=== PATIENT | male | born 1950 | race African-American/Black ===

== ENCOUNTER 2017-03-21 02:34 | Inpatient (IN) | payer MEDICAID, MEDICARE ==
[~2017-03-21] VITALS: Ht 175.3 cm; Wt 70.3 kg
[2017-03-21] VITALS (7 sets, daily range): BP systolic 113–159; BP diastolic 50–78
[~2017-03-21 02:34] MED LIST: DIAZEPAM2 MG ORAL; FLOMAX0.4 MG ORAL; KLONOPIN1 MG ORAL; METFORMIN HCL500 M1 ORAL; METHADONE HCL10 MG PO; NORCO 10/3251 EA ORAL
--- NOTE | 2017-03-21 02:43 | Emergency Room Report ---
History of Present Illness General Chief Complaint: Pain Source: Patient, EMS Present Illness HPI [id number] BIBEMS from [facility] for "left leg giving out on me." States happened 6 days ago as well, was admitted to [facility] for 5 days where "they didnt do an MRI of my leg" like they said they would. History of bladder/prostate CA, s/p chemo/rad, but "not sure if it was healed." Endorses occasional urinary incontinence, denies fecal incontinence Last visit here was multiple years ago Known methadone, opiate dependence Allergies: Coded Allergies: NO KNOWN DRUG ALLERGIES (Verified Allergy, Unknown, 12/09/14) Patient History Past Medical History: other - bladder, prostate CA Past Surgical History: none Pertinent Family History: none Social History: Denies: smoking, alcohol use, drug use Immunizations: UTD Reviewed Nursing Documentation: PMH: Agreed, PSxH: Agreed Nursing Documentation-PMH Past Medical History: No History, Except For Hx Cardiac Problems: Yes - "cardiac arrhythmia" Hx Hypertension: Yes Hx Diabetes: Yes - dm2 Hx Cancer: Yes - prostate and bladder Hx Seizures: Yes Review of Systems All Other Systems: negative except mentioned in HPI Physical Exam Vital Signs Date Time Temp Pulse Resp B/P (MAP) Pulse Ox O2 Delivery O2 Flow Rate FiO2 03/21/17 02:24 98.1 76 18 147/81 99 Room Air Sp02 EP Interpretation: reviewed, normal General Appearance: normal inspection, well appearing, no apparent distress, alert, GCS 15, non-toxic, cachetic, thin Head: normocephalic, atraumatic Eyes: bilateral eye PERRL, bilateral eye EOMI ENT: normal ENT inspection, hearing grossly normal, normal pharynx, no angioedema, normal voice, TMs + canals normal, uvula midline, moist mucus membranes Neck: normal inspection, full range of motion, supple, thyroid normal, no meningismus, no bony tend Respiratory: normal inspection, lungs clear, normal breath sounds, no rhonchi, no respiratory distress, no retraction, no accessory muscle use, no wheezing, speaking full sentences Cardiovascular #1: regular rate, rhythm, no edema, no JVD, normal capillary refill Gastrointestinal: normal inspection, normal bowel sounds, non tender, soft, no mass, no peritonitis, non-distended, no guarding, no hernia, no pulsatile mass Genitourinary: no CVA tenderness Musculoskeletal: normal inspection, back normal, normal range of motion, no calf tenderness, pelvis stable, Marco A's Sign negative Neurologic: normal inspection, alert, oriented x3, 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 H&H Stable. No other metabolic abnormalities UA: 15-20RBCs Flu negative CT: metastatic lesion to L2, no cord compression Endorsed to Dr Kunz for admission at 630am, med surg bed Rhythm Strip Diag. Results EP Interpretation: yes Rate: 75 Rhythm: NSR, no PVC's, no ectopy Last Vital Signs Date Time Temp Pulse Resp B/P (MAP) Pulse Ox O2 Delivery O2 Flow Rate FiO2 03/21/17 02:24 98.1 76 18 147/81 99 Room Air Status: improved Disposition: ADMITTED INPATIENT Condition: Serious ANGELES GIPSON M.D. Mar 21, 2017 02:43
[2017-03-21 04:26] LABS: BASOPHILS % (AUTO) 1.1 % (0.0-2.0); EOSINOPHILS % (AUTO) 2.6 % (0.0-3.0); HEMATOCRIT 32.9 % (42.0-52.0); HEMOGLOBIN 10.6 G/DL (14.2-18.0); LYMPHOCYTES % (AUTO) 31.9 % (20.0-45.0); MEAN CORPUSCULAR VOLUME 102 FL (80-99); MONOCYTES % (AUTO) 9.5 % (1.0-10.0); PLATELET COUNT 204 K/UL (150-450); RED BLOOD COUNT 3.23 M/UL (4.70-6.10); RED CELL DISTRIBUTION WIDTH 15.2 % (11.6-14.8); WHITE BLOOD COUNT 9.1 K/UL (4.8-10.8)
[2017-03-21 04:30] LABS: APPEARANCE,URINE CLEAR; BILIRUBIN, URINE NEGATIVE (NEGATIVE); GLUCOSE, URINE (UA) NEGATIVE (NEGATIVE); KETONES,URINE NEGATIVE (NEGATIVE); LEUKOCYTE ESTERASE ,URINE 1+ (NEGATIVE); NITRITE,URINE NEGATIVE (NEGATIVE); PH,URINE 5 (4.5-8.0); PROTEIN,URINE 1+ (NEGATIVE); UROBILINOGEN,URINE 1 MG/DL (0.0-1.0)
[2017-03-21 04:35] LABS: ANION GAP 9 mmol/L (5-15); BLOOD UREA NITROGEN 23 mg/dL (7-18); CALCIUM 8.8 MG/DL (8.5-10.1); CARBON DIOXIDE 27 MMOL/L (21-32); CHLORIDE 105 MMOL/L (98-107); COLOR,URINE YELLOW; CREATININE 0.9 MG/DL (0.55-1.30); POTASSIUM 3.5 MMOL/L (3.5-5.1); SODIUM 141 MMOL/L (136-145)
[2017-03-21] MEDS ORDERED: KLONOPIN1 MG ORAL (04:42)
[2017-03-21 04:49] LABS: ALANINE AMINOTRANSFERASE 20 U/L (12-78); ALBUMIN 3.2 G/DL (3.4-5.0); ALBUMIN/GLOBULIN RATIO 0.8 (1.0-2.7); ALKALINE PHOSPHATASE 110 U/L (46-116); ASPARTATE AMINO TRANSFERASE 23 U/L (15-37); BILIRUBIN,TOTAL 0.2 MG/DL (0.2-1.0); CKMB 1.8 NG/ML (0.0-3.6); CREATINE KINASE 90 U/L (26-308)
[2017-03-21] MEDS ORDERED: LORazepam Inj 2mg/ml 1ml IV PRN (06:15)
[2017-03-21] MEDS ORDERED: Mylanta II UD 30ml ORAL PRN (06:15)
[2017-03-21] MEDS ORDERED: Albuterol/Ipratropium 3ml neb HHN PRN (06:15)
[2017-03-21] MEDS ORDERED: Miralax 17gm pkt ORAL PRN (06:15)
[2017-03-21] MEDS ORDERED: Promethazine/Codeine 5ml UD ORAL PRN (06:15)
[2017-03-21] MEDS ORDERED: Nitroglycerin Subl 0.4mg tab SL PRN (06:15)
[2017-03-21] MEDS: D5 1/2NS 1,000 ML IV SCH (06:49)
[2017-03-21] MEDS ORDERED: Heparin 5000 units/ml inj SUBQ SCH (09:00)
[2017-03-21] MEDS: Tamsulosin 0.4mg cap ORAL SCH (09:37)
--- NOTE | 2017-03-21 09:43 | History and Physical ---
History of Present Illness General Date patient seen: Mar 21, 2017 Reason for Hospitalization: Pain Present Illness HPI 66 year old male with hx of IVDA, on Methasone, bladder/prostate CA, arrhythmia brought in by paramedics [facility] for "left leg giving out on me. " Pt looked chronically ill and cachectic. He is admitted evaluate weakness in lower extremity and rule out CVA. Allergies: Coded Allergies: NO KNOWN DRUG ALLERGIES (Verified Allergy, Unknown, 12/09/14) Medication History Scheduled Clonazepam* (Klonopin*), 2 MG ORAL TID, (Reported) Clonazepam* (Klonopin*), 2 MG ORAL BID, (Reported) Metformin Hcl* (Metformin Hcl*), 500 MG ORAL TWICE A DAY, (Reported) Metformin Hcl* (Metformin Hcl*), Unknown Dose ORAL TWICE A DAY, (Reported) Methadone Hcl* (Methadone*), 90 MG PO DAILY, (Reported) Tamsulosin HCl (Flomax), 0.4 MG ORAL DAILY, (Reported) Scheduled PRN Diazepam* (Diazepam*), 2 MG ORAL Q6H PRN for ANXIETY, (Reported) Hydrocodone/Acetaminophen (Hydrocodon-Acetaminophn 10-325), 1 TAB ORAL EVERY 12 HOURS PRN for For Pain, (Reported) Patient History Healthcare decision maker Resuscitation status Advanced Directive on File Past Medical/Surgical History Past Medical/Surgical History: (1) Prostate CA (2) Subdural hematoma Review of Systems Constitutional: Reports: malaise, weakness Neurological: Reports: numbness - in left leg All Other Systems: negative except mentioned in HPI Physical Exam General Appearance: cachetic Lines, tubes and drains: peripheral HEENT: normocephalic, atraumatic Neck: non-tender, supple Respiratory/Chest: chest wall non-tender, normal breath sounds Breasts: no masses Cardiovascular/Chest: normal peripheral pulses Abdomen: normal bowel sounds, non tender Last 24 Hour Vital Signs Date Time Temp Pulse Resp B/P (MAP) Pulse Ox O2 Delivery O2 Flow Rate FiO2 03/21/17 06:30 97.8 76 18 131/64 97 Room Air 03/21/17 06:24 98.0 74 18 131/50 96 Room Air 03/21/17 06:21 98.0 74 18 131/50 96 Room Air 03/21/17 04:29 98.0 64 16 128/58 99 Room Air 03/21/17 02:38 98.1 70 18 113/65 99 Room Air 03/21/17 02:24 98.1 76 18 147/81 99 Room Air Laboratory Tests Test 03/21/17 04:00 White Blood Count 9.1 K/UL (4.8-10.8) Red Blood Count 3.23 M/UL (4.70-6.10) L Hemoglobin 10.6 G/DL (14.2-18.0) L Hematocrit 32.9 % (42.0-52.0) L Mean Corpuscular Volume 102 FL (80-99) H Mean Corpuscular Hemoglobin 32.8 PG (27.0-31.0) H Mean Corpuscular Hemoglobin Concent 32.2 G/DL (32.0-36.0) Red Cell Distribution Width 15.2 % (11.6-14.8) H Platelet Count 204 K/UL (150-450) Mean Platelet Volume 6.7 FL (6.5-10.1) Neutrophils (%) (Auto) 55.0 % (45.0-75.0) Lymphocytes (%) (Auto) 31.9 % (20.0-45.0) Monocytes (%) (Auto) 9.5 % (1.0-10.0) Eosinophils (%) (Auto) 2.6 % (0.0-3.0) Basophils (%) (Auto) 1.1 % (0.0-2.0) Urine Color Yellow Urine Appearance Clear Urine pH 5 (4.5-8.0) Urine Specific [place] 1.015 (1.005-1.035) Urine Protein 1+ (NEGATIVE) H Urine Glucose (UA) Negative (NEGATIVE) Urine Ketones Negative (NEGATIVE) Urine Occult Blood 1+ (NEGATIVE) H Urine Nitrite Negative (NEGATIVE) Urine Bilirubin Negative (NEGATIVE) Urine Urobilinogen 1 MG/DL (0.0-1.0) H Urine Leukocyte Esterase 1+ (NEGATIVE) H Urine RBC 15-20 /HPF (0 - 0) H Urine WBC 2-4 /HPF (0 - 0) Urine Squamous Epithelial Cells Few /LPF (NONE/OCC) Urine Calcium Oxalate Crystals Moderate /LPF (NONE) Urine Bacteria Few /HPF (NONE) Urine Mucus Few /LPF (NONE/OCC) H Sodium Level 141 MMOL/L (136-145) Potassium Level 3.5 MMOL/L (3.5-5.1) Chloride Level 105 MMOL/L (98-107) Carbon Dioxide Level 27 MMOL/L (21-32) Anion Gap 9 mmol/L (5-15) Blood Urea Nitrogen 23 mg/dL (7-18) H Creatinine 0.9 MG/DL (0.55-1.30) Estimat Glomerular Filtration Rate > 60 mL/min (>60) Glucose Level 88 MG/DL (74-106) Calcium Level 8.8 MG/DL (8.5-10.1) Total Bilirubin 0.2 MG/DL (0.2-1.0) Aspartate Amino Transf (AST/SGOT) 23 U/L (15-37) Alanine Aminotransferase (ALT/SGPT) 20 U/L (12-78) Alkaline Phosphatase 110 U/L (46-116) Total Creatine Kinase 90 U/L (26-308) Creatine Kinase MB 1.8 NG/ML (0.0-3.6) Creatine Kinase MB Relative Index 2.0 Total Protein 7.2 G/DL (6.4-8.2) Albumin 3.2 G/DL (3.4-5.0) L Globulin 4.0 g/dL Albumin/Globulin Ratio 0.8 (1.0-2.7) L Microbiology Date/Time Source Procedure Growth Status 03/21/17 03:05 Nasal Nares Influenza Types A,B Antigen (DIONICIO) - Final Complete Height (Feet): 5 Height (Inches): 9.00 Weight (Pounds): 155 Medications Current Medications Medications (Trade) Dose Ordered Sig/Syl Route PRN Reason Start Time Stop Time Status Last Admin Dose Admin Acetaminophen (Tylenol) 650 mg Q4H PRN ORAL fever 03/21/17 06:15 04/20/17 06:14 Al Hydroxide/Mg Hydroxide (Mylanta II) 30 ml Q6H PRN ORAL dyspepsia 03/21/17 06:15 04/20/17 06:14 Albuterol/ Ipratropium (Albuterol/ Ipratropium) 3 ml Q4H PRN HHN Shortness of Breath 03/21/17 06:15 03/26/17 06:14 Clonazepam (KlonoPIN) 2 mg BID ORAL 03/21/17 09:00 03/28/17 08:59 Clonidine HCl (Catapres Tab) 0.1 mg Q4H PRN ORAL For High Blood Pressure 03/21/17 06:15 04/20/17 06:14 Dextrose (Dextrose 50%) STAT PRN IV Hypoglycemia 03/21/17 06:15 04/20/17 06:14 Dextrose/Sodium Chloride 1,000 ml @ 50 mls/hr Q20H IV 03/21/17 06:12 04/20/17 06:11 03/21/17 06:49 Diazepam (Valium) 2 mg Q6H PRN ORAL ANXIETY 03/21/17 06:15 03/28/17 06:14 Heparin Sodium (Porcine) (Heparin 5000 units/ml) 5,000 units EVERY 12 HOURS SUBQ 03/21/17 09:00 04/20/17 08:59 Lorazepam (Ativan 2mg/ml 1ml) 0.5 mg Q4H PRN IV For Anxiety 03/21/17 06:15 03/28/17 06:14 Methadone HCl (Methadone HCl) 90 mg DAILY ORAL 03/21/17 10:00 03/28/17 09:59 Morphine Sulfate (Morphine Sulfate) 1 mg Q4H PRN IVP For Pain 7-10 03/21/17 06:15 03/28/17 06:14 Nitroglycerin (Ntg) 0.4 mg Q5M X 3 DOSES PRN SL Prn Chest Pain 03/21/17 06:15 04/20/17 06:14 Ondansetron HCl (Zofran) 4 mg Q6H PRN IVP Nausea & Vomiting 03/21/17 06:15 04/20/17 06:14 Polyethylene Glycol (Miralax) 17 gm HSPRN PRN ORAL Constipation 03/21/17 06:15 04/20/17 06:14 Promethazine HCl/ Codeine (Phenergan with Codeine) 5 ml Q4H PRN ORAL For Cough 03/21/17 06:15 04/20/17 06:14 Tamsulosin HCl (Flomax) 0.4 mg DAILY ORAL 03/21/17 09:00 04/20/17 08:59 Temazepam (Restoril) 15 mg HSPRN PRN ORAL Insomnia 03/21/17 06:15 03/28/17 06:14 Assessment/Plan Problem List: (1) Left leg weakness ICD Codes: R29.898 - Other symptoms and signs involving the musculoskeletal system SNOMED: 488583387 (2) Subdural hematoma ICD Codes: I62.00 - Nontraumatic subdural hemorrhage, unspecified SNOMED: 36222503 (3) Prostate CA ICD Codes: C61 - Malignant neoplasm of prostate SNOMED: 598711377 (4) Protein-calorie malnutrition, severe ICD Codes: E43 - Unspecified severe protein-calorie malnutrition SNOMED: 332666775 Assessment/Plan mri brain symptomatic treatment neuro evaluation pt/ot carotid artery SAHARA GAMBLE Mar 21, 2017 09:43
--- NOTE | 2017-03-21 11:53 | Neurology Progress Note ---
Objective Physical Exam Last Vital Signs Date Time Temp Pulse Resp B/P (MAP) Pulse Ox O2 Delivery O2 Flow Rate FiO2 03/21/17 06:30 97.8 76 18 131/64 97 Room Air Laboratory Tests Test 03/21/17 04:00 White Blood Count 9.1 K/UL (4.8-10.8) Red Blood Count 3.23 M/UL (4.70-6.10) L Hemoglobin 10.6 G/DL (14.2-18.0) L Hematocrit 32.9 % (42.0-52.0) L Mean Corpuscular Volume 102 FL (80-99) H Mean Corpuscular Hemoglobin 32.8 PG (27.0-31.0) H Mean Corpuscular Hemoglobin Concent 32.2 G/DL (32.0-36.0) Red Cell Distribution Width 15.2 % (11.6-14.8) H Platelet Count 204 K/UL (150-450) Mean Platelet Volume 6.7 FL (6.5-10.1) Neutrophils (%) (Auto) 55.0 % (45.0-75.0) Lymphocytes (%) (Auto) 31.9 % (20.0-45.0) Monocytes (%) (Auto) 9.5 % (1.0-10.0) Eosinophils (%) (Auto) 2.6 % (0.0-3.0) Basophils (%) (Auto) 1.1 % (0.0-2.0) Urine Color Yellow Urine Appearance Clear Urine pH 5 (4.5-8.0) Urine Specific [place] 1.015 (1.005-1.035) Urine Protein 1+ (NEGATIVE) H Urine Glucose (UA) Negative (NEGATIVE) Urine Ketones Negative (NEGATIVE) Urine Occult Blood 1+ (NEGATIVE) H Urine Nitrite Negative (NEGATIVE) Urine Bilirubin Negative (NEGATIVE) Urine Urobilinogen 1 MG/DL (0.0-1.0) H Urine Leukocyte Esterase 1+ (NEGATIVE) H Urine RBC 15-20 /HPF (0 - 0) H Urine WBC 2-4 /HPF (0 - 0) Urine Squamous Epithelial Cells Few /LPF (NONE/OCC) Urine Calcium Oxalate Crystals Moderate /LPF (NONE) Urine Bacteria Few /HPF (NONE) Urine Mucus Few /LPF (NONE/OCC) H Sodium Level 141 MMOL/L (136-145) Potassium Level 3.5 MMOL/L (3.5-5.1) Chloride Level 105 MMOL/L (98-107) Carbon Dioxide Level 27 MMOL/L (21-32) Anion Gap 9 mmol/L (5-15) Blood Urea Nitrogen 23 mg/dL (7-18) H Creatinine 0.9 MG/DL (0.55-1.30) Estimat Glomerular Filtration Rate > 60 mL/min (>60) Glucose Level 88 MG/DL (74-106) Calcium Level 8.8 MG/DL (8.5-10.1) Total Bilirubin 0.2 MG/DL (0.2-1.0) Aspartate Amino Transf (AST/SGOT) 23 U/L (15-37) Alanine Aminotransferase (ALT/SGPT) 20 U/L (12-78) Alkaline Phosphatase 110 U/L (46-116) Total Creatine Kinase 90 U/L (26-308) Creatine Kinase MB 1.8 NG/ML (0.0-3.6) Creatine Kinase MB Relative Index 2.0 Total Protein 7.2 G/DL (6.4-8.2) Albumin 3.2 G/DL (3.4-5.0) L Globulin 4.0 g/dL Albumin/Globulin Ratio 0.8 (1.0-2.7) L Free Prostate Specific Antigen Pending Percent Free Prostate Specific Ag Pending Prostate Specific Antigen Total Pending Impression/Recommendations Problems: (1) r/o lumbar spinal stenosis (2) Chronic pain disorder (3) Opiate dependence, continuous (4) Prostate CA (5) Protein-calorie malnutrition, severe Status: unchanged Recommendations #[id number] ELBA DAMIAN Mar 21, 2017 11:53
--- NOTE | 2017-03-21 13:51 | Diagnostic Imaging Report ---
Indication: Weakness. Technique: CT lumbar spine was performed utilizing automated exposure control without intravenous contrast material. Axial, sagittal and coronal images were generated. CT dose: Total DLP 411.78 mGycm; CTDI vol 11.05 mGy Comparison: None Findings: There are 5 nonrib-bearing lumbar-type vertebral bodies. Ribs at T12 are rudimentary, smaller on the right than the left. The right transverse process of the L5 vertebral body is seen to articulate with the sacrum. There is a 2 cm sclerotic lesion anteriorly within the L2 vertebral body suspicious for osteoblastic metastasis given history of prostate cancer. Additional similar-appearing lesion noted within the posterior superior aspect of the vertebral body measuring approximately 5 mm. There is mild superior endplate compression of L4, likely chronic. No evidence of retropulsion at this level. No definite acute fracture identified. There are multilevel degenerative changes of the spine with small multilevel disc bulges noted, most pronounced in the lower lumbar spine. These result in varying degrees of mild central canal stenosis and mild to moderate foraminal narrowing. MRI would provide a better assessment. No bony central canal stenosis or bony foraminal narrowing. Bilateral femoral fixation screws partially visualized. Streak artifact from the screws limits evaluation of the visceral pelvis. Abdominal aorta normal in caliber with atherosclerotic calcification. Low-attenuation lesions noted in the bilateral kidneys, likely cysts. Copious stool noted in the colon. There is thickening of the bladder wall. Metallic density structure noted in the region of the prostate. 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 No evidence of definite acute fracture or retropulsion. Likely chronic mild superior endplate depression of the L4 vertebral body. Multilevel degenerative changes of the lumbar spine with small disc bulges resulting in varying degrees of mild to moderate central canal stenosis and foraminal narrowing. MRI would provide a better assessment of the central canal and disks and is recommended for further evaluation. Bilateral femoral fixation screws partially visualized. Streak artifact from orthopedic hardware limits evaluation of the visceral pelvis. Copious stool noted in the colon. Question constipation. Thickening of the bladder raising question for cystitis. Correlate with urinalysis. Metallic density structure noted in the region of the prostate of uncertain etiology. Consider KUB for further evaluation. This corresponds with the statrad preliminary report. Study obtained via the emergency department however patient admitted to the hospital at time of dictation of the final report. The CT scanner at [facility] is accredited by the [employer] and the scans are performed using protocols designed to limit radiation exposure to as low as reasonably achievable to attain images of sufficient resolution adequate for diagnostic evaluation.
[2017-03-21] MEDS ORDERED: D5 1/2NS 1000ml IV ONE (16:29)
--- NOTE | 2017-03-21 16:38 | Cardiology Progress Note ---
Assessment/Plan Assessment/Plan leg painn / wekaness prostae and bladder can hs of sdh hs of dm hs htn hx of ra [facility] ekg 'orthosa tic vitsl [id number] [id number] Objective Last 24 Hour Vital Signs Date Time Temp Pulse Resp B/P (MAP) Pulse Ox O2 Delivery O2 Flow Rate FiO2 03/21/17 13:34 98.1 62 17 142/77 96 Room Air 03/21/17 06:30 97.8 76 18 131/64 97 Room Air 03/21/17 06:24 98.0 74 18 131/50 96 Room Air 03/21/17 06:21 98.0 74 18 131/50 96 Room Air 03/21/17 04:29 98.0 64 16 128/58 99 Room Air 03/21/17 02:38 98.1 70 18 113/65 99 Room Air 03/21/17 02:24 98.1 76 18 147/81 99 Room Air Laboratory Tests Test 03/21/17 04:00 White Blood Count 9.1 K/UL (4.8-10.8) Red Blood Count 3.23 M/UL (4.70-6.10) L Hemoglobin 10.6 G/DL (14.2-18.0) L Hematocrit 32.9 % (42.0-52.0) L Mean Corpuscular Volume 102 FL (80-99) H Mean Corpuscular Hemoglobin 32.8 PG (27.0-31.0) H Mean Corpuscular Hemoglobin Concent 32.2 G/DL (32.0-36.0) Red Cell Distribution Width 15.2 % (11.6-14.8) H Platelet Count 204 K/UL (150-450) Mean Platelet Volume 6.7 FL (6.5-10.1) Neutrophils (%) (Auto) 55.0 % (45.0-75.0) Lymphocytes (%) (Auto) 31.9 % (20.0-45.0) Monocytes (%) (Auto) 9.5 % (1.0-10.0) Eosinophils (%) (Auto) 2.6 % (0.0-3.0) Basophils (%) (Auto) 1.1 % (0.0-2.0) Urine Color Yellow Urine Appearance Clear Urine pH 5 (4.5-8.0) Urine Specific [place] 1.015 (1.005-1.035) Urine Protein 1+ (NEGATIVE) H Urine Glucose (UA) Negative (NEGATIVE) Urine Ketones Negative (NEGATIVE) Urine Occult Blood 1+ (NEGATIVE) H Urine Nitrite Negative (NEGATIVE) Urine Bilirubin Negative (NEGATIVE) Urine Urobilinogen 1 MG/DL (0.0-1.0) H Urine Leukocyte Esterase 1+ (NEGATIVE) H Urine RBC 15-20 /HPF (0 - 0) H Urine WBC 2-4 /HPF (0 - 0) Urine Squamous Epithelial Cells Few /LPF (NONE/OCC) Urine Calcium Oxalate Crystals Moderate /LPF (NONE) Urine Bacteria Few /HPF (NONE) Urine Mucus Few /LPF (NONE/OCC) H Sodium Level 141 MMOL/L (136-145) Potassium Level 3.5 MMOL/L (3.5-5.1) Chloride Level 105 MMOL/L (98-107) Carbon Dioxide Level 27 MMOL/L (21-32) Anion Gap 9 mmol/L (5-15) Blood Urea Nitrogen 23 mg/dL (7-18) H Creatinine 0.9 MG/DL (0.55-1.30) Estimat Glomerular Filtration Rate > 60 mL/min (>60) Glucose Level 88 MG/DL (74-106) Calcium Level 8.8 MG/DL (8.5-10.1) Total Bilirubin 0.2 MG/DL (0.2-1.0) Aspartate Amino Transf (AST/SGOT) 23 U/L (15-37) Alanine Aminotransferase (ALT/SGPT) 20 U/L (12-78) Alkaline Phosphatase 110 U/L (46-116) Total Creatine Kinase 90 U/L (26-308) Creatine Kinase MB 1.8 NG/ML (0.0-3.6) Creatine Kinase MB Relative Index 2.0 Total Protein 7.2 G/DL (6.4-8.2) Albumin 3.2 G/DL (3.4-5.0) L Globulin 4.0 g/dL Albumin/Globulin Ratio 0.8 (1.0-2.7) L Free Prostate Specific Antigen Pending Percent Free Prostate Specific Ag Pending Prostate Specific Antigen Total Pending Microbiology Date/Time Source Procedure Growth Status 03/21/17 03:05 Nasal Nares Influenza Types A,B Antigen (DIONICIO) - Final Complete EUNICE RAMIREZ Mar 21, 2017 16:38
--- NOTE | 2017-03-21 21:03 | Consultation ---
DATE OF CONSULTATION: 03/21/2017 NEUROLOGICAL CONSULTATION DATE OF ADMISSION: 03/21/2017 REFERRING PHYSICIAN: Cuco Pulido M.D. REQUESTING PHYSICIAN: Candelario Kunz M.D. HISTORY OF PRESENT ILLNESS: This is a 66-year-old man, seen in neurological consultation to evaluate new onset of abnormal gait. The patient reportedly was fully awake in the morning, became agitated, restless, demanding his opiates. He was given methadone and became quite drowsy. For this reason, he was unable to provide me with full information. According to nursing staff as well as from medical records now that he was admitted after he started to develop intermittent weakness in his left lower extremity for the last week. He was initially taken to [facility] in [place] for five days. He was upset that they could not make "MRI of his legs". There were no changes in his treatment. The patient indicated that he has occasional urinary incontinence. On admission, his vital signs included blood pressure 147/81 and he was afebrile. He is complaining of weakness in lower extremities. His initial diagnostic studies included a CBC with elevated MCV and MCH. Chemistry panel unremarkable except BUN of 23. Urinalysis, slight hematuria, 1+ leukocyte esterase, and 1+ protein. His most recent hospitalization was 2004. Following current admission, EKG revealed normal sinus rhythm. No PVCs. His initial examination revealed "no appreciable focal neuro deficit". He was described as fully alert and oriented x3. Gait, the patient is using walker. PAST MEDICAL HISTORY: History of chronic pain, opiate dependent; history of diabetes type 2; hypertension; and COPD. His current treatment included Valium and metformin. He has a history of bladder/prostate CA and history of cardiac arrhythmia. MEDICATIONS: Treatment prior to admission also included Klonopin, but also metformin, methadone, tamsulosin, diazepam, and hydrocodone. Since admission till present, there was no paroxysmal event, but the patient demanded the methadone following which he becomes quite lethargic. ALLERGIES: None reported. FAMILY HISTORY: Unavailable. REVIEW OF SYSTEMS: The patient was mumbling, but indicating that he has trouble walking and he has some back problems. He was not endorsing headache or dizziness. Full information will we obtained when fully awake. PHYSICAL EXAMINATION: GENERAL: A well-developed, somewhat cachectic appearing man, found to be asleep. VITAL SIGNS: His blood pressure is stable. Blood pressure 128/70 and respirations 18. HEENT: Head, normocephalic. There is no evidence of trauma. Eyes, ears, and throat are clear. NECK: Rigid in all directions. MUSCULOSKELETAL: Venous stasis of both lower extremities. Peripheral pulses 1+ and symmetric. MENTAL STATUS: The patient is very lethargic after receiving methadone. He is briefly arousable on vigorous stimulation, responding yes or no. Follows simple commands. Attention is very poor. CRANIAL NERVE II: Pupils 2 mm, responding to light and accommodation. Extraocular movement full range. CRANIAL NERVE V: Normal corneal responses. CRANIAL NERVE VII: No facial asymmetry. CRANIAL NERVE VIII: Grossly normal hearing. CRANIAL NERVES IX THROUGH XII: Tongue is in midline. Symmetric palate elevation. MOTOR EXAMINATION: Able to lift arms and legs against the gravity. No asymmetry noted. Deep tendon reflexes depressed bilaterally. Plantar response is flexor. No pathological responses. SENSORY: Withdrawing to pin stimulation in all limbs. Gait not tested, but reported in the morning was able to ambulate with walker. IMPRESSION: 1. Intermittent weakness in both lower extremities, predominantly on the left, rule out lumbar spinal stenosis, doubt presence of myelopathy. 2. History of subdural hematoma, chronic. 3. Chronic pain syndrome, opiate dependent. 4. History of bladder/prostate cancer. 5. Hypertension. 6. Diabetes type 2. 7. Cachexia and malnutrition. RECOMMENDATION: We will obtain CT of the brain and lumbar spine. We will re-evaluate the patient when fully awake. Get PT/OT assessment. Rule out occult malignancy as per attending. Discussed the patient's status with medical staff. Thank you for allowing me to see this interesting patient in neurological consultation. Cuco Pulido M.D. DR: Kimmie JOB#: [id number] CC:
[2017-03-22] VITALS: BP 145/83
--- NOTE | 2017-03-22 01:30 | Consultation ---
DATE OF CONSULTATION: 03/21/2017 CARDIOLOGY CONSULTATION REFERRING PHYSICIAN: Candelario Kunz M.D. REASON FOR REFERRAL: Palpitations and shortness of breath. HISTORY OF PRESENT ILLNESS: There is an elderly gentleman who is somewhat of a poor historian. The patient apparently recently hospitalized one week ago at [facility] in [place]. From what I gathered is that he has pain in the left leg. He is diagnosed with some kind of an infection and was treated and was discharged from there. Apparently, nobody addressed the fact that he was having some leg pain. He tried to walk at the hospital and felt to have difficulty walking. He called paramedics, who was brought to the emergency room at [facility] and he has been admitted here for further evaluation. He indicates he has had some "PVCs". He has had some chest pain. The chest pain was little bit one week ago and he was evaluated and no abnormalities apparently found according to what he described. He does have two pillow usage. He occasionally gets short of breath with activity, occasionally gets lightheaded when standing, occasionally has palpitation, and occasionally will have chest pains. PAST MEDICAL HISTORY: Positive for history of recently diagnosed bladder and prostate cancer. He states he does not have any cancer doctors, but the chart also indicates that he has previously had some chemotherapy of some kind and details of that unfortunately are not known. Nevertheless, he has been admitted here back in November 2014 and he has had diagnosis of syncope, subdural hematoma, chronic pain, dependence with methadone use, diabetes mellitus, hypertension, anxiety, and at that time he had benign prostatic hypertrophy. The cardiac workup apparently was negative at that time. There is also according to the patient rheumatoid arthritis. ALLERGIES: He is not allergic to any medications. SOCIAL HISTORY: He denies any drug use or alcohol use. He smokes. REVIEW OF SYSTEMS: GASTROINTESTINAL: discharge. PULMONARY: He does have some coughing occasionally and wheezing. CONSTITUTIONAL: Negative. PHYSICAL EXAMINATION: GENERAL: Shows to be thin, elderly gentleman, difficult to hear. NECK: Supple. No jugular venous distention. LUNGS: Decreased breath sounds noted bilaterally. CARDIAC: Showed regular rate and rhythm. No heaves or thrills. ABDOMEN: Soft and nontender. EXTREMITIES: He has pneumatic compression stockings in place. He has some tenderness in the ankles to palpation. LABORATORY VALUES: An echocardiogram shows ejection fraction of 55% to 60%, [id number] mitral regurgitation, mild diastolic relaxation abnormality, PA pressure of 30s. Unfortunately, there are no electrocardiograms for review. His blood tests show white count of 9, hemoglobin 10.6, and platelet count of 204,000. Sodium is 141, potassium 3.5, chloride 105, bicarbonate 27, BUN 22, creatinine 0.9, and glucose of 88. Liver function tests are normal. Albumin is 3.2. Coags, INR 1.2 and PTT of 33. Urinalysis 15 to 20 rbc's and 2 to 4 wbc's. 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 ASSESSMENT AND PLAN: 1. Leg pain and weakness. 2. Prostate and bladder cancer history. 3. History of subdural hematoma. 4. History of diabetes mellitus. 5. History of hypertension. 6. History of rheumatoid arthritis. Dr. Kunz, this patient was seen in cardiac consultation. The patient does appear to indicate that he has an acute symptom. He states some symptoms that he had from a cardiac point of view are shortness of breath, palpitations, dizziness, and it seemed to be chronic . He will have an EKG performed. His laboratories were reviewed. He has not had any cardiac enzymes checked as it was found he did not tell anybody about any chest pain. Nevertheless, I have ordered a set of cardiac enzymes for tomorrow morning. Natriuretic peptide will also be checked as well as the EKG. I will follow the patient along with you. Carlton Das M.D. DR: Alexia JOB#: [id number] CC:
[2017-03-22] MEDS: D5 1/2NS 1,000 ML IV SCH ×2 (02:12→20:40)
[2017-03-22 04:00] VITALS: BP 134/70
[2017-03-22 06:30] LABS: BASOPHILS % (AUTO) 0.7 % (0.0-2.0); EOSINOPHILS % (AUTO) 5.6 % (0.0-3.0); HEMATOCRIT 34.6 % (42.0-52.0); LYMPHOCYTES % (AUTO) 47.6 % (20.0-45.0); MEAN CORPUSCULAR VOLUME 102 FL (80-99); MONOCYTES % (AUTO) 9.9 % (1.0-10.0); NEUTROPHILS % (AUTO) 36.2 % (45.0-75.0); PLATELET COUNT 196 K/UL (150-450); RED BLOOD COUNT 3.38 M/UL (4.70-6.10); RED CELL DISTRIBUTION WIDTH 15.2 % (11.6-14.8); WHITE BLOOD COUNT 4.7 K/UL (4.8-10.8)
[2017-03-22 06:41] LABS: ANION GAP 8 mmol/L (5-15); BLOOD UREA NITROGEN 14 mg/dL (7-18); CALCIUM 8.8 MG/DL (8.5-10.1); CARBON DIOXIDE 29 MMOL/L (21-32); CHLORIDE 106 MMOL/L (98-107); CREATININE 0.6 MG/DL (0.55-1.30); POTASSIUM 3.5 MMOL/L (3.5-5.1); SODIUM 143 MMOL/L (136-145)
[2017-03-22 06:48] LABS: AMMONIA 10 umol/L (11-32)
[2017-03-22 06:53] LABS: ALANINE AMINOTRANSFERASE 19 U/L (12-78); ALBUMIN 2.9 G/DL (3.4-5.0); ALBUMIN/GLOBULIN RATIO 0.8 (1.0-2.7); ALKALINE PHOSPHATASE 106 U/L (46-116); ASPARTATE AMINO TRANSFERASE 24 U/L (15-37); BILIRUBIN,TOTAL 0.4 MG/DL (0.2-1.0); CHOLESTEROL 167 MG/DL (< 200); HDL CHOLESTEROL 63 MG/DL (40-60); TRIGLYCERIDES 90 MG/DL (30-150)
[2017-03-22 07:56] LABS: LACTATE DEHYDROGENASE 169 U/L (81-234)
[2017-03-22 08:00] VITALS: BP 108/66
[2017-03-22 08:10] LABS: % IRON SATURATION 29 % (15-50); IRON 93 ug/dL (50-175); TOTAL IRON BINDING CAPACITY 321 ug/dL (250-450)
--- NOTE | 2017-03-22 08:33 | Diagnostic Imaging Report ---
Indications: Altered mental status Technique: Spiral acquisitions obtained through the brain. Angled axial and coronal 5 x 5 mm slices were reconstructed. Total dose length product 1376.09 mGycm. CTDI vol(s) 70.38 mGy. Dose reduction achieved using automated exposure control Comparison: 12/09/2014 Findings: Again demonstrated is age-related enlargement of the ventricles and extra-axial CSF spaces and periventricular deep white matter chronic ischemic change. No acute intracranial hemorrhage or edema, mass effect, nor midline shift. Previously demonstrated right frontal subdural hematoma is no longer evident. There is chronic appearing deformity of the left medial orbital wall. Mastoids are clear. The calvarium is intact Impression: Chronic and age-related changes as described No acute intracranial bleed or mass effect Since 12/09/2014, interim resolution of previously demonstrated small frontal subdural hematoma The CT scanner at [facility] is accredited by the [employer] and the scans are performed using protocols designed to limit radiation exposure to as low as reasonably achievable to attain images of sufficient resolution adequate for diagnostic evaluation.
[2017-03-22] MEDS: Tamsulosin 0.4mg cap ORAL SCH (08:45)
[2017-03-22] MEDS: Morphine Sulfate 2mg/ml Inj IVP PRN ×2 (11:59→20:42)
[2017-03-22 12:00] VITALS: BP 123/68
--- NOTE | 2017-03-22 12:32 | Neurology Progress Note ---
Interim History Interim History ROS Limited/Unobtainable: No Complaints: x 2 weeks of L sided pain, difficulty to ambulate Events: bedridden didnot cooperate with PT/OT Objective Physical Exam Last Vital Signs Date Time Temp Pulse Resp B/P (MAP) Pulse Ox O2 Delivery O2 Flow Rate FiO2 03/22/17 08:00 97.3 59 18 108/66 98 Room Air 03/22/17 06:54 21 Laboratory Tests Test 03/22/17 05:50 White Blood Count 4.7 K/UL (4.8-10.8) L Red Blood Count 3.38 M/UL (4.70-6.10) L Hemoglobin 11.0 G/DL (14.2-18.0) L Hematocrit 34.6 % (42.0-52.0) L Mean Corpuscular Volume 102 FL (80-99) H Mean Corpuscular Hemoglobin 32.6 PG (27.0-31.0) H Mean Corpuscular Hemoglobin Concent 31.8 G/DL (32.0-36.0) L Red Cell Distribution Width 15.2 % (11.6-14.8) H Platelet Count 196 K/UL (150-450) Mean Platelet Volume 6.9 FL (6.5-10.1) Neutrophils (%) (Auto) 36.2 % (45.0-75.0) L Lymphocytes (%) (Auto) 47.6 % (20.0-45.0) H Monocytes (%) (Auto) 9.9 % (1.0-10.0) Eosinophils (%) (Auto) 5.6 % (0.0-3.0) H Basophils (%) (Auto) 0.7 % (0.0-2.0) Differential Total Cells Counted 100 Neutrophils % (Manual) 37 % (45-75) L Lymphocytes % (Manual) 48 % (20-45) H Monocytes % (Manual) 9 % (1-10) Eosinophils % (Manual) 5 % (0-3) H Basophils % (Manual) 1 % (0-2) Band Neutrophils 0 % (0-8) Platelet Estimate Adequate Platelet Morphology Normal Hypochromasia 1+ Macrocytosis 1+ Erythrocyte Sedimentation Rate 46 MM/HR (0-20) H Reticulocyte Count 1.2 % (0.0-2.0) Prothrombin Time 10.3 SEC (9.30-11.50) Prothromb Time International Ratio 1.0 (0.9-1.1) Activated Partial Thromboplast Time 30 SEC (23-33) Sodium Level 143 MMOL/L (136-145) Potassium Level 3.5 MMOL/L (3.5-5.1) Chloride Level 106 MMOL/L (98-107) Carbon Dioxide Level 29 MMOL/L (21-32) Anion Gap 8 mmol/L (5-15) Blood Urea Nitrogen 14 mg/dL (7-18) Creatinine 0.6 MG/DL (0.55-1.30) Estimat Glomerular Filtration Rate > 60 mL/min (>60) Glucose Level 72 MG/DL (74-106) L Calcium Level 8.8 MG/DL (8.5-10.1) Iron Level 93 ug/dL (50-175) Total Iron Binding Capacity 321 ug/dL (250-450) Percent Iron Saturation 29 % (15-50) Unsaturated Iron Binding 228 ug/dL (112-346) Total Bilirubin 0.4 MG/DL (0.2-1.0) Aspartate Amino Transf (AST/SGOT) 24 U/L (15-37) Alanine Aminotransferase (ALT/SGPT) 19 U/L (12-78) Alkaline Phosphatase 106 U/L (46-116) Ammonia 10 umol/L (11-32) L Lactate Dehydrogenase 169 U/L (81-234) Troponin I 0.006 ng/mL (0.000-0.056) Pro-B-Type Natriuretic Peptide 639 pg/mL (0-125) H Total Protein 6.6 G/DL (6.4-8.2) Albumin 2.9 G/DL (3.4-5.0) L Globulin 3.7 g/dL Albumin/Globulin Ratio 0.8 (1.0-2.7) L Triglycerides Level 90 MG/DL (30-150) Cholesterol Level 167 MG/DL (< 200) LDL Cholesterol 91 mg/dL (<100) HDL Cholesterol 63 MG/DL (40-60) H Cholesterol/HDL Ratio 2.7 (3.3-4.4) L Vitamin B12 Level 739 PG/ML (193-986) Folate 18.1 NG/ML (8.6-58.9) Thyroid Stimulating Hormone (TSH) 1.739 uiU/mL (0.358-3.740) General: well developed, no acute distress, other - cachectic tenderness L chest shoulder leg. head Neurologic Exam Speech: normal speech, no dysarthia Language: normal language, no aphasia Cranial Nerve II: fundus normal, visual lynch, no papilledema Cranial Nerves III, IV, : PERRLA, EOMI, pupils Cranial Nerve V: normal facial sensations, temporales function normal, masseters function normal, pterygoids function normal Cranial Nerve VII: normal facial expressions Cranial Nerve VIII: no nystagmus Cranial Nerve IX: gag response Cranial Nerve XI: trapezii function normal Cranial Nerve XII: tongue midline, no tongue atrophy/fasciculations Motor System: normal muscle tone, no involuntary movement, other Sensory: normal pinprick Deep Tendon Reflexes: 0 bicep (L), 0 bicep (R), 0 tricep (L), 0 tricep (R), 0 brachioradialis (L), 0 brachioradialis (R), 0 knee (L), 0 knee (R), 0 ankle (L) , 0 ankle (R) Reflexes: mute plantar (L), mute plantar (R) Impression/Recommendations Problems: (1) Chronic pain disorder (2) Opiate dependence, continuous (3) Prostate CA (4) Protein-calorie malnutrition, severe (5) Spinal stenosis of lumbar region Status: unchanged Recommendations #[id number] ELBA DAMIAN Mar 22, 2017 12:32
--- NOTE | 2017-03-22 14:37 | Pulmonology Progress Note ---
Assessment/Plan Problems: (1) Left leg weakness (2) Subdural hematoma (3) Prostate CA (4) Protein-calorie malnutrition, severe Assessment/Plan check MRI ( pending results) pain management swallow evaluation. Subjective ROS Limited/Unobtainable: No Constitutional: Reports: no symptoms HEENT: Repors: no symptoms Respiratory: Reports: no symptoms Allergies: Coded Allergies: NO KNOWN DRUG ALLERGIES (Verified Allergy, Unknown, 12/09/14) Objective Last 24 Hour Vital Signs Date Time Temp Pulse Resp B/P (MAP) Pulse Ox O2 Delivery O2 Flow Rate FiO2 03/22/17 12:00 96.5 57 17 123/68 98 Room Air 03/22/17 08:00 97.3 59 18 108/66 98 Room Air 03/22/17 06:54 61 16 Room Air 21 03/22/17 04:00 98.5 61 18 134/70 94 Room Air 03/22/17 00:00 98.1 62 18 145/83 98 Room Air 03/21/17 20:00 97.2 54 16 159/78 98 Room Air 03/21/17 17:25 98.1 76 20 138/69 97 Room Air Intake and Output 03/21/17 03/22/17 19:00 07:00 Intake Total 550 ml 450 ml Output Total 400 ml 800 ml Balance 150 ml -350 ml Intake IV Total 550 ml 450 ml Output Urine Total 400 ml 800 ml General Appearance: WD/WN HEENT: normocephalic Respiratory/Chest: chest wall non-tender, normal breath sounds Cardiovascular: normal peripheral pulses, normal rate Abdomen: normal bowel sounds, soft, non tender Genitourinary: normal external genitalia Neurologic/Psychiatric: hat trimmer II-XII grossly normal Lymphatic: no neck adenopathy Microbiology Date/Time Source Procedure Growth Status 03/21/17 03:05 Nasal Nares Influenza Types A,B Antigen (DIONICIO) - Final Complete Laboratory Tests 03/22/17 05:50: White Blood Count 4.7L, Red Blood Count 3.38L, Hemoglobin 11.0L, Hematocrit 34.6L, Mean Corpuscular Volume 102H, Mean Corpuscular Hemoglobin 32.6H, Mean Corpuscular Hemoglobin Concent 31.8L, Red Cell Distribution Width 15.2H, Platelet Count 196, Mean Platelet Volume 6.9, Neutrophils (%) (Auto) 36.2L, Lymphocytes (%) (Auto) 47.6H, Monocytes (%) (Auto) 9.9, Eosinophils (%) (Auto) 5.6H, Basophils (%) (Auto) 0.7, Differential Total Cells Counted 100, Neutrophils % (Manual) 37L, Lymphocytes % (Manual) 48H, Monocytes % (Manual) 9, Eosinophils % (Manual) 5H, Basophils % (Manual) 1, Band Neutrophils 0, Platelet Estimate Adequate, Platelet Morphology Normal, Hypochromasia 1+, Macrocytosis 1+ , Erythrocyte Sedimentation Rate 46H, Reticulocyte Count 1.2, Prothrombin Time 10.3, Prothromb Time International Ratio 1.0, Activated Partial Thromboplast Time 30, Sodium Level 143, Potassium Level 3.5, Chloride Level 106, Carbon Dioxide Level 29, Anion Gap 8, Blood Urea Nitrogen 14, Creatinine 0.6, Estimat Glomerular Filtration Rate > 60, Glucose Level 72L, Calcium Level 8.8, Iron Level 93, Total Iron Binding Capacity 321, Percent Iron Saturation 29, Unsaturated Iron Binding 228, Total Bilirubin 0.4, Aspartate Amino Transf (AST/ SGOT) 24, Alanine Aminotransferase (ALT/SGPT) 19, Alkaline Phosphatase 106, Ammonia 10L, Lactate Dehydrogenase 169, Troponin I 0.006, Pro-B-Type Natriuretic Peptide 639H, Total Protein 6.6, Albumin 2.9L, Globulin 3.7, Albumin /Globulin Ratio 0.8L, Triglycerides Level 90, Cholesterol Level 167, LDL Cholesterol 91, HDL Cholesterol 63H, Cholesterol/HDL Ratio 2.7L, Vitamin B12 Level 739, Folate 18.1, Thyroid Stimulating Hormone (TSH) 1.739 Current Medications Medications (Trade) Dose Ordered Sig/Syl Route PRN Reason Start Time Stop Time Status Last Admin Dose Admin Acetaminophen (Tylenol) 650 mg Q4H PRN ORAL fever 03/21/17 06:15 04/20/17 06:14 Al Hydroxide/Mg Hydroxide (Mylanta II) 30 ml Q6H PRN ORAL dyspepsia 03/21/17 06:15 04/20/17 06:14 Albuterol/ Ipratropium (Albuterol/ Ipratropium) 3 ml Q4H PRN HHN Shortness of Breath 03/21/17 06:15 03/26/17 06:14 Clonazepam (KlonoPIN) 2 mg BID ORAL 03/21/17 09:00 03/28/17 08:59 03/22/17 08:46 Clonidine HCl (Catapres Tab) 0.1 mg Q4H PRN ORAL For High Blood Pressure 03/21/17 06:15 04/20/17 06:14 Dextrose (Dextrose 50%) STAT PRN IV Hypoglycemia 03/21/17 06:15 04/20/17 06:14 Dextrose/Sodium Chloride 1,000 ml @ 50 mls/hr Q20H IV 03/21/17 06:12 04/20/17 06:11 03/21/17 06:49 Diazepam (Valium) 2 mg Q6H PRN ORAL ANXIETY 03/21/17 06:15 03/28/17 06:14 Lorazepam (Ativan 2mg/ml 1ml) 0.5 mg Q4H PRN IV For Anxiety 03/21/17 06:15 03/28/17 06:14 Methadone HCl (Methadone HCl) 90 mg DAILY@0500 ORAL 03/22/17 05:00 03/29/17 04:59 03/22/17 04:52 Morphine Sulfate (Morphine Sulfate) 1 mg Q4H PRN IVP For Pain 7-10 03/21/17 06:15 03/28/17 06:14 03/22/17 11:59 Nitroglycerin (Ntg) 0.4 mg Q5M X 3 DOSES PRN SL Prn Chest Pain 03/21/17 06:15 04/20/17 06:14 Ondansetron HCl (Zofran) 4 mg Q6H PRN IVP Nausea & Vomiting 03/21/17 06:15 04/20/17 06:14 Polyethylene Glycol (Miralax) 17 gm HSPRN PRN ORAL Constipation 03/21/17 06:15 04/20/17 06:14 Promethazine HCl/ Codeine (Phenergan with Codeine) 5 ml Q4H PRN ORAL For Cough 03/21/17 06:15 04/20/17 06:14 Tamsulosin HCl (Flomax) 0.4 mg DAILY ORAL 03/21/17 09:00 04/20/17 08:59 03/22/17 08:45 Temazepam (Restoril) 15 mg HSPRN PRN ORAL Insomnia 03/21/17 06:15 03/28/17 06:14 SAHARA GAMBLE Mar 22, 2017 14:37
--- NOTE | 2017-03-22 15:04 | Diagnostic Imaging Report ---
Indication: Low back pain, lower extremity weakness x2 days Technique: Sagittal T1 and T2 fast spin echo, sagittal STIR, axial T1 and T2 fast spin-echo images of the lumbar spine Comparison: CT scan dated 03/21/2017 Findings: There is a 2 x 1.5 x 1.3 cm focus of very low signal within the L2 vertebral body to the right of midline, corresponding to the sclerotic abnormality described on recent CT scan. Smaller similar focus is seen in the posterior superior corner of the L2 vertebral body. No other marrow signal abnormality demonstrated. The bony alignment is normal. The vertebral body heights are preserved. The disc spaces are preserved. There is some disc desiccation noted. The conus medullaris terminates at the inferior T12 level. At L1-2, SNA and ligamentum flavum hypertrophy results in minimal narrowing of the bilateral neural foramina. No significant disc bulge or protrusion or spinal stenosis. At L4-5, there is mild circumferential annular bulge, which does not significantly narrow the spinal canal. There is minimal narrowing of the left neural foramen, predominantly due to ligament flavum hypertrophy. At the remaining disc levels, no significant disc bulge or protrusion, spinal stenosis, or neural foraminal stenosis. Incidentally noted is a cyst in the right kidney, also demonstrated on recent CT Impression: Foci of very low signal on all sequences in the L2 vertebral body, corresponding to the densely osteosclerotic foci demonstrated on recent CT scan. Given the absence of surrounding bone marrow edema, as well as the degree of signal void and density of sclerosis seen on the CT scan, doubt active metastatic disease as etiology of these findings. Favor that these represent benign bone islands, less likely treated metastatic deposits Mild degenerative changes, as detailed above Incidental finding right renal cyst
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
--- NOTE | 2017-03-22 18:23 | Cardiology Report ---
APPROVED REPORT EXAM: Two-dimensional and M-mode echocardiogram with Doppler and color Doppler. INDICATION Left ventricular function M-Mode DIMENSIONS IVSd0.8 (0.7-1.1cm)Left Atrium (MM)3.0 (1.6-4.0cm) LVDd4.9 (3.5-5.6cm)Aortic Root2.8 (2.0-3.7cm) PWd0.9 (0.7-1.1cm)Aortic Cusp Exc.1.8 (1.5-2.0cm) LVDs3.3 (2.5-4.0cm) PWs1.4 cm Technically difficult study due to poor acoustical windows. Normal left ventricular chamber size, systolic function and wall motion. Left ventricular ejection fraction estimated to be 55-60%. No evidence of left ventricular hypertrophy. No evidence of pericardial or pleural effusion. All other cardiac chamber sizes are within normal limits. Focal aortic valve sclerosis with adequate cusp excursion. Thickened mitral valve leaflets with normal excursion. Mild mitral annulus and aortic root calcification. Pulmonic valve not well visualized. Normal tricuspid valve structure. IVC is normal in size and collapsible with respiration. A color flow and spectral Doppler study was performed and revealed: No aortic regurgitation. Trace to mild mitral regurgitation (2 jets). Mitral diastolic velocities suggest reduced left ventricular relaxation c/w diastolic dysfunction grade 1. Mild tricuspid regurgitation. Tricuspid systolic velocities suggests peak right ventricular systolic pressure of 39 mmHg Consistent with mild pulmonary hypertension.
[2017-03-22 20:32] VITALS: BP 141/66
[2017-03-23 00:55] VITALS: BP 137/62
[2017-03-23 04:41] VITALS: BP 144/66
[2017-03-23 08:00] VITALS: BP 127/74
[2017-03-23] MEDS: Tamsulosin 0.4mg cap ORAL SCH (08:48)
[2017-03-23] MEDS: Morphine Sulfate 2mg/ml Inj IVP PRN (12:48)
[2017-03-23 12:52] VITALS: BP 128/69
--- NOTE | 2017-03-23 14:53 | Pulmonology Progress Note ---
Assessment/Plan Problems: (1) Left leg weakness (2) Subdural hematoma (3) Prostate CA (4) Protein-calorie malnutrition, severe Assessment/Plan check MRI pain management swallow evaluation. CT abdomen and pelvis to evaluate postate cancer, PSA came back very high Subjective ROS Limited/Unobtainable: No Constitutional: Reports: no symptoms HEENT: Repors: no symptoms Allergies: Coded Allergies: NO KNOWN DRUG ALLERGIES (Verified Allergy, Unknown, 12/09/14) Objective Last 24 Hour Vital Signs Date Time Temp Pulse Resp B/P (MAP) Pulse Ox O2 Delivery O2 Flow Rate FiO2 03/23/17 12:52 98.0 69 20 128/69 97 Room Air 03/23/17 09:26 68 18 Room Air 21 03/23/17 08:00 97.0 70 20 127/74 95 Room Air 03/23/17 04:41 98.1 57 18 144/66 95 03/23/17 00:55 98.2 61 18 137/62 94 03/22/17 20:32 98.1 59 19 141/66 94 03/22/17 18:39 66 18 Room Air 21 Intake and Output 03/22/17 03/23/17 19:00 07:00 Intake Total 450 ml 1170 ml Output Total 600 ml Balance -150 ml 1170 ml Intake Oral 450 ml 720 ml IV Total 450 ml Output Urine Total 600 ml # Voids 1 General Appearance: cachetic HEENT: normocephalic, atraumatic Respiratory/Chest: chest wall non-tender, lungs clear Cardiovascular: normal peripheral pulses, normal rate Abdomen: normal bowel sounds, no organomegaly Microbiology Date/Time Source Procedure Growth Status 03/21/17 03:05 Nasal Nares MRSA Culture - Final NO METHICILLIN RESISTANT STAPH AUREUS... Complete 03/21/17 03:05 Nasal Nares Influenza Types A,B Antigen (DIONICIO) - Final Complete 03/21/17 03:05 Rectum VRE Culture - Final NO VANCOMYCIN RESISTANT ENTEROCOCCUS ... Complete Current Medications Medications (Trade) Dose Ordered Sig/Syl Route PRN Reason Start Time Stop Time Status Last Admin Dose Admin Acetaminophen (Tylenol) 650 mg Q4H PRN ORAL fever 03/21/17 06:15 04/20/17 06:14 Al Hydroxide/Mg Hydroxide (Mylanta II) 30 ml Q6H PRN ORAL dyspepsia 03/21/17 06:15 04/20/17 06:14 Albuterol/ Ipratropium (Albuterol/ Ipratropium) 3 ml Q4H PRN HHN Shortness of Breath 03/21/17 06:15 03/26/17 06:14 Clonazepam (KlonoPIN) 2 mg BID ORAL 03/21/17 09:00 03/28/17 08:59 03/23/17 08:48 Clonidine HCl (Catapres Tab) 0.1 mg Q4H PRN ORAL For High Blood Pressure 03/21/17 06:15 04/20/17 06:14 Dextrose (Dextrose 50%) STAT PRN IV Hypoglycemia 03/21/17 06:15 04/20/17 06:14 Dextrose/Sodium Chloride 1,000 ml @ 50 mls/hr Q20H IV 03/21/17 06:12 04/20/17 06:11 03/22/17 20:40 Diazepam (Valium) 2 mg Q6H PRN ORAL ANXIETY 03/21/17 06:15 03/28/17 06:14 Lorazepam (Ativan 2mg/ml 1ml) 0.5 mg Q4H PRN IV For Anxiety 03/21/17 06:15 03/28/17 06:14 Methadone HCl (Methadone HCl) 90 mg DAILY@0500 ORAL 03/22/17 05:00 03/29/17 04:59 03/23/17 05:17 Morphine Sulfate (Morphine Sulfate) 1 mg Q4H PRN IVP For Pain 7-10 03/21/17 06:15 03/28/17 06:14 03/23/17 12:48 Nitroglycerin (Ntg) 0.4 mg Q5M X 3 DOSES PRN SL Prn Chest Pain 03/21/17 06:15 04/20/17 06:14 Ondansetron HCl (Zofran) 4 mg Q6H PRN IVP Nausea & Vomiting 03/21/17 06:15 04/20/17 06:14 Polyethylene Glycol (Miralax) 17 gm HSPRN PRN ORAL Constipation 03/21/17 06:15 04/20/17 06:14 Promethazine HCl/ Codeine (Phenergan with Codeine) 5 ml Q4H PRN ORAL For Cough 03/21/17 06:15 04/20/17 06:14 Tamsulosin HCl (Flomax) 0.4 mg DAILY ORAL 03/21/17 09:00 04/20/17 08:59 03/23/17 08:48 Temazepam (Restoril) 15 mg HSPRN PRN ORAL Insomnia 03/21/17 06:15 03/28/17 06:14 SAHARA GAMBLE Mar 23, 2017 14:53
[2017-03-23 16:33] VITALS: BP 138/79
[2017-03-23] MEDS: D5 1/2NS 1,000 ML IV SCH (18:12)
[2017-03-23 20:00] VITALS: BP 115/55
[2017-03-24 00:51] VITALS: BP 110/57
[2017-03-24 04:00] VITALS: BP 104/59
[2017-03-24] MEDS: Morphine Sulfate 2mg/ml Inj IVP PRN (07:57)
[2017-03-24 08:16] VITALS: BP 163/73
[2017-03-24] MEDS: Tamsulosin 0.4mg cap ORAL SCH (09:10)
[2017-03-24 12:00] VITALS: BP 161/72
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
[2017-03-24] MEDS: D5 1/2NS 1,000 ML IV SCH (14:12)
[2017-03-24 16:00] VITALS: BP 118/55
[2017-03-24] MEDS ORDERED: FLOMAX0.4 MG ORAL (16:26)
--- NOTE | 2017-03-24 16:28 | Pulmonology Progress Note ---
Assessment/Plan Problems: (1) Left leg weakness (2) Subdural hematoma (3) Prostate CA (4) Protein-calorie malnutrition, severe Assessment/Plan pain management swallow evaluation. CT abdomen and pelvis reviewed, [place]. PSA came back very high pt agreed with home with hospice. Subjective ROS Limited/Unobtainable: No Constitutional: Reports: no symptoms HEENT: Repors: no symptoms Allergies: Coded Allergies: NO KNOWN DRUG ALLERGIES (Verified Allergy, Unknown, 12/09/14) Objective Last 24 Hour Vital Signs Date Time Temp Pulse Resp B/P (MAP) Pulse Ox O2 Delivery O2 Flow Rate FiO2 03/24/17 12:00 97 Room Air 03/24/17 12:00 97.5 50 20 161/72 97 03/24/17 08:27 97.9 03/24/17 08:16 97.9 47 20 163/73 97 03/24/17 08:16 97 Room Air 03/24/17 04:00 98.4 62 18 104/59 96 03/24/17 00:51 98.1 59 18 110/57 95 03/23/17 20:00 98.5 60 17 115/55 94 03/23/17 16:33 97.0 70 18 138/79 99 Room Air Intake and Output 03/23/17 03/24/17 19:00 07:00 Intake Total 770 ml 500 ml Output Total 1200 ml Balance 770 ml -700 ml Intake Oral 720 ml IV Total 50 ml 500 ml Output Urine Total 1200 ml # Voids 1 3 General Appearance: cachetic Respiratory/Chest: chest wall non-tender, lungs clear Cardiovascular: normal peripheral pulses, normal rate Abdomen: normal bowel sounds, soft, non tender Extremities: no cyanosis Skin: no rash Current Medications Medications (Trade) Dose Ordered Sig/Syl Route PRN Reason Start Time Stop Time Status Last Admin Dose Admin Acetaminophen (Tylenol) 650 mg Q4H PRN ORAL fever 03/21/17 06:15 04/20/17 06:14 Al Hydroxide/Mg Hydroxide (Mylanta II) 30 ml Q6H PRN ORAL dyspepsia 03/21/17 06:15 04/20/17 06:14 Albuterol/ Ipratropium (Albuterol/ Ipratropium) 3 ml Q4H PRN HHN Shortness of Breath 03/21/17 06:15 03/26/17 06:14 Clonazepam (KlonoPIN) 2 mg BID ORAL 03/21/17 09:00 03/28/17 08:59 03/24/17 09:11 Clonidine HCl (Catapres Tab) 0.1 mg Q4H PRN ORAL For High Blood Pressure 03/21/17 06:15 04/20/17 06:14 Dextrose (Dextrose 50%) STAT PRN IV Hypoglycemia 03/21/17 06:15 04/20/17 06:14 Dextrose/Sodium Chloride 1,000 ml @ 50 mls/hr Q20H IV 03/21/17 06:12 04/20/17 06:11 03/22/17 20:40 Diazepam (Valium) 2 mg Q6H PRN ORAL ANXIETY 03/21/17 06:15 03/28/17 06:14 Hydromorphone HCl (Dilaudid) 1 mg Q4H PRN IVP Severe Pain (Pain Scale 7-10) 03/24/17 09:45 03/31/17 09:44 Lorazepam (Ativan 2mg/ml 1ml) 0.5 mg Q4H PRN IV For Anxiety 03/21/17 06:15 03/28/17 06:14 Methadone HCl (Methadone HCl) 90 mg DAILY@0500 ORAL 03/22/17 05:00 03/29/17 04:59 03/24/17 05:24 Nitroglycerin (Ntg) 0.4 mg Q5M X 3 DOSES PRN SL Prn Chest Pain 03/21/17 06:15 04/20/17 06:14 Ondansetron HCl (Zofran) 4 mg Q6H PRN IVP Nausea & Vomiting 03/21/17 06:15 04/20/17 06:14 Polyethylene Glycol (Miralax) 17 gm HSPRN PRN ORAL Constipation 03/21/17 06:15 04/20/17 06:14 Promethazine HCl/ Codeine (Phenergan with Codeine) 5 ml Q4H PRN ORAL For Cough 03/21/17 06:15 04/20/17 06:14 Tamsulosin HCl (Flomax) 0.4 mg DAILY ORAL 03/21/17 09:00 04/20/17 08:59 03/24/17 09:10 Temazepam (Restoril) 15 mg HSPRN PRN ORAL Insomnia 03/21/17 06:15 03/28/17 06:14 SAHARA GAMBLE Mar 24, 2017 16:28
[2017-03-24] MEDS: Hydromorphone 0.5mg/0.5ml inj IVP PRN (17:24)
--- NOTE | 2017-03-24 18:06 | Consultation ---
Consult Note Assessment/Plan [id number] ANUEL BAUER M.D. Mar 24, 2017 18:06
[2017-03-24 20:00] VITALS: BP 124/68
[2017-03-25] VITALS: BP 159/63
[2017-03-25] MEDS: Hydromorphone 0.5mg/0.5ml inj IVP PRN (02:30)
[2017-03-25 04:00] VITALS: BP 139/78
[2017-03-25] MEDS: Tamsulosin 0.4mg cap ORAL SCH (08:40)
[2017-03-25 09:00] VITALS: BP 144/81
[2017-03-25] MEDS: D5 1/2NS 1,000 ML IV SCH (10:12)
[2017-03-25 12:15] VITALS: BP 145/76
--- NOTE | 2017-03-25 18:02 | Pulmonology Progress Note ---
Assessment/Plan Problems: (1) Left leg weakness (2) Subdural hematoma (3) Prostate CA (4) Protein-calorie malnutrition, severe Assessment/Plan dc home with hospice today symtomatic treatment Subjective ROS Limited/Unobtainable: No Constitutional: Reports: no symptoms HEENT: Repors: no symptoms Respiratory: Reports: no symptoms Allergies: Coded Allergies: NO KNOWN DRUG ALLERGIES (Verified Allergy, Unknown, 12/09/14) Objective Last 24 Hour Vital Signs Date Time Temp Pulse Resp B/P (MAP) Pulse Ox O2 Delivery O2 Flow Rate FiO2 03/25/17 12:15 98.2 70 18 145/76 98 Room Air 03/25/17 09:00 98.0 64 18 144/81 95 Room Air 03/25/17 07:45 69 18 Room Air 21 03/25/17 04:00 97.5 53 18 139/78 98 03/25/17 04:00 98 Room Air 03/25/17 00:00 98 Room Air 03/25/17 00:00 97.9 55 18 159/63 98 03/24/17 20:15 63 18 Room Air 21 03/24/17 20:00 99 Room Air 03/24/17 20:00 97.8 60 20 124/68 99 Intake and Output 03/24/17 03/25/17 19:00 07:00 Intake Total 1190 ml 840 ml Output Total 800 ml 950 ml Balance 390 ml -110 ml Intake Oral 590 ml 240 ml IV Total 600 ml 600 ml Output Urine Total 800 ml 950 ml # Voids 4 General Appearance: WD/WN HEENT: normocephalic, atraumatic Respiratory/Chest: chest wall non-tender, normal breath sounds Cardiovascular: normal peripheral pulses, normal rate Abdomen: normal bowel sounds, soft, non tender Extremities: no cyanosis Neurologic/Psychiatric: autocad draftsman II-XII grossly normal Lymphatic: no neck adenopathy SAHARA GAMBLE Mar 25, 2017 18:02
--- NOTE | 2017-03-26 12:54 | Consultation ---
DATE OF CONSULTATION: 03/23/2017 NOTE: POOR AUDIO HEMATOLOGY/ONCOLOGY CONSULTATION CONSULTING PHYSICIAN: Kannan Escalante M.D. REFERRING PHYSICIAN: Candelario Kunz M.D. REASON FOR CONSULTATION: Evaluation of anemia. IDENTIFYING DATA: Dear Dr. Kunz, The patient is a pleasant 66-year-old male with past medical history, which is significant for bladder and prostate cancer, has been on methadone, has a history of intravenous drug use, brought in by paramedics . The patient is chronically ill, cachectic with extremity weakness as well, brought in to rule out CVA. He has been seen by Dr. Cuco Pulido. The patient noted to have new onset of abnormal gait, ataxia. Has been at an outside facility, [facility] in [place] for several days, was upset he could not have MRI of his legs. Upon admission noted to have a normal blood pressure. CBC showed hemoglobin of 11, WBC of 3.7. Hematology Service consulted for further evaluation and treatment. He has a history of malignancy as well. Tumor marker reviewed. PSA of 33. Imaging also reviewed. A lumbar MRI shows metastatic disease versus likely treated in the past of metastatic disease. The patient has . Hematology Service consulted for evaluation and treatment. PAST MEDICAL HISTORY: Bladder and prostate cancer, methadone, IV drug use, , opioid dependence, and diabetes mellitus type 2. PAST SURGICAL HISTORY: None reported that is significant. MEDICATIONS: Klonopin, diazepam, hydrocodone, tamsulosin, methadone and metformin. ALLERGIES: No known drug allergies. FAMILY HISTORY: Noncontributory. REVIEW OF SYSTEMS: Has been completed, however, the patient is mumbling and is confused. PHYSICAL EXAMINATION: VITAL SIGNS: Reviewed. GENERAL: No acute distress. He is cachectic. PULMONARY: Decreased breath sounds. CARDIOVASCULAR: Regular rate. No S3 or S4. ABDOMEN: Soft, nontender, and nondistended. EXTREMITIES: There is 1+ edema. LABORATORY AND DIAGNOSTIC DATA: WBC 4.7, hemoglobin 11, hematocrit 35 and platelet count 196,000. INR of 1. PSA 33, . Iron panel reviewed. B12 , folate . ASSESSMENT AND PLAN: 1. Prostate cancer with PSA of 33. The patient is status post treatment, has PSA of 33. Consider bone scan. The patient could have osteoblastic metastasis. We need to further workup. Prior imaging has been reviewed. 2. Anemia due to underlying chronic disease. Continue to closely monitor. Workup has been . 3. Leukopenia potentially secondary to reactive process from medications. 4. Hypertension history. Blood pressure is stable at this time. Continue with Cardiology service monitoring. 5. hematoma, currently stable. 6. history remote, . Kannan Escalante M.D. DR: JOHN JOB#: [id number] CC:
--- NOTE | 2017-03-26 12:55 | Consultation ---
DATE OF CONSULTATION: 03/24/2017 PHYSICAL MEDICINE REHABILITATION CONSULTATION REQUESTING PHYSICIAN: Candelario Kunz M.D. CHIEF COMPLAINT: Difficulty with ambulation, activity of daily living in a patient with chronic pain syndrome, lumbar spinal stenosis. HISTORY OF PRESENT ILLNESS: The patient is 66-year-old male with history of prostate cancer and IV drug abuse, who apparently has been on methadone, who was brought to emergency room at [facility] with weakness, mainly of the left lower limb and difficulty with his functionality. The patient was admitted to the hospital. He was seen by neurologist, Dr. Cuco Pulido and load dispatcher, as well as admitting physician, Dr. Kunz. Extensive neurology workup was done as well as cardiology workup. The patient had an echocardiogram, which showed ejection fraction of 55% to 60%. He had a lumbar spine CT scan and MRI that according to Radiology impression, there is no signal density reported in L2 vertebral body with absence of surrounding bone marrow edema, which the Radiology doubt active metastatic disease in that area. I was asked today to evaluate the patient for rehabilitation. The patient apparently was evaluated by physical therapy and occupational therapy, but the patient was pretty much independent for ambulation and activity of daily living. The patient also was seen by speech therapist due to poor dentition, which he was placed on soft diet. As mentioned, the patient has been on methadone treatment. Apparently, the patient willing to be under the care of hospice at home. PAST MEDICAL AND SURGICAL HISTORY: 1. History of prostate cancer. 2. History of subdural hematoma. 3. History of substance abuse including IV drug abuse and opiate dependent. 4. Diabetes mellitus. 5. Hypertension. 6. COPD. 7. History of prostate and bladder cancer. 8. History of cardiac arrhythmia per medical record. ALLERGIES: Not known drug allergy. MEDICATIONS: Dilaudid 1 mg IV every 4 hours p.r.n., methadone 90 mg daily, Klonopin 2 mg b.i.d., Flomax 0.4 mg daily, Valium 2 mg q.6 h. p.r.n., albuterol ipratropium 3 mL p.r.n., Tylenol p.r.n., MiraLAX p.r.n., Zofran p.r.n., lorazepam p.r.n., Restoril p.r.n., Mylanta p.r.n., nitroglycerin, clonidine, and Phenergan p.r.n. FAMILY AND SOCIAL HISTORY: The patient is . He has a son, but he does not have any communication with him. He smokes around five cigarettes a day and has a history of polysubstance abuse including IV illicit drugs and now on methadone. The patient has a cane and a walker that uses occasionally. Current level of function apparently was pretty independent for ambulation and activity of daily living per PT/OT report. The patient does not have much information about his family history. REVIEW OF SYSTEMS: CONSTITUTIONAL: No chills, no fever. EYES: Denies diplopia, pain, infection, or pruritus. ENT: Denies tinnitus, otalgia, or dysphagia. CARDIOVASCULAR: No chest pain. PULMONARY: No shortness of breath GASTROINTESTINAL: No abdominal pain. GENITOURINARY: No dysuria or hematuria. MUSCULOSKELETAL: The patient has chronic pain under the supervision of methadone clinic. Low back pain and lower limb pain mainly on the left side than the right side. INTEGUMENTARY: No cancerous lesion. NEUROLOGIC: The patient had generalized weakness. PHYSICAL EXAMINATION: GENERAL: No acute distress. VITAL SIGNS: Blood pressure 118/55, respiratory rate 20 per minute, heart rate 62 per minute, temperature 97.6 degrees Fahrenheit, and O2 saturation 98%. Height 175 cm, weight is 70 kilogram, and body mass index 23. HEENT: Extraocular movements intact. No facial droop. NECK: Supple with no lymphadenopathy. PULSES: Bilateral carotid, femoral, and dorsalis pedis are palpable. HEART: Regular rhythm and rate. LUNGS: Clear to auscultation bilaterally. ABDOMEN: Soft, nontender, and nondistended. EXTREMITIES: No pitting edema. No calf tenderness. No clubbing or cyanosis. NEUROLOGIC: The patient is alert, awake, and oriented. Movement of bilateral upper and lower limb move with antigravity. LABORATORY AND DIAGNOSTIC DATA: WBC 4.7, hemoglobin 11 and platelets 196. Sodium 143, potassium 3.5, BUN 14, creatinine 0.6 and glucose 72. PSA level 33. ASSESSMENT: The patient is a 66-year-old male with; 1. Chronic pain syndrome. 2. Methadone dependent. 3. Debility and functional decline. 4. Gait abnormality. 5. History of prostate cancer. 6. Malnutrition. 7. History of subdural hematoma. 8. Anemia. RECOMMENDATION: The patient apparently has been independent for ambulation and activity of daily living, had pretty much refused to work with physical therapy and occupational therapy. The patient would like to be discharged home on hospice program. Discussed with primary care physician. Continue medical management per Medicine. Fall precaution discussed with the patient and educated. He agreed to follow the instruction and usage of assistive device, which the patient already has walker and cane at home to prevent fall. Skin care. Dietary support. Medical management per Medicine. Neurologist and load dispatcher saw the patient and recommendation given to the patient. General exercise program and home exercise program. Thank you for the consultation. Bebeto Cortes M.D. DR: SANTOSH JOB#: [id number] CC:
--- NOTE | 2017-03-26 14:03 | Discharge Summary ---
Discharge Summary Hospital Course Date of Admission Mar 21, 2017 at 02:55 Date of Discharge Mar 25, 2017 at 12:15 Admitting Diagnosis WEAKNESS HPI Justo Zamudio is a 66 year old male who was admitted on Mar 21, 2017 at 02:55 for Left Side Pain Hospital Course [id number] Discharge Discharge Disposition Patient was discharged to Home (01) Discharge Diagnoses: Janice Anthony NP Mar 26, 2017 14:03
--- NOTE | 2017-03-27 05:30 | Discharge Summary 2 SIG ---
DATE OF ADMISSION: 03/21/2017 DATE OF DISCHARGE: 03/25/2017 CONSULTANTS: 1. Kannan Escalante M.D. 2. Bebeto Cortes M.D. 3. Cuco Pulido M.D. 4. Carlton Das M.D. BRIEF HOSPITAL COURSE: The patient is a 66-year-old male with history of IV drug abuse on methadone, history of bladder and prostate cancer was brought in by paramedics for complaints of "my legs giving out on me" the patient looks chronically ill and was cachectic. On evaluation at ED, there was no appreciable focal neurologic deficit. There was no leukocytosis with hemoglobin and hematocrit stable. CT scan of the spine showed a sclerotic lesion on the L2 vertebral body concerning for osteoblastic metastasis. There was no evidence of acute fracture or retropulsion. He underwent neurological evaluation with Dr. Pulido. The patient had new onset of abnormal gait predominantly on the left. The patient had difficulty to ambulate and unable to cooperate with PT and OT. PSA was checked. Total PSA was 33. He had a lumbar spine MRI that showed foci of low signal on all sequences in the L2 vertebral body corresponding to osteoporotic foci. He was seen by Dr. Das. The patient was stable from cardiac point of view. Troponin was negative. He was seen by Dr. Cortes. The patient was evaluated by PT and OT. The patient apparently has been independent for ambulation and activity of daily living however, refused to work with PT and OT and would like to be discharged home on hospice. Fall precaution was discussed and the patient was educated on use of assistive device. Anemia was assessed to be secondary to underlying chronic disease. Leukopenia secondary to reactive process from patient's medications. He was eventually discharged home with hospice. FINAL DIAGNOSES: 1. Left leg weakness. 2. Prostate cancer. 3. Severe protein-calorie malnutrition. 4. Prior small frontal subdural hematoma. 5. Gait abnormality. 6. Methadone dependence. 7. Chronic pain syndrome. 8. Debility and functional decline. 9. Anemia of chronic disease. 10. Spinal stenosis of lumbar region. 11. History of rheumatoid arthritis. 12. Hypertension. 13. Hospice care. DISPOSITION: The patient was discharged home. DISCHARGE MEDICATIONS: Refer to medication list. DISCHARGE INSTRUCTIONS: Followup with oncologist and PMD in a week. Candelario Kunz M.D. I have been assigned to dictate discharge summary on this account and I was not involved in the patient's management. Janice Anthony N.P. DR: Paulie JOB#: [id number] CC: ELIOT
--- NOTE | 2017-03-27 22:47 | General Progress Note ---
Assessment/Plan Status: stable Assessment/Plan 1. Prostate cancer with PSA of 33. The patient is status post treatment, has PSA of 33. --> Consider bone scan. --> The patient could have osteoblastic metastasis. --> We need to further workup. --> Prior imaging has been reviewed. 2. Anemia due to underlying chronic disease. --> Continue to closely monitor. --> Workup has been reviewed. --> Hemoglobin goal >7 3. Leukopenia, potentially secondary to reactive process from medications. 4. Hypertension history. --> Blood pressure is stable at this time. --. Continue with Cardiology service monitoring. 5. Hematoma, currently stable. Subjective Date patient seen: Mar 24, 2017 Constitutional: Denies: no symptoms, chills, diaphoresis, fever, malaise, weakness, other HEENT: Denies: no symptoms, eye pain, blurred vision, tearing, double vision, ear pain, ear discharge, nose pain, nose congestion, throat pain, throat swelling, mouth pain, mouth swelling, other Cardiovascular: Denies: no symptoms, chest pain, edema, irregular heart rate, lightheadedness, palpitations, syncope, other Respiratory: Denies: no symptoms, cough, orthopnea, shortness of breath, SOB with excertion, SOB at rest, sputum, stridor, wheezing, other Gastrointestinal/Abdominal: Denies: no symptoms, abdomen distended, abdominal pain, black stools, tarry stools, blood in stool, constipated, diarrhea, difficulty swallowing, nausea, poor appetite, poor fluid intake, rectal bleeding , vomiting, other Genitourinary: Denies: no symptoms, burning, discharge, frequency, flank pain, hematuria, incontinence, pain, urgency, other Hematologic/Lymphatic: Reports: anemia Allergies: Coded Allergies: NO KNOWN DRUG ALLERGIES (Verified Allergy, Unknown, 12/09/14) Subjective S/P CT scan. On pain control. Objective Height (Feet): 5 Height (Inches): 9.00 Weight (Pounds): 155 Kannan Escalante Mar 27, 2017 22:47
--- NOTE | 2017-03-27 22:49 | General Progress Note ---
Assessment/Plan Assessment/Plan 1. Prostate cancer with PSA of 33. --> The patient is status post treatment, has PSA of 33. --> Consider bone scan. --> The patient could have osteoblastic metastasis. --> We need to further workup. --> Prior imaging has been reviewed. 2. Anemia due to underlying chronic disease. --> Continue to closely monitor. --> Workup has been reviewed. --> Hemoglobin goal >7, No transfusion needed. 3. Leukopenia, potentially secondary to reactive process from medications. --> Monitor closely. 4. Hypertension history. --> Blood pressure is stable at this time. --. Continue with Cardiology service monitoring. 5. Hematoma, currently stable. Subjective Date patient seen: Mar 25, 2017 Constitutional: Denies: no symptoms, chills, diaphoresis, fever, malaise, weakness, other HEENT: Denies: no symptoms, eye pain, blurred vision, tearing, double vision, ear pain, ear discharge, nose pain, nose congestion, throat pain, throat swelling, mouth pain, mouth swelling, other Cardiovascular: Denies: no symptoms, chest pain, edema, irregular heart rate, lightheadedness, palpitations, syncope, other Respiratory: Denies: no symptoms, cough, orthopnea, shortness of breath, SOB with excertion, SOB at rest, sputum, stridor, wheezing, other Gastrointestinal/Abdominal: Denies: no symptoms, abdomen distended, abdominal pain, black stools, tarry stools, blood in stool, constipated, diarrhea, difficulty swallowing, nausea, poor appetite, poor fluid intake, rectal bleeding , vomiting, other Genitourinary: Denies: no symptoms, burning, discharge, frequency, flank pain, hematuria, incontinence, pain, urgency, other Allergies: Coded Allergies: NO KNOWN DRUG ALLERGIES (Verified Allergy, Unknown, 12/09/14) Subjective No fever. On pain control. Pending discharge. Objective Height (Feet): 5 Height (Inches): 9.00 Weight (Pounds): 155 Kannan Escalante Mar 27, 2017 22:49
--- NOTE | 2017-03-30 11:44 | Diagnostic Imaging Report ---
APPROVED REPORT CPT Code: 11197 Vascular Symptoms CVA/TIA: Doppler Spectral Velocity Analysis RightLeft RIGHT SIDE: CCA - Imaging reveals no significant plaque in the common carotid artery. ICA arteries. The Doppler signal indicates the degree of stenosis is minimal (20%) in the internal carotid, and (10%) in the external carotid arteries. VERTEBRAL - The vertebral artery is patent, without evidence of stenosis or steal. LEFT SIDE: Not imaged.
--- NOTE | 2017-03-30 11:44 | Diagnostic Imaging Report ---
APPROVED REPORT CPT Code: 03404 Present Symptoms Comments: R/O DVT BILATERAL: Imaging reveals a patent deep venous system bilaterally. There is no evidence of thrombus within the femoral, popliteal or tibial segments. The greater saphenous veins are also within normal limits. Doppler indicates normal spontaneous flow within these segments.
--- NOTE | 2017-04-01 18:53 | Diagnostic Imaging Report ---
Indication: Pain. Technique: Bone Study Mets 10V Comparison: Correlation made to prior CT of the abdomen, CT of the lumbar spine and MRI lumbar spine. Findings: Sclerotic lesion in the L2 vertebral body as described on prior CT and MRI. No additional definite sclerotic or lytic bony lesion is appreciated. There is no depressed calvarial fracture. Imaged paranasal sinuses and mastoid air cells are grossly clear. No cervical spine fracture. No prevertebral soft tissue abnormality. Imaged portions of the lungs grossly clear. There are multilevel degenerative changes of the spine. Retained oral contrast noted within the colon. Bilateral femoral hardware noted. There are atherosclerotic vascular calcifications. IMPRESSION: Sclerotic lesion in the L2 vertebral body similar to findings of CT and MRI. No additional lytic or sclerotic bony lesion appreciated. Recommend nuclear medicine bone scan for more sensitive evaluation. Additional findings as above.
== END 2017-03-25 12:15 | disposition home or self-care (01) | DRG 347 ==
LOC: EDBD 02:34 → EMR 02:44 → 3E 02:55 → EDBEDREQ 03:19
DX: M48.061 Spinal stenosis, lumbar region without neurogenic claudication (principal); E43 Unspecified severe protein-calorie malnutrition; C61 Malignant neoplasm of prostate; F11.20 Opioid dependence, uncomplicated; J44.9 Chronic obstructive pulmonary disease, unspecified; I10 Essential (primary) hypertension; D63.8 Anemia in other chronic diseases classified elsewhere; E11.9 Type 2 diabetes mellitus without complications; G89.4 Chronic pain syndrome; M06.9 Rheumatoid arthritis, unspecified; Z51.5 Encounter for palliative care; F17.210 Nicotine dependence, cigarettes, uncomplicated; Z85.51 Personal history of malignant neoplasm of bladder; D72.819 Decreased white blood cell count, unspecified
CPT/HCPCS: 36415; 70450; 72132; 72148; 74018; 74177; 77075; 80053; 80061; 81003; 82140; 82378; 82550; 82553; 82607; 82746; 82962; 83540; 83550; 83615; 83880; 84153; 84154; 84443; 84484; 85007; 85025; 85044; 85060; 85610; 85651; 85730; 86710; 87081; 93306; 93882; 93970; 94664; 99285

== ENCOUNTER 2017-04-15 11:09 | Emergency (ER) | payer MEDICARE, MEDICAID ==
[~2017-04-15] VITALS: Ht 172.7 cm; Wt 59.0 kg
[2017-04-15 11:53] VITALS: BP 91/60
--- NOTE | 2017-04-15 12:06 | Diagnostic Imaging Report ---
Indication: Injury, pain Technique: 3 views right hand Comparison: none Findings: There is posterior and medial dislocation of the third proximal interphalangeal joint. This overrides by about 1 cm. No other acute fractures or dislocations. The joint spaces are preserved Impression: Positive for dislocation of the third proximal interphalangeal joint This finding was discussed by phone with Dr. Ahmadi in the emergency room at the time of interpretation
[2017-04-15] MEDS ORDERED: Norco 5mg/325mg tab ORAL ONE (13:15)
[2017-04-15 15:23] VITALS: BP 91/60
--- NOTE | 2017-04-16 08:21 | Emergency Room Report ---
History of Present Illness General Chief Complaint: Upper Extremity Injury Source: Patient Present Illness HPI 66-year-old male presents ED complaining of right middle finger pain and swelling. States he had a fall 3 days ago and injured his right middle finger. On arrival there is deformity to right middle finger. Pain is sharp, 10 out of 10, nonradiating. Denies any other injuries. No other breathing or relieving factors. Denies any other associated symptoms Allergies: Coded Allergies: NO KNOWN DRUG ALLERGIES (Verified Allergy, Unknown, 12/09/14) Patient History Past Medical History: HTN, seizures Past Surgical History: none Pertinent Family History: none Social History: Denies: smoking, alcohol use, drug use Immunizations: UTD Reviewed Nursing Documentation: PMH: Agreed, PSxH: Agreed Nursing Documentation-PMH Hx Cardiac Problems: Yes Hx Hypertension: Yes Hx Diabetes: Yes Hx Cancer: Yes - Prostate and bladder CA Hx Neurological Problems: Yes Hx Seizures: Yes Review of Systems All Other Systems: negative except mentioned in HPI Physical Exam Vital Signs Date Time Temp Pulse Resp B/P (MAP) Pulse Ox O2 Delivery O2 Flow Rate FiO2 04/15/17 11:21 98.4 84 16 91/60 94 Room Air 98.4 Sp02 EP Interpretation: reviewed, normal General Appearance: no apparent distress, alert, GCS 15, non-toxic Head: normocephalic Eyes: bilateral eye normal inspection, bilateral eye PERRL ENT: normal ENT inspection Neck: normal inspection Respiratory: normal inspection Cardiovascular #1: normal inspection Gastrointestinal: normal inspection Rectal: deferred Genitourinary: no CVA tenderness Musculoskeletal: other - deformity R middle finger Neurologic: alert, oriented x3, responsive, motor strength/tone normal, sensory intact, speech normal Psychiatric: normal inspection Skin: normal inspection Lymphatic: normal inspection Medical Decision Making Diagnostic Impression: Primary Impression: Finger dislocation Qualified Codes: S63.259A - Unspecified dislocation of unspecified finger, initial encounter ER Course Hospital Course 66-year-old male presents to ED complaining of R middle finger pain Differential diagnoses include: Fracture, dislocation, sprain, contusion Clinical course Patient placed on stretcher. After initial history and physical I ordered pain medications and x-rays of right hand xray shows dislocation of R middle finger I applied digital block using lidocaine. When I attempted to reduce the finger patient withdrew his hand and refused. Patient states he does not want me to reduce his finger this way. I asked him what alternative option he suggests he does not provide any suggestions. Patient becomes upset and states that he wants to leave. Understands the risks of leaving. Patient has competency to make her own decisions. However patient refused to sign AMA form Diagnosis - finger dislocation patient leaves AMA Other X-Ray Diagnostic Results Other X-Ray Diagnostic Results : X-Ray ordered: R hand # of Views/Limited Vs Complete: 3 View Indication: Pain EP Interpretation: Yes Interpretation: no soft tissue swelling, no fractures, other - R middle finger dislocation Impression: Other - finger dislocation Electronically Signed by: Electronically signed by Hardik Ahmadi MD Last Vital Signs Date Time Temp Pulse Resp B/P (MAP) Pulse Ox O2 Delivery O2 Flow Rate FiO2 04/15/17 15:23 98.4 84 16 91/60 94 Room Air 98.4 Status: unchanged Disposition: AGAINST MEDICAL ADVICE Condition: Stable Referrals: ELFEGO TATUM PERRY M.D. NOT CHOSEN DEMETRIUS/,REFERRING (PCP) Patient Instructions: Finger or Thumb Dislocation, [id number] HARDIK AHMADI M.D. Apr 16, 2017 08:21
== END 2017-04-15 13:45 | disposition left against medical advice (07) ==
LOC: EMR 12:05
DX: S63.282A Dislocation of proximal interphalangeal joint of right middle finger, initial encounter (principal); W19.XXXA Unspecified fall, initial encounter; Y92.9 Unspecified place or not applicable; I10 Essential (primary) hypertension; E11.9 Type 2 diabetes mellitus without complications; Z85.46 Personal history of malignant neoplasm of prostate; Z85.51 Personal history of malignant neoplasm of bladder
CPT/HCPCS: 99283

== ENCOUNTER 2017-07-31 12:17 | Inpatient (IN) | payer MEDICARE, MEDICAID ==
[~2017-07-31] VITALS: Ht 172.7 cm; Wt 54.1 kg
[2017-07-31] MEDS ORDERED: Tetanus/Diptheria/Pertussis Vaccine 0.5ml Syr IM ONE (13:00)
[2017-07-31 13:12] LABS: HEMATOCRIT 37.7 % (42.0-52.0); HEMOGLOBIN 12.3 G/DL (14.2-18.0); LYMPHOCYTES % (AUTO) 35.8 % (20.0-45.0); MEAN CORPUSCULAR VOLUME 103 FL (80-99); MONOCYTES % (AUTO) 10.5 % (1.0-10.0); NEUTROPHILS % (AUTO) 48.8 % (45.0-75.0); PLATELET COUNT 140 K/UL (150-450); RED BLOOD COUNT 3.67 M/UL (4.70-6.10); WHITE BLOOD COUNT 5.8 K/UL (4.8-10.8)
--- NOTE | 2017-07-31 13:12 | Diagnostic Imaging Report ---
EXAM: CT Head Without Intravenous Contrast CLINICAL HISTORY: PAIN TECHNIQUE: Axial computed tomography images of the head/brain without intravenous contrast. CTDI is 70.38 mGy and DLP is 1600.38 mGy-cm One or more of the following dose reduction techniques were used: automated exposure control, adjustment of the mA and/or kV according to patient size, use of iterative reconstruction technique. COMPARISON: 03/21/17. FINDINGS: Brain: No intracranial hemorrhage or mass effect. No clear acute large vessel territorial infarct. Involutional and microvascular ischemic changes are again noted. Ventricles: Ventriculomegaly is commensurate with central volume loss.. Bones/joints: Chronic left medial orbital wall fracture deformity Sinuses: Unremarkable as visualized. No acute sinusitis. Mastoid air cells: Unremarkable as visualized. No mastoid effusion. IMPRESSION: No acute intracranial process. Involutional and microvascular ischemic changes again noted
--- NOTE | 2017-07-31 13:14 | Emergency Room Report ---
History of Present Illness General Chief Complaint: Multiple Trauma/Fall Source: Patient, Medical Record, EMS Present Illness HPI 66-year-old male presents to the emergency department complaining of fall after standing up. he describes standing and having a quick feeling of his lower extremities slipping out from under him, he describes feeling "really weird" when he stood up. He fell backwards off the curb hitting his head on the ground. Patient denies loss of consciousness he reports open wound to the back of his head. He denies dizziness, palpitations, presyncopal symptoms prior to falling or history of frequent falls. Pt. reports now having 5/10 in severity pain to the posterior head, and right side of the neck. Patient does not know when his last tetanus vaccination was. He reports history of HTN, DM, prostate cancer and bladder cancer. Denies numbness tingling or loss of sensation or gross motor movements of the extremities, incontinence of bowel or bladder. Denies CP, Palpitations, AMS, dizziness, Changes in Vision, weakness or a sudden severe headache. Allergies: Coded Allergies: NO KNOWN DRUG ALLERGIES (Verified Allergy, Unknown, 12/09/14) Patient History Past Medical History: see triage record Past Surgical History: none Pertinent Family History: none Reviewed Nursing Documentation: PMH: Agreed; PSxH: Agreed Nursing Documentation-PMH Hx Cardiac Problems: Yes Hx Hypertension: Yes Hx Diabetes: Yes Hx Cancer: Yes - Prostate and bladder CA Hx Neurological Problems: Yes Hx Seizures: Yes Review of Systems All Other Systems: negative except mentioned in HPI Physical Exam Vital Signs Date Time Temp Pulse Resp B/P (MAP) Pulse Ox O2 Delivery O2 Flow Rate FiO2 07/31/17 12:16 98.2 73 19 125/74 95 Room Air 98.2 Sp02 EP Interpretation: reviewed, normal General Appearance: no apparent distress, alert, GCS 15, non-toxic Head: normocephalic, other - posterior occipital/parietal scalp area. Eyes: bilateral eye normal inspection, bilateral eye PERRL ENT: hearing grossly normal, normal voice Neck: full range of motion, tender lateral - right mainly, some midline Respiratory: lungs clear, normal breath sounds, no wheezing, speaking full sentences Cardiovascular #1: regular rate, rhythm, normal capillary refill Gastrointestinal: normal bowel sounds, non tender, soft Musculoskeletal: back normal, normal range of motion, non-tender, other - obvious deformity of the right middle finger, pt. does not have pain. Neurologic: alert, oriented x3, responsive, motor strength/tone normal, sensory intact, speech normal, other - unsteady gait., grossly normal Psychiatric: judgement/insight normal Skin: normal color, no rash, warm/dry, well hydrated, other - maceration to the skin of feet bilaterally due to excessive moisture, there is a 1cm ulcer on the plantar aspect of the left foot, no erythema, tenderness and malodor noted. , laceration - posterior parietal scalp. 2cm Procedures Joint Reduction Joint Reduction : Consent: Verbal Joint Reduction Site: other - [facility] Procedural Sedation: No Reduction Attempts: Other - TWO Pre-Procedure NV Exam: Yes Post-Procedure NV Exam: Yes Post Joint Reduction Film: joint not reduced Patient Tolerated: Poor - pt. had digital block placed twice each attempt pt. reported pain so attempt was stopped. Progress pt. had digital block placed twice each attempt pt. reported pain so attempt was stopped. After two failed reduction attempts due to patient reporting pain and not tolerating necessary maneuvers, reduction was unsuccessful. Pt. was placed in a finger splint by furniture repair technician. Attending physician aware. Dr. Claudio. Laceration/Wound Repair Laceration/Wound Repair : Consent: Verbal Wound Location: head Wound's Depth, Shape: superficial Wound Length (cm): 2 Wound Explored: clean Irrigated w/ Saline (ccs): 500 Anesthesia: Lidocaine w/ Epi Volume Anesthetic (ccs): 1 Wound Repaired With: raphael Number of Sutures: 3 Sterile Dressing Applied?: No Splint Applied?: No Sling Applied?: No Patient Tolerated: Well Complications: None Medical Decision Making PA Attestation Dr. Hunt is my supervising Physician whom patient management has been discussed with. Diagnostic Impression: Primary Impression: Bradycardia Additional Impressions: Syncope Qualified Codes: R55 - Syncope and collapse Foot ulcer, left Qualified Codes: L97.522 - Non-pressure chronic ulcer of other part of left foot with fat layer exposed Finger dislocation Qualified Codes: S63.259D - Unspecified dislocation of unspecified finger, subsequent encounter Fracture of foot affected by diabetic neuropathy with malunion Qualified Codes: S92.902P - Unspecified fracture of left foot, subsequent encounter for fracture with malunion; E11.40 - Type 2 diabetes mellitus with diabetic neuropathy, unspecified ER Course 66-year-old male presents to the emergency department complaining of fall after standing up. he describes standing and having a quick feeling of his lower extremities slipping out from under him, he describes feeling "really weird" when he stood up. He fell backwards off the curb hitting his head on the ground. Patient denies loss of consciousness he reports open wound to the back of his head. He denies dizziness, palpitations, presyncopal symptoms prior to falling or history of frequent falls. Pt. reports now having 5/10 in severity pain to the posterior head, and right side of the neck. Patient does not know when his last tetanus vaccination was. He reports history of HTN, DM, prostate cancer and bladder cancer. Denies numbness tingling or loss of sensation or gross motor movements of the extremities, incontinence of bowel or bladder. Denies CP, Palpitations, AMS, dizziness, Changes in Vision, weakness or a sudden severe headache. Ddx considered but are not limited to ETOH, Trauma, Syncope, dementia, OD, C- spine injury, intracranial or epidural bleed. Vital signs: are WNL, pt. is afebrile H&PE are most consistent with ETOH intoxication and fall sustaining scalp lac to posterior right side of scalp . ORDERS: -CBC: mild anemia hb 12.3 and hct 37 -CMP: elevated alk phos. otherwise normal electrolytes and LFT's -PT/PTT: WNL -Serum ETOH: WNL less than 3 -Troponin: 0.007 -CT Head No contrast: Atropy, no acute ICH or hematomas, no mass effect- Per official radiology report- Please see report for specific details. -CT C-spine: --no acute fractures--Per official radiology report- Please see report for specific details. -[id number]-- "-Mild lumbar levocurvature at L4, - 2.3 cm sclerotic lesion in the right word aspect of the L2 vertebral body possibly bone island but correlate for history of malignancy. -L4 compression deformity appears chronic no acute fractures no retropulsion. -Abdominal aortic atherosclerosis or a cyst noted. Foraminal stenosis and L1-S1"---Per official radiology report- Please see report for specific details. ED INTERVENTIONS: - Tdap -[place] PO -2 raphael placed in the posterior right occipital scalp after local anesthesia with lidocaine. - Right middle finger reduction -right middle finger splint applied by furniture repair technician. Pt. remains neurovascularly intact. DISPOSITION: at this time pt. will be admitted to Dr. Mcfarlane for Syncope and Bradycardia. Dr. Mcfarlane agreed to admit the pt. and to continue pt. care management. Labs Test 07/31/17 12:37 07/31/17 16:24 White Blood Count 5.8 K/UL (4.8-10.8) Red Blood Count 3.67 M/UL (4.70-6.10) Hemoglobin 12.3 G/DL (14.2-18.0) Hematocrit 37.7 % (42.0-52.0) Mean Corpuscular Volume 103 FL (80-99) Mean Corpuscular Hemoglobin 33.5 PG (27.0-31.0) Mean Corpuscular Hemoglobin Concent 32.7 G/DL (32.0-36.0) Red Cell Distribution Width 14.0 % (11.6-14.8) Platelet Count 140 K/UL (150-450) Mean Platelet Volume 6.5 FL (6.5-10.1) Neutrophils (%) (Auto) 48.8 % (45.0-75.0) Lymphocytes (%) (Auto) 35.8 % (20.0-45.0) Monocytes (%) (Auto) 10.5 % (1.0-10.0) Eosinophils (%) (Auto) 4.0 % (0.0-3.0) Basophils (%) (Auto) 1.0 % (0.0-2.0) Sodium Level 141 MMOL/L (136-145) Potassium Level 3.7 MMOL/L (3.5-5.1) Chloride Level 106 MMOL/L (98-107) Carbon Dioxide Level 28 MMOL/L (21-32) Anion Gap 8 mmol/L (5-15) Blood Urea Nitrogen 15 mg/dL (7-18) Creatinine 0.8 MG/DL (0.55-1.30) Estimat Glomerular Filtration Rate > 60 mL/min (>60) Glucose Level 90 MG/DL (74-106) Calcium Level 8.6 MG/DL (8.5-10.1) Total Bilirubin 0.5 MG/DL (0.2-1.0) Aspartate Amino Transf (AST/SGOT) 34 U/L (15-37) Alanine Aminotransferase (ALT/SGPT) 32 U/L (12-78) Alkaline Phosphatase 156 U/L (46-116) Troponin I 0.007 ng/mL (0.000-0.056) Total Protein 7.5 G/DL (6.4-8.2) Albumin 3.1 G/DL (3.4-5.0) Globulin 4.4 g/dL Albumin/Globulin Ratio 0.7 (1.0-2.7) Serum Alcohol < 3 mg/dL Prothrombin Time 11.7 SEC (9.30-11.50) Prothromb Time International Ratio 1.1 (0.9-1.1) Activated Partial Thromboplast Time 32 SEC (23-33) EKG Diagnostic Results EP Interpretation: Dr. Hunt Rate: bradycardiac - 57 Rhythm: NSR ST Segments: no acute changes Other Impression inverted T-waves in leads V2-V5. ASA given to the pt in ED: No PA Scribe Text This Interpretation was scribed by DOT Johnson. Other X-Ray Diagnostic Results Other X-Ray Diagnostic Results #1: X-Ray ordered: Right hand # of Views/Limited Vs Complete: 3 View Indication: Pain EP Interpretation: Yes PA Xray: Interpretation reviewed, by supervising MD Interpretation: no soft tissue swelling, no fractures, other - dislocated right middle finger, similar to comparison of xray performed in mar 2017. Impression: No acute disease Electronically Signed by: Juana Johnson PA-C Other X-Ray Diagnostic Results #2: X-Ray ordered: Left Foot # of Views/Limited Vs Complete: 3 View Indication: Other - deformity EP Interpretation: Yes PA Xray: Interpretation reviewed Interpretation: other - calcified distal great toe fx with moderate posterior displacement. Impression: Other - abnormal Electronically Signed by: Juana Johnson PA-C CT/MRI/US Diagnostic Results CT/MRI/US Diagnostic Results #1: Imaging Test Ordered: CT Head NO Contrast CT/MRI/US Diagnostic Results #2: Imaging Test Ordered: CT C-spine NO Contrast Impression --no acute fractures--Per official radiology report- Please see report for specific details CT/MRI/US Diagnostic Results #3: Imaging Test Ordered: Ct L-Spine NO Contrast Impression "-Mild lumbar levocurvature at L4, - 2.3 cm sclerotic lesion in the right word aspect of the L2 vertebral body possibly bone island but correlate for history of malignancy. -L4 compression deformity appears chronic no acute fractures no retropulsion. -Abdominal aortic atherosclerosis or a cyst noted. Foraminal stenosis and L1-S1"---Per official radiology report- Please see report for specific details Last Vital Signs Date Time Temp Pulse Resp B/P (MAP) Pulse Ox O2 Delivery O2 Flow Rate FiO2 07/31/17 12:16 98.2 73 19 125/74 95 Room Air 98.2 Disposition: ADMITTED INPATIENT Condition: Serious Juana Johnson Jul 31, 2017 13:14
[2017-07-31 13:23] LABS: ANION GAP 8 mmol/L (5-15); BLOOD UREA NITROGEN 15 mg/dL (7-18); CALCIUM 8.6 MG/DL (8.5-10.1); CARBON DIOXIDE 28 MMOL/L (21-32); CHLORIDE 106 MMOL/L (98-107); CREATININE 0.8 MG/DL (0.55-1.30); POTASSIUM 3.7 MMOL/L (3.5-5.1); SODIUM 141 MMOL/L (136-145)
[2017-07-31 13:27] LABS: ALANINE AMINOTRANSFERASE 32 U/L (12-78); ALBUMIN 3.1 G/DL (3.4-5.0); ALBUMIN/GLOBULIN RATIO 0.7 (1.0-2.7); ALKALINE PHOSPHATASE 156 U/L (46-116); ASPARTATE AMINO TRANSFERASE 34 U/L (15-37); BILIRUBIN,TOTAL 0.5 MG/DL (0.2-1.0)
--- NOTE | 2017-07-31 13:53 | Diagnostic Imaging Report ---
EXAM: CT Cervical Spine Without Intravenous Contrast CLINICAL HISTORY: PAIN TECHNIQUE: Axial computed tomography images of the cervical spine without intravenous contrast. CTDI is 70.38 mGy and DLP is 1600 mGy-cm One or more of the following dose reduction techniques were used: automated exposure control, adjustment of the mA and/or kV according to patient size, use of iterative reconstruction technique. COMPARISON: No relevant prior studies available. FINDINGS: Vertebrae: No acute fracture. Discs/spinal canal/neural foramina: Altered level. Degenerative changes Soft tissues: Carotid atherosclerosis Lung apices: Unremarkable as visualized. IMPRESSION: No acute fracture
--- NOTE | 2017-07-31 15:29 | Diagnostic Imaging Report ---
EXAM: XR Right Hand Complete, 3 or More Views CLINICAL HISTORY: PAIN TECHNIQUE: Frontal, lateral and oblique views of the right hand. COMPARISON: 04/15/17 FINDINGS: Bones/joints. There is a dorsal dislocation of the right third proximal interphalangeal joint. This override by 2 cm. Similar dislocation noted on the prior exam IMPRESSION: Redemonstrated dislocation of the right third PIP joint.
[2017-07-31] MEDS ORDERED: Norco 5mg/325mg tab ORAL ONE (15:30)
[2017-07-31] MEDS ORDERED: Lidocaine 1% MPF 10mg/ml 5ml IM ONE (15:30)
--- NOTE | 2017-07-31 15:40 | Diagnostic Imaging Report ---
EXAM: CT Lumbar Spine Without Intravenous Contrast CLINICAL HISTORY: PAIN TECHNIQUE: Axial computed tomography images of the lumbar spine without intravenous contrast. CTDI is 9.01 mGy and DLP is 248 mGy-cm One or more of the following dose reduction techniques were used: automated exposure control, adjustment of the mA and/or kV according to patient size, use of iterative reconstruction technique. COMPARISON: Lumbar spine MRI of 03/22/17 FINDINGS: Vertebrae: Mild lumbar levocurvature, apex at L4. 2.3 cm sclerotic lesion in the rightward aspect of the L2 vertebral body probably reflects a bone island, but correlate for history of malignancy. L4 compression deformity appears chronic. No acute fracture. No retropulsion. Soft tissues: Abdominal aortic atherosclerosis. DISCS/SPINAL CANAL/NEURAL FORAMINA: L1-L2: Facet arthropathy results in mild bilateral neural foraminal stenosis. L2-L3: Facet arthropathy results in mild bilateral neural foraminal stenosis.. L3-L4: Facet arthropathy results in mild bilateral neural foraminal stenosis.. L4-L5: Disc bulge and facet arthropathy results in moderate bilateral neural foraminal stenosis. L5-S1: Disc degeneration without neural impingement.. IMPRESSION: Degenerative changes resulting in neural foraminal stenosis, most pronounced at L4-5 where this is moderate grade bilaterally. Mild bilateral stenosis at L1-2, L2-3, and L3-4. 2.3 cm sclerotic lesion in the rightward aspect of the L2 vertebral body probably reflects a bone island, but correlate for history of malignancy. Chronic L4 compression deformity.
--- NOTE | 2017-07-31 16:17 | History & Physical ---
History and Physical History & Physicial Pt seen and examined full report will be dictated Narciso Mcfarlane MD Jul 31, 2017 16:17
[2017-07-31 16:36] VITALS: BP_SYST 155; BP_SYST 159; BP_DIAS 72; BP_DIAS 84
[2017-07-31 16:37] VITALS: BP 155/72
[2017-07-31] MEDS ORDERED: Lidocaine 1% Plain 30 ml INJ ONE (17:00)
[2017-07-31 17:08] LABS: INR 1.1 (0.9-1.1)
[2017-07-31] MEDS: metFORMIN 500mg tab ORAL SCH (18:50)
[2017-07-31 20:30] VITALS: BP 154/66
[2017-07-31] MEDS ORDERED: Augmentin 875mg Tab ORAL ONE (20:45)
[2017-07-31] MEDS ORDERED: Bactrim-DS 1 tab ORAL ONE (20:45)
--- NOTE | 2017-07-31 21:44 | Diagnostic Imaging Report ---
EXAM: XR Left Foot Complete, 3 or More Views CLINICAL HISTORY: PAIN TECHNIQUE: Frontal, lateral and oblique views of the left foot. COMPARISON: None. FINDINGS: Bones/joints: Dislocation distal phalanx great toe dorsally. Osteopenia. No acute fracture. Soft tissues: Soft tissue prominence and mild skin irregularity around first digit, correlate clinically. No radiopaque foreign body. IMPRESSION: 1. Dislocation distal phalanx great toe dorsally. 2. Soft tissue prominence and mild skin irregularity around first digit, correlate clinically. 3. Osteopenia.
[2017-07-31 22:09] VITALS: BP 186/76
[2017-07-31] MEDS ORDERED: cloNIDine 0.2mg Tab ORAL ONE (22:15)
[2017-07-31 23:50] VITALS: BP 149/78
[2017-08-01] MEDS: Tamsulosin 0.4mg cap ORAL SCH ×2 (00:31→09:09)
[2017-08-01 04:00] VITALS: BP 129/59
[2017-08-01 08:00] VITALS: BP 107/90
[2017-08-01] MEDS: metFORMIN 500mg tab ORAL SCH ×3 (09:09→17:43)
[2017-08-01 12:00] VITALS: BP 110/85
--- NOTE | 2017-08-01 12:04 | General Progress Note ---
Assessment/Plan Problem List: (1) Bradycardia ICD Codes: R00.1 - Bradycardia, unspecified SNOMED: 84487334 (2) Syncope ICD Codes: R55 - Syncope and collapse SNOMED: 019809396 Qualifiers: Qualified Codes: R55 - Syncope and collapse (3) Finger dislocation ICD Codes: S63.259A - Unspecified dislocation of unspecified finger, initial encounter SNOMED: 582731171, 019545731 Qualifiers: Qualified Codes: S63.259D - Unspecified dislocation of unspecified finger, subsequent encounter (4) Protein-calorie malnutrition, severe ICD Codes: E43 - Unspecified severe protein-calorie malnutrition SNOMED: 037830811 (5) Opiate dependence, continuous ICD Codes: F11.20 - Opioid dependence, uncomplicated SNOMED: 980117403 (6) Head injury ICD Codes: S09.90XA - Unspecified injury of head, initial encounter SNOMED: 98555791 Assessment/Plan Increase Methadone IVF Cardiology consult Discussed with RN Subjective Allergies: Coded Allergies: NO KNOWN DRUG ALLERGIES (Verified Allergy, Unknown, 12/09/14) Subjective feels ok wants pain meds Objective Last 24 Hour Vital Signs Date Time Temp Pulse Resp B/P (MAP) Pulse Ox O2 Delivery O2 Flow Rate FiO2 08/01/17 08:00 97.0 62 18 107/90 98 Room Air 97.0 08/01/17 04:00 98.8 67 18 129/59 98 Room Air 98.8 08/01/17 00:07 59 17 149/78 98 Room Air 07/31/17 23:50 98.3 59 17 149/78 98 Room Air 98.3 07/31/17 23:29 192/89 07/31/17 22:16 186/76 07/31/17 22:09 98.3 50 16 186/76 98 Room Air 98.3 07/31/17 20:30 98.3 62 18 154/66 96 Room Air 98.3 07/31/17 17:18 98.2 07/31/17 16:37 64 18 155/72 98 Room Air 07/31/17 16:36 64 18 155/72 98 60 159/84 07/31/17 15:29 98.2 07/31/17 12:16 98.2 73 19 125/74 95 Room Air 98.2 Intake and Output 07/31/17 08/01/17 19:00 07:00 Intake Total 1000 ml 120 ml Balance 1000 ml 120 ml Intake Oral 120 ml IV Total 1000 ml Laboratory Tests 07/31/17 12:37: White Blood Count 5.8, Red Blood Count 3.67L, Hemoglobin 12.3L, Hematocrit 37.7L , Mean Corpuscular Volume 103H, Mean Corpuscular Hemoglobin 33.5H, Mean Corpuscular Hemoglobin Concent 32.7, Red Cell Distribution Width 14.0, Platelet Count 140L, Mean Platelet Volume 6.5, Neutrophils (%) (Auto) 48.8, Lymphocytes ( %) (Auto) 35.8, Monocytes (%) (Auto) 10.5H, Eosinophils (%) (Auto) 4.0H, Basophils (%) (Auto) 1.0, Sodium Level 141, Potassium Level 3.7, Chloride Level 106, Carbon Dioxide Level 28, Anion Gap 8, Blood Urea Nitrogen 15, Creatinine 0.8, Estimat Glomerular Filtration Rate > 60, Glucose Level 90, Calcium Level 8.6, Total Bilirubin 0.5, Aspartate Amino Transf (AST/SGOT) 34, Alanine Aminotransferase (ALT/SGPT) 32, Alkaline Phosphatase 156H, Troponin I 0.007, Total Protein 7.5, Albumin 3.1L, Globulin 4.4, Albumin/Globulin Ratio 0.7L, Serum Alcohol < 3 07/31/17 16:24: Prothrombin Time 11.7H, Prothromb Time International Ratio 1.1, Activated Partial Thromboplast Time 32 07/31/17 21:50: Lactic Acid Level 0.70 08/01/17 05:25: Troponin I 0.017, Thyroid Stimulating Hormone (TSH) 1.055 Height (Feet): 5 Height (Inches): 8.00 Weight (Pounds): 111 Cardiovascular: normal rate Respiratory/Chest: lungs clear Edema: no edema noted Generalized Narciso Mcfarlane MD Aug 01, 2017 12:04
[2017-08-01] MEDS ORDERED: HYDROcodone/Acetamin 10/325 tab ORAL PRN (13:00)
--- NOTE | 2017-08-01 15:16 | Consultation ---
Consult Note Consult Note Cardiology for Dr. Das Full consult dictated # [id number] Tianna Calix MD Aug 01, 2017 15:16
[2017-08-01 16:00] VITALS: BP 115/83
[2017-08-01] MEDS: HYDROcodone/Acetamin 10/325 tab ORAL PRN (20:39)
--- NOTE | 2017-08-01 22:45 | History and Physical Report ---
DATE OF ADMISSION: 07/31/2017 CHIEF COMPLAINT: The patient fell after standing up and hit his head on the ground. HISTORY OF PRESENT ILLNESS: This is a 66-year-old male with a history of opiate dependency. Apparently, he is homeless. He was outside starting to stand up and he felt that his extremities were slipping out from under him and he fell backwards hitting his head on the ground, did not lose consciousness. He denied any dizziness or palpitations. He was brought into the emergency room and was eventually admitted with diagnosis of syncope. He did have also a dislocation of the right middle finger, which was reduced in the ER. PAST MEDICAL HISTORY: The patient has a history of cardiac problems, hypertension, diabetes, bladder cancer and history of seizures. MEDICATIONS: Reviewed in the EMR. SOCIAL HISTORY: As mentioned, the patient is homeless. He is on methadone, goes to a clinic to get his methadone and has been dependent on narcotics. ALLERGIES: No known drug allergies. REVIEW OF SYSTEMS: Noncontributory. PHYSICAL EXAMINATION: GENERAL: The patient is a 66-year-old male, in no acute distress. VITAL SIGNS: In the emergency room, blood pressure was 125/74, pulse 73, respirations 19, temperature 98.2. HEENT: [place] conjunctivae. Anicteric sclerae. NECK: Supple. LUNGS: Clear to auscultation. HEART: S1, S2 without murmurs or rubs. ABDOMEN: Soft, nontender. EXTREMITIES: No cyanosis or edema. LABORATORY FINDINGS: The CBC shows WBC of 5.8, hematocrit 37.7, hemoglobin 12.3, platelets 140,000. Chemistry panel shows a sodium of 141, potassium 3.7, chloride 106, CO2 28, BUN 15, creatinine 0.8, and blood sugar is 90. . ASSESSMENT: This is a 66-year-old male, who was admitted status post fall, probably presyncope. It is possible that it is related to the opiates he was taking. Orthostatic hypotension involvement in the patient could not be completely ruled out, also a cardiac event needs to be ruled out. PLAN: The patient was admitted to telemetry. He will be on IV fluids. He will be seen by multiskill operator. I will stop all of his opiates except methadone that he was on. Case was discussed with SAGE. Narciso Mcfarlane M.D. DR: BRANDI JOB#: [id number] CC: ELIOT
--- NOTE | 2017-08-02 | Consultation ---
DATE OF CONSULTATION: 08/01/2017 CARDIOLOGY CONSULTATION This is a cardiology consult coverage for Dr. Das. CONSULTING PHYSICIAN: Tianna Gibbs M.D. REQUESTING PHYSICIAN: Narciso Mcfarlane M.D. REASON FOR CONSULTATION: Fall versus syncope. HISTORY OF PRESENT ILLNESS: The patient is a 66-year-old, man with a history of hypertension and psychosis, who was admitted yesterday after a fall versus syncopal episode. The patient is a poor historian. He states that he was sitting at a bus stop, stood up and then suddenly noted helicopters from the [place] were controlling his legs causing him to become weak and fall to the ground. He was brought to the emergency room where per the notes he denied any numbness, tingling, or involuntary movements of the legs. He denied chest pain, palpitations, or dyspnea. His initial blood pressure is 125/74 and pulse is 73 beats per minute in sinus rhythm. He was admitted for further evaluation and treatment. Head CT showed no acute intracranial hemorrhage or hematoma. No mass effect. Spine CT showed no fractures. He suffered a laceration of the right posterior occipital scalp, which was cleaned and stapled. PAST MEDICAL HISTORY: As noted above. Also per records from [facility], the patient is positive for hepatitis C, has history of prostate cancer, paranoid delusions, history of opiate abuse on chronic methadone, and previous history of cocaine use. MEDICATIONS: Currently [place] 10/325 mg every 6 hours p.r.n., metformin 500 mg twice daily, Flomax 0.4 mg daily, methadone 90 mg b.i.d. ALLERGIES: No known drug allergies. SOCIAL HISTORY: The patient smokes 1/2 pack per day. He states that he drinks alcohol occasionally and had 1 beer yesterday on the day of admission. He denies drug use, though per old records has a history of opiate and cocaine use. PHYSICAL EXAMINATION: VITAL SIGNS: Blood pressure is 110/85, pulse 64 and regular, respirations 18, and afebrile. GENERAL: An alert, thin, male, in no acute distress. HEENT: Normocephalic and atraumatic. Pupils are equal, round, and reactive to light. Sclerae anicteric. Oral mucosa is moist. NECK: Supple. Neck veins are flat. Carotid pulses are 2+ bilaterally without bruits. LUNGS: Decreased breath sounds at the bases. No rales or wheezes. HEART: Regular. S1 and S2. No murmurs or S3. PMI nondisplaced. ABDOMEN: Soft, nontender, and nondistended. No palpable mass. EXTREMITIES: No cyanosis, clubbing, or edema. Distal lower extremity pulses are diminished bilaterally. LABORATORY AND DIAGNOSTIC DATA: Hemoglobin 12.3, white blood count 5300, and platelets 140,000. Sodium 141, potassium 3.7, chloride 106, bicarbonate 28, BUN 15, and creatinine 0.8. Troponin 0.007 on admission and repeat 0.017. TSH 1.050. Alcohol level less than 3. EKG shows sinus bradycardia, rate of 58 beats per minute, low voltage QRS, axis +60 degrees, left ventricular hypertrophy with inverted T-waves, V4 and V5, diffuse T-wave flattening. ASSESSMENT AND RECOMMENDATIONS: The patient is a 66-year-old, man with a history of multiple medical problems as outlined above, who was admitted following a fall versus syncopal episode yesterday. The patient is a poor historian. However, he does not have current evidence for an acute coronary syndrome, heart failure or an arrhythmia, although he was mildly bradycardic on admission. I would favor telemetry monitoring for the next 24 to 48 hours. The patient had been placed on telemetry, but was refusing monitoring. I would obtain an echo to evaluate left ventricular systolic function and valves. We would check orthostatic vital signs to rule out orthostatic hypotension. We would also consider neurologic and psychiatric evaluation. Thank you for allowing me to participate in the care of this patient. Dr. Das will continue to follow him when he returns on 08/02/2017. Tianna Calix M.D. DR: Kaleb JOB#: [id number] CC:
[2017-08-02 00:37] VITALS: BP 110/79
[2017-08-02 04:50] VITALS: BP 142/71
[2017-08-02 08:00] VITALS: BP 127/70
[2017-08-02] MEDS: metFORMIN 500mg tab ORAL SCH ×3 (09:07→17:40)
[2017-08-02] MEDS: Tamsulosin 0.4mg cap ORAL SCH (09:07)
[2017-08-02] MEDS: HYDROcodone/Acetamin 10/325 tab ORAL PRN ×3 (09:08→22:25)
[2017-08-02 12:00] VITALS: BP 128/67
--- NOTE | 2017-08-02 12:38 | General Progress Note ---
Assessment/Plan Problem List: (1) Bradycardia ICD Codes: R00.1 - Bradycardia, unspecified SNOMED: 14107239 (2) Syncope ICD Codes: R55 - Syncope and collapse SNOMED: 612883866 Qualifiers: Qualified Codes: R55 - Syncope and collapse (3) Finger dislocation ICD Codes: S63.259A - Unspecified dislocation of unspecified finger, initial encounter SNOMED: 538697811, 312395460 Qualifiers: Qualified Codes: S63.259D - Unspecified dislocation of unspecified finger, subsequent encounter (4) Protein-calorie malnutrition, severe ICD Codes: E43 - Unspecified severe protein-calorie malnutrition SNOMED: 293944946 (5) Opiate dependence, continuous ICD Codes: F11.20 - Opioid dependence, uncomplicated SNOMED: 596059028 (6) Head injury ICD Codes: S09.90XA - Unspecified injury of head, initial encounter SNOMED: 60188581 Assessment/Plan check Echo needs placement Subjective Allergies: Coded Allergies: NO KNOWN DRUG ALLERGIES (Verified Allergy, Unknown, 12/09/14) Subjective feels ok Objective Last 24 Hour Vital Signs Date Time Temp Pulse Resp B/P (MAP) Pulse Ox O2 Delivery O2 Flow Rate FiO2 08/02/17 10:39 97.4 08/02/17 09:08 97.4 08/02/17 08:00 98.1 60 18 127/70 97 Room Air 98.1 08/02/17 04:50 97.4 58 17 142/71 98 97.4 08/02/17 00:37 98.0 59 16 110/79 96 98.0 08/01/17 16:00 97.6 57 17 115/83 96 Room Air 97.6 Intake and Output 08/01/17 08/02/17 19:00 07:00 Intake Total 540 ml 360 ml Output Total 1 ml Balance 539 ml 360 ml Intake Oral 540 ml 360 ml Output Urine Total 1 ml Stool Total 0 ml # Voids 1 Height (Feet): 5 Height (Inches): 8.00 Weight (Pounds): 111 Cardiovascular: normal rate Respiratory/Chest: lungs clear Edema: no edema noted Generalized Narciso Mcfarlane MD Aug 02, 2017 12:38
[2017-08-02 16:00] VITALS: BP 121/71
[2017-08-02 20:00] VITALS: BP 163/66
[2017-08-03] VITALS: BP 133/56
[2017-08-03 04:00] VITALS: BP 176/86
[2017-08-03] MEDS: metFORMIN 500mg tab ORAL SCH ×3 (09:00→17:44)
[2017-08-03] MEDS: Tamsulosin 0.4mg cap ORAL SCH (09:53)
[2017-08-03] MEDS: HYDROcodone/Acetamin 10/325 tab ORAL PRN ×2 (11:48→18:33)
[2017-08-03 12:00] VITALS: BP 134/66
--- NOTE | 2017-08-03 13:29 | General Progress Note ---
Assessment/Plan Problem List: (1) Bradycardia ICD Codes: R00.1 - Bradycardia, unspecified SNOMED: 10936084 (2) Syncope ICD Codes: R55 - Syncope and collapse SNOMED: 131981741 Qualifiers: Qualified Codes: R55 - Syncope and collapse (3) Finger dislocation ICD Codes: S63.259A - Unspecified dislocation of unspecified finger, initial encounter SNOMED: 776672120, 894796767 Qualifiers: Qualified Codes: S63.259D - Unspecified dislocation of unspecified finger, subsequent encounter (4) Protein-calorie malnutrition, severe ICD Codes: E43 - Unspecified severe protein-calorie malnutrition SNOMED: 857686969 (5) Opiate dependence, continuous ICD Codes: F11.20 - Opioid dependence, uncomplicated SNOMED: 642234852 (6) Head injury ICD Codes: S09.90XA - Unspecified injury of head, initial encounter SNOMED: 51309940 Assessment/Plan cont as is DC to SNF Subjective Allergies: Coded Allergies: NO KNOWN DRUG ALLERGIES (Verified Allergy, Unknown, 12/09/14) Subjective feels ok Objective Last 24 Hour Vital Signs Date Time Temp Pulse Resp B/P (MAP) Pulse Ox O2 Delivery O2 Flow Rate FiO2 08/03/17 12:00 98.0 60 20 134/66 95 Room Air 98.0 08/03/17 05:30 56 58 66 08/03/17 04:00 97.7 56 18 176/86 96 Room Air 97.7 08/03/17 00:00 97.9 62 18 133/56 96 Room Air 97.9 08/02/17 20:00 98.1 60 18 163/66 96 Room Air 98.1 08/02/17 17:38 98.0 08/02/17 16:27 98.0 08/02/17 16:00 98.1 64 20 121/71 96 Room Air 98.1 Intake and Output 08/02/17 08/03/17 19:00 07:00 Intake Total 1620 ml 360 ml Output Total 500 ml Balance 1620 ml -140 ml Intake Oral 1500 ml 360 ml Other 120 ml Output Urine Total 500 ml # Voids 4 # Bowel Movements 2 Height (Feet): 5 Height (Inches): 8.00 Weight (Pounds): 111 Cardiovascular: normal rate Respiratory/Chest: lungs clear Narciso Mcfarlane MD Aug 03, 2017 13:29
--- NOTE | 2017-08-03 14:16 | Cardiology Report ---
APPROVED REPORT EKG Measurement Heart [id number] Sinus bradycardia Left ventricular hypertrophy with repolarization abnormality Abnormal ECG
[2017-08-03 16:00] VITALS: BP 136/71
[2017-08-03 20:00] VITALS: BP 127/78
[2017-08-04 04:00] VITALS: BP 157/74
[2017-08-04 04:18] VITALS: BP 146/77
[2017-08-04 08:00] VITALS: BP 140/72
[2017-08-04] MEDS: Tamsulosin 0.4mg cap ORAL SCH (08:16)
[2017-08-04] MEDS: metFORMIN 500mg tab ORAL SCH ×2 (08:16→08:17)
[2017-08-04] MEDS: HYDROcodone/Acetamin 10/325 tab ORAL PRN (10:52)
[2017-08-04 12:00] VITALS: BP 140/76
--- NOTE | 2017-08-04 14:27 | General Progress Note ---
Assessment/Plan Problem List: (1) Bradycardia ICD Codes: R00.1 - Bradycardia, unspecified SNOMED: 71351490 (2) Syncope ICD Codes: R55 - Syncope and collapse SNOMED: 247843817 Qualifiers: Qualified Codes: R55 - Syncope and collapse (3) Finger dislocation ICD Codes: S63.259A - Unspecified dislocation of unspecified finger, initial encounter SNOMED: 621022752, 116316850 Qualifiers: Qualified Codes: S63.259D - Unspecified dislocation of unspecified finger, subsequent encounter (4) Protein-calorie malnutrition, severe ICD Codes: E43 - Unspecified severe protein-calorie malnutrition SNOMED: 280778730 (5) Opiate dependence, continuous ICD Codes: F11.20 - Opioid dependence, uncomplicated SNOMED: 924339717 (6) Head injury ICD Codes: S09.90XA - Unspecified injury of head, initial encounter SNOMED: 27966261 Assessment/Plan cont as is DC to [facility] Subjective Allergies: Coded Allergies: NO KNOWN DRUG ALLERGIES (Verified Allergy, Unknown, 12/09/14) Subjective feels ok Objective Last 24 Hour Vital Signs Date Time Temp Pulse Resp B/P (MAP) Pulse Ox O2 Delivery O2 Flow Rate FiO2 08/04/17 12:00 97.9 68 20 140/76 96 97.9 08/04/17 08:00 97.7 64 20 140/72 96 97.7 08/04/17 04:18 98.0 64 18 146/77 98 Room Air 98.0 08/04/17 04:00 98.1 57 17 157/74 98 Room Air 98.1 08/03/17 20:00 97.6 63 16 127/78 96 Room Air 97.6 08/03/17 19:32 97.8 08/03/17 18:33 97.8 08/03/17 16:00 97.8 59 22 136/71 95 97.8 Intake and Output 08/03/17 08/04/17 19:00 07:00 Intake Total 375 ml 1665 ml Output Total 200 ml 1100 ml Balance 175 ml 565 ml Intake Oral 840 ml IV Total 75 ml 825 ml Other 300 ml Output Urine Total 200 ml 1100 ml # Voids 4 Height (Feet): 5 Height (Inches): 8.00 Weight (Pounds): 119 Cardiovascular: normal rate Respiratory/Chest: lungs clear Rahban,Narciso MD Aug 04, 2017 14:27
[2017-08-04 16:00] VITALS: BP 132/61
--- NOTE | 2017-08-05 11:44 | Discharge Summary ---
Discharge Summary Hospital Course Date of Admission Jul 31, 2017 at 19:28 Date of Discharge Aug 04, 2017 at 17:53 Admitting Diagnosis Bradycardia and Head Injury/Fall HPI Justo Zamudio is a 66 year old male who was admitted on Jul 31, 2017 at 19:28 for Bradycardia; Head Injury/Fall Hospital Course dc summary #[id number] Discharge Medications New Medications: [HYDROcodone/Acetamin 10/325] () 1 TAB TAB 1 TAB ORAL Q6H PRN for 30 Days Methadone Hcl* (Methadone*) 10 Mg Tablet 100 MG ORAL ACBREAKFAST for 30 Days, TAB Continued Medications: Metformin Hcl* (Metformin Hcl*) 500 Mg Tablet Unknown Dose ORAL TWICE A DAY, TAB Tamsulosin HCl (Flomax) 0.4 Mg Cap.er.24h 0.4 MG ORAL DAILY for 30 Days, CAP Discharge Condition Upon Discharge: stable Discharge Disposition Patient was discharged to SNF/Subacute Facility(03) Discharge Instructions Discharge Instructions Special Instructions I have been assigned to complete a D/C Summary on this account. I was not involved in the patient management Zara Zhou NP Aug 05, 2017 11:44
--- NOTE | 2017-08-05 19:30 | Discharge Summary 2 SIG ---
DATE OF ADMISSION: 07/31/2017 DATE OF DISCHARGE: 08/04/2017 REASON FOR ADMISSION: 66-year-old male with past medical history significant for hypertension, diabetes, bladder CA, seizure disorder, opiate dependency, and homeless, who presented to emergency department complaining of fall after standing up. He described weird feeling when he stood up and then later he fell backward hitting his head on the ground. The patient reported pain 5 /10 in the posterior head and right side of the neck. CT of the head revealed no acute intracranial pathology. CT of C-spine and CT of L-spine revealed no acute fracture. CT of L-spine revealed chronic degenerative changes. X-ray of the right hand showed right third finger PIP joint dislocation. Troponin was negative. No leukocytosis. Stable hemoglobin and hematocrit. Stable renal parameters. Serum alcohol level negative. In the emergency department, the patient received Tdap vaccine. Two raphael were placed in the posterior right occipital scalp after local anesthesia with lidocaine. Right middle finger was reduced by splinting applied by ED fish and wildlife technician. The patient remained neurovascularly intact. EKG revealed sinus bradycardia with left ventricular hypertrophy and repolarization abnormality, heart rate of 58. The patient admitted with diagnoses of status post fall, bradycardia, head injury status post laceration repair, right third finger PIP dislocation, status post reduction, opiate dependency, status post fall ,probably presyncope. SUMMER ASSOCIATE: Carlton Das M.D., retirement plan specialist. HOSPITAL COURSE: The patient admitted to telemetry floor. The patient started on gentle IV hydration. Orthostatic vital signs were negative. Door Framer had seen and evaluated the patient. No evidence of acute coronary syndrome based on negative troponin and no acute ischemic changes on the EKG. No evidence of heart failure. No evidence of arrhythmia. All opiate medications were stopped except methadone, which was titrated. Dietary recommendations were implemented in plan of care. The patient was working with physical and occupational therapists. Pain management provided with methadone. Flomax was continued. Blood sugar was managed with metformin. Placement was found at the [facility]. The patient was stable for transfer. FINAL DIAGNOSES: 1. Status post fall. 2. Syncope. 3. Bradycardia. 4. Head injury, status post repair of laceration. 5. Right third finger PIP dislocation, status post reduction. 6. Severe protein-calorie malnutrition. 7. Opiate dependency, continuous. DISCHARGE MEDICATIONS: See medication reconciliation list. DISCHARGE INSTRUCTIONS: [facility] FOLLOWUP: Follow up with medical doctor at the facility. Narciso Mcfarlane M.D. I have been assigned to dictate discharge summary on this account and I was not involved in the patient's management. Zara LauRye Psychiatric Hospital CenterSilverio N.PLayne DR: SHARI JOB#: [id number] CC: ELIOT
== END 2017-08-04 17:53 | DRG 115 ==
LOC: EDBD 12:17 → EMR 14:42 → EDBEDREQ 19:12 → 2E 19:28 → 3E 08-01 16:02
PROC: 0HQ0XZZ Repair Scalp Skin, External Approach (ICD-10-PCS; principal; 2017-07-31)
DX: S09.90XA Unspecified injury of head, initial encounter (principal); E43 Unspecified severe protein-calorie malnutrition; F11.20 Opioid dependence, uncomplicated; F22 Delusional disorders; L97.522 Non-pressure chronic ulcer of other part of left foot with fat layer exposed; E11.40 Type 2 diabetes mellitus with diabetic neuropathy, unspecified; S63.282A Dislocation of proximal interphalangeal joint of right middle finger, initial encounter; W01.0XXA Fall on same level from slipping, tripping and stumbling without subsequent striking against object, initial encounter; Y92.89 Other specified places as the place of occurrence of the external cause; I10 Essential (primary) hypertension; Z59.0 Homelessness; R55 Syncope and collapse; Z85.51 Personal history of malignant neoplasm of bladder; R00.1 Bradycardia, unspecified; B19.20 Unspecified viral hepatitis C without hepatic coma; F14.21 Cocaine dependence, in remission; F17.200 Nicotine dependence, unspecified, uncomplicated; Z85.46 Personal history of malignant neoplasm of prostate; Z23 Encounter for immunization
CPT/HCPCS: 36415; 70450; 72125; 72131; 80053; 80329; 82962; 83605; 84443; 84484; 85025; 85610; 85730; 87040; 87081; 90471; 90715; 93005; 99285

== ENCOUNTER 2017-09-02 02:31 | Emergency (ER) | payer MEDICARE, MEDICAID ==
[~2017-09-02] VITALS: Ht 170.2 cm; Wt 49.9 kg
[2017-09-02] MEDS ORDERED: Sodium Chloride 500ML 500 ML IV ONE (02:47)
[2017-09-02 03:26] LABS: BASOPHILS % (AUTO) 0.8 % (0.0-2.0); EOSINOPHILS % (AUTO) 0.5 % (0.0-3.0); HEMATOCRIT 39.6 % (42.0-52.0); HEMOGLOBIN 12.9 G/DL (14.2-18.0); LYMPHOCYTES % (AUTO) 16.4 % (20.0-45.0); MEAN CORPUSCULAR VOLUME 98 FL (80-99); MONOCYTES % (AUTO) 4.5 % (1.0-10.0); NEUTROPHILS % (AUTO) 77.9 % (45.0-75.0); PLATELET COUNT 164 K/UL (150-450); RED BLOOD COUNT 4.06 M/UL (4.70-6.10); RED CELL DISTRIBUTION WIDTH 14.2 % (11.6-14.8); WHITE BLOOD COUNT 5.4 K/UL (4.8-10.8)
[2017-09-02 03:30] LABS: ANION GAP 13 mmol/L (5-15); BLOOD UREA NITROGEN 19 mg/dL (7-18); CARBON DIOXIDE 25 MMOL/L (21-32); CHLORIDE 103 MMOL/L (98-107); CREATININE 0.9 MG/DL (0.55-1.30); POTASSIUM 3.8 MMOL/L (3.5-5.1); SODIUM 141 MMOL/L (136-145)
[2017-09-02 03:52] LABS: ALANINE AMINOTRANSFERASE 26 U/L (12-78); ALBUMIN 4.4 G/DL (3.4-5.0); ALKALINE PHOSPHATASE 133 U/L (46-116); ASPARTATE AMINO TRANSFERASE 32 U/L (15-37); BILIRUBIN,TOTAL 0.4 MG/DL (0.2-1.0); CKMB 1.8 NG/ML (0.0-3.6); CREATINE KINASE 143 U/L (26-308)
--- NOTE | 2017-09-02 04:43 | Emergency Room Report ---
History of Present Illness General Chief Complaint: Generalized Weakness Source: Patient Present Illness HPI Patient presents with complaints of general weakness Reports that he was diagnosed with pneumonia recently At this time however denies any chest pain or short of breath Denies any back or flank pain Upon review of records patient was recently admitted to the hospital and was transferred to [facility] Patient reports that he was discharged today from the facility And he was diagnosed with pneumonia however did not have any antibiotics Denies any focal weakness patient is chronically debilitated with bilateral lower extremity weakness requiring wheelchair transportation Allergies: Coded Allergies: NO KNOWN DRUG ALLERGIES (Verified Allergy, Unknown, 12/09/14) Patient History Past Medical History: see triage record Pertinent Family History: none Reviewed Nursing Documentation: PMH: Agreed; PSxH: Agreed Nursing Documentation-PMH Hx Cardiac Problems: Yes Hx Hypertension: Yes Hx Diabetes: Yes Hx Cancer: Yes - Prostate and bladder CA Hx Gastrointestinal Problems: No Hx Neurological Problems: Yes Hx Seizures: Yes Review of Systems All Other Systems: negative except mentioned in HPI Physical Exam Vital Signs Date Time Temp Pulse Resp B/P (MAP) Pulse Ox O2 Delivery O2 Flow Rate FiO2 09/02/17 02:37 98.5 121 16 172/85 99 Room Air 98.4 Sp02 EP Interpretation: reviewed, normal General Appearance: well appearing, no apparent distress Head: normocephalic, atraumatic Eyes: bilateral eye PERRL, bilateral eye EOMI ENT: normal pharynx Neck: full range of motion, supple Respiratory: chest non-tender, lungs clear, no respiratory distress Cardiovascular #1: regular rate, rhythm, no edema Gastrointestinal: non tender, soft Musculoskeletal: other - Patient has chronic weakness in both lower extremities Neurologic: alert, oriented x3, responsive Skin: other - Chronic wounds in the left toe Lymphatic: no adenopathy Medical Decision Making Diagnostic Impression: Primary Impression: general weakness ER Course Patient is a fairly complex patient with multiple differential to consideration including but not limited to cardiac cardiopulmonary and vascular emergencies Patient's blood work and imaging are at baseline levels Remains hemodynamic stable at this time Patient reports that he lives at home and at this time was dispositioned for home Given that the patient has a wheelchair we did want to provide transportation for him however patient refuses to provide us with specific address reports that he wants to go by himself Labs Test 09/02/17 03:05 White Blood Count 5.4 K/UL (4.8-10.8) Red Blood Count 4.06 M/UL (4.70-6.10) Hemoglobin 12.9 G/DL (14.2-18.0) Hematocrit 39.6 % (42.0-52.0) Mean Corpuscular Volume 98 FL (80-99) Mean Corpuscular Hemoglobin 31.8 PG (27.0-31.0) Mean Corpuscular Hemoglobin Concent 32.6 G/DL (32.0-36.0) Red Cell Distribution Width 14.2 % (11.6-14.8) Platelet Count 164 K/UL (150-450) Mean Platelet Volume 7.1 FL (6.5-10.1) Neutrophils (%) (Auto) 77.9 % (45.0-75.0) Lymphocytes (%) (Auto) 16.4 % (20.0-45.0) Monocytes (%) (Auto) 4.5 % (1.0-10.0) Eosinophils (%) (Auto) 0.5 % (0.0-3.0) Basophils (%) (Auto) 0.8 % (0.0-2.0) Sodium Level 141 MMOL/L (136-145) Potassium Level 3.8 MMOL/L (3.5-5.1) Chloride Level 103 MMOL/L (98-107) Carbon Dioxide Level 25 MMOL/L (21-32) Anion Gap 13 mmol/L (5-15) Blood Urea Nitrogen 19 mg/dL (7-18) Creatinine 0.9 MG/DL (0.55-1.30) Estimat Glomerular Filtration Rate > 60 mL/min (>60) Glucose Level 75 MG/DL (74-106) Calcium Level 9.0 MG/DL (8.5-10.1) Total Bilirubin 0.4 MG/DL (0.2-1.0) Aspartate Amino Transf (AST/SGOT) 32 U/L (15-37) Alanine Aminotransferase (ALT/SGPT) 26 U/L (12-78) Alkaline Phosphatase 133 U/L (46-116) Total Creatine Kinase 143 U/L (26-308) Creatine Kinase MB 1.8 NG/ML (0.0-3.6) Creatine Kinase MB Relative Index 1.2 Total Protein 8.9 G/DL (6.4-8.2) Albumin 4.4 G/DL (3.4-5.0) Globulin 4.5 g/dL Albumin/Globulin Ratio 1.0 (1.0-2.7) Lipase 74 U/L (73-393) Rhythm Strip Diag. Results EP Interpretation: yes Rate: 67 Rhythm: NSR, no PVC's, no ectopy Chest X-Ray Diagnostic Results Chest X-Ray Diagnostic Results : Chest X-Ray Ordered: Yes # of Views/Limited/Complete: 1 View Indication: Chest Pain EP Interpretation: Yes Interpretation: no consolidation, no effusion, no pneumothorax, no acute cardiopulmonary disease - Cardiomegaly Impression: No acute disease Electronically Signed by: Mariah Mac DO Last Vital Signs Date Time Temp Pulse Resp B/P (MAP) Pulse Ox O2 Delivery O2 Flow Rate FiO2 09/02/17 02:37 98.5 121 16 172/85 99 Room Air 98.4 Status: improved Disposition: HOME, SELF-CARE Condition: Improved Referrals: NOT CHOSEN IPA/MD,REFERRING (PCP) Patient Instructions: Weakness Additional Instructions: Patient is provided with the discharge instructions notified to follow up with primary doctor in the next 2-3 days otherwise return to the er with any worsening symptoms. Please note that this report is being documented using [employer] technology. This can lead to erroneous entry secondary to incorrect interpretation by the dictating instrument. Mariah Mac DO Sep 02, 2017 04:42
[2017-09-02 04:49] VITALS: BP 137/84
[2017-09-02 04:50] VITALS: BP 172/85
--- NOTE | 2017-09-02 11:34 | Diagnostic Imaging Report ---
Indication: Chest pain Comparison: 12/09/2014 A single view chest radiograph was obtained. Findings: Cardiac silhouette is prominent. Lungs are clear. The bones are slightly osteopenic. IMPRESSION: No acute disease
--- NOTE | 2017-09-05 12:22 | Cardiology Report ---
APPROVED REPORT EKG Measurement Heart [id number] WI [id number] Sinus tachycardia Left ventricular hypertrophy with repolarization abnormality Abnormal ECG
== END 2017-09-02 04:51 | disposition home or self-care (01) ==
LOC: EDUNIT# 02:31 → EDBD 02:31 → EMR 03:05
DX: R53.1 Weakness (principal); E11.9 Type 2 diabetes mellitus without complications; I10 Essential (primary) hypertension; Z85.46 Personal history of malignant neoplasm of prostate; Z85.51 Personal history of malignant neoplasm of bladder; R07.9 Chest pain, unspecified
CPT/HCPCS: 36415; 71045; 80053; 82550; 82553; 82962; 83690; 85025; 93005; 99283

== ENCOUNTER 2018-03-14 08:32 | Inpatient (IN) | payer MEDICARE, MEDICAID ==
[~2018-03-14] VITALS: Ht 177.8 cm; Wt 53.7 kg
[2018-03-14 08:32] VITALS: BP 164/84
--- NOTE | 2018-03-14 08:32 | NUR ---
ED Nurse Note: PT BROUGHT IN BY AMBULANCE FROM [facility]. AOX4. PT C/O BILATERAL LEG PAIN X 2 DAYS AGO. MULTIPLE OPEN WOUNDS ON BILATERAL LEGS WITH FOUL ODOR. PT BROUGHT IN WITH SOCKS ON BOTH FEET BUT SOCKS ARE STUCK ONTO FEET. WILL IRRIGATE AND ATTEMPT REMOVAL SHORTLY.
--- NOTE | 2018-03-14 08:35 | NUR ---
ED Nurse Note: MINI COG STARTED AT TRIAGE.
[2018-03-14] MEDS ORDERED: cefTRIAXone 1 GM in NS 55 ML IVPB ONE (09:00)
[2018-03-14] MEDS ORDERED: Sodium Chloride 2,200 ML IVLG ONE (09:00)
--- NOTE | 2018-03-14 09:03 | Emergency Room Report ---
History of Present Illness General Chief Complaint: General Complaint Source: Patient, EMS Present Illness HPI Patient presents by ambulance for worsening leg pain and infection Patient reports that over the past several days acutely he noticed worsening symptoms of his both legs But more on the left side Patient presents appears somewhat disheveled reports that he lives at a [facility] house denies any fevers denies any chest pain or shortness of breath denies any vomiting or diarrhea Denies any recent fall or trauma Allergies: Coded Allergies: NO KNOWN DRUG ALLERGIES (Verified Allergy, Unknown, 12/09/14) Patient History Past Medical History: see triage record Pertinent Family History: none Reviewed Nursing Documentation: PMH: Agreed; PSxH: Agreed Nursing Documentation-PMH Hx Cardiac Problems: Yes Hx Hypertension: Yes Hx COPD: Yes Hx Diabetes: Yes Hx Cancer: Yes Hx Gastrointestinal Problems: No Hx Neurological Problems: Yes Hx Seizures: Yes Review of Systems All Other Systems: negative except mentioned in HPI Physical Exam Vital Signs Date Time Temp Pulse Resp B/P (MAP) Pulse Ox O2 Delivery O2 Flow Rate FiO2 03/14/18 08:27 97.9 71 14 136/76 94 Room Air Sp02 EP Interpretation: reviewed, normal General Appearance: well appearing - In no acute distress, however poorly kept and disheveled Head: normocephalic, atraumatic Eyes: bilateral eye PERRL, bilateral eye EOMI ENT: dry mucus membranes Neck: supple, thyroid normal Respiratory: lungs clear Cardiovascular #1: regular rate, rhythm Gastrointestinal: non tender, soft Musculoskeletal: other - Stasis ulcerations left lower extremity, increased erythema, bilateral venous insufficiency Neurologic: alert, oriented x3, responsive Skin: other - As above Lymphatic: no adenopathy Medical Decision Making Diagnostic Impression: Primary Impression: Cellulitis Additional Impressions: Venous stasis Venous stasis dermatitis ER Course Given the history exam and findings patient appears somewhat disheveled The area on the lower extremity appears exposed and concern for early infection Antibiotics are initiated broad-spectrum IV hydration and further interventions provided patient admitted for further inpatient care Labs Test 03/14/18 09:30 White Blood Count 7.0 K/UL (4.8-10.8) Red Blood Count 3.70 M/UL (4.70-6.10) Hemoglobin 12.9 G/DL (14.2-18.0) Hematocrit 39.1 % (42.0-52.0) Mean Corpuscular Volume 106 FL (80-99) Mean Corpuscular Hemoglobin 34.9 PG (27.0-31.0) Mean Corpuscular Hemoglobin Concent 33.0 G/DL (32.0-36.0) Red Cell Distribution Width 15.2 % (11.6-14.8) Platelet Count 231 K/UL (150-450) Mean Platelet Volume 5.9 FL (6.5-10.1) Neutrophils (%) (Auto) 59.2 % (45.0-75.0) Lymphocytes (%) (Auto) 27.4 % (20.0-45.0) Monocytes (%) (Auto) 11.5 % (1.0-10.0) Eosinophils (%) (Auto) 1.3 % (0.0-3.0) Basophils (%) (Auto) 0.7 % (0.0-2.0) Sodium Level 140 MMOL/L (136-145) Potassium Level 4.1 MMOL/L (3.5-5.1) Chloride Level 105 MMOL/L (98-107) Carbon Dioxide Level 26 MMOL/L (21-32) Anion Gap 9 mmol/L (5-15) Blood Urea Nitrogen 16 mg/dL (7-18) Creatinine 0.5 MG/DL (0.55-1.30) Estimat Glomerular Filtration Rate > 60 mL/min (>60) Glucose Level 120 MG/DL (74-106) Lactic Acid Level 1.10 mmol/L (0.4-2.0) Calcium Level 8.9 MG/DL (8.5-10.1) Total Bilirubin 0.7 MG/DL (0.2-1.0) Aspartate Amino Transf (AST/SGOT) 46 U/L (15-37) Alanine Aminotransferase (ALT/SGPT) 22 U/L (12-78) Alkaline Phosphatase 144 U/L (46-116) Total Creatine Kinase 141 U/L (26-308) Creatine Kinase MB 3.6 NG/ML (0.0-3.6) Creatine Kinase MB Relative Index 2.5 Troponin I 0.046 ng/mL (0.000-0.056) Total Protein 7.3 G/DL (6.4-8.2) Albumin 2.8 G/DL (3.4-5.0) Globulin 4.5 g/dL Albumin/Globulin Ratio 0.6 (1.0-2.7) Lipase 66 U/L (73-393) Rhythm Strip Diag. Results EP Interpretation: yes Rate: 55 Rhythm: NSR, no PVC's, no ectopy Last Vital Signs Date Time Temp Pulse Resp B/P (MAP) Pulse Ox O2 Delivery O2 Flow Rate FiO2 03/14/18 08:27 97.9 71 14 136/76 94 Room Air Status: improved Disposition: ADMITTED INPATIENT Condition: Serious Mariah Mac DO Mar 14, 2018 09:03
[2018-03-14 09:45] LABS: BASOPHILS % (AUTO) 0.7 % (0.0-2.0); EOSINOPHILS % (AUTO) 1.3 % (0.0-3.0); HEMATOCRIT 39.1 % (42.0-52.0); HEMOGLOBIN 12.9 G/DL (14.2-18.0); LYMPHOCYTES % (AUTO) 27.4 % (20.0-45.0); MEAN CORPUSCULAR VOLUME 106 FL (80-99); MONOCYTES % (AUTO) 11.5 % (1.0-10.0); NEUTROPHILS % (AUTO) 59.2 % (45.0-75.0); PLATELET COUNT 231 K/UL (150-450); RED CELL DISTRIBUTION WIDTH 15.2 % (11.6-14.8)
--- NOTE | 2018-03-14 09:53 | NUR ---
patient states he is homeless at this time . homeless log initated . patient will be admitted as in patient for observation
[2018-03-14 10:00] VITALS: BP 162/78
[2018-03-14 10:04] LABS: ANION GAP 9 mmol/L (5-15); BLOOD UREA NITROGEN 16 mg/dL (7-18); CALCIUM 8.9 MG/DL (8.5-10.1); CARBON DIOXIDE 26 MMOL/L (21-32); CHLORIDE 105 MMOL/L (98-107); CREATININE 0.5 MG/DL (0.55-1.30); POTASSIUM 4.1 MMOL/L (3.5-5.1); SODIUM 140 MMOL/L (136-145)
[2018-03-14 10:18] LABS: ALANINE AMINOTRANSFERASE 22 U/L (12-78); ALBUMIN 2.8 G/DL (3.4-5.0); ALBUMIN/GLOBULIN RATIO 0.6 (1.0-2.7); ALKALINE PHOSPHATASE 144 U/L (46-116); ASPARTATE AMINO TRANSFERASE 46 U/L (15-37); BILIRUBIN,TOTAL 0.7 MG/DL (0.2-1.0); CKMB 3.6 NG/ML (0.0-3.6); CREATINE KINASE 141 U/L (26-308)
--- NOTE | 2018-03-14 11:15 | NUR ---
BED ASSIGNED ROOM 412. BUT NO NURSE AVILABLE TO TAKE REPORT
--- NOTE | 2018-03-14 11:30 | NUR ---
ED Nurse Note: CALLED [facility] FOR PT TRANSFER. PER CHARGE NURSE, UNIT IS MAXED OUT AND LIGHT ARMORED RECONNAISSANCE OFFICER IS AWARE. WILL CALL BACK LATER FOR UPDATE.
--- NOTE | 2018-03-14 11:35 | Diagnostic Imaging Report ---
Indication: Shortness of breath Technique: XRAY Chest 1v Comparison: 09/02/2017 Findings: Stable cardiomegaly. Mediastinal contours are sharp. No definite focal airspace consolidation. No pleural effusion or pneumothorax. Likely pleural-based calcifications are again noted along the left lateral thorax, similar to the prior exams. Pulmonary vascularity within normal limits. There is scoliosis. Impression: No radiographic evidence of acute cardiopulmonary disease or significant interval change compared to the prior exam. Additional findings as above.
[2018-03-14] MEDS ORDERED: Zolpidem 5mg tab ORAL PRN (12:30)
[2018-03-14] MEDS ORDERED: LORazepam 1mg tab ORAL PRN (12:30)
--- NOTE | 2018-03-14 12:48 | NUR ---
ED Nurse Note: [facility] CALLED FOR PT TRANSFER. REPORT GIVEN TO SAGE GALLAGHER. PT TAKEN UP TO [facility] VIA GURNEY WITH ALL BELONGINGS ACCOMPANIED BY ROSSY HECTOR.
[2018-03-14] MEDS ORDERED: duricef PO (13:34)
[2018-03-14] MEDS ORDERED: DOXYCYCLINE MO100 M2 PO (13:34)
[2018-03-14] MEDS ORDERED: Zoysn 3.37gm in NS 100ML IVPB SCH ×2 (14:00→16:00)
[2018-03-14] MEDS ORDERED: Piperacillin/Tazobactam 2.25 GM in D5W 55 ML IVPB SCH (14:00)
--- NOTE | 2018-03-14 14:26 | History & Physical ---
History and Physical History & Physicial HP dictated Narciso Mcfarlane MD Mar 14, 2018 14:26
[2018-03-14] MEDS: Vancomycin 1gm/D5W 275ml IVPB SCH ×2 (14:27)
[2018-03-14] MEDS ORDERED: Vancomycin 1gm/D5W 275ml IVPB SCH ×2 (15:00)
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
[2018-03-14] MEDS: HYDROcodone/Acetamin 10/325 tab ORAL PRN ×2 (15:21→22:34)
[2018-03-14 16:00] VITALS: BP 130/81
--- NOTE | 2018-03-14 17:00 | Consultation ---
DATE OF CONSULTATION: 03/14/2018 INFECTIOUS DISEASE CONSULTATION CONSULTING PHYSICIAN: Dany Mcfarlane M.D. PRIMARY ATTENDING PHYSICIAN: Narciso Mcfarlane M.D. REASON FOR CONSULTATION: Cellulitis of lower extremity. HISTORY OF PRESENT ILLNESS: This is a 67-year-old male admitted from home complaining of pain in lower extremities, difficulty of ambulating. The patient's symptoms started 1 week ago, more severe in the left side. PAST MEDICAL HISTORY: Significant for hypertension, COPD, left eye blindness, diabetes mellitus, seizure disorder, stasis dermatitis of legs. ALLERGIES: No known drug allergies. MEDICATIONS`: Flomax, heparin, metformin, Zosyn, vancomycin, he is on methadone, Tylenol, lorazepam, Ambien. SOCIAL HISTORY: He is . Smoker, 3 cigarettes a day. Occasional drinking. No IV drug abuse. He has history of incarceration in the past. REVIEW OF SYSTEMS: He has no fever. He has cough and dysuria. PHYSICAL EXAMINATION: VITAL SIGNS: Temperature 98.6, pulse 68, blood pressure 154/74. GENERAL APPEARANCE: Seems to be thin. HEAD AND NECK: The left eye blindness and left cornea opacity. HEART: Normal rate. LUNGS: Clear. ABDOMEN: Soft, nontender. EXTREMITIES: He has bilateral skin changes in the lower extremity. He seems to have shallow blister more in the left side that are open already. LABORATORY AND DIAGNOSTIC DATA: Sodium 140, potassium 4.1, chloride 105, bicarbonate 26, BUN 16, creatinine 0.5, and glucose 120. Albumin 2.8. WBC 7, hemoglobin 12.9, hematocrit 39.1, platelet is 231,000. IMPRESSION: Cellulitis of legs, more in the left side. He seems to have stasis dermatitis, COPD, diabetes mellitus, history of bladder & prostate cancer. RECOMMENDATION: Continue with IV vancomycin. May discontinue Zosyn. We will follow up the cultures. At the end of my exam, I thank Dr. Narciso Mcfarlane for involving me in the care of this patient. Dany Mcfarlane M.D. DR: Cordell JOB#: [id number] CC: ELIOT
[2018-03-14] MEDS ORDERED: Flu Vaccine (Alfuria) for Pts Less than 65 Years old IM ONE (18:30)
[2018-03-14] MEDS ORDERED: Pneumococcal Vaccine 25mcg/0.5ml IM ONE (18:30)
[2018-03-14] MEDS: metFORMIN 500mg tab ORAL SCH (18:34)
--- NOTE | 2018-03-14 19:00 | NUR ---
NURSE NOTES: Received a report from SAGE Marquez. Pt is in stable condition. Sleeping comfortably. No respiratory distress noted. No c/o pain/discomfort. IV site is patent and intact. Bed in lowest position. Bed alarm is on. Call light within reach. Will continue to monitor.
--- NOTE | 2018-03-14 19:08 | NUR ---
HAND-OFF: Report given to SAGE Peralta.
[2018-03-14 20:00] VITALS: BP 152/75
--- NOTE | 2018-03-14 20:00 | History and Physical Report ---
DATE OF ADMISSION: 03/14/2018 CHIEF COMPLAINT: Pain in lower extremities. HISTORY OF PRESENT ILLNESS: The patient is a 67-year-old male who is known to me from a previous admission. The patient came to the emergency room for lower extremity pain, was diagnosed with cellulitis both legs and was admitted. The patient stated that he has had pain in his legs for about 2 weeks now. PAST MEDICAL HISTORY: Includes history of seizure disorder, reported history of bladder cancer, diabetes and hypertension. He used to be a drug addict, but he has been on methadone for many years now. The patient has history of presyncope, history of bradycardia, head laceration repaired. MEDICATIONS: Reviewed in the EMR. SOCIAL HISTORY: The patient says that he lives with roommates. He denies history of drug abuse at this point. ALLERGIES: No known drug allergies. REVIEW OF SYSTEMS: Noncontributory except above. PHYSICAL EXAMINATION: GENERAL: The patient is a 67-year-old male, in no acute distress. VITAL SIGNS: Blood pressure 164/76, pulse 68, temperature 98.6, respiratory rate 15. HEENT: [place] conjunctivae. Anicteric sclerae. NECK: Supple. LUNGS: Clear to auscultation. HEART: S1 and S2 without murmurs or rubs. ABDOMEN: Soft, nontender. EXTREMITIES: The patient has bilateral discoloration of skin and peeling of skin on the left consistent with cellulitis, has also edema. LABORATORY FINDINGS: The CBC shows a WBC of 7000, hematocrit is 39.1, hemoglobin 12.9, and platelet 231,000. Chemistry panel shows a serum sodium 140, potassium 4.1 chloride 105, CO2 26, BUN is 16 creatinine 0.5. Lipase is 66. ASSESSMENT: This is a 67-year-old male who is admitted with lower extremity cellulitis. He has a history of diabetes as well as hypertension. PLAN: The patient will be on IV antibiotics. Vascular and podiatry consultation will be obtained and also ID consultation. Physical therapy will be ordered. The patient will be on pain medication. Thank you very much. Narciso Mcfarlane M.D. DR: Lore JOB#: [id number] CC: ELIOT
[2018-03-14] MEDS: Heparin 5000 units/ml inj SUBQ SCH ×2 (21:00→22:21)
[2018-03-14] MEDS: Tamsulosin 0.4mg cap ORAL SCH (22:20)
--- NOTE | 2018-03-14 22:42 | Diagnostic Imaging Report ---
APPROVED REPORT CPT Code: 39157 Present Symptoms Comments: BILATERAL LEGS PAIN. BILATERAL: Imaging reveals a patent deep venous system bilaterally. There is no evidence of thrombus within the femoral, popliteal or tibial segments. The greater saphenous veins are also within normal limits. Doppler indicates normal spontaneous flow within these segments. There is evidence of cystic structure adjacent to left common femoral.
--- NOTE | 2018-03-14 22:42 | Diagnostic Imaging Report ---
APPROVED REPORT CPT Code: 91014 RIGHT LEG: Common femoral artery waveform analysis is within normal limits at rest. Color flow duplex sonography reveals calcification throughout the superficial femoral and popliteal arteries. There is no evidence of stenosis or occlusion within these segments. The tibioperoneal trunk was not well visulized. A mild (30-50%) stenosis was seen in the proximal posterior tibial artery.The distal posteriortibial artery and peroneal artery were not visulized.The distal dosalis pedis, and anterior tibial arteries also moderately calcified. However, Doppler waveform analysis is monophasic, consistent with moderate ischemia at rest. LEFT LEG: Common femoral artery waveform analysis is within normal limits at rest. Color flow duplex sonography reveals calcification throughout the superficial femoral and popliteal arteries. There is no evidence of stenosis or occlusion within these segments. The tibioperoneal trunk was not well visulized.The posteriortibial artery and peroneal artery were not visulized.The distal dosalis pedis, and anterior tibial arteries also moderately calcified. However, Doppler waveform analysis is monophasic, consistent with moderate ischemia at rest.
--- NOTE | 2018-03-14 22:43 | Diagnostic Imaging Report ---
APPROVED REPORT CPT Code: 51228 Vascular Symptoms Comments: DIZZINESS. Doppler Spectral Velocity Analysis RightLeft RIGHT SIDE: CCA - Imaging reveals no significant plaque within the extracranial carotid arteries. The Doppler spectral flow analysis is within normal limits throughout the extracranial carotid arteries. VERTEBRAL - The vertebral artery is within normal limits. LEFT SIDE: CCA/ECA - Imaging reveals no significant plaque in the common carotid and external carotid arteries. ICA - Imaging reveals irregular plaque in the internal carotid artery. The Doppler signal indicates the degree of stenosis is minimal (5%) in the internal carotid artery. VERTEBRAL - The vertebral artery is within normal limits.
[2018-03-15] VITALS: BP 134/72
[2018-03-15] MEDS: Vancomycin 1gm/D5W 275ml IVPB SCH ×4 (01:43→13:28)
[2018-03-15 04:00] VITALS: BP 121/64
[2018-03-15] MEDS: HYDROcodone/Acetamin 10/325 tab ORAL PRN ×4 (05:08→18:10)
--- NOTE | 2018-03-15 07:10 | NUR ---
HAND-OFF: Report given to SAGE Cuevas.
--- NOTE | 2018-03-15 07:59 | NUR ---
NURSE NOTES: Received patient awake, responsive. with no sob/respi distress noted. Denies any pain at this time. Will continue to monitor. Call light made within reach.
[2018-03-15 08:00] VITALS: BP 130/61
[2018-03-15] MEDS: Heparin 5000 units/ml inj SUBQ SCH ×2 (08:33→20:59)
[2018-03-15] MEDS: metFORMIN 500mg tab ORAL SCH ×2 (08:34→18:00)
--- NOTE | 2018-03-15 10:38 | NUR ---
NURSE NOTES: wound care to bilateral leg rendered. seen by Dr. Kraft
--- NOTE | 2018-03-15 10:39 | NUR ---
NURSE NOTES: Per lab, patient blood cx positive gram cocci in clusters. Dany Beaver made aware.
[2018-03-15 12:00] VITALS: BP 113/69
--- NOTE | 2018-03-15 13:21 | General Progress Note ---
Progress Note Progress Note Patient seen and examined Consult dictated Mixed venous arterial insufficiency Bilateral leg venous stasis ulcers L>R with cellulitis Absent pop and pedal pulses with calcific PAD Smoker+ Rec Duplex CT angio Abx per ID Leg wound care per podiatry Will need selective leg angiogram--can be done as outpatient Social work eval re placement Evert Robertson MD Mar 15, 2018 13:20
--- NOTE | 2018-03-15 13:26 | NUR ---
REHAB MED PT NOTE CONSULT RECEIVED, MILI COMPLETED, PATIENT WILL BENEFIT FROM SKILLED PT DURING STAY FOR RETURN TO [facility]. RECOMMEND SNF AT [facility]. PLAN OF CARE INITIATED. THOMAS LARA PT DPT Addendum: 03/15/18 at 1326 by THOMAS LARA PT Amended: Links added.
--- NOTE | 2018-03-15 14:31 | NUR ---
NURSE NOTES: Dr. Stockton made aware of consult order.
[2018-03-15] MEDS ORDERED: Isovue-370 150ml vial INJ PRN ×2 (14:45)
[2018-03-15] MEDS ORDERED: NS 275ml ONE (14:53)
[2018-03-15] MEDS ORDERED: Tubing IV Secondary IV ONE (14:53)
--- NOTE | 2018-03-15 15:29 | General Progress Note ---
Assessment/Plan Problem List: (1) Cellulitis ICD Codes: L03.90 - Cellulitis, unspecified SNOMED: 827560060 (2) Protein-calorie malnutrition, severe ICD Codes: E43 - Unspecified severe protein-calorie malnutrition SNOMED: 639803147 (3) Peripheral vascular disease ICD Codes: I73.9 - Peripheral vascular disease, unspecified SNOMED: 661352160 (4) DM (diabetes mellitus) ICD Codes: E11.9 - Type 2 diabetes mellitus without complications SNOMED: 85558511 Assessment/Plan abxs discussed with Dr Robertson and RN needs placement add ASA add statins Subjective Allergies: Coded Allergies: NO KNOWN DRUG ALLERGIES (Verified Allergy, Unknown, 12/09/14) Subjective C/O pain in his legs Objective Last 24 Hour Vital Signs Date Time Temp Pulse Resp B/P (MAP) Pulse Ox O2 Delivery O2 Flow Rate FiO2 03/15/18 12:00 98.2 78 19 113/69 (84) 95 03/15/18 09:00 Room Air 03/15/18 08:00 98.7 83 19 130/61 (84) 95 03/15/18 04:00 98.1 73 19 121/64 (83) 95 03/15/18 00:00 98.2 81 21 134/72 (92) 96 03/14/18 21:00 Room Air 03/14/18 20:00 98.2 79 20 152/75 (100) 96 03/14/18 16:00 98.0 86 19 130/81 (97) 97 Intake and Output 03/14/18 03/15/18 19:00 07:00 Intake Total 2780.000 ml 515.000 ml Output Total 900 ml Balance 2780.000 ml -385.000 ml Intake Oral 240 ml IV Total 2530.000 ml 275.000 ml Other 250 ml Output Urine Total 900 ml # Voids 1 Height (Feet): 5 Height (Inches): 10.00 Weight (Pounds): 160 Narciso Mcfarlane MD Mar 15, 2018 15:29
--- NOTE | 2018-03-15 15:35 | NUR ---
NURSE NOTES: patient refusing IV line insertion to AC. per patient " PICC line is easier. doesnt want to mess up veins. "
--- NOTE | 2018-03-15 15:43 | Infectious Diseases Prog Note ---
Assessment/Plan Assessment/Plan A; bacteremia Cellulitis of legs Peripheral arterial disease DM P; Continue IV Vancomycin Will f/u cultures Subjective ROS Limited/Unobtainable: Yes Constitutional: Reports: no symptoms Respiratory: Reports: no symptoms Gastrointestinal/Abdominal: Reports: no symptoms Genitourinary: Reports: no symptoms Musculoskeletal: Reports: pain, other - in legs Allergies: Coded Allergies: NO KNOWN DRUG ALLERGIES (Verified Allergy, Unknown, 12/09/14) Objective Vital Signs Last 24 Hour Vital Signs Date Time Temp Pulse Resp B/P (MAP) Pulse Ox O2 Delivery O2 Flow Rate FiO2 03/15/18 12:00 98.2 78 19 113/69 (84) 95 03/15/18 09:00 Room Air 03/15/18 08:00 98.7 83 19 130/61 (84) 95 03/15/18 04:00 98.1 73 19 121/64 (83) 95 03/15/18 00:00 98.2 81 21 134/72 (92) 96 03/14/18 21:00 Room Air 03/14/18 20:00 98.2 79 20 152/75 (100) 96 03/14/18 16:00 98.0 86 19 130/81 (97) 97 Height (Feet): 5 Height (Inches): 10.00 Weight (Pounds): 160 General Appearance: no acute distress HEENT: mucous membranes moist Respiratory/Chest: lungs clear Cardiovascular: normal rate, gallop/S3 Abdomen: soft, non tender Extremities: other - ulcers on legs Skin: other - stasis dermatitis of legs Neurologic/Psychiatric: alert, responsive Microbiology Date/Time Source Procedure Growth Status 03/14/18 09:15 Blood Blood Culture - Preliminary Resulted 03/14/18 09:15 Blood Blood Culture - Preliminary Resulted 03/14/18 12:32 Rectum Received Current Medications Medications (Trade) Dose Ordered Sig/Syl Route PRN Reason Start Time Stop Time Status Last Admin Dose Admin Acetaminophen (Tylenol) 650 mg Q4H PRN ORAL Mild Pain (Pain Scale 1-3) 03/14/18 12:30 04/13/18 12:29 Acetaminophen/ Hydrocodone Bitart ([place] 10/325) 1 tab Q4H PRN ORAL Pain Scale (3-5) 03/15/18 14:57 03/21/18 14:56 Aspirin (ASA) 162 mg DAILY NG 03/16/18 09:00 04/15/18 08:59 Aspirin (ASA) 162 mg ONCE NG 03/15/18 16:00 03/15/18 17:00 Atorvastatin Calcium (Lipitor) 10 mg BEDTIME ORAL 03/15/18 21:00 04/14/18 20:59 Dextrose (Dextrose 50%) 25 ml Q30M PRN IV Hypoglycemia 03/14/18 12:30 04/13/18 12:29 Dextrose (Dextrose 50%) 50 ml Q30M PRN IV Hypoglycemia 03/14/18 12:30 04/13/18 12:29 Heparin Sodium (Porcine) (Heparin 5000 units/ml) 5,000 units EVERY 12 HOURS SUBQ 03/14/18 21:00 04/13/18 20:59 Hydromorphone HCl (Dilaudid) 1 mg Q4H PRN IVP Severe Pain (Pain Scale 7-10) 03/15/18 12:30 03/22/18 12:29 Iopamidol (Isovue-370 150ml) 150 ml NOW PRN INJ Radiology Procedure 03/15/18 14:45 03/17/18 14:43 Iopamidol (Isovue-370 150ml) 150 ml NOW PRN INJ Radiology Procedure 03/15/18 14:45 03/17/18 14:43 Lorazepam (Ativan) 1 mg Q4H PRN ORAL For Anxiety 03/14/18 12:30 03/21/18 12:29 Metformin HCl (Glucophage) 500 mg TWICE A DAY ORAL 03/14/18 18:00 04/13/18 17:59 03/15/18 08:34 Methadone HCl (Methadone HCl) 100 mg DAILY ORAL 03/15/18 09:00 03/22/18 08:59 03/15/18 08:34 Tamsulosin HCl (Flomax) 0.4 mg QHS ORAL 03/14/18 21:00 04/13/18 20:59 03/14/18 22:20 Vancomycin HCl (Vanco rx to dose) 1 ea DAILY PRN MISC Per rx protocol 03/14/18 12:30 04/13/18 12:29 Vancomycin HCl 1 gm/Dextrose 275 ml @ 183.708 mls/hr Q12H IVPB 03/14/18 14:00 03/19/18 13:59 03/15/18 13:28 Zolpidem Tartrate (Ambien) 5 mg HSPRN PRN ORAL Insomnia 03/14/18 12:30 03/21/18 12:29 Dany Mcfarlane MD Mar 15, 2018 15:43
[2018-03-15 16:00] VITALS: BP 138/69
[2018-03-15] MEDS ORDERED: Aspirin Baby 81mg NG SCH (16:00)
[2018-03-15] MEDS ORDERED: Heparin 2000 units/Ns 1000ml INJ PRN (16:10)
[2018-03-15] MEDS ORDERED: Lidocaine 1% Plain 30 ml INJ PRN (16:10)
--- NOTE | 2018-03-15 18:23 | Consultation ---
History of Present Illness General Date patient seen: Mar 15, 2018 Time patient seen: 06:11 Chief Complaint: General Complaint Present Illness HPI S: Pt seen for B/L venous stasis ulcerations with cellulitis of LLE, L > R. Pt states he has had the ulcerations for a couple weeks. Confirms that he has moderate pain to B/L LE. Denies any recent constitutional symptoms. O: PE LE: RLE: non-palpapble pulses DP/PT superficial leg ulcerations, noted medial ankle, superficial, woudn base is noted to be necrotic, (-) active purulent drainage. Hemosiderin deposits noted. LLE: non-palpapble pulses DP/PT superficial leg ulceration noted lateral leg superficial, wound base is noted to be necrotic, (-) active purulent drainage. Hemosiderin deposits noted. superficial leg ulceration, noted posterior leg, superficial, wound base is noted to be granular, (-) active purulent drainage. Allergies: Coded Allergies: NO KNOWN DRUG ALLERGIES (Verified Allergy, Unknown, 12/09/14) Medication History Scheduled Clonazepam* (Klonopin*), 2 MG ORAL TID, (Reported) Clonazepam* (Klonopin*), 2 MG ORAL BID, (Reported) Doxycycline Monohydrate (Doxycycline Monohydrate), 100 MG PO BID, (Reported) Metformin Hcl* (Metformin Hcl*), 500 MG ORAL TWICE A DAY, (Reported) Metformin Hcl* (Metformin Hcl*), Unknown Dose ORAL TWICE A DAY, (Reported) Methadone Hcl* (Methadone*), 90 MG PO DAILY, (Reported) Tamsulosin HCl (Flomax), 0.4 MG ORAL DAILY [duricef], 100 MG PO BID, (Reported) Scheduled PRN Diazepam* (Diazepam*), 2 MG ORAL Q6H PRN for ANXIETY, (Reported) Hydrocodone/Acetaminophen (Hydrocodon-Acetaminophn 10-325), 1 TAB ORAL EVERY 12 HOURS PRN for For Pain, (Reported) Patient History Healthcare decision maker Resuscitation status Full Code Advanced Directive on File No Physical Exam Last 24 Hour Vital Signs Date Time Temp Pulse Resp B/P (MAP) Pulse Ox O2 Delivery O2 Flow Rate FiO2 03/15/18 16:00 98.6 75 19 138/69 (92) 95 03/15/18 12:00 98.2 78 19 113/69 (84) 95 03/15/18 09:00 Room Air 03/15/18 08:00 98.7 83 19 130/61 (84) 95 03/15/18 04:00 98.1 73 19 121/64 (83) 95 03/15/18 00:00 98.2 81 21 134/72 (92) 96 03/14/18 21:00 Room Air 03/14/18 20:00 98.2 79 20 152/75 (100) 96 Intake and Output 03/14/18 03/15/18 19:00 07:00 Intake Total 2780.000 ml 515.000 ml Output Total 900 ml Balance 2780.000 ml -385.000 ml Intake Oral 240 ml IV Total 2530.000 ml 275.000 ml Other 250 ml Output Urine Total 900 ml # Voids 1 Laboratory Tests Test 03/15/18 09:30 Triglycerides Level Pending Cholesterol Level Pending LDL Cholesterol Pending HDL Cholesterol Pending Cholesterol/HDL Ratio Pending Height (Feet): 5 Height (Inches): 10.00 Weight (Pounds): 160 Medications Current Medications Medications (Trade) Dose Ordered Sig/Syl Route PRN Reason Start Time Stop Time Status Last Admin Dose Admin Acetaminophen (Tylenol) 650 mg Q4H PRN ORAL Mild Pain (Pain Scale 1-3) 03/14/18 12:30 04/13/18 12:29 Acetaminophen/ Hydrocodone Bitart ([place] 10/325) 1 tab Q4H PRN ORAL Pain Scale (3-5) 03/15/18 14:57 03/21/18 14:56 Aspirin (ASA) 162 mg DAILY NG 03/16/18 09:00 04/15/18 08:59 Atorvastatin Calcium (Lipitor) 10 mg BEDTIME ORAL 03/15/18 21:00 04/14/18 20:59 Chlorhexidine Gluconate (Delmi-Hex 2%) 1 applic DAILY@2000 TOPIC 03/15/18 20:00 04/14/18 19:59 Dextrose (Dextrose 50%) 25 ml Q30M PRN IV Hypoglycemia 03/14/18 12:30 04/13/18 12:29 Dextrose (Dextrose 50%) 50 ml Q30M PRN IV Hypoglycemia 03/14/18 12:30 04/13/18 12:29 Heparin Sodium (Porcine) (Heparin 5000 units/ml) 5,000 units EVERY 12 HOURS SUBQ 03/14/18 21:00 04/13/18 20:59 Heparin Sodium/ Sodium Chloride (Heparin 2000 units/Ns 1000ml premix) 2,000 unit ONCE PRN INJ PICC 03/15/18 16:10 03/16/18 16:09 Hydromorphone HCl (Dilaudid) 1 mg Q4H PRN IVP Severe Pain (Pain Scale 7-10) 03/15/18 12:30 03/22/18 12:29 Iopamidol (Isovue-370 150ml) 150 ml NOW PRN INJ Radiology Procedure 03/15/18 14:45 03/17/18 14:43 Iopamidol (Isovue-370 150ml) 150 ml NOW PRN INJ Radiology Procedure 03/15/18 14:45 03/17/18 14:43 Lidocaine HCl (Xylocaine 1% 30ml) 30 ml ONCE PRN INJ PICC 03/15/18 16:10 03/16/18 16:09 Lorazepam (Ativan) 1 mg Q4H PRN ORAL For Anxiety 03/14/18 12:30 03/21/18 12:29 Metformin HCl (Glucophage) 500 mg TWICE A DAY ORAL 03/14/18 18:00 04/13/18 17:59 03/15/18 08:34 Methadone HCl (Methadone HCl) 100 mg DAILY ORAL 03/15/18 09:00 03/22/18 08:59 03/15/18 08:34 Tamsulosin HCl (Flomax) 0.4 mg QHS ORAL 03/14/18 21:00 04/13/18 20:59 03/14/18 22:20 Vancomycin HCl (Vanco rx to dose) 1 ea DAILY PRN MISC Per rx protocol 03/14/18 12:30 04/13/18 12:29 Vancomycin HCl 1 gm/Dextrose 275 ml @ 183.708 mls/hr Q12H IVPB 03/14/18 14:00 03/19/18 13:59 03/15/18 13:28 Zolpidem Tartrate (Ambien) 5 mg HSPRN PRN ORAL Insomnia 03/14/18 12:30 03/21/18 12:29 Assessment/Plan Assessment/Plan A: Left leg Cellulitis B/L Venous stasis ulcerations. PVD PAD P: - Pt seen and evaluated. - Discuss findings with patient. - Temp, 98.6 - WBC, 7.0 - ESR, CRP pending. - B/L leg XR and MRI ordered. - Cont IV ABx per ID. - Vasc rec angiogram 2/2 non-palpable pulses. Will await vasc recommendations. - Pt will possibly need surgical intervention vs local wound care to B/L LE ulcerations. - Blood Cx reveal prelim gram + cocci. - Pod will cont to monitor. Reilly Ferro DPM Mar 15, 2018 18:23
--- NOTE | 2018-03-15 19:26 | NUR ---
HAND-OFF: Report given to SAGE Valencia.
[2018-03-15 19:27] LABS: CHOLESTEROL 144 MG/DL (< 200); HDL CHOLESTEROL 71 MG/DL (40-60); TRIGLYCERIDES 97 MG/DL (30-150)
--- NOTE | 2018-03-15 19:50 | NUR ---
NURSE NOTES: Received patient asleep in bed, no signs of acute distress, non labored breathing. IV site right hand on saline lock, no signs of irritation, dressing dry and intact. Bed on lowest position, 2 side rails up, call light within reach.
[2018-03-15 20:00] VITALS: BP 117/56
[2018-03-15] MEDS: Dyna-Hex 2% Top Sol 2oz TOPIC SCH (20:00)
[2018-03-15] MEDS: Tamsulosin 0.4mg cap ORAL SCH (20:50)
[2018-03-15] MEDS: HYDROmorphone 1mg/ml Carpuject IVP PRN (21:11)
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
[2018-03-16 01:00] VITALS: BP 101/50
[2018-03-16] MEDS: Vancomycin 1gm/D5W 275ml IVPB SCH ×2 (02:10)
[2018-03-16 04:00] VITALS: BP 158/79
[2018-03-16 05:59] LABS: ANION GAP 6 mmol/L (5-15); BLOOD UREA NITROGEN 20 mg/dL (7-18); CALCIUM 8.8 MG/DL (8.5-10.1); CARBON DIOXIDE 30 MMOL/L (21-32); CHLORIDE 106 MMOL/L (98-107); CREATININE 0.8 MG/DL (0.55-1.30); SODIUM 142 MMOL/L (136-145)
[2018-03-16] MEDS: HYDROmorphone 1mg/ml Carpuject IVP PRN ×4 (07:16→20:25)
[2018-03-16] MEDS: HYDROcodone/Acetamin 10/325 tab ORAL PRN ×2 (07:25→18:08)
--- NOTE | 2018-03-16 07:25 | NUR ---
HAND-OFF: Report given to Steve CAZARES.
[2018-03-16 08:00] VITALS: BP 149/77
--- NOTE | 2018-03-16 08:04 | NUR ---
NURSE NOTES: Received the patient from SAGE Valencia. Patient is in bed, patient is not in respiratory distress, in room air. Bed in the lowest position, the side rails are up. Call light is within reach. Will continue to monitor patient.
[2018-03-16] MEDS: Heparin 5000 units/ml inj SUBQ SCH ×3 (09:00→20:20)
--- NOTE | 2018-03-16 09:22 | NUR ---
RADIOLOGY DEPT BILATERAL TIB/FIB INCLUDING ANKLES COMPLETED.-P.DYE
[2018-03-16] MEDS: Aspirin Baby 81mg NG SCH (09:28)
[2018-03-16] MEDS: metFORMIN 500mg tab ORAL SCH ×2 (09:28→17:56)
[2018-03-16 11:49] VITALS: BP 137/80
--- NOTE | 2018-03-16 12:12 | Infectious Diseases Prog Note ---
Assessment/Plan Assessment/Plan A; bacteremia with Coagulase negative staph, likely contamination Cellulitis of legs Peripheral arterial disease DM P; Continue IV Vancomycin Will f/u cultures Subjective ROS Limited/Unobtainable: No Constitutional: Reports: no symptoms Respiratory: Reports: no symptoms Cardiovascular: Reports: no symptoms Gastrointestinal/Abdominal: Reports: no symptoms Genitourinary: Reports: no symptoms Musculoskeletal: Reports: pain, other - in left leg Allergies: Coded Allergies: NO KNOWN DRUG ALLERGIES (Verified Allergy, Unknown, 12/09/14) Objective Vital Signs Last 24 Hour Vital Signs Date Time Temp Pulse Resp B/P (MAP) Pulse Ox O2 Delivery O2 Flow Rate FiO2 03/16/18 11:49 98.0 76 20 137/80 (99) 97 03/16/18 09:00 Room Air 03/16/18 08:00 98.1 73 19 149/77 (101) 95 03/16/18 07:55 97.9 03/16/18 04:00 97.9 70 18 158/79 (105) 95 03/16/18 01:00 98.1 74 18 101/50 (67) 93 03/15/18 21:41 98.2 03/15/18 21:00 Room Air 03/15/18 20:00 98.2 78 18 117/56 (76) 94 03/15/18 16:00 98.6 75 19 138/69 (92) 95 Height (Feet): 5 Height (Inches): 10.00 Weight (Pounds): 143 General Appearance: no acute distress HEENT: mucous membranes moist Respiratory/Chest: lungs clear Cardiovascular: normal rate Abdomen: soft, non tender Extremities: no edema Skin: ulcers, other - skin changes in both legs, ulcers in left leg Neurologic/Psychiatric: alert, responsive Microbiology Date/Time Source Procedure Growth Status 03/14/18 09:15 Blood Blood Culture - Preliminary Staphylococcus Sp Coag Neg Resulted 03/14/18 09:15 Blood Blood Culture - Preliminary Staphylococcus Sp Coag Neg Resulted 03/14/18 12:32 Nasal Nares MRSA Culture - Final NO METHICILLIN RESISTANT STAPH AUREUS... Complete 03/14/18 12:32 Rectum VRE Culture - Final NO VANCOMYCIN RESISTANT ENTEROCOCCUS ... Complete 03/14/18 12:32 Rectum - Final NO CARBAPENEM-RESISTANT ENTEROBACTERI... Complete Laboratory Tests Test 03/15/18 19:00 03/16/18 01:00 03/16/18 04:00 Erythrocyte Sedimentation Rate 48 MM/HR (0-20) H C-Reactive Protein, Quantitative 0.5 mg/dL (0.00-0.90) Triglycerides Level 97 MG/DL (30-150) Cholesterol Level 144 MG/DL (< 200) LDL Cholesterol 54 mg/dL (<100) HDL Cholesterol 71 MG/DL (40-60) H Cholesterol/HDL Ratio 2.0 (3.3-4.4) L Vancomycin Level Trough 12.6 ug/mL (5.0-12.0) H Sodium Level 142 MMOL/L (136-145) Potassium Level 4.0 MMOL/L (3.5-5.1) Chloride Level 106 MMOL/L (98-107) Carbon Dioxide Level 30 MMOL/L (21-32) Anion Gap 6 mmol/L (5-15) Blood Urea Nitrogen 20 mg/dL (7-18) H Creatinine 0.8 MG/DL (0.55-1.30) Estimat Glomerular Filtration Rate > 60 mL/min (>60) Glucose Level 139 MG/DL (74-106) H Hemoglobin A1c 5.8 % (4.3-6.0) Calcium Level 8.8 MG/DL (8.5-10.1) Current Medications Medications (Trade) Dose Ordered Sig/Syl Route PRN Reason Start Time Stop Time Status Last Admin Dose Admin Acetaminophen (Tylenol) 650 mg Q4H PRN ORAL Mild Pain (Pain Scale 1-3) 03/14/18 12:30 04/13/18 12:29 Acetaminophen/ Hydrocodone Bitart ([place] 10/325) 1 tab Q4H PRN ORAL Pain Scale (3-5) 03/15/18 14:57 03/21/18 14:56 03/16/18 07:25 Aspirin (ASA) 162 mg DAILY NG 03/16/18 09:00 04/15/18 08:59 03/16/18 09:28 Atorvastatin Calcium (Lipitor) 10 mg BEDTIME ORAL 03/15/18 21:00 04/14/18 20:59 03/15/18 20:50 Chlorhexidine Gluconate (Delmi-Hex 2%) 1 applic DAILY@1999 TOPIC 03/15/18 20:00 04/14/18 19:59 Dextrose (Dextrose 50%) 25 ml Q30M PRN IV Hypoglycemia 03/14/18 12:30 04/13/18 12:29 Dextrose (Dextrose 50%) 50 ml Q30M PRN IV Hypoglycemia 03/14/18 12:30 04/13/18 12:29 Heparin Sodium (Porcine) (Heparin 5000 units/ml) 5,000 units EVERY 12 HOURS SUBQ 03/14/18 21:00 04/13/18 20:59 Heparin Sodium/ Sodium Chloride (Heparin 2000 units/Ns 1000ml premix) 2,000 unit ONCE PRN INJ PICC 03/15/18 16:10 03/16/18 16:09 Hydromorphone HCl (Dilaudid) 1 mg Q4H PRN IVP Severe Pain (Pain Scale 7-10) 03/15/18 12:30 03/22/18 12:29 03/16/18 11:38 Iopamidol (Isovue-370 150ml) 150 ml NOW PRN INJ Radiology Procedure 03/15/18 14:45 03/17/18 14:43 Iopamidol (Isovue-370 150ml) 150 ml NOW PRN INJ Radiology Procedure 03/15/18 14:45 03/17/18 14:43 Lidocaine HCl (Xylocaine 1% 30ml) 30 ml ONCE PRN INJ PICC 03/15/18 16:10 03/16/18 16:09 Lorazepam (Ativan) 1 mg Q4H PRN ORAL For Anxiety 03/14/18 12:30 03/21/18 12:29 Metformin HCl (Glucophage) 500 mg TWICE A DAY ORAL 03/14/18 18:00 04/13/18 17:59 03/16/18 09:28 Methadone HCl (Methadone HCl) 100 mg DAILY ORAL 03/15/18 09:00 03/22/18 08:59 03/16/18 09:29 Tamsulosin HCl (Flomax) 0.4 mg QHS ORAL 03/14/18 21:00 04/13/18 20:59 03/15/18 20:50 Vancomycin HCl (Vanco rx to dose) 1 ea DAILY PRN MISC Per rx protocol 03/14/18 12:30 04/13/18 12:29 Vancomycin HCl/ Dextrose 250 ml @ 166.667 mls/hr Q12HR@0000,1200 IVPB 03/16/18 12:00 03/21/18 11:59 Zolpidem Tartrate (Ambien) 5 mg HSPRN PRN ORAL Insomnia 03/14/18 12:30 03/21/18 12:29 Dany Mcfarlane MD Mar 16, 2018 12:12
[2018-03-16] MEDS: Vancomycin 1250mg/D5W 250ml IVPB SCH (12:47)
--- NOTE | 2018-03-16 14:11 | Diagnostic Imaging Report ---
Indication: Pain Technique: 2 views of the right tibia and fibula Comparison: Limited frontal view from a metastatic bone survey dated 03/25/2017 Findings: Sideplate and screws are seen reducing old healed distal tibial fracture. Oblique lucency is seen centrally within the tibia, could represent a residual fracture line although fracture appear to mostly healed. The hardware appears intact. No worrisome lucency seen surrounding the screws. No acute fractures. No dislocations. No osteolytic lesions Impression: No acute process Evidence of interim trauma and surgery, since prior study of 03/25/2017. Fracture appears largely healed and hardware appears intact No definite radiographic abnormality to suggest acute osteomyelitis. Note, however, limited sensitivity of plain radiographs for such. Consider bone scan for further evaluation if clinically indicated
--- NOTE | 2018-03-16 14:14 | Diagnostic Imaging Report ---
Indication: Pain Technique: 2 views of the left tibia and fibula Comparison: Images from metastatic bone survey dated 03/25/2017 Findings: There is a lateral soft tissue ulcer, not evident previously. There is periosteal thickening of the lateral tibial and medial fibular cortex. This appears similar to the prior exam. There is also some periosteal thickening of the lateral fibular cortex as well, also appearing similar. No acute fractures. No dislocations Impression: Lateral soft tissue ulcer, should be evident clinically Lateral tibial and circumferential fibular shaft periosteal reaction, similar to previous study. Nonspecific, could indicate prior changes related to osteomyelitis No definite plain radiographic evidence of acute osteomyelitis. Note, however, limited sensitivity of plain radiographs for such. If there is high clinical suspicion, consider MRI or nuclear medicine three-phase bone scan for better characterization
--- NOTE | 2018-03-16 14:40 | General Progress Note ---
Assessment/Plan Problem List: (1) Cellulitis ICD Codes: L03.90 - Cellulitis, unspecified SNOMED: 759989886 (2) Protein-calorie malnutrition, severe ICD Codes: E43 - Unspecified severe protein-calorie malnutrition SNOMED: 713900203 (3) Peripheral vascular disease ICD Codes: I73.9 - Peripheral vascular disease, unspecified SNOMED: 910921527 (4) DM (diabetes mellitus) ICD Codes: E11.9 - Type 2 diabetes mellitus without complications SNOMED: 36677648 Assessment/Plan abxs discussed with RN needs placement await MRI Subjective Allergies: Coded Allergies: NO KNOWN DRUG ALLERGIES (Verified Allergy, Unknown, 12/09/14) Subjective Pt is in MRI Objective Last 24 Hour Vital Signs Date Time Temp Pulse Resp B/P (MAP) Pulse Ox O2 Delivery O2 Flow Rate FiO2 03/16/18 12:08 98.0 03/16/18 11:49 98.0 76 20 137/80 (99) 97 03/16/18 09:00 Room Air 03/16/18 08:00 98.1 73 19 149/77 (101) 95 03/16/18 07:55 97.9 03/16/18 04:00 97.9 70 18 158/79 (105) 95 03/16/18 01:00 98.1 74 18 101/50 (67) 93 03/15/18 21:00 Room Air 03/15/18 20:00 98.2 78 18 117/56 (76) 94 03/15/18 16:00 98.6 75 19 138/69 (92) 95 Intake and Output 03/15/18 03/16/18 19:00 07:00 Intake Total 960 ml 120 ml Balance 960 ml 120 ml Intake Oral 960 ml 120 ml # Voids 2 3 Laboratory Tests 03/15/18 19:00: Erythrocyte Sedimentation Rate 48H, C-Reactive Protein, Quantitative 0.5, Triglycerides Level 97, Cholesterol Level 144, LDL Cholesterol 54, HDL Cholesterol 71H, Cholesterol/HDL Ratio 2.0L 03/16/18 01:00: Vancomycin Level Trough 12.6H 03/16/18 04:00: Sodium Level 142, Potassium Level 4.0, Chloride Level 106, Carbon Dioxide Level 30, Anion Gap 6, Blood Urea Nitrogen 20H, Creatinine 0.8, Estimat Glomerular Filtration Rate > 60, Glucose Level 139H, Hemoglobin A1c 5.8, Calcium Level 8.8 Height (Feet): 5 Height (Inches): 10.00 Weight (Pounds): 143 Cardiovascular: normal rate Respiratory/Chest: lungs clear Narciso Mcfarlane MD Mar 16, 2018 14:40
--- NOTE | 2018-03-16 14:45 | NUR ---
MRI BILATERAL TIB/FIB COMPLETED.
--- NOTE | 2018-03-16 15:14 | Diagnostic Imaging Report ---
Indications: Needs long-term IV access Technique: Ultrasound confirms patent compressible left basilic vein. Total sterile technique, including sterile probe cover and sterile gel, hat, mask, sterile gown, large sterile drape, and preparation with 2% chlorhexidine utilized. Local anesthesia with 1% lidocaine. Under real-time ultrasound guidance, puncture basilic vein using 21-gauge needle, documented and archived, passage 0.018 guidewire under direct fluoroscopy, which was used to determine appropriate catheter length, exchange for 5 [place] peel-away sheath. 5 [place] Bard dual-lumen power PICC cut to 41 cm. It was inserted through the peel-away sheath. Peel-away sheath and guidewire removed. Catheter fixed to the skin. Both catheter ports aspirated and flushed. Patient tolerated procedure well, without immediate complication. Digital radiograph documents satisfactory catheter tip position, at the cavoatrial junction. Total fluoroscopy time 18.4 seconds . Total dose area product 1.19 mGy Total number of images: One Impression: Successful placement of left arm PICC under sonographic and fluoroscopic guidance, as described above.
[2018-03-16 16:00] VITALS: BP 130/59
--- NOTE | 2018-03-16 16:14 | Diagnostic Imaging Report ---
Indication: Right Leg cellulitis, suspected osteomyelitis Technique: Sagittal, axial, coronal STIR and T1-weighted images of the tibia and fibula Comparison: Plain radiographs taken earlier the same day Findings: Sideplate and screws along the medial tibia are noted, creates susceptibility artifact which could obscure significant marrow or cortical abnormalities. There is mild edema of the subcutaneous fat of the distal leg circumferentially. There is also some edema within the anterior and posterior muscular compartments. A band of high STIR and low T1 signal runs obliquely across the distal tibia, corresponds to the apparent fracture line demonstrated on recent plain radiographs. The overlying cortex appears slightly disrupted anteriorly, intact posteriorly. No other marrow signal abnormality demonstrated Impression: Evidence of distal tibial fracture and surgical repair of such. Visible fracture line is an expected finding, given that fracture is new since the prior exam of 03/25/2017 Somewhat limited exam, due to presence of surgical hardware, susceptibility artifact from which could obscure significant cortical or marrow signal abnormalities Evidence of distal leg soft tissue cellulitis and myositis No definite marrow signal abnormality to suggest acute osteomyelitis
--- NOTE | 2018-03-16 16:18 | Diagnostic Imaging Report ---
Indication: Left leg cellulitis, suspected osteomyelitis Technique: Sagittal, axial, coronal T1 and STIR images of the distal left tibia and fibula Comparison: Reference made to plain radiographs of earlier the same day Findings: There is edema of the subcutaneous fat distally, as well as of the muscular compartments anteriorly and posteriorly. No focal drainable soft tissue abnormality demonstrated. No definite osseous marrow signal abnormality. The lateral soft tissue ulcer suggested on the recent radiographs is not clearly evident on MRI. Impression: Evidence of soft tissue cellulitis and myositis No evidence of osteomyelitis or drainable soft tissue abscess demonstrated
--- NOTE | 2018-03-16 19:00 | NUR ---
HAND-OFF: Report given to SAGE Valencia.
--- NOTE | 2018-03-16 19:12 | NUR ---
HAND-OFF: Report given to SAGE Valencia.
--- NOTE | 2018-03-16 19:35 | NUR ---
NURSE NOTES: Received patient aox4 in bed, able to verbalize needs, no acute signs of distress. PICC left UA double lumen, asymptomatic, dressing dry and intact. IV abx running. Bed on lowest position, 2 side rails up, call light within reach.
[2018-03-16 20:00] VITALS: BP 122/67
[2018-03-16] MEDS: Dyna-Hex 2% Top Sol 2oz TOPIC SCH (20:20)
[2018-03-16] MEDS: Tamsulosin 0.4mg cap ORAL SCH (20:20)
--- NOTE | 2018-03-16 23:29 | NUR ---
NURSE NOTES: Patient refused dressing change for lower extremity wounds and PICC stating "Why you gotta wake me up for that! Can't we do it in the daytime!" Will try again later when pain meds are administered. Bed on lowest position, 2 side rails up, call light within reach. Patient asleep with no s/s of distress.
[2018-03-17] VITALS: BP 137/53
[2018-03-17] MEDS: Vancomycin 1250mg/D5W 250ml IVPB SCH ×2 (00:06→13:00)
--- NOTE | 2018-03-17 00:22 | NUR ---
HAND-OFF: Report given to SAGE Maurice.
[2018-03-17] MEDS: HYDROmorphone 1mg/ml Carpuject IVP PRN ×4 (00:55→20:45)
--- NOTE | 2018-03-17 01:07 | NUR ---
NURSE NOTES: Received report on a patient from Ally CAZARES, awake, alert, oriented, no distress noted, will continue to monitor for safety and comfort, call light within reach, bed is in low position locked and alarm on.
[2018-03-17 04:00] VITALS: BP 113/70
--- NOTE | 2018-03-17 07:16 | NUR ---
HAND-OFF: Report given to Jimmy CAZARES.
--- NOTE | 2018-03-17 07:35 | NUR ---
NURSE NOTES: Received patient on bed, asleep. PICC line lumens in tact and patent. Bed in low and locked position, call light within reach. No signs of respiratory distress or pain. Room board updated, will continue to monitor.
[2018-03-17 08:00] VITALS: BP 141/69
[2018-03-17] MEDS: Aspirin Baby 81mg NG SCH (08:44)
[2018-03-17] MEDS: metFORMIN 500mg tab ORAL SCH ×2 (08:44→17:07)
[2018-03-17] MEDS: Heparin 5000 units/ml inj SUBQ SCH ×2 (08:45→20:50)
--- NOTE | 2018-03-17 09:45 | NUR ---
NURSE NOTES: Patient refused to go for procedure. Will attempt later.
--- NOTE | 2018-03-17 11:00 | NUR ---
NURSE NOTES: PICC line dresing changed.
--- NOTE | 2018-03-17 11:32 | NUR ---
RAVINDRA ASSESSMENT & RECOMMENDATIONS SEE CARE ACTIVITY FOR COMPLETE ASSESSMENT DAILY ESTIMATED NEEDS: Needs based on Underweight/ 54kg 30-35 kcals/kg 4762-8757 total kcals 1-1.5 g protein/kg 54-81 g total protein 25-30 mL/kg 6792-9488 total fluid mLs NUTRITION DIAGNOSIS: Increased kcal and protein needs r/t underweight status as evidenced by pt is 77% IBW, BMI of 18.1, low BMI per guidelines. CURRENT DIET:CCHO MED + Ensure Enlive BID PO DIET RECOMMENDATIONS: CCHO MED/ textured as tolerated ADDITIONAL RECOMMENDATIONS: 1) Weekly standing wts- underweight 2) Ensure Enlive TID w/ meals- pt only wants Ensure, not Glucerna 3) Snacks TID in b/ w meals 4) Consider accucheck- h/o DM 5) MVI x 1 as supplement Addendum: 03/17/18 at [address] * PER BEDSCALE BY RAVINDRA ON 03/17: 54KG (118.8 LBS)- UPDATE IN EMR (PER EMR, WT=64.9KG)
[2018-03-17 12:00] VITALS: BP 134/72
--- NOTE | 2018-03-17 12:07 | General Progress Note ---
Assessment/Plan Problem List: (1) Cellulitis ICD Codes: L03.90 - Cellulitis, unspecified SNOMED: 040344263 (2) Protein-calorie malnutrition, severe ICD Codes: E43 - Unspecified severe protein-calorie malnutrition SNOMED: 759424172 (3) Peripheral vascular disease ICD Codes: I73.9 - Peripheral vascular disease, unspecified SNOMED: 172090075 (4) DM (diabetes mellitus) ICD Codes: E11.9 - Type 2 diabetes mellitus without complications SNOMED: 87941548 Assessment/Plan abxs wound care discussed with RN needs placement Subjective Allergies: Coded Allergies: NO KNOWN DRUG ALLERGIES (Verified Allergy, Unknown, 12/09/14) Subjective C/O pain in legs Objective Last 24 Hour Vital Signs Date Time Temp Pulse Resp B/P (MAP) Pulse Ox O2 Delivery O2 Flow Rate FiO2 03/17/18 09:00 Room Air 03/17/18 08:00 98.2 73 20 141/69 (93) 97 03/17/18 04:00 98.1 76 18 113/70 (84) 96 03/17/18 00:00 98.1 94 18 137/53 (81) 95 03/16/18 21:00 Room Air 03/16/18 20:00 97.3 75 19 122/67 (85) 96 03/16/18 18:38 98.0 03/16/18 16:42 98.0 03/16/18 16:00 98.0 73 18 130/59 (82) 94 Intake and Output 03/16/18 03/17/18 19:00 07:00 Intake Total 1000 ml Output Total 1102 ml Balance 1000 ml -1102 ml Intake Oral 1000 ml Output Urine Total 1102 ml # Voids 6 Height (Feet): 5 Height (Inches): 10.00 Weight (Pounds): 143 Cardiovascular: normal rate Respiratory/Chest: lungs clear Edema: no edema noted Generalized - ulcers Narciso Travis MD Mar 17, 2018 12:07
--- NOTE | 2018-03-17 12:13 | NUR ---
NURSE NOTES: Dressings changed bilateral legs.
--- NOTE | 2018-03-17 12:35 | NUR ---
TRAINING DEVELOPMENT SPECIALISTDELIVERY TECHNICIAN SI: CELLULITIS T. 97.7 HR 69 RR 21 B/P 141/69 RA 98% IS: VANCO IV ASA PO HEPARIN SUBC METHADONE PO MED/SURG STATUS
--- NOTE | 2018-03-17 13:23 | Podiatric Progress Note ---
Assessment/Plan Patient Justo Zamudio is a 67 year old male who was admitted on Mar 14, 2018 at 09:30 with Assessment/Plan Assessment/Plan A: Left leg Cellulitis B/L Venous stasis ulcerations. PVD PAD P: - Pt seen and evaluated. - Discuss findings with patient. - B/L XR and MRI reviewed. No acute OM or deep abscess noted. Imaging studies positive for cellulitis and myositis. - Cont IV ABx per ID. - Vasc rec angiogram 2/2 non-palpable pulses. Will await vasc recommendations. - Based on imaging studies no acute surgical intervention warranted. - Rec cont local wound care and IV ABx. - Blood Cx reveal prelim gram + cocci. - Pod will cont to monitor. Subjective Allergies: Coded Allergies: NO KNOWN DRUG ALLERGIES (Verified Allergy, Unknown, 12/09/14) Subjective Pt seen for B/L venous stasis ulcerations with cellulitis of LLE, L > R. Pt states confirms moderate pain to B/L LE. Denies any recent constitutional symptoms. Confirms keeping dressing C/D/I. Objective Exam Last 24 Hour Vital Signs Date Time Temp Pulse Resp B/P (MAP) Pulse Ox O2 Delivery O2 Flow Rate FiO2 03/17/18 12:00 97.7 69 21 134/72 (92) 95 03/17/18 09:00 Room Air 03/17/18 08:00 98.2 73 20 141/69 (93) 97 03/17/18 04:00 98.1 76 18 113/70 (84) 96 03/17/18 00:00 98.1 94 18 137/53 (81) 95 03/16/18 21:00 Room Air 03/16/18 20:00 97.3 75 19 122/67 (85) 96 03/16/18 18:38 98.0 03/16/18 16:42 98.0 03/16/18 16:00 98.0 73 18 130/59 (82) 94 Microbiology Date/Time Source Procedure Growth Status 03/14/18 09:15 Blood Blood Culture - Final Staph Hominis Ssp Hominis Complete 03/14/18 12:32 Nasal Nares MRSA Culture - Final NO METHICILLIN RESISTANT STAPH AUREUS... Complete 03/14/18 12:32 Rectum VRE Culture - Final NO VANCOMYCIN RESISTANT ENTEROCOCCUS ... Complete Dermatological Dermatological Narrative O: PE LE: RLE: non-palpapble pulses DP/PT superficial leg ulcerations, noted medial ankle, superficial, woudn base is noted to be necrotic, (-) active purulent drainage. Hemosiderin deposits noted. LLE: non-palpapble pulses DP/PT superficial leg ulceration noted lateral leg superficial, wound base is noted to be necrotic, (-) active purulent drainage. Hemosiderin deposits noted. superficial leg ulceration, noted posterior leg, superficial, wound base is noted to be granular, (-) active purulent drainage. Reilly Ferro DPM Mar 17, 2018 13:23
--- NOTE | 2018-03-17 13:39 | NUR ---
NURSE NOTES: Patient complaining of continuing and unrelieved pain in his legs and lower back area. Patient was given dilaudid at 1045. MD Pradeep Mcfarlane was notified and he no new orders were given.
--- NOTE | 2018-03-17 13:50 | NUR ---
NURSE NOTES: Patient refused CTA procedure once again. Charge nurse aware.
--- NOTE | 2018-03-17 13:51 | NUR ---
NURSE NOTES: Cigarettes feed adviser and glass pipe were turned over to information systems security developer Caridad. Updated inpatient belonging list.
--- NOTE | 2018-03-17 13:57 | NUR ---
CONCERNING CTA EXAM... PT AGAIN REFUSED EXAM. SAGE GALLAGHER WAS THERE WHEN PT REFUSED. TJB 13:55
--- NOTE | 2018-03-17 14:19 | NUR ---
NURSE NOTES: Message left for MD Mcfarlane that patient refused procedure for second time. Awaiting any further orders.
--- NOTE | 2018-03-17 15:37 | Infectious Diseases Prog Note ---
Assessment/Plan Assessment/Plan A; bacteremia with staph Hominis , likely contamination Cellulitis & Myositis of legs Peripheral arterial disease DM Stasis dermatitis P; Continue IV Vancomycin Will f/u cultures Subjective ROS Limited/Unobtainable: No Constitutional: Reports: no symptoms Cardiovascular: Reports: no symptoms, other - had PICC line placement yesterday Gastrointestinal/Abdominal: Reports: no symptoms Genitourinary: Reports: no symptoms Musculoskeletal: Reports: pain, other - in legs Allergies: Coded Allergies: NO KNOWN DRUG ALLERGIES (Verified Allergy, Unknown, 12/09/14) Objective Vital Signs Last 24 Hour Vital Signs Date Time Temp Pulse Resp B/P (MAP) Pulse Ox O2 Delivery O2 Flow Rate FiO2 03/17/18 12:00 97.7 69 21 134/72 (92) 95 03/17/18 09:00 Room Air 03/17/18 08:00 98.2 73 20 141/69 (93) 97 03/17/18 04:00 98.1 76 18 113/70 (84) 96 03/17/18 00:00 98.1 94 18 137/53 (81) 95 03/16/18 21:00 Room Air 03/16/18 20:00 97.3 75 19 122/67 (85) 96 03/16/18 18:38 98.0 03/16/18 16:42 98.0 03/16/18 16:00 98.0 73 18 130/59 (82) 94 Height (Feet): 5 Height (Inches): 10.00 Weight (Pounds): 143 General Appearance: no acute distress HEENT: mucous membranes moist Respiratory/Chest: lungs clear Cardiovascular: normal rate Abdomen: soft, non tender Skin: ulcers, other - legs Neurologic/Psychiatric: alert, responsive Current Medications Medications (Trade) Dose Ordered Sig/Syl Route PRN Reason Start Time Stop Time Status Last Admin Dose Admin Acetaminophen (Tylenol) 650 mg Q4H PRN ORAL Mild Pain (Pain Scale 1-3) 03/14/18 12:30 04/13/18 12:29 Acetaminophen/ Hydrocodone Bitart ([place] 10/325) 1 tab Q4H PRN ORAL Moderate Pain (Pain Scale 4-6) 03/17/18 14:00 03/24/18 13:59 Aspirin (ASA) 162 mg DAILY NG 03/16/18 09:00 04/15/18 08:59 03/17/18 08:44 Atorvastatin Calcium (Lipitor) 10 mg BEDTIME ORAL 03/15/18 21:00 04/14/18 20:59 03/16/18 20:20 Chlorhexidine Gluconate (Delmi-Hex 2%) 1 applic DAILY@2000 TOPIC 03/15/18 20:00 04/14/18 19:59 03/16/18 20:20 Dextrose (Dextrose 50%) 25 ml Q30M PRN IV Hypoglycemia 03/14/18 12:30 04/13/18 12:29 Dextrose (Dextrose 50%) 50 ml Q30M PRN IV Hypoglycemia 03/14/18 12:30 04/13/18 12:29 Heparin Sodium (Porcine) (Heparin 5000 units/ml) 5,000 units EVERY 12 HOURS SUBQ 03/14/18 21:00 04/13/18 20:59 03/17/18 08:45 Hydromorphone HCl (Dilaudid) 1 mg Q4H PRN IVP Severe Pain (Pain Scale 7-10) 03/15/18 12:30 03/22/18 12:29 03/17/18 10:58 Lorazepam (Ativan) 1 mg Q4H PRN ORAL For Anxiety 03/14/18 12:30 03/21/18 12:29 Metformin HCl (Glucophage) 500 mg TWICE A DAY ORAL 03/14/18 18:00 04/13/18 17:59 03/17/18 08:44 Methadone HCl (Methadone HCl) 100 mg DAILY ORAL 03/15/18 09:00 03/22/18 08:59 03/17/18 08:45 Tamsulosin HCl (Flomax) 0.4 mg QHS ORAL 03/14/18 21:00 04/13/18 20:59 03/16/18 20:20 Vancomycin HCl (Vanco rx to dose) 1 ea DAILY PRN MISC Per rx protocol 03/14/18 12:30 04/13/18 12:29 Vancomycin HCl/ Dextrose 250 ml @ 166.667 mls/hr Q12HR@0000,1200 IVPB 03/16/18 12:00 03/21/18 11:59 03/17/18 13:00 Zolpidem Tartrate (Ambien) 5 mg HSPRN PRN ORAL Insomnia 03/14/18 12:30 03/21/18 12:29 Dany Mcfarlane MD Mar 17, 2018 15:37
[2018-03-17 16:00] VITALS: BP 122/72
--- NOTE | 2018-03-17 16:39 | NUR ---
HAND-OFF: Report given to SAGE Machuca.
--- NOTE | 2018-03-17 16:48 | NUR ---
NURSE NOTES: Patient alert x4, in room air, no sign of distress and shortness of breath. No sign of chest pain. Urinal at the bed side and bed ban within reach. Dressing on bilateral leg dry and intact. PICC line on Left Upper arm, vanco running. Patient is getting pain medication, will give as order. Side rails up x2, breaks engaged, bed at lowest position. Call light within reach. Will keep monitoring.
--- NOTE | 2018-03-17 17:07 | NUR ---
NURSE NOTES: Patient refused to take Metformin, I explained the risk of not taking medication, still patient refused to take it.
--- NOTE | 2018-03-17 19:22 | NUR ---
HAND-OFF: Report given to SAGE Hammer.
--- NOTE | 2018-03-17 19:30 | NUR ---
NURSE NOTES: Received patient in no apparent distress. A&OX4. PICC line noted on left upper arm, patent and intact. Bed in lowest position. Call light within reach. Will continue to monitor.
[2018-03-17 20:00] VITALS: BP 123/60
[2018-03-17] MEDS: Dyna-Hex 2% Top Sol 2oz TOPIC SCH (20:46)
[2018-03-17] MEDS: Tamsulosin 0.4mg cap ORAL SCH (20:46)
--- NOTE | 2018-03-17 20:54 | NUR ---
NURSE NOTES: Patient refused change dressing bilateral legs. Explained risk and benefit but still refused. Patient says "it's already changed today, I don't wanna do it!".
[2018-03-18] VITALS: BP 131/63
[2018-03-18 04:00] VITALS: BP 130/70
--- NOTE | 2018-03-18 07:30 | NUR ---
HAND-OFF: Report given to Donna CAZARES.
--- NOTE | 2018-03-18 07:35 | NUR ---
NURSE NOTES: received patient alert , oriented x4,no sign of distress, room air, PICC line patent, dressing on bilateral leg dry and intact. on fall precaution observed and maintained,. Side rails up x2, breaks engaged, bed at lowest position. Call light within reach. Will continue to monitor patient condition .alayna brand rn
[2018-03-18] MEDS: HYDROmorphone 1mg/ml Carpuject IVP PRN ×3 (07:49→20:01)
[2018-03-18 08:00] VITALS: BP 116/64
--- NOTE | 2018-03-18 08:44 | NUR ---
nurse notes refused to take metformin per patient he is not diabetic tomas brand
[2018-03-18] MEDS: Aspirin Baby 81mg NG SCH (08:51)
[2018-03-18] MEDS: metFORMIN 500mg tab ORAL SCH ×2 (08:52→17:02)
[2018-03-18] MEDS: Heparin 5000 units/ml inj SUBQ SCH ×3 (08:54→21:00)
--- NOTE | 2018-03-18 09:58 | NUR ---
*-*INSURANCE*-* ALL CLINICALS HAVE BEEN FAXED TO: [facility] [place]:MAR P:[phone] F:[phone]
--- NOTE | 2018-03-18 10:20 | NUR ---
nurse notes patient able to ambulate to the bathroom with PT assistance,had 1 Large BM, patient called barbara MCKEON assisted patient back to bed, tolerated well, tomas brand
[2018-03-18] MEDS: HYDROcodone/Acetamin 10/325 tab ORAL PRN (10:27)
--- NOTE | 2018-03-18 11:22 | NUR ---
RADIOLOGY DEPT PATIENT HAS REFUSED EXAMS SCHEDULED SINCE MAR 16 TO THE PRESENT.-ROLAND
[2018-03-18] MEDS: Vancomycin 1 GM in NS 275 ML IVPB SCH (11:44)
[2018-03-18 12:00] VITALS: BP 124/78
--- NOTE | 2018-03-18 14:06 | Infectious Diseases Prog Note ---
Assessment/Plan Assessment/Plan A; bacteremia with staph Hominis , likely contamination Cellulitis & Myositis of legs Peripheral arterial disease DM Stasis dermatitis P; Continue IV Vancomycin Will f/u cultures Subjective ROS Limited/Unobtainable: No Constitutional: Reports: no symptoms Respiratory: Reports: no symptoms Gastrointestinal/Abdominal: Reports: no symptoms Genitourinary: Reports: no symptoms Musculoskeletal: Reports: pain Allergies: Coded Allergies: NO KNOWN DRUG ALLERGIES (Verified Allergy, Unknown, 12/09/14) Objective Vital Signs Last 24 Hour Vital Signs Date Time Temp Pulse Resp B/P (MAP) Pulse Ox O2 Delivery O2 Flow Rate FiO2 03/18/18 12:00 97.3 83 20 124/78 (93) 98 03/18/18 08:05 Room Air 03/18/18 08:00 97.6 66 21 116/64 (81) 94 03/18/18 04:00 97.7 64 17 130/70 (90) 94 03/18/18 00:00 97.7 59 17 131/63 (85) 97 03/17/18 20:00 98.2 69 17 123/60 (81) 97 03/17/18 19:56 Room Air 03/17/18 16:17 97.7 03/17/18 16:00 97.3 98 20 122/72 (89) 97 Height (Feet): 5 Height (Inches): 10.00 Weight (Pounds): 143 General Appearance: no acute distress HEENT: other - left eye blindness Respiratory/Chest: lungs clear Cardiovascular: normal rate Abdomen: soft, non tender Extremities: no edema Skin: other - stasis dermatitis of legs Neurologic/Psychiatric: alert, responsive Laboratory Tests Test 03/17/18 22:30 Vancomycin Level Trough 20.7 ug/mL (5.0-12.0) H Current Medications Medications (Trade) Dose Ordered Sig/Syl Route PRN Reason Start Time Stop Time Status Last Admin Dose Admin Acetaminophen (Tylenol) 650 mg Q4H PRN ORAL Mild Pain (Pain Scale 1-3) 03/14/18 12:30 04/13/18 12:29 Acetaminophen/ Hydrocodone Bitart ([place] 10/325) 1 tab Q4H PRN ORAL Moderate Pain (Pain Scale 4-6) 03/17/18 14:00 03/24/18 13:59 03/18/18 10:27 Aspirin (ASA) 162 mg DAILY NG 03/16/18 09:00 04/15/18 08:59 03/18/18 08:51 Atorvastatin Calcium (Lipitor) 10 mg BEDTIME ORAL 03/15/18 21:00 04/14/18 20:59 03/17/18 20:46 Chlorhexidine Gluconate (Delmi-Hex 2%) 1 applic DAILY@2000 TOPIC 03/15/18 20:00 04/14/18 19:59 03/17/18 20:46 Dextrose (Dextrose 50%) 25 ml Q30M PRN IV Hypoglycemia 03/14/18 12:30 04/13/18 12:29 Dextrose (Dextrose 50%) 50 ml Q30M PRN IV Hypoglycemia 03/14/18 12:30 04/13/18 12:29 Heparin Sodium (Porcine) (Heparin 5000 units/ml) 5,000 units EVERY 12 HOURS SUBQ 03/14/18 21:00 04/13/18 20:59 03/18/18 08:57 Hydromorphone HCl (Dilaudid) 1 mg Q4H PRN IVP Severe Pain (Pain Scale 7-10) 03/15/18 12:30 03/22/18 12:29 03/18/18 07:49 Lorazepam (Ativan) 1 mg Q4H PRN ORAL For Anxiety 03/14/18 12:30 03/21/18 12:29 Metformin HCl (Glucophage) 500 mg TWICE A DAY ORAL 03/14/18 18:00 04/13/18 17:59 03/17/18 08:44 Methadone HCl (Methadone HCl) 100 mg DAILY ORAL 03/15/18 09:00 03/22/18 08:59 03/18/18 08:51 Tamsulosin HCl (Flomax) 0.4 mg QHS ORAL 03/14/18 21:00 04/13/18 20:59 03/17/18 20:46 Vancomycin HCl (Vanco rx to dose) 1 ea DAILY PRN MISC Per rx protocol 03/14/18 12:30 04/13/18 12:29 Vancomycin HCl 1 gm/Sodium Chloride 275 ml @ 184 mls/hr 0000,1200 IVPB 03/18/18 12:00 03/23/18 11:59 03/18/18 11:44 Zolpidem Tartrate (Ambien) 5 mg HSPRN PRN ORAL Insomnia 03/14/18 12:30 03/21/18 12:29 Dany Mcfarlane MD Mar 18, 2018 14:06
--- NOTE | 2018-03-18 14:20 | NUR ---
CLOCK REPAIR TECHNICIANMAJOR GIFTS OFFICER SI: LEG CELLULITIS T. 97.3 HR 83 RR 20 B/P 124/78 RA 98% IS: VANCO IV ASA PO HEPARIN SUBC MED/SURG STATUS
--- NOTE | 2018-03-18 15:49 | General Progress Note ---
Assessment/Plan Problem List: (1) Cellulitis ICD Codes: L03.90 - Cellulitis, unspecified SNOMED: 550856280 (2) Protein-calorie malnutrition, severe ICD Codes: E43 - Unspecified severe protein-calorie malnutrition SNOMED: 242755813 (3) Peripheral vascular disease ICD Codes: I73.9 - Peripheral vascular disease, unspecified SNOMED: 226489316 (4) DM (diabetes mellitus) ICD Codes: E11.9 - Type 2 diabetes mellitus without complications SNOMED: 79153367 Assessment/Plan abxs wound care discussed with RN needs placement refused CT angio Subjective Allergies: Coded Allergies: NO KNOWN DRUG ALLERGIES (Verified Allergy, Unknown, 12/09/14) Subjective C/O pain in legs Objective Last 24 Hour Vital Signs Date Time Temp Pulse Resp B/P (MAP) Pulse Ox O2 Delivery O2 Flow Rate FiO2 03/18/18 12:00 97.3 83 20 124/78 (93) 98 03/18/18 08:05 Room Air 03/18/18 08:00 97.6 66 21 116/64 (81) 94 03/18/18 04:00 97.7 64 17 130/70 (90) 94 03/18/18 00:00 97.7 59 17 131/63 (85) 97 03/17/18 20:00 98.2 69 17 123/60 (81) 97 03/17/18 19:56 Room Air 03/17/18 16:17 97.7 03/17/18 16:00 97.3 98 20 122/72 (89) 97 Intake and Output 03/17/18 03/18/18 19:00 07:00 Intake Total 1210.000 ml Output Total 400 ml 850 ml Balance 810.000 ml -850 ml Intake Oral 960 ml IV Total 250.000 ml Output Urine Total 400 ml 850 ml # Voids 1 3 # Bowel Movements 1 Laboratory Tests 03/17/18 22:30: Vancomycin Level Trough 20.7H Height (Feet): 5 Height (Inches): 10.00 Weight (Pounds): 143 Cardiovascular: normal rate Respiratory/Chest: lungs clear Narciso Mcfarlane MD Mar 18, 2018 15:49
[2018-03-18 16:08] VITALS: BP 115/64
--- NOTE | 2018-03-18 17:03 | NUR ---
nurse notes patient refused metformin again .tomas brand
--- NOTE | 2018-03-18 19:02 | NUR ---
HAND-OFF: Report given to SAGE Hammer. SAGE DUVALL Addendum: 03/18/18 at 1921 by EDMUND CASAS RN RN ERROR CHANGE OF SAGE
--- NOTE | 2018-03-18 19:21 | NUR ---
HAND-OFF: Report given to SAGE Hammer.
--- NOTE | 2018-03-18 19:30 | NUR ---
NURSE NOTES: Received patient in no apparent distress. A&OX4. PICC line noted on left upper arm, patent and intact. Pain on bilateral legs 8/10. Bed in lowest position. Call light within reach. Will continue to monitor.
[2018-03-18 19:49] VITALS: BP 155/65
[2018-03-18] MEDS: Dyna-Hex 2% Top Sol 2oz TOPIC SCH (20:02)
[2018-03-18] MEDS: Tamsulosin 0.4mg cap ORAL SCH (21:00)
[2018-03-19] MEDS: Vancomycin 1 GM in NS 275 ML IVPB SCH ×2 (00:03→11:46)
[2018-03-19] MEDS: HYDROmorphone 1mg/ml Carpuject IVP PRN ×4 (00:04→20:20)
--- NOTE | 2018-03-19 00:45 | NUR ---
NURSE NOTES: Patient refused change dressing bilateral legs. Explained risk and benefit but still refused.
--- NOTE | 2018-03-19 07:01 | NUR ---
NURSE NOTES: Patient alert x4, in room air, no sign of distress and shortness of breath. No sign of chest pain. Bilateral extremity dressing dry and intact. PICC line on left upper arm double lumen, fluid running TKO. Urinal and bed bliss within reach. Patient's own cane at the bed side. Will give pain medications as ordered. Side rails up x2, bed at lowest position, breaks engaged. Will keep monitoring.
--- NOTE | 2018-03-19 07:04 | NUR ---
HAND-OFF: Report given to Marialuisa CAZARES.
[2018-03-19 08:00] VITALS: BP 116/56
[2018-03-19] MEDS: Aspirin Baby 81mg NG SCH (08:29)
[2018-03-19] MEDS: metFORMIN 500mg tab ORAL SCH ×2 (08:29→17:24)
[2018-03-19] MEDS: Heparin 5000 units/ml inj SUBQ SCH ×2 (08:31→20:18)
--- NOTE | 2018-03-19 10:56 | Infectious Diseases Prog Note ---
"Assessment/Plan Assessment/Plan antibiotics : vancomycin iv A 1. bilateral leg cellulitis | myositis 2. right fibula fracture 3. stasis dermatitis 4. + blood cultures with coag neg staph likely contaminated 5. diabetes mellitus P 1. continue iv vancomycin 2. will follow up cultures Subjective Constitutional: Denies: fever, chills Respiratory: Denies: shortness of breath, dry cough Gastrointestinal/Abdominal: Denies: nausea, vomiting, diarrhea Musculoskeletal: Reports: pain Allergies: Coded Allergies: NO KNOWN DRUG ALLERGIES (Verified Allergy, Unknown, 12/09/14) Objective Vital Signs Last 24 Hour Vital Signs Date Time Temp Pulse Resp B/P (MAP) Pulse Ox O2 Delivery O2 Flow Rate FiO2 03/19/18 09:00 Room Air 03/19/18 08:00 97.8 54 18 116/56 (76) 96 03/19/18 07:32 97.8 03/19/18 04:00 18 03/19/18 00:00 19 03/18/18 20:41 Room Air 03/18/18 19:49 97.9 64 20 155/65 (95) 95 03/18/18 16:08 97.1 62 20 115/64 (81) 95 03/18/18 12:00 97.3 83 20 124/78 (93) 98 Height (Feet): 5 Height (Inches): 10.00 Weight (Pounds): 143 Respiratory/Chest: lungs clear Cardiovascular: normal rate, regular rhythm, no gallop/murmur Abdomen: soft, non tender Extremities: no edema, other - hyperpigmented legs Current Medications Medications (Trade) Dose Ordered Sig/Syl Route PRN Reason Start Time Stop Time Status Last Admin Dose Admin Acetaminophen (Tylenol) 650 mg Q4H PRN ORAL Mild Pain (Pain Scale 1-3) 03/14/18 12:30 04/13/18 12:29 Acetaminophen/ Hydrocodone Bitart ([place] 10/325) 1 tab Q4H PRN ORAL Moderate Pain (Pain Scale 4-6) 03/17/18 14:00 03/24/18 13:59 03/18/18 10:27 Aspirin (ASA) 162 mg DAILY NG 03/16/18 09:00 04/15/18 08:59 03/19/18 08:29 Atorvastatin Calcium (Lipitor) 10 mg BEDTIME ORAL 03/15/18 21:00 2/21/19 20:59 03/17/18 20:46 Chlorhexidine Gluconate (Delmi-Hex 2%) 1 applic DAILY@2000 TOPIC 03/15/18 20:00 04/14/18 19:59 03/18/18 20:02 Dextrose (Dextrose 50%) 25 ml Q30M PRN IV Hypoglycemia 03/14/18 12:30 04/13/18 12:29 Dextrose (Dextrose 50%) 50 ml Q30M PRN IV Hypoglycemia 03/14/18 12:30 04/13/18 12:29 Heparin Sodium (Porcine) (Heparin 5000 units/ml) 5,000 units EVERY 12 HOURS SUBQ 03/14/18 21:00 04/13/18 20:59 03/18/18 08:57 Hydromorphone HCl (Dilaudid) 1 mg Q4H PRN IVP Severe Pain (Pain Scale 7-10) 03/15/18 12:30 03/22/18 12:29 03/19/18 07:02 Lorazepam (Ativan) 1 mg Q4H PRN ORAL For Anxiety 03/14/18 12:30 03/21/18 12:29 Metformin HCl (Glucophage) 500 mg TWICE A DAY ORAL 03/14/18 18:00 04/13/18 17:59 03/19/18 08:29 Methadone HCl (Methadone HCl) 100 mg DAILY ORAL 03/15/18 09:00 03/22/18 08:59 03/19/18 08:30 Tamsulosin HCl (Flomax) 0.4 mg QHS ORAL 03/14/18 21:00 04/13/18 20:59 03/17/18 20:46 Vancomycin HCl (Vanco rx to dose) 1 ea DAILY PRN MISC Per rx protocol 03/14/18 12:30 04/13/18 12:29 Vancomycin HCl 1 gm/Sodium Chloride 275 ml @ 184 mls/hr 0000,1200 IVPB 03/18/18 12:00 03/23/18 11:59 03/19/18 00:03 Zolpidem Tartrate (Ambien) 5 mg HSPRN PRN ORAL Insomnia 03/14/18 12:30 03/21/18 12:29 Judy David MD Mar 19, 2018 10:56"
--- NOTE | 2018-03-19 11:16 | NUR ---
NURSE NOTES: Patient is asking to get a 4 mg Dilaudid, saying that the 1 mg of Dilaudid is not helping him with his
--- NOTE | 2018-03-19 11:16 | NUR ---
NURSE NOTES: Patient is saying the 1 mg Dilaudin he is getting is not helping him with his pain. Patient is asking to get a 4 mg dilaudid, I communicated Dr Mcfarlane and he said he is not gonna order anything.
[2018-03-19 12:00] VITALS: BP 111/66
--- NOTE | 2018-03-19 12:55 | NUR ---
NURSE NOTES: Patient refused his bed alarm to be ON, patient sits a the bed side on bed. Patient refused his doors to be left open. Will keep monitoring.
--- NOTE | 2018-03-19 13:24 | NUR ---
NURSE NOTES: Patient doesn't want his bed alarm to be turned ON, I explained the risk of fall, still patient refused. Today's resource, Yair RN witnessed and she also explained for patient for risk. Ms Anton, nursing color control supervisor also explained to patient, still patient refused his bed alarms to be turned ON. Patient signed a paper saying that he doesn't want his bed alarm ON. The paper that patient signed is on patient's chart.
--- NOTE | 2018-03-19 13:25 | NUR ---
NURSE NOTES: Patient is alert x4, and patient signed saying that he dose not want his bed alarm to be turn ON.
[2018-03-19] MEDS: HYDROcodone/Acetamin 10/325 tab ORAL PRN (15:16)
[2018-03-19 16:00] VITALS: BP 106/60
--- NOTE | 2018-03-19 18:15 | General Progress Note ---
Assessment/Plan Problem List: (1) Cellulitis ICD Codes: L03.90 - Cellulitis, unspecified SNOMED: 848801234 (2) Protein-calorie malnutrition, severe ICD Codes: E43 - Unspecified severe protein-calorie malnutrition SNOMED: 754555759 (3) Peripheral vascular disease ICD Codes: I73.9 - Peripheral vascular disease, unspecified SNOMED: 613700085 (4) DM (diabetes mellitus) ICD Codes: E11.9 - Type 2 diabetes mellitus without complications SNOMED: 20937990 Assessment/Plan abxs wound care discussed with RN needs placement follow labs Subjective Allergies: Coded Allergies: NO KNOWN DRUG ALLERGIES (Verified Allergy, Unknown, 12/09/14) Subjective feels ok Objective Last 24 Hour Vital Signs Date Time Temp Pulse Resp B/P (MAP) Pulse Ox O2 Delivery O2 Flow Rate FiO2 03/19/18 16:00 97.2 58 18 106/60 (75) 95 03/19/18 15:46 97.0 03/19/18 12:00 97.0 59 18 111/66 (81) 95 03/19/18 11:39 97.8 03/19/18 09:00 Room Air 03/19/18 08:00 97.8 54 18 116/56 (76) 96 03/19/18 04:00 18 03/19/18 00:00 19 03/18/18 20:41 Room Air 03/18/18 19:49 97.9 64 20 155/65 (95) 95 Intake and Output 03/18/18 03/19/18 19:00 07:00 Intake Total 1235 ml 368 ml Output Total 1200 ml 1350 ml Balance 35 ml -982 ml Intake Oral 960 ml IV Total 275 ml 368 ml Output Urine Total 1200 ml 1350 ml # Voids 3 # Bowel Movements 2 Height (Feet): 5 Height (Inches): 10.00 Weight (Pounds): 143 Cardiovascular: normal rate Respiratory/Chest: lungs clear Edema: 1+ Generalized Narciso Mcfarlane MD Mar 19, 2018 18:15
--- NOTE | 2018-03-19 19:40 | NUR ---
HAND-OFF: Report given to SAGE Barrow.
[2018-03-19 20:00] VITALS: BP 106/60
--- NOTE | 2018-03-19 20:01 | NUR ---
NURSE NOTES: Patient in bed awake, alert and verbally responsive. Able to make needs known. Bed in low and locked position. Provided safe environment; Complained of pain 10/10 generalized, will give PRN medication as ordered. Bilateral lower extremity dressings noted. Patient picc line on the left upper arm. Patent. Patient denies he is diabetic. Patient looks drowsy, will reassess for pain. Call light is at bedside.
[2018-03-19] MEDS: Tamsulosin 0.4mg cap ORAL SCH (20:16)
[2018-03-19] MEDS: Dyna-Hex 2% Top Sol 2oz TOPIC SCH (20:17)
--- NOTE | 2018-03-19 22:02 | NUR ---
NURSE NOTES: Dressings changed. Alert. Given PRN medication. Patient continues to ask for higher dose of medication. Although patient was sleeping during dressing change. No signs of pain. Picc line site patent. Call light is at bedside.
[2018-03-19 23:51] VITALS: BP 110/66
[2018-03-20] MEDS: Vancomycin 1 GM in NS 275 ML IVPB SCH ×2 (00:09→13:13)
[2018-03-20 04:00] VITALS: BP 120/70
[2018-03-20] MEDS: HYDROmorphone 1mg/ml Carpuject IVP PRN ×3 (06:45→20:44)
--- NOTE | 2018-03-20 06:53 | NUR ---
NURSE NOTES: Patient complained of lower leg pain, given PRN pain medication. Will reassess. Call light is at bedside.
--- NOTE | 2018-03-20 07:05 | NUR ---
HAND-OFF: Report given to SAGE Roblero.
--- NOTE | 2018-03-20 07:46 | NUR ---
NURSE NOTES: received report from SAGE Lizama. patient in bed, sleeping, no respiratory distress noted. no c/o pain at this time. bed in the lowest position. call light within reach. continue to monitor.
[2018-03-20 08:00] VITALS: BP 102/52
--- NOTE | 2018-03-20 09:13 | NUR ---
Charge Nurse Note: Pt is scheduled to receive Methadone 100 mg PO. BP 100/50, HR60. was paged, if it is OK to give opioid med. He gave permission to give it.
[2018-03-20] MEDS: Aspirin Baby 81mg NG SCH (09:16)
[2018-03-20] MEDS: metFORMIN 500mg tab ORAL SCH ×2 (09:16→17:43)
[2018-03-20] MEDS: Heparin 5000 units/ml inj SUBQ SCH ×2 (09:18→21:00)
--- NOTE | 2018-03-20 09:23 | NUR ---
NURSE NOTES: patient has an order of methadone 100mg daily. blood pressure was 102/52 HR 60 at 0800. charge nurse elizabeth called dr. gibbs. and received order ok to administer medication to the patient as ordered. order noted and carried out. will continue to monitor.
--- NOTE | 2018-03-20 11:24 | NUR ---
PT Note Attempted to see patinet for treatment but patient refused.
--- NOTE | 2018-03-20 11:51 | Infectious Diseases Prog Note ---
Assessment/Plan Assessment/Plan A; bacteremia with staph Hominis , likely contamination Cellulitis & Myositis of legs Peripheral arterial disease DM Stasis dermatitis P; Continue IV Vancomycin Will f/u cultures Subjective ROS Limited/Unobtainable: No Constitutional: Reports: no symptoms Respiratory: Reports: dry cough Gastrointestinal/Abdominal: Reports: no symptoms Genitourinary: Reports: dysuria - occasionaly, other - has Musculoskeletal: Reports: pain, other - in legs Allergies: Coded Allergies: NO KNOWN DRUG ALLERGIES (Verified Allergy, Unknown, 12/09/14) Objective Vital Signs Last 24 Hour Vital Signs Date Time Temp Pulse Resp B/P (MAP) Pulse Ox O2 Delivery O2 Flow Rate FiO2 03/20/18 09:00 Room Air 03/20/18 08:00 97.4 60 19 102/52 (69) 94 03/20/18 04:00 98.1 58 18 120/70 (87) 94 03/19/18 23:51 98.7 64 18 110/66 (81) 93 03/19/18 21:00 Room Air 03/19/18 20:00 98.6 56 17 106/60 (75) 94 03/19/18 16:00 97.2 58 18 106/60 (75) 95 03/19/18 15:46 97.0 03/19/18 12:00 97.0 59 18 111/66 (81) 95 Height (Feet): 5 Height (Inches): 10.00 Weight (Pounds): 143 General Appearance: no acute distress HEENT: mucous membranes moist Respiratory/Chest: lungs clear Cardiovascular: normal rate Abdomen: soft, non tender Extremities: other - stasis dermatitis of legs Skin: ulcers, other - legs Neurologic/Psychiatric: alert, oriented x 3, responsive Laboratory Tests Test 03/19/18 23:00 Vancomycin Level Trough 17.2 ug/mL (5.0-12.0) H Current Medications Medications (Trade) Dose Ordered Sig/Syl Route PRN Reason Start Time Stop Time Status Last Admin Dose Admin Acetaminophen (Tylenol) 650 mg Q4H PRN ORAL Mild Pain (Pain Scale 1-3) 03/14/18 12:30 04/13/18 12:29 Acetaminophen/ Hydrocodone Bitart ([place] 10/325) 1 tab Q4H PRN ORAL Moderate Pain (Pain Scale 4-6) 03/17/18 14:00 03/24/18 13:59 03/19/18 15:16 Aspirin (ASA) 162 mg DAILY NG 03/16/18 09:00 04/15/18 08:59 03/20/18 09:16 Atorvastatin Calcium (Lipitor) 10 mg BEDTIME ORAL 03/15/18 21:00 04/14/18 20:59 03/19/18 20:16 Chlorhexidine Gluconate (Delmi-Hex 2%) 1 applic DAILY@2000 TOPIC 03/15/18 20:00 04/14/18 19:59 03/19/18 20:17 Dextrose (Dextrose 50%) 25 ml Q30M PRN IV Hypoglycemia 03/14/18 12:30 04/13/18 12:29 Dextrose (Dextrose 50%) 50 ml Q30M PRN IV Hypoglycemia 03/14/18 12:30 04/13/18 12:29 Heparin Sodium (Porcine) (Heparin 5000 units/ml) 5,000 units EVERY 12 HOURS SUBQ 03/14/18 21:00 04/13/18 20:59 03/20/18 09:18 Hydromorphone HCl (Dilaudid) 1 mg Q4H PRN IVP Severe Pain (Pain Scale 7-10) 03/15/18 12:30 03/22/18 12:29 03/20/18 06:45 Lorazepam (Ativan) 1 mg Q4H PRN ORAL For Anxiety 03/14/18 12:30 03/21/18 12:29 03/19/18 21:00 Metformin HCl (Glucophage) 500 mg TWICE A DAY ORAL 03/14/18 18:00 04/13/18 17:59 03/20/18 09:16 Methadone HCl (Methadone HCl) 100 mg DAILY ORAL 03/15/18 09:00 03/22/18 08:59 03/20/18 09:17 Tamsulosin HCl (Flomax) 0.4 mg QHS ORAL 03/14/18 21:00 04/13/18 20:59 03/19/18 20:16 Vancomycin HCl (Vanco rx to dose) 1 ea DAILY PRN MISC Per rx protocol 03/14/18 12:30 04/13/18 12:29 Vancomycin HCl 1 gm/Sodium Chloride 275 ml @ 184 mls/hr 0000,1200 IVPB 03/18/18 12:00 03/23/18 11:59 03/20/18 00:09 Zolpidem Tartrate (Ambien) 5 mg HSPRN PRN ORAL Insomnia 03/14/18 12:30 03/21/18 12:29 Dany Mcfarlane MD Mar 20, 2018 11:51
[2018-03-20 12:00] VITALS: BP 108/56
--- NOTE | 2018-03-20 15:15 | General Progress Note ---
Assessment/Plan Problem List: (1) Cellulitis ICD Codes: L03.90 - Cellulitis, unspecified SNOMED: 529637963 (2) Protein-calorie malnutrition, severe ICD Codes: E43 - Unspecified severe protein-calorie malnutrition SNOMED: 926613113 (3) Peripheral vascular disease ICD Codes: I73.9 - Peripheral vascular disease, unspecified SNOMED: 132656448 (4) DM (diabetes mellitus) ICD Codes: E11.9 - Type 2 diabetes mellitus without complications SNOMED: 64609953 Status Narrative pt appears to have drug seeking behavior. Assessment/Plan abxs wound care discussed with RN needs placement follow labs no escalation of pain medications Subjective Allergies: Coded Allergies: NO KNOWN DRUG ALLERGIES (Verified Allergy, Unknown, 12/09/14) Subjective when I arrived pt was not complaining of any pain. he appeared being comfortable. as I was about to leave pt remembered he has pain and wants more pain meds. Objective Last 24 Hour Vital Signs Date Time Temp Pulse Resp B/P (MAP) Pulse Ox O2 Delivery O2 Flow Rate FiO2 03/20/18 12:00 97.7 63 20 108/56 (73) 94 03/20/18 09:00 Room Air 03/20/18 08:00 97.4 60 19 102/52 (69) 94 03/20/18 04:00 98.1 58 18 120/70 (87) 94 03/19/18 23:51 98.7 64 18 110/66 (81) 93 03/19/18 21:00 Room Air 03/19/18 20:00 98.6 56 17 106/60 (75) 94 03/19/18 16:00 97.2 58 18 106/60 (75) 95 03/19/18 15:46 97.0 Intake and Output 03/19/18 03/20/18 18:59 06:59 Intake Total 1200 ml 275 ml Output Total 1100 ml 1200 ml Balance 100 ml -925 ml Intake Oral 1200 ml IV Total 275 ml Output Urine Total 1100 ml 1200 ml # Bowel Movements 1 Laboratory Tests 03/19/18 23:00: Vancomycin Level Trough 17.2H Height (Feet): 5 Height (Inches): 10.00 Weight (Pounds): 143 Cardiovascular: normal rate Respiratory/Chest: lungs clear Edema: 1+ Generalized Narciso Mcfarlane MD Mar 20, 2018 15:15
[2018-03-20] MEDS: HYDROcodone/Acetamin 10/325 tab ORAL PRN (15:29)
[2018-03-20 16:00] VITALS: BP 110/58
--- NOTE | 2018-03-20 17:57 | NUR ---
NURSE NOTES: Patient was given Dilaudid 1mg/ml d/t severe pain@1312, still complained pain and ask norco..@3560. consult to pharmacy and spoke with Balwinder/Pharmacist. ok to give norco for pain as ordered.
--- NOTE | 2018-03-20 19:30 | NUR ---
HAND-OFF: Report given to SAGE Angel.
--- NOTE | 2018-03-20 19:45 | NUR ---
NURSE NOTES: Patient received in bed, asleep. PICC line intact. B legs dressing dry and intact. Bed locked in low position, call light and urinal within reach. Will continue to monitor.
[2018-03-20 20:00] VITALS: BP 104/63
[2018-03-20] MEDS: Dyna-Hex 2% Top Sol 2oz TOPIC SCH (20:00)
--- NOTE | 2018-03-20 20:45 | NUR ---
NURSE NOTES: Patient c/o pain, pain medication given as ordered. Patient refused scheduled medications at this time, will reattempt later.
[2018-03-20] MEDS: Tamsulosin 0.4mg cap ORAL SCH (21:00)
--- NOTE | 2018-03-20 22:40 | NUR ---
NURSE NOTES: Patient continues to refused scheduled medication at this time. Patient irritable and requested for [place], explained for patient that dilaudid was given 2 hours ago, and neither norco or dilaudid is due for another 2 hours, norco is not ordered for breakthrough pain. Patient refused to listen and continues to refuse other scheduled medications and sent RN away.
[2018-03-21] VITALS: BP 130/66
[2018-03-21] MEDS: Vancomycin 1 GM in NS 275 ML IVPB SCH ×2 (00:43→12:37)
[2018-03-21] MEDS: HYDROmorphone 1mg/ml Carpuject IVP PRN ×3 (00:49→20:14)
[2018-03-21] MEDS: HYDROcodone/Acetamin 10/325 tab ORAL PRN ×2 (04:44→17:01)
--- NOTE | 2018-03-21 07:21 | NUR ---
HAND-OFF: Report given to Steve CAZARES.
--- NOTE | 2018-03-21 07:40 | NUR ---
NURSE NOTES: Received patient from Srinivasan CAZARES, patient is up in bed eating breakfast, no distress noted, bed is locked and in lowest position, call light within reach, will continue to monitor with Olamide CAZARES.
--- NOTE | 2018-03-21 07:44 | NUR ---
NURSE NOTES: Received patient from SAGE Renae. Patient is awake, in room air, not in respiratory distress. Patient eating in bed, bed in the lowest position, call light within reach,raised side rails. Will continue to monitor patient.
[2018-03-21 08:00] VITALS: BP 112/55
[2018-03-21] MEDS: Aspirin Baby 81mg NG SCH (08:24)
[2018-03-21] MEDS: Heparin 5000 units/ml inj SUBQ SCH ×2 (08:27→20:13)
[2018-03-21] MEDS: metFORMIN 500mg tab ORAL SCH ×2 (09:00→18:00)
[2018-03-21 12:00] VITALS: BP 119/56
--- NOTE | 2018-03-21 12:24 | Infectious Diseases Prog Note ---
Assessment/Plan Assessment/Plan A; bacteremia with staph Hominis , likely contamination Cellulitis & Myositis of legs Peripheral arterial disease DM Stasis dermatitis P; Continue IV Vancomycin Will f/u cultures Subjective ROS Limited/Unobtainable: No Constitutional: Reports: no symptoms Respiratory: Reports: no symptoms Gastrointestinal/Abdominal: Reports: no symptoms Genitourinary: Reports: no symptoms Musculoskeletal: Reports: pain Allergies: Coded Allergies: NO KNOWN DRUG ALLERGIES (Verified Allergy, Unknown, 12/09/14) Objective Vital Signs Last 24 Hour Vital Signs Date Time Temp Pulse Resp B/P (MAP) Pulse Ox O2 Delivery O2 Flow Rate FiO2 03/21/18 12:00 98.2 63 17 119/56 (77) 96 03/21/18 10:27 97.9 03/21/18 09:00 Room Air 03/21/18 08:00 97.9 62 18 112/55 (74) 94 03/21/18 00:00 99.7 64 18 130/66 (87) 96 03/20/18 21:00 Room Air 03/20/18 20:00 97.9 60 17 104/63 (77) 94 03/20/18 16:00 98.1 66 20 110/58 (75) 97 Height (Feet): 5 Height (Inches): 10.00 Weight (Pounds): 143 General Appearance: no acute distress HEENT: mucous membranes moist Respiratory/Chest: lungs clear Cardiovascular: normal rate, other - left arm PICC line Abdomen: soft, non tender Extremities: other - stasis dermtitis of legs Skin: ulcers Neurologic/Psychiatric: alert, oriented x 3, responsive Current Medications Medications (Trade) Dose Ordered Sig/Syl Route PRN Reason Start Time Stop Time Status Last Admin Dose Admin Acetaminophen (Tylenol) 650 mg Q4H PRN ORAL Mild Pain (Pain Scale 1-3) 03/14/18 12:30 04/13/18 12:29 Acetaminophen/ Hydrocodone Bitart ([place] 10/325) 1 tab Q4H PRN ORAL Moderate Pain (Pain Scale 4-6) 03/17/18 14:00 03/24/18 13:59 03/21/18 04:44 Aspirin (ASA) 162 mg DAILY NG 03/16/18 09:00 04/15/18 08:59 03/21/18 08:24 Atorvastatin Calcium (Lipitor) 10 mg BEDTIME ORAL 1/22/19 21:00 04/14/18 20:59 03/19/18 20:16 Chlorhexidine Gluconate (Delmi-Hex 2%) 1 applic DAILY@2000 TOPIC 03/15/18 20:00 04/14/18 19:59 03/19/18 20:17 Dextrose (Dextrose 50%) 25 ml Q30M PRN IV Hypoglycemia 03/14/18 12:30 04/13/18 12:29 Dextrose (Dextrose 50%) 50 ml Q30M PRN IV Hypoglycemia 03/14/18 12:30 04/13/18 12:29 Heparin Sodium (Porcine) (Heparin 5000 units/ml) 5,000 units EVERY 12 HOURS SUBQ 03/14/18 21:00 04/13/18 20:59 03/21/18 08:27 Hydromorphone HCl (Dilaudid) 1 mg Q4H PRN IVP Severe Pain (Pain Scale 7-10) 03/15/18 12:30 03/22/18 12:29 03/21/18 09:57 Lorazepam (Ativan) 1 mg Q4H PRN ORAL For Anxiety 03/14/18 12:30 03/21/18 12:29 03/19/18 21:00 Metformin HCl (Glucophage) 500 mg TWICE A DAY ORAL 03/14/18 18:00 04/13/18 17:59 03/20/18 17:43 Methadone HCl (Methadone HCl) 100 mg DAILY ORAL 03/15/18 09:00 03/22/18 08:59 03/21/18 08:26 Tamsulosin HCl (Flomax) 0.4 mg QHS ORAL 03/14/18 21:00 04/13/18 20:59 03/19/18 20:16 Vancomycin HCl (Vanco rx to dose) 1 ea DAILY PRN MISC Per rx protocol 03/14/18 12:30 04/13/18 12:29 Vancomycin HCl 1 gm/Sodium Chloride 275 ml @ 184 mls/hr 0000,1200 IVPB 03/18/18 12:00 03/23/18 11:59 03/21/18 00:43 Zolpidem Tartrate (Ambien) 5 mg HSPRN PRN ORAL Insomnia 03/14/18 12:30 03/21/18 12:29 Dany Mcfarlane MD Mar 21, 2018 12:24
--- NOTE | 2018-03-21 14:56 | General Progress Note ---
Assessment/Plan Problem List: (1) Cellulitis ICD Codes: L03.90 - Cellulitis, unspecified SNOMED: 538278163 (2) Protein-calorie malnutrition, severe ICD Codes: E43 - Unspecified severe protein-calorie malnutrition SNOMED: 265855653 (3) Peripheral vascular disease ICD Codes: I73.9 - Peripheral vascular disease, unspecified SNOMED: 627802751 (4) DM (diabetes mellitus) ICD Codes: E11.9 - Type 2 diabetes mellitus without complications SNOMED: 16616091 Assessment/Plan abxs wound care needs placement follow labs no escalation of pain medications Subjective Allergies: Coded Allergies: NO KNOWN DRUG ALLERGIES (Verified Allergy, Unknown, 12/09/14) Subjective Patient is resting at this time. Objective Last 24 Hour Vital Signs Date Time Temp Pulse Resp B/P (MAP) Pulse Ox O2 Delivery O2 Flow Rate FiO2 03/21/18 12:00 98.2 63 17 119/56 (77) 96 03/21/18 10:27 97.9 03/21/18 09:00 Room Air 03/21/18 08:00 97.9 62 18 112/55 (74) 94 03/21/18 00:00 99.7 64 18 130/66 (87) 96 03/20/18 21:00 Room Air 03/20/18 20:00 97.9 60 17 104/63 (77) 94 03/20/18 16:00 98.1 66 20 110/58 (75) 97 Intake and Output 03/20/18 03/21/18 19:00 07:00 Intake Total 1495 ml 275 ml Output Total 800 ml Balance 1495 ml -525 ml Intake Oral 1220 ml IV Total 275 ml 275 ml Output Urine Total 800 ml # Voids 8 # Bowel Movements 2 Height (Feet): 5 Height (Inches): 10.00 Weight (Pounds): 143 Cardiovascular: normal rate Respiratory/Chest: lungs clear Edema: 1+ Generalized Narciso Mcfarlane MD Mar 21, 2018 14:56
[2018-03-21 16:00] VITALS: BP 130/64
--- NOTE | 2018-03-21 17:15 | Podiatric Progress Note ---
Assessment/Plan Patient Justo Zamudio is a 67 year old male who was admitted on Mar 14, 2018 at 09:30 with Assessment/Plan Assessment/Plan Assessment/Plan A: Left leg Cellulitis B/L Venous stasis ulcerations. PVD PAD P: - Pt seen and evaluated. - Discuss findings with patient. - Debridement performed on LLE lateral wound base, post debridement wound base was noted to be granular. Healthy bleeding was noted to wound. - B/L XR and MRI reviewed. No acute OM or deep abscess noted. Imaging studies positive for cellulitis and myositis. - Cont IV ABx per ID. - Vasc rec angiogram 2/2 non-palpable pulses. Will await vasc recommendations. - Based on imaging studies no acute surgical intervention warranted. - Rec cont local wound care and IV ABx. - Blood Cx reveal prelim gram + cocci. - Pt awaiting placement. - Pod will cont to monitor. Subjective Reason for consult Allergies: Coded Allergies: NO KNOWN DRUG ALLERGIES (Verified Allergy, Unknown, 12/09/14) Subjective S: Pt seen for B/L venous stasis ulcerations with cellulitis of LLE, L > R. Pt states he is getting dressing changes daily to B/L LE. Confirms that he has moderate pain to B/L LE. Denies any recent constitutional symptoms. Objective Exam Last 24 Hour Vital Signs Date Time Temp Pulse Resp B/P (MAP) Pulse Ox O2 Delivery O2 Flow Rate FiO2 03/21/18 12:00 98.2 63 17 119/56 (77) 96 03/21/18 10:27 97.9 03/21/18 09:00 Room Air 03/21/18 08:00 97.9 62 18 112/55 (74) 94 03/21/18 00:00 99.7 64 18 130/66 (87) 96 03/20/18 21:00 Room Air 03/20/18 20:00 97.9 60 17 104/63 (77) 94 Microbiology Date/Time Source Procedure Growth Status 03/14/18 09:15 Blood Blood Culture - Final Staph Hominis Ssp Hominis Complete 03/14/18 12:32 Nasal Nares MRSA Culture - Final NO METHICILLIN RESISTANT STAPH AUREUS... Complete 03/14/18 12:32 Rectum VRE Culture - Final NO VANCOMYCIN RESISTANT ENTEROCOCCUS ... Complete Dermatological Dermatological Narrative O: PE LE: RLE: non-palpapble pulses DP/PT superficial leg ulcerations, noted medial ankle, superficial, woudn base is noted to be necrotic, (-) active purulent drainage. Hemosiderin deposits noted. LLE: non-palpapble pulses DP/PT superficial leg ulceration noted lateral leg superficial, wound base is noted to be necrotic with fibrotic wound base, (-) active purulent drainage. Hemosiderin deposits noted. superficial leg ulceration, noted posterior leg, superficial, wound base is noted to be granular, (-) active purulent drainage. Reilly Ferro DPM Mar 21, 2018 17:15
--- NOTE | 2018-03-21 19:25 | NUR ---
NURSE NOTES: Received patient in bed. Complaining pain. will give pain medication. Patient asking for food, will give snack. Bed in lowest position and locked. Will continue to monitor.
--- NOTE | 2018-03-21 19:35 | NUR ---
HAND-OFF: Report given to SAGE Cardoza.
--- NOTE | 2018-03-21 19:38 | NUR ---
HAND-OFF: Report given to Nani CAZARES.
[2018-03-21 20:00] VITALS: BP 133/55
[2018-03-21] MEDS: Dyna-Hex 2% Top Sol 2oz TOPIC SCH (20:12)
[2018-03-21] MEDS: Tamsulosin 0.4mg cap ORAL SCH (20:12)
[2018-03-22] VITALS: BP 112/71
[2018-03-22] MEDS: Vancomycin 750mg/NS 250ml IVPB SCH ×3 (00:32→23:18)
[2018-03-22] MEDS: HYDROmorphone 1mg/ml Carpuject IVP PRN ×4 (00:40→22:56)
[2018-03-22 04:00] VITALS: BP 126/71
[2018-03-22] MEDS: HYDROcodone/Acetamin 10/325 tab ORAL PRN (04:49)
--- NOTE | 2018-03-22 07:12 | NUR ---
HAND-OFF: Report given to SAGE Elam.Patient sleeping with no signs of distress noted.
--- NOTE | 2018-03-22 07:38 | NUR ---
NURSE NOTES: Patient alert x4, on room air, no sign of distress and shortness of breath. No sign of chest pain. Patient use urinal, its within reach. Skin- bilateral extremity cellulites, dressing dry and intact. PICC line L-Upper arm, dressing dry and intact, flushes well. Patient's own cane in room. Patient is getting [place] and Dilaudid for pain, will give as ordered. Bed at lowest position, side rails up x2, breaks engaged. Will keep monitoring.
[2018-03-22 08:00] VITALS: BP 95/45
[2018-03-22] MEDS: Aspirin Baby 81mg NG SCH (08:44)
[2018-03-22] MEDS: metFORMIN 500mg tab ORAL SCH ×2 (08:45→17:10)
[2018-03-22] MEDS: Heparin 5000 units/ml inj SUBQ SCH ×2 (08:45→21:23)
[2018-03-22 12:00] VITALS: BP 128/63
--- NOTE | 2018-03-22 13:36 | Infectious Diseases Prog Note ---
Assessment/Plan Assessment/Plan A; bacteremia with staph Hominis , likely contamination Cellulitis & Myositis of legs Peripheral arterial disease DM Stasis dermatitis P; Continue IV Vancomycin Will f/u cultures Subjective ROS Limited/Unobtainable: Yes Constitutional: Reports: no symptoms Gastrointestinal/Abdominal: Reports: no symptoms Genitourinary: Reports: no symptoms Musculoskeletal: Reports: pain, other - in legs Allergies: Coded Allergies: NO KNOWN DRUG ALLERGIES (Verified Allergy, Unknown, 12/09/14) Objective Vital Signs Last 24 Hour Vital Signs Date Time Temp Pulse Resp B/P (MAP) Pulse Ox O2 Delivery O2 Flow Rate FiO2 03/22/18 09:00 Room Air 03/22/18 08:00 97.7 61 19 95/45 (62) 93 03/22/18 04:00 98.1 65 18 126/71 (89) 92 03/22/18 00:00 97.7 62 16 112/71 (85) 94 03/21/18 21:00 Room Air 03/21/18 20:00 98.4 61 18 133/55 (81) 94 03/21/18 17:13 98.2 03/21/18 16:00 99.0 59 18 130/64 (86) 95 Height (Feet): 5 Height (Inches): 10.00 Weight (Pounds): 143 General Appearance: no acute distress HEENT: mucous membranes moist Respiratory/Chest: lungs clear Cardiovascular: normal rate, other - left arm PICC line Abdomen: soft, non tender Extremities: other - mild leg edema Skin: ulcers, other - in lower extremities Neurologic/Psychiatric: alert, responsive Current Medications Medications (Trade) Dose Ordered Sig/Syl Route PRN Reason Start Time Stop Time Status Last Admin Dose Admin Acetaminophen (Tylenol) 650 mg Q4H PRN ORAL Mild Pain (Pain Scale 1-3) 03/14/18 12:30 04/13/18 12:29 Acetaminophen/ Hydrocodone Bitart ([place] 10/325) 1 tab Q4H PRN ORAL Moderate Pain (Pain Scale 4-6) 03/17/18 14:00 03/24/18 13:59 03/22/18 04:49 Aspirin (ASA) 162 mg DAILY NG 03/16/18 09:00 04/15/18 08:59 03/22/18 08:44 Atorvastatin Calcium (Lipitor) 10 mg BEDTIME ORAL 03/15/18 21:00 04/14/18 20:59 03/21/18 20:13 Chlorhexidine Gluconate (Delmi-Hex 2%) 1 applic DAILY@2000 TOPIC 03/15/18 20:00 04/14/18 19:59 03/21/18 20:12 Dextrose (Dextrose 50%) 25 ml Q30M PRN IV Hypoglycemia 03/14/18 12:30 04/13/18 12:29 Dextrose (Dextrose 50%) 50 ml Q30M PRN IV Hypoglycemia 03/14/18 12:30 04/13/18 12:29 Heparin Sodium (Porcine) (Heparin 5000 units/ml) 5,000 units EVERY 12 HOURS SUBQ 03/14/18 21:00 04/13/18 20:59 03/22/18 08:45 Metformin HCl (Glucophage) 500 mg TWICE A DAY ORAL 03/14/18 18:00 04/13/18 17:59 03/20/18 17:43 Tamsulosin HCl (Flomax) 0.4 mg QHS ORAL 03/14/18 21:00 04/13/18 20:59 03/21/18 20:12 Vancomycin HCl (Vanco rx to dose) 1 ea DAILY PRN MISC Per rx protocol 03/14/18 12:30 04/13/18 12:29 Vancomycin/Sodium Chloride 250 ml @ 166.667 mls/hr Q12HR@0000,1200 IVPB 03/22/18 00:00 03/27/18 00:00 03/22/18 11:53 Dany Mcfarlane MD Mar 22, 2018 13:36
--- NOTE | 2018-03-22 15:57 | NUR ---
Social Service Note SW referred patient to the following facilities: [facility], declined patient. [facility] [phone] (p) [phone] (f) [facility] pending review. [phone] (p) [phone] (f) Margie Morataya Will follow up.
[2018-03-22 16:00] VITALS: BP 120/62
--- NOTE | 2018-03-22 16:27 | General Progress Note ---
Assessment/Plan Problem List: (1) Cellulitis ICD Codes: L03.90 - Cellulitis, unspecified SNOMED: 036748791 (2) Protein-calorie malnutrition, severe ICD Codes: E43 - Unspecified severe protein-calorie malnutrition SNOMED: 442347164 (3) Peripheral vascular disease ICD Codes: I73.9 - Peripheral vascular disease, unspecified SNOMED: 409378356 (4) DM (diabetes mellitus) ICD Codes: E11.9 - Type 2 diabetes mellitus without complications SNOMED: 82355415 Assessment/Plan abxs wound care needs placement Discussed with telehealth case manager follow labs no escalation of pain medications Subjective Allergies: Coded Allergies: NO KNOWN DRUG ALLERGIES (Verified Allergy, Unknown, 12/09/14) Subjective No complaints today. Objective Last 24 Hour Vital Signs Date Time Temp Pulse Resp B/P (MAP) Pulse Ox O2 Delivery O2 Flow Rate FiO2 03/22/18 12:00 98.2 55 18 128/63 (84) 95 03/22/18 09:00 Room Air 03/22/18 08:00 97.7 61 19 95/45 (62) 93 03/22/18 04:00 98.1 65 18 126/71 (89) 92 03/22/18 00:00 97.7 62 16 112/71 (85) 94 03/21/18 21:00 Room Air 03/21/18 20:00 98.4 61 18 133/55 (81) 94 03/21/18 17:13 98.2 Intake and Output 03/21/18 03/22/18 19:00 07:00 Intake Total 840 ml Output Total 1600 ml 1000 ml Balance -760 ml -1000 ml Intake Oral 840 ml Output Urine Total 1600 ml 1000 ml # Voids 4 # Bowel Movements 1 Height (Feet): 5 Height (Inches): 10.00 Weight (Pounds): 143 Cardiovascular: normal rate Respiratory/Chest: lungs clear Edema: no edema noted Generalized Narciso Mcfarlane MD Mar 22, 2018 16:27
--- NOTE | 2018-03-22 18:44 | NUR ---
NURSE NOTES: Patient's medications Methadone 100 mg and Dilaudid 1 mg was discontinued. I communicated Dr Mcfarlane if he want patient to continue getting those medications. Dr Mcfarlane ordered to continue those medication. Order carried out as .
--- NOTE | 2018-03-22 19:15 | NUR ---
HAND-OFF: Report given to SAGE Cardoza.
--- NOTE | 2018-03-22 19:45 | NUR ---
NURSE NOTES: Received patient in bed awake. No signs of distress noted. No complain of pain or discomfort at this time. IV line intact saline locked. Bed in lowest position and locked. Call light within reach. Will continue to monitor.
[2018-03-22 20:00] VITALS: BP 122/69
[2018-03-22] MEDS: Tamsulosin 0.4mg cap ORAL SCH (21:19)
[2018-03-22] MEDS: Dyna-Hex 2% Top Sol 2oz TOPIC SCH (21:19)
[2018-03-23 04:00] VITALS: BP 118/78
[2018-03-23] MEDS: HYDROmorphone 1mg/ml Carpuject IVP PRN ×2 (04:53→12:13)
--- NOTE | 2018-03-23 07:14 | NUR ---
NURSE NOTES: Patient alert x4, on room air, no sign of distress and shortness of breath. No sign of chest pain. Urinal and bed ban within reach. Patient's own cane at the bed side. Dressing dry and intact on both lower extrimities. PICC line on left upper arm, flushes well. Side rails up x2, breaks engaged, bed at lowest position. Will give pain medications as ordered. Call light within reach. Will keep monitoring.
--- NOTE | 2018-03-23 07:26 | NUR ---
HAND-OFF: Report given to SAGE Elam.
[2018-03-23 08:00] VITALS: BP 123/67
--- NOTE | 2018-03-23 08:58 | NUR ---
REHAB MED PT PROGRESS NOTE PATIENT AMBULATES WITH FWW WITH CGA FOR 50FT, HOWVER CURRENTLY LIMITED BY WOUNDS AND PAIN IN BLE. TOLERATING PT SESSIONS WELL. RECOMMEND SNF AT [place]. Addendum: 03/23/18 at 0858 by THOMAS LARA PT Amended: Links added.
[2018-03-23] MEDS: metFORMIN 500mg tab ORAL SCH ×2 (09:00→17:05)
[2018-03-23] MEDS: Aspirin Baby 81mg NG SCH (09:12)
[2018-03-23] MEDS: Heparin 5000 units/ml inj SUBQ SCH ×2 (09:13→20:32)
--- NOTE | 2018-03-23 09:35 | NUR ---
*-* INSURANCE *-* UPDATED CLINICALS AND REVIEWS HAVE BEEN FAXED TO: [facility] F:[phone]
--- NOTE | 2018-03-23 10:44 | NUR ---
*-* DISCHARGE PLANNING *-* PATIENT HAS BEEN REFERRED TO: [facility].[phone] P:[phone]
[2018-03-23 12:00] VITALS: BP 121/71
[2018-03-23] MEDS: Vancomycin 750mg/NS 250ml IVPB SCH (12:02)
--- NOTE | 2018-03-23 13:32 | NUR ---
RD ASSESSMENT & RECOMMENDATIONS SEE CARE ACTIVITY FOR COMPLETE ASSESSMENT DAILY ESTIMATED NEEDS: Needs based on Underweight/ 54kg 30-35 kcals/kg 4462-9031 total kcals 1-1.5 g protein/kg 54-81 g total protein 25-30 mL/kg 1831-1353 total fluid mLs NUTRITION DIAGNOSIS: Increased kcal and protein needs r/t underweight status as evidenced by pt is 77% IBW, BMI of 18.1, low BMI per guidelines. CURRENT DIET: CCHO MED + Ensure Enlive BID PO DIET RECOMMENDATIONS: CCHO MED/ textured as tolerated ADDITIONAL RECOMMENDATIONS: 1) Weekly standing wts- underweight -> updated wt in EMR (bedscale wt per RD on =54kg) 2) Ensure Enlive TID w/ meals- pt only wants Ensure, not Glucerna 3) Snacks in b/ w meals 4) Consider accucheck- h/o DM 5) Wound care: add DAWN BID + MVI x1 + Vit C 250mg daily 6) UPDATED CHEM PANEL ABLE
--- NOTE | 2018-03-23 13:50 | Infectious Diseases Prog Note ---
Assessment/Plan Assessment/Plan A; bacteremia with staph Hominis , likely contamination Cellulitis & Myositis of legs Peripheral arterial disease DM Stasis dermatitis P; Continue IV Vancomycin Subjective ROS Limited/Unobtainable: No Constitutional: Reports: no symptoms Respiratory: Reports: no symptoms Cardiovascular: Reports: no symptoms Gastrointestinal/Abdominal: Reports: other - rectal pain Musculoskeletal: Reports: pain, other - in legs Allergies: Coded Allergies: NO KNOWN DRUG ALLERGIES (Verified Allergy, Unknown, 12/09/14) Objective Vital Signs Last 24 Hour Vital Signs Date Time Temp Pulse Resp B/P (MAP) Pulse Ox O2 Delivery O2 Flow Rate FiO2 03/23/18 12:43 98.1 03/23/18 12:00 98.6 68 18 121/71 (88) 96 03/23/18 09:00 Room Air 03/23/18 08:00 98.1 66 19 123/67 (85) 94 03/23/18 04:00 98.6 66 18 118/78 (91) 92 03/22/18 21:00 Room Air 03/22/18 20:00 98.7 66 18 122/69 (86) 96 03/22/18 16:00 98.8 58 19 120/62 (81) 95 Height (Feet): 5 Height (Inches): 10.00 Weight (Pounds): 118 General Appearance: no acute distress HEENT: mucous membranes moist Respiratory/Chest: lungs clear Cardiovascular: normal rate, other - left arm PICC line Abdomen: soft, non tender Extremities: other - ulceration of both legs Skin: other - dry skin Neurologic/Psychiatric: alert, responsive Current Medications Medications (Trade) Dose Ordered Sig/Syl Route PRN Reason Start Time Stop Time Status Last Admin Dose Admin Acetaminophen (Tylenol) 650 mg Q4H PRN ORAL Mild Pain (Pain Scale 1-3) 03/14/18 12:30 04/13/18 12:29 Acetaminophen/ Hydrocodone Bitart ([place] 10/325) 1 tab Q4H PRN ORAL Moderate Pain (Pain Scale 4-6) 03/17/18 14:00 03/24/18 13:59 03/22/18 04:49 Aspirin (ASA) 162 mg DAILY NG 03/16/18 09:00 04/15/18 08:59 03/23/18 09:12 Atorvastatin Calcium (Lipitor) 10 mg BEDTIME ORAL 03/15/18 21:00 04/14/18 20:59 03/22/18 21:19 Chlorhexidine Gluconate (Delmi-Hex 2%) 1 applic DAILY@2000 TOPIC 03/15/18 20:00 04/14/18 19:59 03/22/18 21:19 Dextrose (Dextrose 50%) 25 ml Q30M PRN IV Hypoglycemia 03/14/18 12:30 04/13/18 12:29 Dextrose (Dextrose 50%) 50 ml Q30M PRN IV Hypoglycemia 03/14/18 12:30 04/13/18 12:29 Heparin Sodium (Porcine) (Heparin 5000 units/ml) 5,000 units EVERY 12 HOURS SUBQ 03/14/18 21:00 04/13/18 20:59 03/23/18 09:13 Hydromorphone HCl (Dilaudid) 1 mg Q4H PRN IVP Severe Pain (Pain Scale 7-10) 03/22/18 18:45 03/29/18 18:44 03/23/18 12:13 Metformin HCl (Glucophage) 500 mg TWICE A DAY ORAL 03/14/18 18:00 04/13/18 17:59 03/20/18 17:43 Methadone HCl (Methadone HCl) 100 mg DAILY ORAL 03/23/18 09:00 03/30/18 08:59 03/23/18 09:12 Tamsulosin HCl (Flomax) 0.4 mg QHS ORAL 03/14/18 21:00 04/13/18 20:59 03/22/18 21:19 Vancomycin HCl (Vanco rx to dose) 1 ea DAILY PRN MISC Per rx protocol 03/14/18 12:30 04/13/18 12:29 Vancomycin/Sodium Chloride 250 ml @ 166.667 mls/hr Q12HR@0000,1200 IVPB 03/22/18 00:00 03/27/18 00:00 03/23/18 12:02 Dany Mcfarlane MD Mar 23, 2018 13:50
[2018-03-23 16:00] VITALS: BP 122/76
--- NOTE | 2018-03-23 16:01 | General Progress Note ---
Assessment/Plan Problem List: (1) Cellulitis ICD Codes: L03.90 - Cellulitis, unspecified SNOMED: 042726505 (2) Protein-calorie malnutrition, severe ICD Codes: E43 - Unspecified severe protein-calorie malnutrition SNOMED: 359033062 (3) Peripheral vascular disease ICD Codes: I73.9 - Peripheral vascular disease, unspecified SNOMED: 423883618 (4) DM (diabetes mellitus) ICD Codes: E11.9 - Type 2 diabetes mellitus without complications SNOMED: 41451008 Assessment/Plan abxs wound care needs placement Discussed with sample case porter Subjective Allergies: Coded Allergies: NO KNOWN DRUG ALLERGIES (Verified Allergy, Unknown, 12/09/14) Subjective No complaints today. Objective Last 24 Hour Vital Signs Date Time Temp Pulse Resp B/P (MAP) Pulse Ox O2 Delivery O2 Flow Rate FiO2 03/23/18 12:43 98.1 03/23/18 12:00 98.6 68 18 121/71 (88) 96 03/23/18 09:00 Room Air 03/23/18 08:00 98.1 66 19 123/67 (85) 94 03/23/18 04:00 98.6 66 18 118/78 (91) 92 03/22/18 21:00 Room Air 03/22/18 20:00 98.7 66 18 122/69 (86) 96 Intake and Output 03/22/18 03/23/18 19:00 07:00 Intake Total 1000 ml Output Total 1200 ml 1200 ml Balance -200 ml -1200 ml Intake Oral 1000 ml Output Urine Total 1200 ml 1200 ml # Bowel Movements 2 Height (Feet): 5 Height (Inches): 10.00 Weight (Pounds): 118 Cardiovascular: normal rate Respiratory/Chest: lungs clear Edema: no edema noted Generalized Narciso Mcfarlane MD Mar 23, 2018 16:01
[2018-03-23] MEDS: HYDROcodone/Acetamin 10/325 tab ORAL PRN (17:03)
--- NOTE | 2018-03-23 17:27 | NUR ---
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 97.7 HR 72 RR 17 B/P 122/76 RA 98% IS: VANCO IV ASA PO HEPARIN SUBC FLOMAX PO DC PLANNING MED/SURG STATUS
--- NOTE | 2018-03-23 19:00 | NUR ---
NURSE NOTES: Received a report from SAGE Elam. Pt is in stable condition. AAOX4. Able to make needs known. C/O leg pain, rated 8/10. Will give pain med once it's due. Bed in lowest position. Refused the bed alarm. Call light within reach. Will continue to monitor.
--- NOTE | 2018-03-23 19:14 | NUR ---
HAND-OFF: Report given to SAGE Javed.
[2018-03-23 20:00] VITALS: BP 112/56
[2018-03-23] MEDS: Tamsulosin 0.4mg cap ORAL SCH (20:31)
[2018-03-23] MEDS: Dyna-Hex 2% Top Sol 2oz TOPIC SCH (20:31)
[2018-03-24] VITALS: BP 141/71
--- NOTE | 2018-03-24 01:00 | NUR ---
NURSE NOTES: Pt refused dressing change. He wants it after breakfast.
[2018-03-24] MEDS: Vancomycin 750mg/NS 250ml IVPB SCH ×2 (01:33→12:49)
--- NOTE | 2018-03-24 06:42 | NUR ---
NURSE NOTES: Pt's BP: 127/75, HR: 78
[2018-03-24] MEDS: HYDROcodone/Acetamin 10/325 tab ORAL PRN (06:45)
--- NOTE | 2018-03-24 07:25 | NUR ---
HAND-OFF: Report given to Steve Shen RN. SAGE Javed endorsed to SAGE Wilson, that the pt requested to change his dressings after breakfast.
--- NOTE | 2018-03-24 07:48 | NUR ---
NURSE NOTES: Received patient from SAGE Javed. Patient is awake, eating. Will continue to monitor patient. in bed, in room air, not in respiratory distress. Bed in the lowest position, call light is within reach
--- NOTE | 2018-03-24 07:52 | NUR ---
NURSE NOTES: Received patient from Tegan CAZARES, patient is up in bed, no distress noted, bed is locked and in lowest position, no distress noted, call light within reach, will continue to monitor with Olamide CAZARES.
[2018-03-24 08:00] VITALS: BP 139/75
[2018-03-24] MEDS: Heparin 5000 units/ml inj SUBQ SCH ×2 (09:00→20:56)
[2018-03-24] MEDS: Aspirin Baby 81mg NG SCH (09:00)
[2018-03-24] MEDS: metFORMIN 500mg tab ORAL SCH ×2 (09:00→17:04)
[2018-03-24 12:00] VITALS: BP 124/72
--- NOTE | 2018-03-24 12:39 | General Progress Note ---
Assessment/Plan Problem List: (1) Cellulitis ICD Codes: L03.90 - Cellulitis, unspecified SNOMED: 023570516 (2) Protein-calorie malnutrition, severe ICD Codes: E43 - Unspecified severe protein-calorie malnutrition SNOMED: 893714564 (3) Peripheral vascular disease ICD Codes: I73.9 - Peripheral vascular disease, unspecified SNOMED: 129821927 (4) DM (diabetes mellitus) ICD Codes: E11.9 - Type 2 diabetes mellitus without complications SNOMED: 50443208 Assessment/Plan abxs wound care needs placement Discussed with RN Subjective Allergies: Coded Allergies: NO KNOWN DRUG ALLERGIES (Verified Allergy, Unknown, 12/09/14) Subjective No complaints today. Objective Last 24 Hour Vital Signs Date Time Temp Pulse Resp B/P (MAP) Pulse Ox O2 Delivery O2 Flow Rate FiO2 03/24/18 12:00 97.8 65 18 124/72 (89) 93 03/24/18 09:00 Room Air 03/24/18 08:00 98.2 89 18 139/75 (96) 92 03/24/18 00:00 98.2 77 18 141/71 (94) 92 03/23/18 21:00 Room Air 03/23/18 20:00 98.6 63 19 112/56 (74) 92 03/23/18 17:33 97.7 03/23/18 16:00 97.7 72 17 122/76 (91) 97 03/23/18 12:43 98.1 Intake and Output 03/23/18 03/24/18 19:00 07:00 Intake Total 1200 ml 610.000 ml Output Total 1400 ml Balance 1200 ml -790.000 ml Intake Oral 360 ml IV Total 250.000 ml Other 1200 ml Output Urine Total 1400 ml # Voids 3 Height (Feet): 5 Height (Inches): 10.00 Weight (Pounds): 118 Cardiovascular: normal rate Respiratory/Chest: lungs clear Edema: no edema noted Generalized Narciso Mcfarlane MD Mar 24, 2018 12:39
--- NOTE | 2018-03-24 12:42 | Infectious Diseases Prog Note ---
Assessment/Plan Assessment/Plan A; bacteremia with staph Hominis , likely contamination Cellulitis & Myositis of legs Peripheral arterial disease DM Stasis dermatitis P; Continue IV Vancomycin Subjective ROS Limited/Unobtainable: No Constitutional: Reports: no symptoms Respiratory: Reports: no symptoms Cardiovascular: Reports: no symptoms Gastrointestinal/Abdominal: Reports: no symptoms Musculoskeletal: Reports: pain, other - in legs Allergies: Coded Allergies: NO KNOWN DRUG ALLERGIES (Verified Allergy, Unknown, 12/09/14) Objective Vital Signs Last 24 Hour Vital Signs Date Time Temp Pulse Resp B/P (MAP) Pulse Ox O2 Delivery O2 Flow Rate FiO2 03/24/18 12:00 97.8 65 18 124/72 (89) 93 03/24/18 09:00 Room Air 03/24/18 08:00 98.2 89 18 139/75 (96) 92 03/24/18 00:00 98.2 77 18 141/71 (94) 92 03/23/18 21:00 Room Air 03/23/18 20:00 98.6 63 19 112/56 (74) 92 03/23/18 17:33 97.7 03/23/18 16:00 97.7 72 17 122/76 (91) 97 03/23/18 12:43 98.1 Height (Feet): 5 Height (Inches): 10.00 Weight (Pounds): 118 General Appearance: no acute distress HEENT: mucous membranes moist Respiratory/Chest: lungs clear Cardiovascular: normal rate Abdomen: soft, non tender Extremities: no edema Skin: ulcers, other - legs Neurologic/Psychiatric: alert, responsive Current Medications Medications (Trade) Dose Ordered Sig/Syl Route PRN Reason Start Time Stop Time Status Last Admin Dose Admin Acetaminophen (Tylenol) 650 mg Q4H PRN ORAL Mild Pain (Pain Scale 1-3) 03/14/18 12:30 04/13/18 12:29 Acetaminophen/ Hydrocodone Bitart ([place] 10/325) 1 tab Q4H PRN ORAL Moderate Pain (Pain Scale 4-6) 03/17/18 14:00 03/24/18 13:59 03/24/18 06:45 Aspirin (ASA) 162 mg DAILY NG 03/16/18 09:00 04/15/18 08:59 03/23/18 09:12 Atorvastatin Calcium (Lipitor) 10 mg BEDTIME ORAL 03/15/18 21:00 04/14/18 20:59 03/23/18 20:31 Chlorhexidine Gluconate (Delmi-Hex 2%) 1 applic DAILY@2000 TOPIC 03/15/18 20:00 04/14/18 19:59 03/23/18 20:31 Dextrose (Dextrose 50%) 25 ml Q30M PRN IV Hypoglycemia 03/14/18 12:30 04/13/18 12:29 Dextrose (Dextrose 50%) 50 ml Q30M PRN IV Hypoglycemia 03/14/18 12:30 04/13/18 12:29 Heparin Sodium (Porcine) (Heparin 5000 units/ml) 5,000 units EVERY 12 HOURS SUBQ 03/14/18 21:00 04/13/18 20:59 03/23/18 20:32 Hydromorphone HCl (Dilaudid) 1 mg Q4H PRN IVP Severe Pain (Pain Scale 7-10) 03/22/18 18:45 03/29/18 18:44 03/23/18 12:13 Metformin HCl (Glucophage) 500 mg TWICE A DAY ORAL 03/14/18 18:00 04/13/18 17:59 03/20/18 17:43 Methadone HCl (Methadone HCl) 100 mg DAILY ORAL 03/23/18 09:00 03/30/18 08:59 03/24/18 09:24 Tamsulosin HCl (Flomax) 0.4 mg QHS ORAL 03/14/18 21:00 04/13/18 20:59 03/23/18 20:31 Vancomycin HCl (Vanco rx to dose) 1 ea DAILY PRN MISC Per rx protocol 03/14/18 12:30 04/13/18 12:29 Vancomycin/Sodium Chloride 250 ml @ 166.667 mls/hr Q12HR@0000,1200 IVPB 03/22/18 00:00 03/27/18 00:00 03/24/18 01:33 Dany Mcfarlane MD Mar 24, 2018 12:42
[2018-03-24] MEDS: HYDROmorphone 1mg/ml Carpuject IVP PRN (13:21)
[2018-03-24 16:00] VITALS: BP 122/70
--- NOTE | 2018-03-24 16:49 | NUR ---
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 97.5 HR 69 RR 18 B/P 122/70 RA 98% IS: VANCO IV ASA PO PLACEMENT PENDING MED/SURG STATUS
--- NOTE | 2018-03-24 16:50 | NUR ---
MEASUREMENT SUPERVISOR NOTES SPOKE WITH JEAN PIERRE FROM [facility], MADE AWARE I WAS ABLE TO LOCATE [facility]. JEAN PIERRE STATED SHE WILL NOTIFY [facility] FROM ADMISSION. WAITING FOR CALL BACK. SPOKE WITH FLEX SMITH FROM [facility] MADE AWARE OF ONGOING DCP. AUTHORIZATION GIVEN FOR SNF PLACEMENT [id number]. WILL NOTIFY INSURANCE ONCE PLACEMENT IS FOUND. FLEX SMITH [phone] Addendum: 03/25/18 at 1419 by ALEKS TONG RN RN flex [phone]
--- NOTE | 2018-03-24 19:23 | NUR ---
HAND-OFF: Report given to SAGE Hammer.
[2018-03-24] MEDS: Dyna-Hex 2% Top Sol 2oz TOPIC SCH (20:00)
[2018-03-24] MEDS: Tamsulosin 0.4mg cap ORAL SCH (20:56)
--- NOTE | 2018-03-24 20:58 | NUR ---
NURSE NOTES: Patient refused to take scheduled medication at 2100. Patient says " I know that medication, I don't need that". Nurse explained risk and benefit but still refused. Patient also refused dressing change. Patient wants to do tomorrow day time.
[2018-03-25] VITALS: BP 119/72
[2018-03-25] MEDS: Vancomycin 750mg/NS 250ml IVPB SCH ×3 (00:19→13:03)
[2018-03-25 04:00] VITALS: BP 128/73
[2018-03-25] MEDS: HYDROmorphone 1mg/ml Carpuject IVP PRN ×2 (05:30→15:48)
--- NOTE | 2018-03-25 07:05 | NUR ---
HAND-OFF: Report given to Mckenzie CAZARES.
[2018-03-25 08:00] VITALS: BP 113/63
[2018-03-25] MEDS: metFORMIN 500mg tab ORAL SCH ×2 (08:43→17:48)
[2018-03-25] MEDS: Heparin 5000 units/ml inj SUBQ SCH ×2 (08:44→21:00)
[2018-03-25] MEDS: Aspirin Baby 81mg NG SCH (08:49)
--- NOTE | 2018-03-25 11:39 | Infectious Diseases Prog Note ---
Assessment/Plan Assessment/Plan A; bacteremia with staph Hominis , likely contamination Cellulitis & Myositis of legs Peripheral arterial disease DM Stasis dermatitis P; Continue IV Vancomycin Subjective ROS Limited/Unobtainable: No Constitutional: Reports: no symptoms Respiratory: Reports: no symptoms Cardiovascular: Reports: no symptoms Gastrointestinal/Abdominal: Reports: no symptoms Musculoskeletal: Reports: pain, other - in legs Allergies: Coded Allergies: NO KNOWN DRUG ALLERGIES (Verified Allergy, Unknown, 12/09/14) Objective Vital Signs Last 24 Hour Vital Signs Date Time Temp Pulse Resp B/P (MAP) Pulse Ox O2 Delivery O2 Flow Rate FiO2 03/25/18 09:00 Room Air 03/25/18 08:00 97.8 70 19 113/63 (80) 98 03/25/18 04:00 98.6 61 19 128/73 (91) 97 03/25/18 00:00 99.6 69 19 119/72 (88) 94 03/24/18 21:00 Room Air 03/24/18 20:00 18 03/24/18 16:00 97.5 69 18 122/70 (87) 95 03/24/18 13:51 97.8 03/24/18 12:00 97.8 65 18 124/72 (89) 93 Height (Feet): 5 Height (Inches): 10.00 Weight (Pounds): 118 General Appearance: no acute distress HEENT: mucous membranes moist Respiratory/Chest: lungs clear Cardiovascular: normal rate, other - R arm PICC line Abdomen: soft, non tender Extremities: other - trace edema Skin: ulcers Neurologic/Psychiatric: alert, responsive Laboratory Tests Test 03/25/18 11:24 Vancomycin Level Trough Pending Current Medications Medications (Trade) Dose Ordered Sig/Syl Route PRN Reason Start Time Stop Time Status Last Admin Dose Admin Acetaminophen (Tylenol) 650 mg Q4H PRN ORAL Mild Pain (Pain Scale 1-3) 03/14/18 12:30 04/13/18 12:29 Aspirin (ASA) 162 mg DAILY NG 03/16/18 09:00 04/15/18 08:59 03/25/18 08:49 Atorvastatin Calcium (Lipitor) 10 mg BEDTIME ORAL 03/15/18 21:00 04/14/18 20:59 03/23/18 20:31 Chlorhexidine Gluconate (Delmi-Hex 2%) 1 applic DAILY@2000 TOPIC 03/15/18 20:00 04/14/18 19:59 03/23/18 20:31 Dextrose (Dextrose 50%) 25 ml Q30M PRN IV Hypoglycemia 03/14/18 12:30 04/13/18 12:29 Dextrose (Dextrose 50%) 50 ml Q30M PRN IV Hypoglycemia 03/14/18 12:30 04/13/18 12:29 Heparin Sodium (Porcine) (Heparin 5000 units/ml) 5,000 units EVERY 12 HOURS SUBQ 03/14/18 21:00 04/13/18 20:59 03/23/18 20:32 Hydromorphone HCl (Dilaudid) 1 mg Q4H PRN IVP Severe Pain (Pain Scale 7-10) 03/22/18 18:45 03/29/18 18:44 03/25/18 05:30 Metformin HCl (Glucophage) 500 mg TWICE A DAY ORAL 03/14/18 18:00 04/13/18 17:59 03/20/18 17:43 Methadone HCl (Methadone HCl) 100 mg DAILY ORAL 03/23/18 09:00 03/30/18 08:59 03/25/18 08:50 Tamsulosin HCl (Flomax) 0.4 mg QHS ORAL 03/14/18 21:00 04/13/18 20:59 03/23/18 20:31 Vancomycin HCl (Vanco rx to dose) 1 ea DAILY PRN MISC Per rx protocol 03/14/18 12:30 04/13/18 12:29 Vancomycin/Sodium Chloride 250 ml @ 166.667 mls/hr Q12HR@0000,1200 IVPB 03/22/18 00:00 03/27/18 00:00 03/25/18 00:19 Dany Mcfarlane MD Mar 25, 2018 11:39
[2018-03-25 12:00] VITALS: BP 118/68
--- NOTE | 2018-03-25 14:56 | General Progress Note ---
Assessment/Plan Problem List: (1) Cellulitis ICD Codes: L03.90 - Cellulitis, unspecified SNOMED: 784228120 (2) Protein-calorie malnutrition, severe ICD Codes: E43 - Unspecified severe protein-calorie malnutrition SNOMED: 628514925 (3) Peripheral vascular disease ICD Codes: I73.9 - Peripheral vascular disease, unspecified SNOMED: 729040535 (4) DM (diabetes mellitus) ICD Codes: E11.9 - Type 2 diabetes mellitus without complications SNOMED: 47854619 Assessment/Plan abxs wound care needs placement Discussed with RN Subjective Allergies: Coded Allergies: NO KNOWN DRUG ALLERGIES (Verified Allergy, Unknown, 12/09/14) Subjective feels ok Objective Last 24 Hour Vital Signs Date Time Temp Pulse Resp B/P (MAP) Pulse Ox O2 Delivery O2 Flow Rate FiO2 03/25/18 12:00 98.0 75 19 118/68 (85) 98 03/25/18 09:00 Room Air 03/25/18 08:00 97.8 70 19 113/63 (80) 98 03/25/18 04:00 98.6 61 19 128/73 (91) 97 03/25/18 00:00 99.6 69 19 119/72 (88) 94 03/24/18 21:00 Room Air 03/24/18 20:00 18 03/24/18 16:00 97.5 69 18 122/70 (87) 95 Intake and Output 03/24/18 03/25/18 19:00 07:00 Intake Total 1320 ml 813.334 ml Output Total 1200 ml 400 ml Balance 120 ml 413.334 ml Intake Oral 1320 ml 480 ml IV Total 333.334 ml Output Urine Total 1200 ml 400 ml # Voids 12 # Bowel Movements 4 2 Laboratory Tests 03/25/18 11:24: Vancomycin Level Trough 10.6 Height (Feet): 5 Height (Inches): 10.00 Weight (Pounds): 118 Cardiovascular: normal rate Respiratory/Chest: lungs clear Narciso Mcfarlane MD Mar 25, 2018 14:56
[2018-03-25 16:00] VITALS: BP 114/84
--- NOTE | 2018-03-25 17:18 | NUR ---
*-* DISCHARGE PLANNED *-* PATIENT HAS BEEN DISCHARGE [facility] ROOM# A-2A SKILLED T:[phone] FOR NURSE TO NURSE REPORT [facility] HAS BEEN ARRANGED FOR PLACE CHANGE ROOF BOLTER AT 830PM S/W CHRISTOPHER [phone]
[2018-03-25] MEDS ORDERED: ACETAMINOPHEN325 M1 ORAL (18:54)
[2018-03-25] MEDS ORDERED: ASPIRIN-LOW81 MG ORAL (18:56)
[2018-03-25] MEDS ORDERED: ATORVASTATIN CA10 MG ORAL (18:56)
[2018-03-25] MEDS ORDERED: HYDROMORPHO1 MG/1 M4 IVP (18:57)
[2018-03-25] MEDS ORDERED: HYDROMORPHO1 MG/1 M9 IVP (18:58)
[2018-03-25] MEDS ORDERED: METHADONE HCL10 MG PO (18:59)
--- NOTE | 2018-03-25 19:30 | NUR ---
HAND-OFF: Report given to SAGE Mas.
[2018-03-25 20:00] VITALS: BP 128/79
[2018-03-25] MEDS: Dyna-Hex 2% Top Sol 2oz TOPIC SCH (20:00)
--- NOTE | 2018-03-25 20:00 | NUR ---
Received patient AOx4, pt made aware of impending discharge at 2030, pt refused stating he was not told he was leaving today. Patient adamant about talking to MD about discharge plan before he agrees to leave. Dr Pradeep Mcfarlane notified, Dr Mcfarlnae will allow him to stay overnight and said to only give him AM abx. Patient made aware. Bed on lowest position, call light within reach, 2 side rails up.
[2018-03-25] MEDS ORDERED: VANCOMYCIN750 MG/150 IV (20:09)
[2018-03-25] MEDS: Tamsulosin 0.4mg cap ORAL SCH (21:00)
[2018-03-26] MEDS: Vancomycin 750mg/NS 250ml IVPB SCH ×3 (00:34→23:45)
--- NOTE | 2018-03-26 07:35 | NUR ---
HAND-OFF: Report given to SAGE Wilson and SAGE Quiñonez.
--- NOTE | 2018-03-26 07:40 | NUR ---
NURSE NOTES: Patient received from SGAE Canales. Patient is in bed, eating breakfast, in room air, not in respiratory distress. Bed in the lowest position, bed locked, side rails up,call light is within is reach reach. Will continue to monitor patient.
--- NOTE | 2018-03-26 07:46 | NUR ---
NURSE NOTES: Received patient from Tg CAZARES, patient is up in bed, no distress noted, bed is locked and in lowest position, call light within reach, will continue to monitor with Olamide CAZARES.
[2018-03-26 08:00] VITALS: BP 131/73
[2018-03-26] MEDS: Heparin 5000 units/ml inj SUBQ SCH ×2 (09:00→20:26)
[2018-03-26] MEDS: metFORMIN 500mg tab ORAL SCH ×2 (09:00→17:01)
[2018-03-26] MEDS: Aspirin Baby 81mg NG SCH (09:00)
--- NOTE | 2018-03-26 10:29 | NUR ---
Social Service Note GORGE spoke with Sakshi at [facility] [phone] and confirmed bed assignment with admission coordinator Yane patient accepted for placement today. GORGE informed patient of discharge and discharge location. Patient states he will only discharge after speaking with Dr. Mcfarlane. Message left for Dr. Mcfarlane. Patient can discharge at anytime. [facility] ambulance on will-call.
--- NOTE | 2018-03-26 11:28 | Infectious Diseases Prog Note ---
"Assessment/Plan Assessment/Plan antibiotics : vancomycin iv A 1. bilateral leg cellulitis | myositis 2. right fibula fracture 3. stasis dermatitis 4. + blood cultures with coag neg staph likely contaminated 5. diabetes mellitus P 1. continue iv vancomycin 2. will follow up cultures Subjective Constitutional: Denies: fever, chills Respiratory: Denies: shortness of breath, dry cough Gastrointestinal/Abdominal: Reports: nausea; Denies: vomiting, diarrhea Musculoskeletal: Reports: pain Allergies: Coded Allergies: NO KNOWN DRUG ALLERGIES (Verified Allergy, Unknown, 12/09/14) Objective Vital Signs Last 24 Hour Vital Signs Date Time Temp Pulse Resp B/P (MAP) Pulse Ox O2 Delivery O2 Flow Rate FiO2 03/26/18 09:00 Room Air 03/25/18 21:00 Room Air 03/25/18 20:00 97.9 76 19 128/79 (95) 95 03/25/18 16:18 98.5 03/25/18 16:00 98.5 65 18 114/84 (94) 95 03/25/18 12:00 98.0 75 19 118/68 (85) 98 Height (Feet): 5 Height (Inches): 10.00 Weight (Pounds): 118 Respiratory/Chest: lungs clear Cardiovascular: normal rate, regular rhythm, no gallop/murmur Abdomen: soft, non tender Extremities: no edema, other - hyperpigmented legs Current Medications Medications (Trade) Dose Ordered Sig/Syl Route PRN Reason Start Time Stop Time Status Last Admin Dose Admin Acetaminophen (Tylenol) 650 mg Q4H PRN ORAL Mild Pain (Pain Scale 1-3) 03/14/18 12:30 04/13/18 12:29 Aspirin (ASA) 162 mg DAILY NG 03/16/18 09:00 04/15/18 08:59 03/25/18 08:49 Atorvastatin Calcium (Lipitor) 10 mg BEDTIME ORAL 03/15/18 21:00 04/14/18 20:59 03/23/18 20:31 Chlorhexidine Gluconate (Delmi-Hex 2%) 1 applic DAILY@1999 TOPIC 03/15/18 20:00 04/14/18 19:59 03/23/18 20:31 Dextrose (Dextrose 50%) 25 ml Q30M PRN IV Hypoglycemia 03/14/18 12:30 04/13/18 12:29 Dextrose (Dextrose 50%) 50 ml Q30M PRN IV Hypoglycemia 03/14/18 12:30 04/13/18 12:29 Heparin Sodium (Porcine) (Heparin 5000 units/ml) 5,000 units EVERY 12 HOURS SUBQ 03/14/18 21:00 04/13/18 20:59 03/23/18 20:32 Hydromorphone HCl (Dilaudid) 1 mg Q4H PRN IVP Severe Pain (Pain Scale 7-10) 03/22/18 18:45 03/29/18 18:44 03/25/18 15:48 Metformin HCl (Glucophage) 500 mg TWICE A DAY ORAL 03/14/18 18:00 04/13/18 17:59 03/20/18 17:43 Methadone HCl (Methadone HCl) 100 mg DAILY ORAL 03/23/18 09:00 03/30/18 08:59 03/26/18 09:31 Tamsulosin HCl (Flomax) 0.4 mg QHS ORAL 03/14/18 21:00 04/13/18 20:59 03/23/18 20:31 Vancomycin HCl (Vanco rx to dose) 1 ea DAILY PRN MISC Per rx protocol 03/14/18 12:30 04/13/18 12:29 Vancomycin/Sodium Chloride 250 ml @ 166.667 mls/hr Q12HR@0000,1200 IVPB 03/22/18 00:00 03/31/18 00:00 03/26/18 00:34 Judy David MD Mar 26, 2018 11:28"
[2018-03-26 11:55] VITALS: BP 118/86
[2018-03-26] MEDS ORDERED: NS 275ml ONE (14:05)
[2018-03-26 16:00] VITALS: BP 139/71
--- NOTE | 2018-03-26 17:56 | NUR ---
NURSE NOTES: RN educated to patient that his PICC line dressing needed to be changed, patient refused to allow RN to change the dressing at this time, will endorse to next shift to change PICC line dressing, no distress noted, will continue to monitor.
[2018-03-26] MEDS: HYDROmorphone 1mg/ml Carpuject IVP PRN ×2 (18:21→23:46)
--- NOTE | 2018-03-26 19:08 | NUR ---
HAND-OFF: Report given to SAGE Turcios.
--- NOTE | 2018-03-26 19:21 | General Progress Note ---
Assessment/Plan Problem List: (1) Cellulitis ICD Codes: L03.90 - Cellulitis, unspecified SNOMED: 158179370 (2) Protein-calorie malnutrition, severe ICD Codes: E43 - Unspecified severe protein-calorie malnutrition SNOMED: 878069547 (3) Peripheral vascular disease ICD Codes: I73.9 - Peripheral vascular disease, unspecified SNOMED: 798272341 (4) DM (diabetes mellitus) ICD Codes: E11.9 - Type 2 diabetes mellitus without complications SNOMED: 56719310 Assessment/Plan abxs wound care I had a discussion with patient regarding his discharge. He wants to talk to some one from SNF and refuses to leave. Subjective Allergies: Coded Allergies: NO KNOWN DRUG ALLERGIES (Verified Allergy, Unknown, 12/09/14) Subjective In NAD Objective Last 24 Hour Vital Signs Date Time Temp Pulse Resp B/P (MAP) Pulse Ox O2 Delivery O2 Flow Rate FiO2 03/26/18 18:51 97.5 03/26/18 16:00 97.5 58 18 139/71 (93) 93 03/26/18 11:55 98.1 67 18 118/86 (97) 92 03/26/18 09:00 Room Air 03/26/18 08:00 98.2 66 18 131/73 (92) 93 03/25/18 21:00 Room Air 03/25/18 20:00 97.9 76 19 128/79 (95) 95 Intake and Output 03/25/18 03/26/18 19:00 07:00 Intake Total 1080 ml 250 ml Output Total 1000 ml 800 ml Balance 80 ml -550 ml Intake Oral 1080 ml IV Total 250 ml Output Urine Total 1000 ml 800 ml # Voids 1 # Bowel Movements 1 Height (Feet): 5 Height (Inches): 10.00 Weight (Pounds): 118 Cardiovascular: normal rate Respiratory/Chest: lungs clear Pelvis: other - wrapped Narciso Mcfarlane MD Mar 26, 2018 19:21
--- NOTE | 2018-03-26 19:27 | NUR ---
NURSE NOTES: Received patient in bed, sleeping. On RA, no SOB, no acute distress. PICC line on L upper arm dressing intact and dry. Wound dressings intact, dry on BLE. Bed in lowest position, locked, alarms on. Call light in reach.
[2018-03-26 20:00] VITALS: BP 144/91
[2018-03-26] MEDS: Tamsulosin 0.4mg cap ORAL SCH (20:26)
[2018-03-26] MEDS: Dyna-Hex 2% Top Sol 2oz TOPIC SCH (20:26)
[2018-03-27] VITALS: BP 131/79
[2018-03-27 04:00] VITALS: BP 114/76
[2018-03-27] MEDS: HYDROmorphone 1mg/ml Carpuject IVP PRN ×3 (05:08→23:26)
--- NOTE | 2018-03-27 07:53 | NUR ---
NURSE NOTES: Received patient in bed, awake, alert, No acute distress noted, PICC line on L upper arm dressing intact and dry. Wound dressings intact, Bed in lowest position and locked, Alarm is on, Call light and needs within reach, Will continue to monitor.
--- NOTE | 2018-03-27 07:59 | NUR ---
HAND-OFF: Report given to Josephine Tomas RN.
[2018-03-27 08:00] VITALS: BP 129/88
[2018-03-27] MEDS: metFORMIN 500mg tab ORAL SCH ×2 (09:00→18:00)
[2018-03-27] MEDS: Heparin 5000 units/ml inj SUBQ SCH ×2 (09:21→20:49)
[2018-03-27] MEDS: Aspirin Baby 81mg NG SCH (09:22)
--- NOTE | 2018-03-27 09:22 | NUR ---
NURSE NOTES: patient refused Medication Metformin scheduled at 9 AM, explained benefit and risk, but, patient still refused.
[2018-03-27 12:00] VITALS: BP 147/83
--- NOTE | 2018-03-27 12:11 | Infectious Diseases Prog Note ---
Assessment/Plan Assessment/Plan A; bacteremia with staph Hominis , likely contamination Cellulitis & Myositis of legs Peripheral arterial disease DM Stasis dermatitis P; Continue IV Vancomycin until tomorrow Subjective ROS Limited/Unobtainable: Yes Constitutional: Reports: no symptoms Respiratory: Reports: no symptoms Cardiovascular: Reports: no symptoms Gastrointestinal/Abdominal: Reports: no symptoms Genitourinary: Reports: no symptoms Musculoskeletal: Reports: pain, other - in legs Allergies: Coded Allergies: NO KNOWN DRUG ALLERGIES (Verified Allergy, Unknown, 12/09/14) Objective Vital Signs Last 24 Hour Vital Signs Date Time Temp Pulse Resp B/P (MAP) Pulse Ox O2 Delivery O2 Flow Rate FiO2 03/27/18 09:00 Room Air 03/27/18 08:00 97.9 68 17 129/88 (102) 100 03/27/18 04:00 98.3 64 18 114/76 (89) 95 03/27/18 00:00 98.0 66 17 131/79 (96) 95 03/26/18 21:00 Room Air 03/26/18 20:00 98.2 74 18 144/91 (108) 90 03/26/18 18:51 97.5 03/26/18 16:00 97.5 58 18 139/71 (93) 93 Height (Feet): 5 Height (Inches): 10.00 Weight (Pounds): 118 General Appearance: no acute distress HEENT: mucous membranes moist Respiratory/Chest: lungs clear Cardiovascular: normal rate Abdomen: soft, non tender Extremities: no edema Skin: ulcers, other - healing Neurologic/Psychiatric: alert, responsive Current Medications Medications (Trade) Dose Ordered Sig/Syl Route PRN Reason Start Time Stop Time Status Last Admin Dose Admin Acetaminophen (Tylenol) 650 mg Q4H PRN ORAL Mild Pain (Pain Scale 1-3) 03/14/18 12:30 04/13/18 12:29 Aspirin (ASA) 162 mg DAILY NG 03/16/18 09:00 04/15/18 08:59 03/27/18 09:22 Atorvastatin Calcium (Lipitor) 10 mg BEDTIME ORAL 03/15/18 21:00 04/14/18 20:59 03/23/18 20:31 Chlorhexidine Gluconate (Delmi-Hex 2%) 1 applic DAILY@1999 TOPIC 03/15/18 20:00 04/14/18 19:59 03/26/18 20:26 Dextrose (Dextrose 50%) 25 ml Q30M PRN IV Hypoglycemia 03/14/18 12:30 04/13/18 12:29 Dextrose (Dextrose 50%) 50 ml Q30M PRN IV Hypoglycemia 03/14/18 12:30 04/13/18 12:29 Heparin Sodium (Porcine) (Heparin 5000 units/ml) 5,000 units EVERY 12 HOURS SUBQ 03/14/18 21:00 04/13/18 20:59 03/27/18 09:21 Hydromorphone HCl (Dilaudid) 1 mg Q4H PRN IVP Severe Pain (Pain Scale 7-10) 03/22/18 18:45 03/29/18 18:44 03/27/18 05:08 Metformin HCl (Glucophage) 500 mg TWICE A DAY ORAL 03/14/18 18:00 04/13/18 17:59 03/20/18 17:43 Methadone HCl (Methadone HCl) 100 mg DAILY ORAL 03/23/18 09:00 03/30/18 08:59 03/27/18 09:21 Tamsulosin HCl (Flomax) 0.4 mg QHS ORAL 03/14/18 21:00 04/13/18 20:59 03/26/18 20:26 Vancomycin HCl (Vanco rx to dose) 1 ea DAILY PRN MISC Per rx protocol 03/14/18 12:30 04/13/18 12:29 Vancomycin/Sodium Chloride 250 ml @ 166.667 mls/hr Q12HR@0000,1200 IVPB 03/22/18 00:00 03/31/18 00:00 03/26/18 23:45 Dany Mcfarlane MD Mar 27, 2018 12:11
[2018-03-27] MEDS: Vancomycin 750mg/NS 250ml IVPB SCH ×2 (13:24→23:15)
[2018-03-27 16:00] VITALS: BP 123/82
--- NOTE | 2018-03-27 18:23 | NUR ---
CHARGE NURSE NOTES: PATIENT ALERT, ORIENTED. REFUSING TO GO TO SNF TODAY. PER HIM, WILL WAIT FOR COUSIN TO COME PICK HIM UP IN AM. DR MIRZA AWARE. SEEN PATIENT.
--- NOTE | 2018-03-27 18:47 | General Progress Note ---
Assessment/Plan Problem List: (1) Cellulitis ICD Codes: L03.90 - Cellulitis, unspecified SNOMED: 484336051 (2) Protein-calorie malnutrition, severe ICD Codes: E43 - Unspecified severe protein-calorie malnutrition SNOMED: 861501769 (3) Peripheral vascular disease ICD Codes: I73.9 - Peripheral vascular disease, unspecified SNOMED: 477882077 (4) DM (diabetes mellitus) ICD Codes: E11.9 - Type 2 diabetes mellitus without complications SNOMED: 94730968 Assessment/Plan abxs wound care I had a discussion with patient regarding his discharge. He agrees to go to SNF tomorrow. Discussed with RN Subjective Allergies: Coded Allergies: NO KNOWN DRUG ALLERGIES (Verified Allergy, Unknown, 12/09/14) Subjective In NAD Objective Last 24 Hour Vital Signs Date Time Temp Pulse Resp B/P (MAP) Pulse Ox O2 Delivery O2 Flow Rate FiO2 03/27/18 16:00 97.9 62 16 123/82 (96) 100 03/27/18 12:00 97.0 61 18 147/83 (104) 100 03/27/18 09:00 Room Air 03/27/18 08:00 97.9 68 17 129/88 (102) 100 03/27/18 04:00 98.3 64 18 114/76 (89) 95 03/27/18 00:00 98.0 66 17 131/79 (96) 95 03/26/18 21:00 Room Air 03/26/18 20:00 98.2 74 18 144/91 (108) 90 03/26/18 18:51 97.5 Intake and Output 03/26/18 03/27/18 19:00 07:00 Intake Total 1200 ml 900.000 ml Output Total 1250 ml Balance 1200 ml -350.000 ml Intake Oral 650 ml IV Total 250.000 ml Other 1200 ml Output Urine Total 1250 ml Height (Feet): 5 Height (Inches): 10.00 Weight (Pounds): 118 Cardiovascular: normal rate Respiratory/Chest: lungs clear Narciso Mcfarlane MD Mar 27, 2018 18:47
--- NOTE | 2018-03-27 19:28 | NUR ---
HAND-OFF: Report given to Laura jackson RN.
--- NOTE | 2018-03-27 19:43 | NUR ---
NURSE NOTES: Received patient in bed, alseep. No SOB, no acute distress noted. Dressings dry, intact on BLE. L upper arm PICC line intact, patent with dry dressing. In calm mood, stable condition. Bed in lowest position, locked, alarms on. Call light in reach.
[2018-03-27 20:00] VITALS: BP 127/75
[2018-03-27] MEDS: Dyna-Hex 2% Top Sol 2oz TOPIC SCH (20:00)
[2018-03-27] MEDS: Tamsulosin 0.4mg cap ORAL SCH (20:49)
--- NOTE | 2018-03-27 20:50 | NUR ---
NURSE NOTES: Patient refused all med schedule for 1999 and 2099. Explained risk and benefit but still refused. Patient stated, "Leave me alone, I don't want to take any medicine, close the door I want to sleep."
[2018-03-28] VITALS: BP 123/80
[2018-03-28 04:00] VITALS: BP 138/74
[2018-03-28] MEDS: HYDROmorphone 1mg/ml Carpuject IVP PRN (05:00)
--- NOTE | 2018-03-28 07:41 | NUR ---
HAND-OFF: Report given to SAGE Hale.
--- NOTE | 2018-03-28 07:44 | NUR ---
NURSE NOTES: Received report from Tank Nolasco. Pt in bed, awake, talkative, no complaints of pain at this time, no apparent distress noted, bed in lowest position, call light within reach.
[2018-03-28 08:00] VITALS: BP 131/81
[2018-03-28] MEDS: Aspirin Baby 81mg NG SCH (08:21)
[2018-03-28] MEDS: Heparin 5000 units/ml inj SUBQ SCH (08:24)
--- NOTE | 2018-03-28 11:24 | NUR ---
NURSE NOTES: 1010: Report called to SAGE Frank at [facility]. Spoke with Dr. Cesar Mcfarlane, DC Vanco and PICC line. Updated DC instructions. 1020: Discussed discharge with pt, pt upset, stating has not spoke with people at facility yet. Charlene Cuevas RN will speak with pt. 1045: Attempting to do wound care and take photos of bilateral leg wounds, pt refused stating "they just did that yesterday. I dont need that." Attmpted to have pt sign all dc paperwork and go through belongings list with pt. Pt stated he is not ready to sign anything. Reviewed all DC papers with pt. 1110: Pt going through all belongings. Ambulance here waiting for pt. Pt is leaving a sánchez sweatshirt here stating " I dont want that." Ambulance still waiting. PICC line removed by Charlene Cuevas RN. 1130: Pt now stating he does not want any of his belongings "they are all smelling like that." Discussed with him that facility may have laundry service." PT in ambulance [facility].
--- NOTE | 2018-03-28 11:42 | NUR ---
NURSE NOTES: 1135: Pt discharged to [facility], IV access removed, ID band removed with belongings he wanted to take, Belongings list signed, all DC papers with ambulance, pt stable for discharge
--- NOTE | 2018-03-29 12:32 | Discharge Summary ---
Discharge Summary Discharge Summary _ DATE OF ADMISSION: 03/14/2018 2019 DATE OF DISCHARGE: 03/28/[address] Mcfarlane REASON FOR ADMISSION: 67 years old male with past medical history of diabetes mellitus, hypertension, bladder cancer, seizure disorder, history of drug addiction , currently on methadone for years presented to emergency department with lower extremity pain. Patient was diagnosed with lower extremity cellulitis and was admitted for further management CONSULTANTS: ID specialist Dr.M Mcfarlane vascular surgery Dr. Robertson row boss hoeing Dr. Ferro HOSPITAL COURSE: Patient admitted and started on empiric antibiotics. ID specialist, vascular surgery and podiatry consults were requested. Venous duplex bilateral lower extremity revealed no evidence of acute DVT. Arterial Doppler bilateral lower extremity revealed evidence of moderate ischemia with moderate calcification. PICC line was placed for IV antibiotics. X ray of the left tibia/fibula revealed no definite plain radiographic evidence to suggest acute osteomyelitis. X ray of the right tibia/fibula showed no definite radiographic abnormality to suggest acute osteomyelitis. Patient subsequently undergone MRI of left and right tibia-fibula , which revealed soft tissue cellulitis and myositis, but no evidence of osteomyelitis or drainable soft tissue abscess. Blood culture revealed Staph hominis. According to infectious disease specialist , blood cultures were likely contaminant. ESR 48 , CRP within normal limits. Patient completed IV vancomycin while in the hospital. Infectious disease doctor recommended to observe patient closely . Mechanical Systems Engineer undergone debridement left lower extremity lateral wound base , which appeared to be granulated after debridement. Mechanical Systems Engineer recommended complete IV antibiotic and continue with local wound care at the facility. No acute surgical intervention was necessary from row boss hoeing standpoint. Vascular surgeon seen and evaluated the patient. Patient had mixed venous and arterial insufficiency with bilateral leg venous stasis ulcers, left more than right , with cellulitis ,absent popliteal and pedal pulses , calcific peripheral arterial disease. Patient was a smoker. Vascular surgeon recommended CT angiogram, can be done as outpatient. Per vascular surgeon , patient will benefit from left lower extremity revascularization with angiogram, once more medically optimized and cleared . . Antiplatelet therapy with aspirin was continued along with statin. DVT prophylaxis provided. Pain management was addressed , and pain was controlled. Bowel regimen instituted. Blood pressure was closely monitored and managed with current regimen. Blood sugar was managed with Metformin and sliding scale of insulin as needed. Dietary recommendations implemented in plan of care in regards to protein supplements. Patient was counseled on smoking cessation, continue abstinence from ETOH and illicit street drugs. Patient received influenza and pneumonia vaccines prior to discharge. sawmill production worker was working for placement for this patient. Placement was found and secured at [facility]. Patient was stable for discharge. FINAL DIAGNOSES: Cellulitis left leg Myositis BLE Bilateral venous stasis ulceration with stasis dermatitis Status post debridement left lower extremity lateral wound base Mixed venous arterial insufficiency Calcific arterial occlusive disease with absent pedal pulses Peripheral vascular disease Severe protein calorie malnutrition Diabetes mellitus Bacteremia with staph hominis likely contamination History of smoking Hypertension Alcohol use DISCHARGE MEDICATIONS: See Medication Reconciliation list. DISCHARGE INSTRUCTIONS: Patient was discharged to the residential facility. Follow up with medical doctor at the facility. I have been assigned to dictate discharge summary for this account. I was not involved in the patient's management. Zara Zhou NP Mar 29, 2018 12:32
--- NOTE | 2018-04-05 23:39 | Physician Query ---
--------- THIS DOCUMENT IS A PERMANENT PART OF THE MEDICAL RECORD --------- PLEASE COMPLETE THE FORM BEFORE SIGNING Dear Dr.JUSTIN CASAS Date: ___04/05/18 Wet Chemistry Analyst/CDS Name: ___JAIMIE RIVERA CCDS Exercise your independent professional judgment when responding to query. Questions asked do not imply particular answer is desired or expected. We greatly appreciate your clarification on this issue. Because there is documentation in the medical record of "Debridement", clarification is needed. Please document whether this is "Excisional" or "Nonexcisional" Debridement of the wound, infection or burn. PROGRESS NOTE ON 03/21/18 STATES: "Debridement performed on LLE lateral wound base, post debridement wound base was noted to be granular. Healthy bleeding was noted to wound. " [] Excisional: The removal of necrotic, devitalized tissue or slough by means of cutting away of tissue (the use of scissors, scalpel or curette are common). [] Nonexcisional: The removal of necrotic, devitalized tissue or slough by means of flushing, brushing or washing (irrigating). Documentation should also include the "depth" of tissue removed, e.g., skin, fascia, muscle or bone. Please document the appropriate type of Debridement on the Progress Notes or on this form as an addendum to the patient's record. (Sign and date all documents). ANU CASAS MD DATE MTDD
== END 2018-03-28 11:28 | DRG 383 ==
LOC: EDBD 08:32 → EMR 09:10 → 4E 09:30 → EDBEDREQ 10:55
PROC: 02HV33Z Insertion of Infusion Device into Superior Vena Cava, Percutaneous Approach (ICD-10-PCS; principal; 2018-03-16)
PROC: B518ZZA Fluoroscopy of Superior Vena Cava, Guidance (ICD-10-PCS; 2018-03-16)
PROC: 0JBP0ZZ Excision of Left Lower Leg Subcutaneous Tissue and Fascia, Open Approach (ICD-10-PCS; 2018-03-21)
DX: L03.116 Cellulitis of left lower limb (principal); E43 Unspecified severe protein-calorie malnutrition; F11.20 Opioid dependence, uncomplicated; J44.9 Chronic obstructive pulmonary disease, unspecified; I73.9 Peripheral vascular disease, unspecified; L03.115 Cellulitis of right lower limb; I83.228 Varicose veins of left lower extremity with both ulcer of other part of lower extremity and inflammation; Z85.46 Personal history of malignant neoplasm of prostate; Z85.51 Personal history of malignant neoplasm of bladder; G40.909 Epilepsy, unspecified, not intractable, without status epilepticus; E11.9 Type 2 diabetes mellitus without complications; I10 Essential (primary) hypertension; H54.40 Blindness, one eye, unspecified eye; H54.62 Unqualified visual loss, left eye, normal vision right eye; M60.9 Myositis, unspecified; Z72.89 Other problems related to lifestyle; Z68.1 Body mass index [BMI] 19.9 or less, adult
CPT/HCPCS: 36415; 36569; 71045; 76937; 80048; 80053; 80061; 80202; 82550; 82553; 83036; 83605; 83690; 84484; 85025; 85651; 86140; 87040; 87081; 87181; 90686; 90732; 93005; 93880; 93925; 93970; 96365; 99285

== ENCOUNTER 2018-07-12 20:16 | Inpatient (IN) | payer MEDICARE, MEDICAID ==
[~2018-07-12] VITALS: Ht 172.7 cm; Wt 51.5 kg
[~2018-07-12 20:16] MED LIST changes: +ACETAMINOPHEN325 M1 ORAL; +ASPIRIN-LOW81 MG ORAL; +ATORVASTATIN CA10 MG ORAL; +DOXYCYCLINE MO100 M2 PO; +HYDROMORPHO1 MG/1 M4 IVP; +HYDROMORPHO1 MG/1 M9 IVP; +VANCOMYCIN750 MG/150 IV; +duricef PO
--- NOTE | 2018-07-12 20:40 | NUR ---
ED Nurse Note: Patient was brought by ambulance due to fall. Per patient he fell from his wheel chair and hurt him self. AAO x4, VSS at this time. Patient has skin issue, specially on lower extremities. Patient has leision unknown etiology.
--- NOTE | 2018-07-12 20:46 | Emergency Room Report ---
History of Present Illness General Chief Complaint: Multiple Trauma/Fall Source: Patient, EMS Present Illness HPI Patient is a 67-year-old male brought in by EMS after recent fall. Patient reports having fallen while attempting to cross the street. He reports of increased pain to the right side of his chest. Patient reports striking his head. He reports having some loss of consciousness. Patient has reported prior history of COPD as well as bladder cancer. Patient states that he has a wheelchair and is somewhat able to ambulate. He reports having increased discomfort to his left lower extremities.Patient denies any fever. He reports having some generalized discomfort. Allergies: Coded Allergies: NO KNOWN DRUG ALLERGIES (Verified Allergy, Unknown, 12/09/14) Patient History Past Medical History: see triage record Reviewed Nursing Documentation: PMH: Agreed; PSxH: Agreed Nursing Documentation-PMH Hx Cardiac Problems: Yes Hx Hypertension: Yes Hx COPD: Yes Hx Diabetes: Yes Hx Cancer: Yes Hx Gastrointestinal Problems: No Hx Neurological Problems: Yes - bladder cancer, prostate cancer Hx Seizures: Yes Hx Dizziness: Yes Hx Syncope: Yes Review of Systems All Other Systems: negative except mentioned in HPI Physical Exam Vital Signs Date Time Temp Pulse Resp B/P (MAP) Pulse Ox O2 Delivery O2 Flow Rate FiO2 07/12/18 20:17 98.8 72 18 96 Room Air General Appearance: alert, GCS 15, non-toxic, cachetic, Chronically Ill Neck: normal inspection, limited range of motion Respiratory: normal inspection, lungs clear, other - right chest wall tenderness Cardiovascular #1: regular rate, rhythm Gastrointestinal: normal inspection, normal bowel sounds, non tender Musculoskeletal: normal inspection, swelling - left lower extremity Neurologic: normal inspection Skin: other - multiple larva to left lower scabies Medical Decision Making Diagnostic Impression: Primary Impression: Fall Additional Impressions: Generalized weakness Cancer Infestation ER Course Patient presented for generalized weakness after a fall.. Patient was noted to be able to ambulate somewhat. Differential diagnosis include was not limited to pneumonia, congestive heart failure, myocardial infarction, sepsis among others. Because of complexity of patient's case laboratory testing and imaging studies were ordered. Patient was noted to have some gross infestation to his left lower extremity wound. There is noted to be some larval organisms. Patient was noted to have unremarkable chest x-ray as well as unremarkable laboratory testing. Patient was discussed with Dr. Narciso Mcfarlane for inpatient management due to prior admission. Patient may require some surgical debridement. Labs Test 07/12/18 20:50 07/12/18 21:30 White Blood Count 6.4 K/UL (4.8-10.8) Red Blood Count 3.98 M/UL (4.70-6.10) Hemoglobin 13.3 G/DL (14.2-18.0) Hematocrit 39.5 % (42.0-52.0) Mean Corpuscular Volume 99 FL (80-99) Mean Corpuscular Hemoglobin 33.5 PG (27.0-31.0) Mean Corpuscular Hemoglobin Concent 33.8 G/DL (32.0-36.0) Red Cell Distribution Width 13.9 % (11.6-14.8) Platelet Count 181 K/UL (150-450) Mean Platelet Volume 5.2 FL (6.5-10.1) Neutrophils (%) (Auto) 47.0 % (45.0-75.0) Lymphocytes (%) (Auto) 40.3 % (20.0-45.0) Monocytes (%) (Auto) 9.4 % (1.0-10.0) Eosinophils (%) (Auto) 2.2 % (0.0-3.0) Basophils (%) (Auto) 1.1 % (0.0-2.0) Prothrombin Time 10.5 SEC (9.30-11.50) Prothromb Time International Ratio 1.0 (0.9-1.1) Activated Partial Thromboplast Time 30 SEC (23-33) Sodium Level 139 MMOL/L (136-145) Potassium Level 3.7 MMOL/L (3.5-5.1) Chloride Level 102 MMOL/L (98-107) Carbon Dioxide Level 30 MMOL/L (21-32) Anion Gap 8 mmol/L (5-15) Blood Urea Nitrogen 14 mg/dL (7-18) Creatinine 0.8 MG/DL (0.55-1.30) Estimat Glomerular Filtration Rate > 60 mL/min (>60) Glucose Level 82 MG/DL (74-106) Lactic Acid Level 1.20 mmol/L (0.4-2.0) Calcium Level 8.7 MG/DL (8.5-10.1) Phosphorus Level 3.2 MG/DL (2.5-4.9) Magnesium Level 1.9 MG/DL (1.8-2.4) Total Bilirubin 0.4 MG/DL (0.2-1.0) Aspartate Amino Transf (AST/SGOT) 42 U/L (15-37) Alanine Aminotransferase (ALT/SGPT) 28 U/L (12-78) Alkaline Phosphatase 229 U/L (46-116) Total Creatine Kinase 127 U/L (26-308) Creatine Kinase MB 4.2 NG/ML (0.0-3.6) Creatine Kinase MB Relative Index 3.3 Troponin I 0.012 ng/mL (0.000-0.056) Total Protein 7.6 G/DL (6.4-8.2) Albumin 3.4 G/DL (3.4-5.0) Globulin 4.2 g/dL Albumin/Globulin Ratio 0.8 (1.0-2.7) Urine Color Pale yellow Urine Appearance Clear Urine pH 5 (4.5-8.0) Urine Specific [place] 1.010 (1.005-1.035) Urine Protein Negative (NEGATIVE) Urine Glucose (UA) Negative (NEGATIVE) Urine Ketones Negative (NEGATIVE) Urine Blood 1+ (NEGATIVE) Urine Nitrite Negative (NEGATIVE) Urine Bilirubin Negative (NEGATIVE) Urine Urobilinogen Normal MG/DL (0.0-1.0) Urine Leukocyte Esterase Negative (NEGATIVE) Urine RBC 0-2 /HPF (0 - 0) Urine WBC 0 /HPF (0 - 0) Urine Squamous Epithelial Cells Occasional /LPF Urine Bacteria None /HPF (NONE) Last Vital Signs Date Time Temp Pulse Resp B/P (MAP) Pulse Ox O2 Delivery O2 Flow Rate FiO2 07/12/18 20:17 98.8 72 18 96 Room Air Status: improved Disposition: ADMITTED INPATIENT Condition: Stable Schuyler Hunt MD July 12, 2018 20:46
--- NOTE | 2018-07-12 20:55 | NUR ---
ED Nurse Note: While undressing the patient maggots were noticed on both feets. Patient was cleaned up, all patient's belongings were thrown in the trash due to maggots.
[2018-07-12 21:19] LABS: BASOPHILS % (AUTO) 1.1 % (0.0-2.0); EOSINOPHILS % (AUTO) 2.2 % (0.0-3.0); HEMATOCRIT 39.5 % (42.0-52.0); HEMOGLOBIN 13.3 G/DL (14.2-18.0); LYMPHOCYTES % (AUTO) 40.3 % (20.0-45.0); MEAN CORPUSCULAR VOLUME 99 FL (80-99); MONOCYTES % (AUTO) 9.4 % (1.0-10.0); PLATELET COUNT 181 K/UL (150-450); RED BLOOD COUNT 3.98 M/UL (4.70-6.10); RED CELL DISTRIBUTION WIDTH 13.9 % (11.6-14.8); WHITE BLOOD COUNT 6.4 K/UL (4.8-10.8)
[2018-07-12 21:30] LABS: ANION GAP 8 mmol/L (5-15); BLOOD UREA NITROGEN 14 mg/dL (7-18); CALCIUM 8.7 MG/DL (8.5-10.1); CARBON DIOXIDE 30 MMOL/L (21-32); CHLORIDE 102 MMOL/L (98-107); CREATININE 0.8 MG/DL (0.55-1.30); POTASSIUM 3.7 MMOL/L (3.5-5.1); SODIUM 139 MMOL/L (136-145)
--- NOTE | 2018-07-12 21:30 | NUR ---
ED Nurse Note: Patient has IV on hil Left AC 20 ga, but it is not working. New IV was placed on right forearm 20ga.
[2018-07-12 21:42] LABS: ALANINE AMINOTRANSFERASE 28 U/L (12-78); ALBUMIN 3.4 G/DL (3.4-5.0); ALBUMIN/GLOBULIN RATIO 0.8 (1.0-2.7); ALKALINE PHOSPHATASE 229 U/L (46-116); ASPARTATE AMINO TRANSFERASE 42 U/L (15-37); BILIRUBIN,TOTAL 0.4 MG/DL (0.2-1.0); CKMB 4.2 NG/ML (0.0-3.6); CREATINE KINASE 127 U/L (26-308); PHOSPHORUS 3.2 MG/DL (2.5-4.9)
[2018-07-12 21:46] LABS: APPEARANCE,URINE CLEAR; BILIRUBIN, URINE NEGATIVE (NEGATIVE); COLOR,URINE PALE YELLOW; GLUCOSE, URINE (UA) NEGATIVE (NEGATIVE); KETONES,URINE NEGATIVE (NEGATIVE); LEUKOCYTE ESTERASE ,URINE NEGATIVE (NEGATIVE); NITRITE,URINE NEGATIVE (NEGATIVE); PH,URINE 5 (4.5-8.0); PROTEIN,URINE NEGATIVE (NEGATIVE); UROBILINOGEN,URINE NORMAL MG/DL (0.0-1.0)
[2018-07-12 22:00] VITALS: BP 155/83
--- NOTE | 2018-07-13 00:30 | NUR ---
ED Nurse Note: Patient was admited to Tele due to generalized weakness, and infected lower extremityes. Patient had maggots on his feet. Patient's feet were cleand from maggots and dryed up. AAOx4, VSS at this time. Patient was transfered with all belongings by ACLS protocol.
--- NOTE | 2018-07-13 01:00 | NUR ---
NURSE NOTES: Received pt from ED via corine. Pt transferred to unit and bed without any incident. Received report from SAGE Quinn. [place] pt to room, unit, and hospital policies. Pt is A/O x4. promotion officer is in placed, IV site intact, asymptomatic, and patent. Bed is in the lowest position, locked, and alarmed. Call light within reach. No signs/symptoms of acute distress noted at this time. Will continue plan of care. Received orders from Dr. Mcfarlane. Will note and carry out.
[2018-07-13] MEDS ORDERED: Vancomycin 1 GM in NS 275 ML IVPB SCH (02:00)
[2018-07-13] MEDS: HYDROcodone/Acetamin 10/325 tab ORAL PRN ×3 (02:12→23:47)
[2018-07-13 04:00] VITALS: BP 149/68
[2018-07-13] MEDS: Piperacillin/Tazobactam 3.375 GM in D5W 110 ML IVPB SCH ×3 (05:58→21:36)
--- NOTE | 2018-07-13 07:50 | NUR ---
NURSE NOTES: Received report from SAGE Gonzalez. Patient resting in bed, eating his breakfast. Awake, A/O x4, showing no signs of acute distress. Respiration even and non labored on room air. No SOB noted. IV patent and intact and Zosyn is running at RX dose. Side rails up x2. Safety precaution observed. Bed in lowest position, alarm on and break engaged. Bed side table and bed alarm within reach. Will continue plan of care.
[2018-07-13 08:00] VITALS: BP 120/78
--- NOTE | 2018-07-13 08:03 | NUR ---
HAND-OFF: Report given to SAGE Reddy.
[2018-07-13 09:00] VITALS: BP 112/68
[2018-07-13] MEDS ORDERED: metFORMIN 500mg tab ORAL SCH (09:00)
[2018-07-13] MEDS: Tamsulosin 0.4mg cap ORAL SCH (09:03)
[2018-07-13] MEDS: Aspirin EC 81mg tab ORAL SCH (09:03)
[2018-07-13] MEDS: Heparin 5000 units/ml inj SUBQ SCH ×2 (09:05→21:38)
--- NOTE | 2018-07-13 10:57 | History & Physical ---
History and Physical History & Physicial dictated #[id number] Narciso Mcfarlane MD July 13, 2018 10:57
--- NOTE | 2018-07-13 11:09 | Diagnostic Imaging Report ---
Indication: Dyspnea Comparison: 03/14/2018 A single view chest radiograph was obtained. Findings: There is a density which appears to be calcific probably involving the pleura along the left mid chest laterally. The heart is mildly enlarged but stable. No infiltrate identified. No definite pleural effusion seen. IMPRESSION: No acute findings. No change Pleural calcification on the left may be due to old trauma or post inflammatory Cardiomegaly
[2018-07-13 12:00] VITALS: BP 112/68
[2018-07-13] MEDS: Vancomycin 500mg/D5W 110ml IVPB SCH ×2 (13:07)
[2018-07-13] MEDS ORDERED: Hydrogen Peroxide 473ml Bottle TOPIC SCH (14:00)
--- NOTE | 2018-07-13 14:11 | NUR ---
*-* INSURANCE *-* CLINICALS HAVE BEEN FAXED TO: [facility] NCM:PENDING FAX CLINICALS TO [phone]
[2018-07-13 16:00] VITALS: BP 125/59
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
--- NOTE | 2018-07-13 16:30 | History and Physical Report ---
DATE OF ADMISSION: 07/12/2018 CHIEF COMPLAINT: The patient fell when attempting to cross the street. HISTORY OF PRESENT ILLNESS: This is a 67-year-old male, who is known to me from previous admissions and followup in the residential facility. The patient stated that he was trying to cross the street and he fell. He was reporting increased pain to the right side of his chest and in the ER, he also mentioned that he lost consciousness. The patient was seen in the emergency room, was found to have left leg cellulitis and was admitted. PAST MEDICAL HISTORY: Includes reported history of bladder cancer, prostate cancer, history of seizures, syncope, dizziness, diabetes, COPD, hypertension, and heart problems. MEDICATIONS: Reviewed in the EMR. SOCIAL HISTORY: The patient states that he has a place to live, but he used to be homeless before. He denies history of drug abuse or alcohol abuse, but he is still on methadone program. ALLERGIES: No known drug allergies. REVIEW OF SYSTEMS: Noncontributory. PHYSICAL EXAMINATION: GENERAL: The patient is an elderly male, in no acute distress. VITAL SIGNS: Blood pressure is 120/78, pulse 82, temperature 99.6, and respirations 22. HEENT: [place] conjunctivae. Anicteric sclerae. NECK: Supple. LUNGS: Clear to auscultation. HEART: S1, S2 without murmurs or rubs. ABDOMEN: Soft and nontender. EXTREMITIES: The patient has redness and scaling of the skin on the left lower extremity below the knee. Also excoriation of the skin at the back of the knee. LABORATORY FINDINGS: The CBC shows WBC of 6400, hematocrit is 39.5, hemoglobin is 13.3, and platelets . Chemistry panel shows serum sodium 139, potassium 3.7, chloride 102, CO2 30, BUN is 14, creatinine 0.8. Albumin is 3.4. UA was negative. ASSESSMENT: This is a 67-year-old male, who fell unclear if he had a syncope, but he has significant infection of his left lower extremity consistent with cellulitis. The patient has history of diabetes, but he he is stating that he is no longer taking his metformin. PLAN: The patient will be on IV antibiotics. ID consultation will be planned and wound will be ordered by Dr. Foster. Adjustment will be made in the patient's regimen. Narciso Mcfarlane M.D. DR: REGLA JOB#: [id number] CC:
--- NOTE | 2018-07-13 16:38 | NUR ---
CASE MANAGEMENT:REVIEW 67 YR OLD MALE BIBA FROM HOME CC: MULTIPLE FALLS...FELL FROM WHEELCHAIR. RT FLANK PAIN. MAGGOTS NOTED ON BOTH FEET SI: GENERALIZED WEAKNESS. INFESTATION CANCER 98.7 72 18 140/85 96% ON RA H/H-13.3/39.5 IS: 1L NS BOLUS 500CC NS BOLUS CHEST XRAY BLOOD CX : TELEMETRY STATUS
--- NOTE | 2018-07-13 19:39 | NUR ---
HAND-OFF: Report given to SAGE Aceves.
--- NOTE | 2018-07-13 19:40 | NUR ---
NURSE NOTES: Got report from Gracie CAZARES. Pt in stable condition. Denies any pain. No s/s of distress or discomfort noted. Pt resting in bed comfortably. Bed in low and locked position, call light within reach, bedside table within reach. Continue to monitor.
[2018-07-13 20:00] VITALS: BP 139/72
--- NOTE | 2018-07-13 20:21 | Cardiology Report ---
APPROVED REPORT EKG Measurement Heart [id number] [place] 126P [id number] Normal sinus rhythm Left ventricular hypertrophy with repolarization abnormality Abnormal ECG
[2018-07-14 00:32] VITALS: BP 150/67
[2018-07-14] MEDS: Vancomycin 500mg/D5W 110ml IVPB SCH ×4 (02:06→14:46)
[2018-07-14 04:20] VITALS: BP 134/66
[2018-07-14] MEDS: Piperacillin/Tazobactam 3.375 GM in D5W 110 ML IVPB SCH ×3 (05:34→21:34)
[2018-07-14] MEDS: HYDROcodone/Acetamin 10/325 tab ORAL PRN ×2 (06:32→20:23)
--- NOTE | 2018-07-14 07:00 | NUR ---
HAND-OFF: Report given to Tracy CAZARES. Endorsed plan of care.
[2018-07-14 08:00] VITALS: BP 112/70
[2018-07-14 08:14] LABS: BASOPHILS % (AUTO) 0.7 % (0.0-2.0); EOSINOPHILS % (AUTO) 3.1 % (0.0-3.0); HEMATOCRIT 41.4 % (42.0-52.0); HEMOGLOBIN 13.9 G/DL (14.2-18.0); LYMPHOCYTES % (AUTO) 38.2 % (20.0-45.0); MEAN CORPUSCULAR VOLUME 102 FL (80-99); MONOCYTES % (AUTO) 7.8 % (1.0-10.0); NEUTROPHILS % (AUTO) 50.2 % (45.0-75.0); PLATELET COUNT 169 K/UL (150-450); RED BLOOD COUNT 4.04 M/UL (4.70-6.10); RED CELL DISTRIBUTION WIDTH 14.4 % (11.6-14.8); WHITE BLOOD COUNT 5.8 K/UL (4.8-10.8)
--- NOTE | 2018-07-14 08:19 | NUR ---
Received report from Ketan Fu. Pt awake having breakfast. Pt on case monitor stable shows no signs of distress at this time. Bed locked and in lowest position. Call light within reach. will continue plan of care.
[2018-07-14 08:31] LABS: CHOLESTEROL 145 MG/DL (< 200); HDL CHOLESTEROL 60 MG/DL (40-60); TRIGLYCERIDES 68 MG/DL (30-150)
[2018-07-14] MEDS: Aspirin EC 81mg tab ORAL SCH (09:20)
[2018-07-14] MEDS: Heparin 5000 units/ml inj SUBQ SCH ×2 (09:20→20:23)
[2018-07-14] MEDS: Tamsulosin 0.4mg cap ORAL SCH (09:21)
--- NOTE | 2018-07-14 10:03 | NUR ---
CASE MANAGEMENT:REVIEW 07/14/18 SI: LLE CELLULITIS W/MAGGOT INFESTATION 98.0 62 20 134/66 96% ON RA H/H-13.9/41.4 IS: IV VANCOMYCIN Q12 IV ZOSYN Q8HRS LIPITOR PO QHS ASA PO QD METHADONE PO QD FLOMAX PO QD HEPARIN SQ Q12 :TELEMETRY STATUS
--- NOTE | 2018-07-14 10:15 | NUR ---
Social Service Note GORGE spoke with patient to asses for homelessness. SW familiar with patient from previous admissions. Patient is alert, oriented and verbally responsive. Patient was previously placed at [facility]. GORGE spoke with [place] [phone] and confirmed patient signed out AMA 04/13/18. Patient states he felt he was forces to sign AMA once he returned from being out of pass. Patient confirms he continues to reside behind the [facility] [address] [place] [address]. Patient signed a release for GORGE to contact his counselor Jacqui at [employer] [phone]. GORGE spoke with Jacqui who states he has been patient's counselor for about 5 years. Jacqui states he has attempted to assist patient with housing through [facility]'s [facility] Health, O and transitional housing units, but because of no follow through by patient and patient's unwillingness to use income, patient continues to reside on the streets. GORGE informed Jacqui that the anticipated dc plan is for patient to be placed in a SNF upon discharge. Patient is in agreement with this and requested placement at [facility]. GORGE informed . Jacqui states patient also denies mental health disorder and is unwilling to follow up with services if associated with a mental health clinic. Patient doesn't have a medical clinic in which he utilizes. Patient's cousin Rupesh Mandel continues to be patient's emergency contact [phone]. Family does not provide support. Patient is a full code. Will continue to monitor and assist as needed.
--- NOTE | 2018-07-14 10:28 | NUR ---
DISCHARGE PLANNING PATIENT IS REQUESTING TO BE REFERRED TO [facility] AT TIME OF DISCHARGE
--- NOTE | 2018-07-14 11:04 | Infectious Diseases Prog Note ---
Assessment/Plan Assessment/Plan IMPRESSION: Cellulitis of left lower extremity extensive stasis dermatitis COPD, urge incontinence, seizure disorder, history of syncope, s/p fall. Inguinal adenopathy RECOMMENDATION: We will continue with vancomycin and Zosyn. Cleaning of left leg with hydrogen peroxide. Subjective ROS Limited/Unobtainable: No Constitutional: Reports: no symptoms Respiratory: Reports: no symptoms Cardiovascular: Reports: no symptoms Gastrointestinal/Abdominal: Reports: no symptoms Hematologic: Reports: swollen lymph nodes Musculoskeletal: Reports: pain, other - in left leg Allergies: Coded Allergies: NO KNOWN DRUG ALLERGIES (Verified Allergy, Unknown, 12/09/14) Objective Vital Signs Last 24 Hour Vital Signs Date Time Temp Pulse Resp B/P (MAP) Pulse Ox O2 Delivery O2 Flow Rate FiO2 07/14/18 07:03 98.0 07/14/18 04:20 98.0 62 20 134/66 (88) 96 07/14/18 04:15 61 07/14/18 00:36 62 07/14/18 00:32 98.3 60 20 150/67 (94) 96 07/13/18 21:00 Room Air 07/13/18 20:00 98.1 61 20 139/72 (94) 93 07/13/18 20:00 58 07/13/18 16:00 64 07/13/18 16:00 97.3 60 22 125/59 (81) 93 07/13/18 12:00 97.5 71 22 112/68 (83) 95 07/13/18 12:00 57 Height (Feet): 5 Height (Inches): 8.00 Weight (Pounds): 113 General Appearance: no acute distress HEENT: mucous membranes moist Respiratory/Chest: lungs clear Cardiovascular: normal rate Abdomen: soft, non tender Extremities: no edema Skin: rash, ulcers, other - ulcer and erythema of left leg, chronic skin changes in both legs Neurologic/Psychiatric: alert, oriented x 3, responsive Lymphatic: other - inguinal lymphadenopathy Microbiology Date/Time Source Procedure Growth Status 07/12/18 21:05 Blood Blood Culture - Preliminary NO GROWTH AFTER 24 HOURS Resulted 07/12/18 20:50 Blood Blood Culture - Preliminary NO GROWTH AFTER 24 HOURS Resulted 07/12/18 23:30 Rectum Received Laboratory Tests Test 07/14/18 06:35 White Blood Count 5.8 K/UL (4.8-10.8) Red Blood Count 4.04 M/UL (4.70-6.10) L Hemoglobin 13.9 G/DL (14.2-18.0) L Hematocrit 41.4 % (42.0-52.0) L Mean Corpuscular Volume 102 FL (80-99) H Mean Corpuscular Hemoglobin 34.3 PG (27.0-31.0) H Mean Corpuscular Hemoglobin Concent 33.5 G/DL (32.0-36.0) Red Cell Distribution Width 14.4 % (11.6-14.8) Platelet Count 169 K/UL (150-450) Mean Platelet Volume 6.4 FL (6.5-10.1) L Neutrophils (%) (Auto) 50.2 % (45.0-75.0) Lymphocytes (%) (Auto) 38.2 % (20.0-45.0) Monocytes (%) (Auto) 7.8 % (1.0-10.0) Eosinophils (%) (Auto) 3.1 % (0.0-3.0) H Basophils (%) (Auto) 0.7 % (0.0-2.0) Hemoglobin A1c 5.8 % (4.3-6.0) Triglycerides Level 68 MG/DL (30-150) Cholesterol Level 145 MG/DL (< 200) LDL Cholesterol 74 mg/dL (<100) HDL Cholesterol 60 MG/DL (40-60) Cholesterol/HDL Ratio 2.4 (3.3-4.4) L Current Medications Medications (Trade) Dose Ordered Sig/Syl Route PRN Reason Start Time Stop Time Status Last Admin Dose Admin Acetaminophen (Tylenol) 650 mg Q4H PRN ORAL Mild Pain/Temp > 100.5 07/13/18 00:15 08/12/18 00:14 Acetaminophen/ Hydrocodone Bitart ([place] 10/325) 1 tab Q4H PRN ORAL For Pain 07/13/18 23:30 07/20/18 23:29 07/14/18 06:32 Aspirin (Ecotrin) 162 mg DAILY ORAL 07/13/18 09:00 08/12/18 08:59 07/14/18 09:20 Atorvastatin Calcium (Lipitor) 10 mg BEDTIME ORAL 07/13/18 21:00 08/12/18 20:59 07/13/18 21:36 Dextrose (Dextrose 50%) 25 ml Q30M PRN IV Hypoglycemia 07/13/18 00:15 08/12/18 00:14 Dextrose (Dextrose 50%) 50 ml Q30M PRN IV Hypoglycemia 07/13/18 00:15 08/12/18 00:14 Heparin Sodium (Porcine) (Heparin 5000 units/ml) 5,000 units EVERY 12 HOURS SUBQ 07/13/18 09:00 08/12/18 08:59 07/14/18 09:20 Hydrogen Peroxide (Hydrogen Peroxide) 1 applic ONCE ONCE TOPIC 07/14/18 12:30 07/14/18 12:31 Methadone HCl (Methadone HCl) 100 mg DAILY ORAL 07/13/18 09:00 07/20/18 08:59 07/14/18 09:21 Piperacillin Sod/ Tazobactam Sod 3.375 gm/Dextrose 110 ml @ 27.5 mls/hr Q8HR IVPB 07/13/18 06:00 07/20/18 05:59 07/14/18 05:34 Tamsulosin HCl (Flomax) 0.4 mg DAILY ORAL 07/13/18 09:00 08/12/18 08:59 07/14/18 09:21 Vancomycin HCl (Vanco rx to dose) 1 ea DAILY PRN MISC Per rx protocol 07/13/18 00:15 08/12/18 00:14 Vancomycin HCl 500 mg/Dextrose 110 ml @ 110 mls/hr Q12HR@0200,1400 IVPB 07/13/18 14:00 07/18/18 13:59 07/14/18 02:06 Dany Mcfarlane MD July 14, 2018 11:04
--- NOTE | 2018-07-14 11:47 | NUR ---
*-* INSURANCE *-* UPDATED CLINICALS AND REVIEWS HAVE BEEN FAXED TO: [facility] [place]:PENDING FAX CLINICALS TO [phone]
[2018-07-14 12:00] VITALS: BP 95/67
[2018-07-14] MEDS ORDERED: Hydrogen Peroxide 473ml Bottle TOPIC ONE (12:30)
--- NOTE | 2018-07-14 13:10 | NUR ---
PT EVALUATION NOTE Patient seen for initial evaluation, see complete evaluation for details. Patient presents with generalized weakness and limited functional mobility with pain. Patient required SBA for bed mobility, declined OOB activities due to feeling ill and pain. Patient will benefit from skilled inpatient PT intervention to address strength, balance, endurance, safety and functional mobility. Recommend discharge to SNF for further rehab to improve level of function once medically cleared by MD. DME needs to be determined depending on discharge disposition and patient's progress. Addendum: 07/14/18 at 1311 by KARLA WYNNE PT Amended: Links added.
--- NOTE | 2018-07-14 13:28 | General Progress Note ---
Assessment/Plan Problem List: (1) Cellulitis and abscess of left leg ICD Codes: L03.116 - Cellulitis of left lower limb; L02.416 - Cutaneous abscess of left lower limb SNOMED: 744027566 (2) DM (diabetes mellitus) ICD Codes: E11.9 - Type 2 diabetes mellitus without complications SNOMED: 15534105 (3) Peripheral vascular disease ICD Codes: I73.9 - Peripheral vascular disease, unspecified SNOMED: 828745031 (4) Prostate CA ICD Codes: C61 - Malignant neoplasm of prostate SNOMED: 063030344 (5) Fall ICD Codes: W19.XXXA - Unspecified fall, initial encounter SNOMED: 7635819, 522275951 Assessment/Plan: Continue antibiotics Wound care Discussed with RN Subjective Allergies: Coded Allergies: NO KNOWN DRUG ALLERGIES (Verified Allergy, Unknown, 12/09/14) Subjective Patient feels better Objective Last 24 Hour Vital Signs Date Time Temp Pulse Resp B/P (MAP) Pulse Ox O2 Delivery O2 Flow Rate FiO2 07/14/18 12:00 97.3 58 20 95/67 (76) 100 07/14/18 09:00 Room Air 07/14/18 08:00 97.8 62 20 112/70 (84) 95 07/14/18 07:03 98.0 07/14/18 04:20 98.0 62 20 134/66 (88) 96 07/14/18 04:15 61 07/14/18 00:36 62 07/14/18 00:32 98.3 60 20 150/67 (94) 96 07/13/18 21:00 Room Air 07/13/18 20:00 98.1 61 20 139/72 (94) 93 07/13/18 20:00 58 07/13/18 16:00 64 07/13/18 16:00 97.3 60 22 125/59 (81) 93 Intake and Output 07/13/18 07/14/18 19:00 07:00 Output Total 400 ml Balance -400 ml Output Urine Total 400 ml # Voids 2 Laboratory Tests 07/14/18 06:35: White Blood Count 5.8, Red Blood Count 4.04L, Hemoglobin 13.9L, Hematocrit 41.4L , Mean Corpuscular Volume 102H, Mean Corpuscular Hemoglobin 34.3H, Mean Corpuscular Hemoglobin Concent 33.5, Red Cell Distribution Width 14.4, Platelet Count 169, Mean Platelet Volume 6.4L, Neutrophils (%) (Auto) 50.2, Lymphocytes ( %) (Auto) 38.2, Monocytes (%) (Auto) 7.8, Eosinophils (%) (Auto) 3.1H, Basophils (%) (Auto) 0.7, Hemoglobin A1c 5.8, Triglycerides Level 68, Cholesterol Level 145, LDL Cholesterol 74, HDL Cholesterol 60, Cholesterol/HDL Ratio 2.4L Height (Feet): 5 Height (Inches): 8.00 Weight (Pounds): 113 Cardiovascular: normal rate Respiratory/Chest: lungs clear Extremities: other - Left lower extremity is wrapped Narciso Mcfarlane MD July 14, 2018 13:28
--- NOTE | 2018-07-14 14:35 | NUR ---
HOMELESS COORDINATOR HC spoke with patient and patient is alert and oriented. Patient does have a contact number, . Patient uses a wheelchair at beside. Patient states he is chronically homeless and does not want resources for nursing home. Patient does state he would like to submit application for housing. Patient states he has been homeless for less than 6 months. Patient states he was living with a family member that , which is the cause of his homelessness. Patient has a contact center associate, Rupesh Mandel (cousin) [phone]. Patient receives about $800 from [employer] a month as income.Patient daniel any mental health issues or substance abuse. Patient states he is currently taking medication for cancer. The patient doesn't plan to return to pervious living arrangements. No follow-up appt has been made for this patient do to wound care needs. Patient has been refereed to [facility], awaiting acceptance. Patient continues to require medical intervention. Will continue to monitor and assist as needed.
--- NOTE | 2018-07-14 15:00 | Consultation ---
History of Present Illness General Date patient seen: July 14, 2018 Time patient seen: 14:54 Chief Complaint: Multiple Trauma/Fall Referring physician: Iban Reason for Consultation: LLE ulcer Present Illness HPI Asked to evaluate this patient with a LLE ulcer. He was admitted to [facility] s/p fall. He has had this ulcer for several months. On admission he was noted to have erythema and swelling in his LLE. He was started on IV abx for presumed cellulitis. He has h/o DM but not currently on medications. He is unsure what is being used on the ulcer. Allergies: Coded Allergies: NO KNOWN DRUG ALLERGIES (Verified Allergy, Unknown, 12/09/14) Medication History Scheduled Aspirin (Aspirin EC), 162 MG ORAL DAILY, (Reported) Atorvastatin Calcium* (Lipitor*), 10 MG ORAL BEDTIME, (Reported) Clonazepam* (Klonopin*), 2 MG ORAL TID, (Reported) Clonazepam* (Klonopin*), 2 MG ORAL BID, (Reported) Doxycycline Monohydrate (Doxycycline Monohydrate), 100 MG PO BID, (Reported) Metformin Hcl* (Metformin Hcl*), 500 MG ORAL TWICE A DAY, (Reported) Metformin Hcl* (Metformin Hcl*), Unknown Dose ORAL TWICE A DAY, (Reported) Methadone Hcl* (Methadone*), 90 MG PO DAILY, (Reported) Methadone Hcl* (Methadone*), 100 MG PO DAILY, (Reported) Tamsulosin HCl (Flomax), 0.4 MG ORAL DAILY [duricef], 100 MG PO BID, (Reported) Scheduled PRN Acetaminophen* (Acetaminophen 325MG Tablet*), 650 MG ORAL Q4H PRN for Mild Pain/ Temp > 100.5, (Reported) Diazepam* (Diazepam*), 2 MG ORAL Q6H PRN for ANXIETY, (Reported) Hydrocodone/Acetaminophen (Hydrocodon-Acetaminophn 10-325), 1 TAB ORAL EVERY 12 HOURS PRN for For Pain, (Reported) Hydromorphone HCl (Hydromorphone HCl), 1 MG IVP for For Pain, (Reported) Patient History History Provided By: Patient, Medical Record Healthcare decision maker Resuscitation status Full Code Advanced Directive on File Past Medical/Surgical History Past Medical/Surgical History: (1) Syncope (2) Spinal stenosis of lumbar region (3) Prostate CA (4) Peripheral vascular disease Review of Systems Constitutional: Reports: no symptoms Eye: Reports: no symptoms ENT: Reports: no symptoms Musculoskeletal: Reports: no symptoms Skin: Reports: dryness, lesions Psychiatric: Reports: no symptoms Hematologic/Lymphatic: Reports: no symptoms Physical Exam General Appearance: no apparent distress, alert Lines, tubes and drains: peripheral Respiratory/Chest: no respiratory distress Cardiovascular/Chest: other - pedal pulses not palpable. Abdomen: soft Extremities: no edema Skin Exam: other - Posterior left lower leg ulcer with some fibrotic debris at the base. Periskin with no erythema. Ne swelling. No odor or drainage. Last 24 Hour Vital Signs Date Time Temp Pulse Resp B/P (MAP) Pulse Ox O2 Delivery O2 Flow Rate FiO2 07/14/18 12:00 97.3 58 20 95/67 (76) 100 07/14/18 12:00 61 07/14/18 09:00 Room Air 07/14/18 08:00 97.8 62 20 112/70 (84) 95 07/14/18 08:00 58 07/14/18 07:03 98.0 07/14/18 04:20 98.0 62 20 134/66 (88) 96 07/14/18 04:15 61 07/14/18 00:36 62 07/14/18 00:32 98.3 60 20 150/67 (94) 96 07/13/18 21:00 Room Air 07/13/18 20:00 98.1 61 20 139/72 (94) 93 07/13/18 20:00 58 07/13/18 16:00 64 07/13/18 16:00 97.3 60 22 125/59 (81) 93 Intake and Output 07/13/18 07/14/18 19:00 07:00 Output Total 400 ml Balance -400 ml Output Urine Total 400 ml # Voids 2 Laboratory Tests Test 07/14/18 06:35 07/14/18 13:20 White Blood Count 5.8 K/UL (4.8-10.8) Red Blood Count 4.04 M/UL (4.70-6.10) L Hemoglobin 13.9 G/DL (14.2-18.0) L Hematocrit 41.4 % (42.0-52.0) L Mean Corpuscular Volume 102 FL (80-99) H Mean Corpuscular Hemoglobin 34.3 PG (27.0-31.0) H Mean Corpuscular Hemoglobin Concent 33.5 G/DL (32.0-36.0) Red Cell Distribution Width 14.4 % (11.6-14.8) Platelet Count 169 K/UL (150-450) Mean Platelet Volume 6.4 FL (6.5-10.1) L Neutrophils (%) (Auto) 50.2 % (45.0-75.0) Lymphocytes (%) (Auto) 38.2 % (20.0-45.0) Monocytes (%) (Auto) 7.8 % (1.0-10.0) Eosinophils (%) (Auto) 3.1 % (0.0-3.0) H Basophils (%) (Auto) 0.7 % (0.0-2.0) Hemoglobin A1c 5.8 % (4.3-6.0) Triglycerides Level 68 MG/DL (30-150) Cholesterol Level 145 MG/DL (< 200) LDL Cholesterol 74 mg/dL (<100) HDL Cholesterol 60 MG/DL (40-60) Cholesterol/HDL Ratio 2.4 (3.3-4.4) L Vancomycin Level Trough 13.3 ug/mL (5.0-12.0) H Height (Feet): 5 Height (Inches): 8.00 Weight (Pounds): 113 Medications Current Medications Medications (Trade) Dose Ordered Sig/Syl Route PRN Reason Start Time Stop Time Status Last Admin Dose Admin Acetaminophen (Tylenol) 650 mg Q4H PRN ORAL Mild Pain/Temp > 100.5 07/13/18 00:15 08/12/18 00:14 Acetaminophen/ Hydrocodone Bitart ([place] 10/325) 1 tab Q4H PRN ORAL For Pain 07/13/18 23:30 07/20/18 23:29 07/14/18 06:32 Aspirin (Ecotrin) 162 mg DAILY ORAL 07/13/18 09:00 08/12/18 08:59 07/14/18 09:20 Atorvastatin Calcium (Lipitor) 10 mg BEDTIME ORAL 07/13/18 21:00 08/12/18 20:59 07/13/18 21:36 Dextrose (Dextrose 50%) 25 ml Q30M PRN IV Hypoglycemia 07/13/18 00:15 08/12/18 00:14 Dextrose (Dextrose 50%) 50 ml Q30M PRN IV Hypoglycemia 07/13/18 00:15 08/12/18 00:14 Heparin Sodium (Porcine) (Heparin 5000 units/ml) 5,000 units EVERY 12 HOURS SUBQ 07/13/18 09:00 08/12/18 08:59 07/14/18 09:20 Methadone HCl (Methadone HCl) 100 mg DAILY ORAL 07/13/18 09:00 07/20/18 08:59 07/14/18 09:21 Piperacillin Sod/ Tazobactam Sod 3.375 gm/Dextrose 110 ml @ 27.5 mls/hr Q8HR IVPB 07/13/18 06:00 07/20/18 05:59 07/14/18 05:34 Tamsulosin HCl (Flomax) 0.4 mg DAILY ORAL 07/13/18 09:00 08/12/18 08:59 07/14/18 09:21 Vancomycin HCl (Vanco rx to dose) 1 ea DAILY PRN MISC Per rx protocol 07/13/18 00:15 08/12/18 00:14 Vancomycin HCl 500 mg/Dextrose 110 ml @ 110 mls/hr Q12HR@0200,1400 IVPB 07/13/18 14:00 07/18/18 13:59 07/14/18 14:46 Assessment/Plan Status: stable Assessment/Plan: Chronic LLE ulcer. Need to establish vascular status. Will order arterial doppler studies. Wound culture performed. Stop hydrogen peroxide and start bactroban ointment. Abx management per ID. If discharged home can arrange follow up with me at outpatient wound center at [place]. Thank you. Taj Foster MD July 14, 2018 15:00
[2018-07-14 16:00] VITALS: BP 135/68
--- NOTE | 2018-07-14 19:55 | NUR ---
NURSE NOTES: BEDSIDE REPORT RECEIVED FROM SAGE ADAMS. PT IS RESTING IN BED, RR UNLABORED AND EVEN. 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 ON RA, SATING WELL. SKIN IS CLEAN, DRY, DRESSINGS INTACT. RFA 20, LAC 20 ASYMPTOMATIC. BED IS LOCKED IN LOWEST POSITION, SR X3, CALL LARKIN W/ IN REACH, BED ALARM ON. WILL CONTINUE TO MONITOR AND FOLLOW W/ PLAN OF CARE.
[2018-07-14 20:00] VITALS: BP 114/58
--- NOTE | 2018-07-14 20:27 | NUR ---
HAND-OFF: Report given to Wang Turner. Pt has been refusing mostly all his meds and antibiotics. because he is not eating and he also has been having diarrhea brodie Mixon is aware. Also pt has been running a fever of 100.4-101.4 tylenol has been given as well as cooling measures. Addendum: 07/14/18 at 2031 by Tracy Murcia RN report given to Wang Turner RN. Disregard the rest of the previous note.
[2018-07-15] VITALS: BP 122/60
[2018-07-15] MEDS: Vancomycin 500mg/D5W 110ml IVPB SCH ×2 (02:33)
--- NOTE | 2018-07-15 03:54 | NUR ---
HAND-OFF: Report given to SAGE MILLER. PT IS STABLE AT THIS TIME.
--- NOTE | 2018-07-15 03:55 | NUR ---
NURSE NOTES: Patient transferred from Tele unit. Report received from Josselyn CAZARES. A&OX4. IV sites are patent and intact. Belongings are checked. Noted wound on left lower leg, dressing changed and picture taken. Patient's own wheelchair at bedside. Bed in lowest position. Call light within reach. Will continue to monitor.
[2018-07-15 04:00] VITALS: BP 141/75
[2018-07-15] MEDS: HYDROcodone/Acetamin 10/325 tab ORAL PRN ×3 (04:50→17:22)
[2018-07-15] MEDS: Piperacillin/Tazobactam 3.375 GM in D5W 110 ML IVPB SCH ×3 (05:01→21:51)
--- NOTE | 2018-07-15 07:30 | NUR ---
HAND-OFF: Report given to Susanna CAZARES.
--- NOTE | 2018-07-15 07:38 | NUR ---
NURSE NOTES: Patient received resting in bed. Alert and oriented, breathing unlabored on room air. Denies SOB or pain at this time. Urinal by the bedside. IV sites on both arms observed. Dressing on left leg clean, dry and intact. Bed locked in lowest position, bed alarm on. Call light placed within reach, will continue to monitor.
[2018-07-15 08:00] VITALS: BP 127/77
[2018-07-15] MEDS: Aspirin EC 81mg tab ORAL SCH (08:17)
[2018-07-15] MEDS: Tamsulosin 0.4mg cap ORAL SCH (08:17)
[2018-07-15] MEDS: Heparin 5000 units/ml inj SUBQ SCH ×2 (08:23→20:21)
--- NOTE | 2018-07-15 10:49 | NUR ---
*-* INSURANCE *-* UPDATED CLINICALS AND REVIEWS HAVE BEEN FAXED TO: [facility] [place]:PENDING FAX CLINICALS TO [phone]
--- NOTE | 2018-07-15 10:57 | NUR ---
RD ASSESSMENT & RECOMMENDATIONS SEE CARE ACTIVITY FOR COMPLETE ASSESSMENT DAILY ESTIMATED NEEDS: Needs based on Underweight, wounds/ 55kg 30-35 kcals/kg 2084-6515 total kcals 1.25-1.5 g protein/kg 69-93 g total protein 25-30 mL/kg 3863-0966 total fluid mLs NUTRITION DIAGNOSIS: Increased kcal and protein needs r/t underweight status and wound healing as evidenced by pt is 79% IBW, BMI of 79, LLE ulcer. PO DIET RECOMMENDATIONS: Regular diet ADDITIONAL RECOMMENDATIONS: 1) Weekly calibrated bed scale wts- underweight 2) Ensure Enlive TID w/ meal -> MONITOR BG, NEED FOR GLUCERNA 3) Snacks in b/w all meals 4) Consider accucheck- h/o DM 5) Wound care: add DAWN BID + MVI x1 + Vit C 250mg daily -
[2018-07-15 12:00] VITALS: BP 106/63
--- NOTE | 2018-07-15 13:18 | Infectious Diseases Prog Note ---
Assessment/Plan Assessment/Plan IMPRESSION: Cellulitis of left lower extremity extensive stasis dermatitis COPD, urge incontinence, seizure disorder, history of syncope, s/p fall. Inguinal adenopathy RECOMMENDATION: We will continue with vancomycin and Zosyn. Cleaning of left leg with hydrogen peroxide. Subjective ROS Limited/Unobtainable: No Constitutional: Reports: no symptoms Respiratory: Reports: no symptoms Cardiovascular: Reports: no symptoms Gastrointestinal/Abdominal: Reports: no symptoms Genitourinary: Reports: other - hesitency, Musculoskeletal: Reports: pain, other Allergies: Coded Allergies: NO KNOWN DRUG ALLERGIES (Verified Allergy, Unknown, 12/09/14) Objective Vital Signs Last 24 Hour Vital Signs Date Time Temp Pulse Resp B/P (MAP) Pulse Ox O2 Delivery O2 Flow Rate FiO2 07/15/18 12:00 98.2 62 18 106/63 (77) 96 07/15/18 09:00 Room Air 07/15/18 08:00 98.5 62 18 127/77 (94) 98 07/15/18 04:00 98.2 57 16 141/75 (97) 95 07/15/18 00:00 97.9 82 18 122/60 (80) 94 07/14/18 21:00 Room Air 07/14/18 20:53 97.5 07/14/18 20:00 63 07/14/18 20:00 97.9 82 19 114/58 (76) 99 07/14/18 16:00 97.5 59 20 135/68 (90) 97 07/14/18 16:00 62 Height (Feet): 5 Height (Inches): 8.00 Weight (Pounds): 113 HEENT: mucous membranes moist, other - left eye blindness Respiratory/Chest: lungs clear Cardiovascular: normal rate Abdomen: soft, non tender Extremities: no edema Skin: ulcers, other - left leg ulcer, bilatheral leg skin changes Neurologic/Psychiatric: alert, responsive Microbiology Date/Time Source Procedure Growth Status 07/12/18 21:05 Blood Blood Culture - Preliminary NO GROWTH AFTER 48 HOURS Resulted 07/12/18 20:50 Blood Blood Culture - Preliminary NO GROWTH AFTER 48 HOURS Resulted 07/14/18 15:05 Wound Gram Stain - Final Resulted 07/14/18 15:05 Wound Wound Culture Pending Resulted 07/12/18 23:30 Nasal Nares MRSA Culture - Final NO METHICILLIN RESISTANT STAPH AUREUS... Complete 07/12/18 23:30 Rectum - Final NO CARBAPENEM-RESISTANT ENTEROBACTERI... Complete 07/12/18 23:30 Rectum VRE Culture - Final NO VANCOMYCIN RESISTANT ENTEROCOCCUS ... Complete Laboratory Tests Test 07/14/18 13:20 Vancomycin Level Trough 13.3 ug/mL (5.0-12.0) H Current Medications Medications (Trade) Dose Ordered Sig/Syl Route PRN Reason Start Time Stop Time Status Last Admin Dose Admin Acetaminophen (Tylenol) 650 mg Q4H PRN ORAL Mild Pain/Temp > 100.5 07/15/18 04:33 08/12/18 04:32 Acetaminophen/ Hydrocodone Bitart ([place] 10/325) 1 tab Q4H PRN ORAL For Pain 07/15/18 04:34 07/20/18 04:33 07/15/18 11:10 Aspirin (Ecotrin) 162 mg DAILY ORAL 07/15/18 09:00 08/12/18 08:59 07/15/18 08:17 Atorvastatin Calcium (Lipitor) 10 mg BEDTIME ORAL 07/15/18 21:00 08/12/18 20:59 Dextrose (Dextrose 50%) 25 ml Q30M PRN IV Hypoglycemia 07/15/18 04:45 08/12/18 00:14 Dextrose (Dextrose 50%) 50 ml Q30M PRN IV Hypoglycemia 07/15/18 04:45 08/12/18 00:14 Heparin Sodium (Porcine) (Heparin 5000 units/ml) 5,000 units EVERY 12 HOURS SUBQ 07/15/18 09:00 08/12/18 08:59 07/15/18 08:23 Methadone HCl (Methadone HCl) 100 mg DAILY ORAL 07/15/18 09:00 07/20/18 08:59 07/15/18 08:18 Mupirocin (Bactroban Oint) 1 applic DAILYPRN PRN TOPIC Per rx protocol 07/15/18 09:15 07/20/18 09:14 07/15/18 11:10 Piperacillin Sod/ Tazobactam Sod 3.375 gm/Dextrose 110 ml @ 27.5 mls/hr Q8HR IVPB 07/15/18 06:00 07/20/18 05:59 07/15/18 05:01 Tamsulosin HCl (Flomax) 0.4 mg DAILY ORAL 07/15/18 09:00 08/12/18 08:59 07/15/18 08:17 Vancomycin HCl (Vanco rx to dose) 1 ea DAILY PRN MISC Per rx protocol 07/15/18 09:00 08/12/18 00:14 Vancomycin HCl 500 mg/Dextrose 110 ml @ 110 mls/hr Q12HR@0200,1400 IVPB 07/15/18 14:00 07/18/18 13:59 Dany Mcfarlane MD July 15, 2018 13:18
[2018-07-15] MEDS: Vancomycin 500 MG in D5W 110 ML IVPB SCH (13:53)
--- NOTE | 2018-07-15 14:47 | General Progress Note ---
Assessment/Plan Problem List: (1) Cellulitis and abscess of left leg ICD Codes: L03.116 - Cellulitis of left lower limb; L02.416 - Cutaneous abscess of left lower limb SNOMED: 774571876 (2) DM (diabetes mellitus) ICD Codes: E11.9 - Type 2 diabetes mellitus without complications SNOMED: 08998292 (3) Peripheral vascular disease ICD Codes: I73.9 - Peripheral vascular disease, unspecified SNOMED: 946685404 (4) Prostate CA ICD Codes: C61 - Malignant neoplasm of prostate SNOMED: 531402966 (5) Fall ICD Codes: W19.XXXA - Unspecified fall, initial encounter SNOMED: 4287173, 979528808 Status: stable Assessment/Plan: Continue antibiotics Wound care Discussed with RN Subjective Allergies: Coded Allergies: NO KNOWN DRUG ALLERGIES (Verified Allergy, Unknown, 12/09/14) Subjective Patient is in no acute distress Objective Last 24 Hour Vital Signs Date Time Temp Pulse Resp B/P (MAP) Pulse Ox O2 Delivery O2 Flow Rate FiO2 07/15/18 12:00 98.2 62 18 106/63 (77) 96 07/15/18 09:00 Room Air 07/15/18 08:00 98.5 62 18 127/77 (94) 98 07/15/18 04:00 98.2 57 16 141/75 (97) 95 07/15/18 00:00 97.9 82 18 122/60 (80) 94 07/14/18 21:00 Room Air 07/14/18 20:53 97.5 07/14/18 20:00 63 07/14/18 20:00 97.9 82 19 114/58 (76) 99 07/14/18 16:00 97.5 59 20 135/68 (90) 97 07/14/18 16:00 62 Intake and Output 07/14/18 07/15/18 19:00 07:00 Intake Total 147.5 ml Output Total 200 ml Balance -52.5 ml Intake Oral 120 ml IV Total 27.5 ml Output Urine Total 200 ml Height (Feet): 5 Height (Inches): 8.00 Weight (Pounds): 113 Cardiovascular: normal rate Respiratory/Chest: lungs clear Extremities: other - Lower extremities wrapped Narciso Mcfarlane MD July 15, 2018 14:47
[2018-07-15 16:00] VITALS: BP 118/63
--- NOTE | 2018-07-15 16:36 | NUR ---
HOMELESS COORDINATOR Homeless Checklist available if required. Please check patients chart. Please provide medical resource list for patient follow-up appointment in chart. Homeless Checklist and Medical resource list are both available in yellow homeless binder as well. Patient continues to require medical intervention. Will continue to monitor and assist as needed.
--- NOTE | 2018-07-15 19:31 | NUR ---
HAND-OFF: Report given to Srinivasan CAZARES.
[2018-07-15 20:00] VITALS: BP 127/60
--- NOTE | 2018-07-15 20:00 | NUR ---
NURSE NOTES: Patient received in bed, awake, alert. No acute distress at this time.IV is intact and patent, call light and urinal within reach. Will continue to monitor.
[2018-07-16] VITALS: BP 145/64
[2018-07-16] MEDS: Vancomycin 500 MG in D5W 110 ML IVPB SCH ×2 (01:51→13:22)
[2018-07-16 04:49] VITALS: BP 157/72
[2018-07-16] MEDS: Piperacillin/Tazobactam 3.375 GM in D5W 110 ML IVPB SCH ×3 (05:00→21:32)
[2018-07-16] MEDS: HYDROcodone/Acetamin 10/325 tab ORAL PRN ×4 (05:38→22:25)
--- NOTE | 2018-07-16 07:41 | NUR ---
HAND-OFF: Report given to Laura CAZARES
--- NOTE | 2018-07-16 07:45 | NUR ---
NURSE NOTES: Received patient in bed, awake, alert and oriented x4. Not in acute respiratory/cardiac distress noted. 2 IVs intact, no s/s of infiltration. Dressing on left leg intact. Bed is in lowest position and locked.Bed alarm is on and side rails x3. Remind patient to call nurses if needed. Call light and personnel within reach. Will continue plan of care.
[2018-07-16] MEDS: Aspirin EC 81mg tab ORAL SCH (08:33)
[2018-07-16] MEDS: Tamsulosin 0.4mg cap ORAL SCH (08:33)
[2018-07-16] MEDS: Heparin 5000 units/ml inj SUBQ SCH ×2 (08:34→21:33)
[2018-07-16 12:00] VITALS: BP 105/55
--- NOTE | 2018-07-16 14:13 | NUR ---
CASE MANAGEMENT: REVIEW SI: CELLULITIS AND ABSCESS OF LEFT LEG . PROSTATE CA T 98.2 HR 59 RR 20 BP 157/72 SAT 96% ROOM AIR IS: VANCO IV Q12HR METHADONE PO QD ZOSYN IV Q8HR MED/SURG STATUS DCP: PATIENT REPORTS HOMELESSNESS
--- NOTE | 2018-07-16 15:06 | General Progress Note ---
Assessment/Plan Problem List: (1) Cellulitis and abscess of left leg ICD Codes: L03.116 - Cellulitis of left lower limb; L02.416 - Cutaneous abscess of left lower limb SNOMED: 738742275 (2) DM (diabetes mellitus) ICD Codes: E11.9 - Type 2 diabetes mellitus without complications SNOMED: 37033996 (3) Peripheral vascular disease ICD Codes: I73.9 - Peripheral vascular disease, unspecified SNOMED: 555687979 (4) Prostate CA ICD Codes: C61 - Malignant neoplasm of prostate SNOMED: 103574784 (5) Fall ICD Codes: W19.XXXA - Unspecified fall, initial encounter SNOMED: 3398887, 901734605 Status: stable Assessment/Plan: Continue antibiotics Wound care Discussed with RN Subjective Allergies: Coded Allergies: NO KNOWN DRUG ALLERGIES (Verified Allergy, Unknown, 12/09/14) Subjective Patient is in no acute distress Objective Last 24 Hour Vital Signs Date Time Temp Pulse Resp B/P (MAP) Pulse Ox O2 Delivery O2 Flow Rate FiO2 07/16/18 12:00 98.4 61 20 105/55 (72) 100 07/16/18 09:00 Room Air 07/16/18 04:49 98.1 59 20 157/72 (100) 100 07/16/18 00:00 98.2 60 20 145/64 (91) 96 07/15/18 21:00 Room Air 07/15/18 20:00 98.9 63 18 127/60 (82) 93 07/15/18 16:00 98.2 61 18 118/63 (81) 96 Intake and Output 07/15/18 07/16/18 19:00 07:00 Intake Total 340 ml 275.0 ml Output Total 250 ml 1050 ml Balance 90 ml -775.0 ml Intake Oral 340 ml IV Total 275.0 ml Output Urine Total 250 ml 1050 ml # Voids 4 Height (Feet): 5 Height (Inches): 8.00 Weight (Pounds): 113 Cardiovascular: normal rate Respiratory/Chest: lungs clear Narciso Mcfarlane MD July 16, 2018 15:06
[2018-07-16 16:00] VITALS: BP 108/59
--- NOTE | 2018-07-16 18:30 | NUR ---
NURSE NOTES: RN changed left lower ex's wound dressing.
--- NOTE | 2018-07-16 19:43 | NUR ---
HAND-OFF: Report given to Rachele.
--- NOTE | 2018-07-16 19:44 | NUR ---
NURSE NOTES: Received patient in bed, awake, alert and oriented x4. Not in acute respiratory/cardiac distress noted. 2 IVs intact, no s/s of infiltration. Dressing on left leg intact. Bed is in lowest position and locked. Bed alarm is on and side rails x3. Remind patient to call nurses if needed. Call light and personal items within reach. Will continue plan of care.
[2018-07-16 20:00] VITALS: BP_SYST 107; BP_SYST 124; BP_DIAS 60; BP_DIAS 80
[2018-07-17] VITALS: BP 108/60
[2018-07-17] MEDS: Vancomycin 500 MG in D5W 110 ML IVPB SCH ×2 (01:58→14:44)
[2018-07-17] MEDS: HYDROcodone/Acetamin 10/325 tab ORAL PRN ×3 (03:14→17:44)
[2018-07-17 03:54] VITALS: BP 134/72
[2018-07-17] MEDS: Piperacillin/Tazobactam 3.375 GM in D5W 110 ML IVPB SCH ×3 (05:08→20:57)
--- NOTE | 2018-07-17 07:40 | NUR ---
NURSE NOTES: Received patient in bed, awake, alert and oriented x4. Not in acute respiratory/cardiac distress noted. IV on left wrist intact, no s/s of infiltration. Dressing on left leg intact. Bed is in lowest position and locked.Bed alarm is on and side rails x3. Remind patient to call nurses if needed. Call light and personnel within reach. Will continue plan of care.
[2018-07-17 08:00] VITALS: BP 130/55
[2018-07-17] MEDS ORDERED: Tubing IV Secondary IV ONE (08:26)
[2018-07-17] MEDS: Tamsulosin 0.4mg cap ORAL SCH (08:31)
[2018-07-17] MEDS: Aspirin EC 81mg tab ORAL SCH (08:31)
[2018-07-17] MEDS: Heparin 5000 units/ml inj SUBQ SCH ×2 (08:32→20:58)
--- NOTE | 2018-07-17 11:28 | Infectious Diseases Prog Note ---
Assessment/Plan Assessment/Plan IMPRESSION: Cellulitis of left lower extremity ( GNR in culture) extensive stasis dermatitis COPD, urge incontinence, seizure disorder, history of syncope, s/p fall. Inguinal adenopathy RECOMMENDATION: We will continue with vancomycin and Zosyn. Subjective ROS Limited/Unobtainable: No Constitutional: Reports: no symptoms Respiratory: Reports: no symptoms Cardiovascular: Reports: no symptoms Gastrointestinal/Abdominal: Reports: no symptoms Musculoskeletal: Reports: pain, other - in left leg Allergies: Coded Allergies: NO KNOWN DRUG ALLERGIES (Verified Allergy, Unknown, 12/09/14) Objective Vital Signs Last 24 Hour Vital Signs Date Time Temp Pulse Resp B/P (MAP) Pulse Ox O2 Delivery O2 Flow Rate FiO2 07/17/18 09:00 Room Air 07/17/18 08:00 97.3 56 16 130/55 (80) 100 07/17/18 03:54 98.3 58 18 134/72 (92) 96 07/17/18 03:44 97.2 07/17/18 00:00 97.2 56 18 108/60 (76) 94 07/16/18 21:00 Room Air 07/16/18 20:00 98.4 63 18 107/60 (76) 97 07/16/18 16:00 98.7 61 18 108/59 (75) 100 07/16/18 12:00 98.4 61 20 105/55 (72) 100 Height (Feet): 5 Height (Inches): 8.00 Weight (Pounds): 113 General Appearance: no acute distress HEENT: mucous membranes moist Respiratory/Chest: lungs clear Cardiovascular: normal rate Abdomen: soft, non tender Extremities: no edema Skin: ulcers, other - in left leg, skin changes in both legs Neurologic/Psychiatric: alert, oriented x 3, responsive Microbiology Date/Time Source Procedure Growth Status 07/14/18 15:05 Wound Gram Stain - Final Resulted 07/14/18 15:05 Wound Culture - Preliminary Gram Negative Bacillus 1 Diphtheroids Resulted Current Medications Medications (Trade) Dose Ordered Sig/Syl Route PRN Reason Start Time Stop Time Status Last Admin Dose Admin Acetaminophen (Tylenol) 650 mg Q4H PRN ORAL Mild Pain/Temp > 100.5 07/15/18 04:33 08/12/18 04:32 Acetaminophen/ Hydrocodone Bitart ([place] 10/325) 1 tab Q4H PRN ORAL For Pain 07/15/18 04:34 07/20/18 04:33 07/17/18 03:14 Aspirin (Ecotrin) 162 mg DAILY ORAL 07/15/18 09:00 08/12/18 08:59 07/17/18 08:31 Atorvastatin Calcium (Lipitor) 10 mg BEDTIME ORAL 07/15/18 21:00 08/12/18 20:59 07/16/18 21:32 Dextrose (Dextrose 50%) 25 ml Q30M PRN IV Hypoglycemia 07/15/18 04:45 08/12/18 00:14 Dextrose (Dextrose 50%) 50 ml Q30M PRN IV Hypoglycemia 07/15/18 04:45 08/12/18 00:14 Heparin Sodium (Porcine) (Heparin 5000 units/ml) 5,000 units EVERY 12 HOURS SUBQ 07/15/18 09:00 08/12/18 08:59 07/17/18 08:32 Methadone HCl (Methadone HCl) 100 mg DAILY ORAL 07/15/18 09:00 07/20/18 08:59 07/17/18 08:32 Mupirocin (Bactroban Oint) 1 applic DAILYPRN PRN TOPIC Per rx protocol 07/15/18 09:15 07/20/18 09:14 07/16/18 18:24 Piperacillin Sod/ Tazobactam Sod 3.375 gm/Dextrose 110 ml @ 27.5 mls/hr Q8HR IVPB 07/15/18 06:00 07/20/18 05:59 07/17/18 05:08 Tamsulosin HCl (Flomax) 0.4 mg DAILY ORAL 07/15/18 09:00 08/12/18 08:59 07/17/18 08:31 Vancomycin HCl (Vanco rx to dose) 1 ea DAILY PRN MISC Per rx protocol 07/15/18 09:00 08/12/18 00:14 Vancomycin HCl 500 mg/Dextrose 110 ml @ 110 mls/hr Q12HR@0200,1400 IVPB 07/15/18 14:00 07/18/18 13:59 07/17/18 01:58 Vancomycin HCl 500 mg/Dextrose 110 ml @ 110 mls/hr Q12HR@0200,1400 IVPB 07/18/18 14:00 07/23/18 13:59 Dany Mcfarlane MD July 17, 2018 11:28
[2018-07-17 12:00] VITALS: BP 115/64
--- NOTE | 2018-07-17 14:26 | NUR ---
CASE MANAGEMENT: REVIEW SI: CELLULITIS AND ABSCESS OF LEFT LEG . PROSTATE CA T 97.3 HR 56 RR 16 BP 130/55 SAT 96% 94% ROOM AIR IS: VANCO IV Q12HR METHADONE PO QD ZOSYN IV Q8HR HEPARIN SQ Q12HR FLOMAX PO QD MED/SURG STATUS DCP: PATIENT REPORTS HOMELESSNESS
[2018-07-17 16:00] VITALS: BP 120/66
--- NOTE | 2018-07-17 18:16 | General Progress Note ---
Assessment/Plan Problem List: (1) Cellulitis and abscess of left leg ICD Codes: L03.116 - Cellulitis of left lower limb; L02.416 - Cutaneous abscess of left lower limb SNOMED: 669982308 (2) DM (diabetes mellitus) ICD Codes: E11.9 - Type 2 diabetes mellitus without complications SNOMED: 03008958 (3) Peripheral vascular disease ICD Codes: I73.9 - Peripheral vascular disease, unspecified SNOMED: 429178266 (4) Prostate CA ICD Codes: C61 - Malignant neoplasm of prostate SNOMED: 831113395 (5) Fall ICD Codes: W19.XXXA - Unspecified fall, initial encounter SNOMED: 1275283, 546675769 Status: stable Assessment/Plan: Continue antibiotics Wound care Discussed with RN Subjective Allergies: Coded Allergies: NO KNOWN DRUG ALLERGIES (Verified Allergy, Unknown, 12/09/14) Subjective Patient is in no acute distress Objective Last 24 Hour Vital Signs Date Time Temp Pulse Resp B/P (MAP) Pulse Ox O2 Delivery O2 Flow Rate FiO2 07/17/18 16:00 97.9 70 17 120/66 (84) 97 07/17/18 12:00 97.7 64 16 115/64 (81) 95 07/17/18 09:00 Room Air 07/17/18 08:00 97.3 56 16 130/55 (80) 100 07/17/18 03:54 98.3 58 18 134/72 (92) 96 07/17/18 03:44 97.2 07/17/18 00:00 97.2 56 18 108/60 (76) 94 07/16/18 21:00 Room Air 07/16/18 20:00 98.4 63 18 107/60 (76) 97 Intake and Output 07/16/18 07/17/18 19:00 07:00 Intake Total 1207.5 ml 247.5 ml Output Total 1200 ml 1400 ml Balance 7.5 ml -1152.5 ml Intake Oral 960 ml IV Total 247.5 ml 247.5 ml Output Urine Total 1200 ml 1400 ml # Bowel Movements 3 Height (Feet): 5 Height (Inches): 8.00 Weight (Pounds): 113 Cardiovascular: normal rate Respiratory/Chest: lungs clear Edema: no edema noted Generalized - Still foul-smelling Narciso Mcfarlane MD July 17, 2018 18:16
--- NOTE | 2018-07-17 19:24 | NUR ---
NURSE NOTES: Received patient in bed, awake, alert and oriented x4. Not in acute respiratory/cardiac distress noted. IV on left wrist intact, no s/s of infiltration, patent asymptomatic. Dressing on left leg clean, dry and intact and changed 07/17 per day shift. Bed is in lowest position and locked. Bed alarm is on and side rails x3. Reminded patient to call nurses if needed. Call light and personal items within reach. Will continue plan of care.
--- NOTE | 2018-07-17 19:25 | NUR ---
HAND-OFF: Report given to Rachele.
[2018-07-17 20:00] VITALS: BP 138/68
--- NOTE | 2018-07-17 20:58 | NUR ---
NURSE NOTES: Pt refused heparin after I elin it up. He said he only "take it once a day and already got it this morning." I informed him of risks and benefits and scheduled dose but he refused.
[2018-07-18] VITALS: BP 137/59
[2018-07-18] MEDS: Vancomycin 500 MG in D5W 110 ML IVPB SCH ×2 (01:57→18:40)
[2018-07-18] MEDS: Piperacillin/Tazobactam 3.375 GM in D5W 110 ML IVPB SCH ×2 (05:11→14:23)
--- NOTE | 2018-07-18 07:42 | NUR ---
HAND-OFF: Report given to SAGE Sellers.
--- NOTE | 2018-07-18 08:04 | NUR ---
patient is awake and alert,respirations unlabored.Noted dressing to the lower left leg,clean and intact.Left leg elevated on pillows.Bed alarm is on,call light within reach.
[2018-07-18 08:27] VITALS: BP 145/65
[2018-07-18] MEDS: Aspirin EC 81mg tab ORAL SCH (08:30)
[2018-07-18] MEDS: Tamsulosin 0.4mg cap ORAL SCH (08:30)
[2018-07-18] MEDS: Heparin 5000 units/ml inj SUBQ SCH ×3 (08:33→20:36)
--- NOTE | 2018-07-18 10:43 | General Progress Note ---
Assessment/Plan Problem List: (1) Cellulitis and abscess of left leg ICD Codes: L03.116 - Cellulitis of left lower limb; L02.416 - Cutaneous abscess of left lower limb SNOMED: 462343838 (2) DM (diabetes mellitus) ICD Codes: E11.9 - Type 2 diabetes mellitus without complications SNOMED: 91431440 (3) Peripheral vascular disease ICD Codes: I73.9 - Peripheral vascular disease, unspecified SNOMED: 579367200 (4) Prostate CA ICD Codes: C61 - Malignant neoplasm of prostate SNOMED: 537775925 (5) Fall ICD Codes: W19.XXXA - Unspecified fall, initial encounter SNOMED: 8533362, 712668619 Status: stable Assessment/Plan: Continue antibiotics Wound care Discussed with RN Subjective Allergies: Coded Allergies: NO KNOWN DRUG ALLERGIES (Verified Allergy, Unknown, 12/09/14) Subjective Patient is in no acute distress Objective Last 24 Hour Vital Signs Date Time Temp Pulse Resp B/P (MAP) Pulse Ox O2 Delivery O2 Flow Rate FiO2 07/18/18 09:00 Room Air 07/18/18 08:27 97.9 56 18 145/65 (91) 97 07/18/18 00:00 98.3 60 16 137/59 (85) 96 07/17/18 21:00 Room Air 07/17/18 20:00 98.1 58 18 138/68 (91) 95 07/17/18 16:00 97.9 70 17 120/66 (84) 97 07/17/18 12:00 97.7 64 16 115/64 (81) 95 Intake and Output 07/17/18 07/18/18 19:00 07:00 Intake Total 1367.5 ml 220.0 ml Output Total 1200 ml Balance 1367.5 ml -980.0 ml Intake Oral 1120 ml IV Total 247.5 ml 220.0 ml Output Urine Total 1200 ml # Voids 6 Height (Feet): 5 Height (Inches): 8.00 Weight (Pounds): 113 Cardiovascular: normal rate Respiratory/Chest: lungs clear Edema: no edema noted Narciso Bernard MD July 18, 2018 10:43
[2018-07-18 12:00] VITALS: BP 126/60
[2018-07-18] MEDS ORDERED: Vancomycin 500 MG in D5W 110 ML IVPB SCH ×2 (14:00→15:00)
[2018-07-18 16:00] VITALS: BP 119/62
--- NOTE | 2018-07-18 18:00 | NUR ---
NURSE NOTES: Patient resting,watching TV,dressing to lower leg intact.Bed alarm is on,call light within reach.
--- NOTE | 2018-07-18 19:26 | NUR ---
HAND-OFF: Report given to Shelbi CAZARES.
--- NOTE | 2018-07-18 19:53 | NUR ---
NURSE NOTES: Received patient in bed, awake, alert, oriented, ambulates with cane, no acute distress noted, call light is within reach. on room air, regular diet, bed is in low position, locked and alarm is on. Will continue to assess for comfort and safety.
[2018-07-18 20:00] VITALS: BP 135/68
[2018-07-18] MEDS: HYDROcodone/Acetamin 10/325 tab ORAL PRN (20:31)
[2018-07-19] VITALS: BP 145/71
[2018-07-19] MEDS: Piperacillin/Tazobactam 3.375 GM in D5W 110 ML IVPB SCH ×3 (00:40→13:21)
[2018-07-19 04:00] VITALS: BP 133/64
[2018-07-19] MEDS: Vancomycin 500 MG in D5W 110 ML IVPB SCH (06:26)
--- NOTE | 2018-07-19 06:56 | NUR ---
HAND-OFF: Report given to Verito CAZARES.
[2018-07-19 08:00] VITALS: BP 117/55
--- NOTE | 2018-07-19 08:13 | NUR ---
NURSE NOTES: Patient is awake and alert,patient sitting up in bed and eating breakfast.Dressing to the lower left leg clean and intact.call light within reach.
[2018-07-19] MEDS: Tamsulosin 0.4mg cap ORAL SCH (09:31)
[2018-07-19] MEDS: Heparin 5000 units/ml inj SUBQ SCH ×2 (09:32→21:00)
[2018-07-19] MEDS: Aspirin EC 81mg tab ORAL SCH (09:33)
--- NOTE | 2018-07-19 10:29 | NUR ---
RD ASSESSMENT & RECOMMENDATIONS SEE CARE ACTIVITY FOR COMPLETE ASSESSMENT DAILY ESTIMATED NEEDS: Needs based on Underweight, wounds/ 55kg 30-35 kcals/kg 8091-7349 total kcals 1.25-1.5 g protein/kg 69-93 g total protein 25-30 mL/kg 9907-6585 total fluid mLs NUTRITION DIAGNOSIS: Increased kcal and protein needs r/t underweight status and wound healing as evidenced by pt is 79% IBW, BMI of 79, LLE ulcer. CURRENT DIET: Regular PO DIET RECOMMENDATIONS: Regular diet ADDITIONAL RECOMMENDATIONS: 1) Weekly calibrated bed scale wts- underweight 2) Ensure Enlive TID w/ meal -> MONITOR BG, NEED FOR GLUCERNA 3) Snacks in b/w all meals 4) Consider accucheck- h/o DM 5) Wound care: MVI x1 + Vit C 250mg daily, Continue Deniz 1pkt BID 6) F/up CBC and BMP as able
[2018-07-19 12:00] VITALS: BP 144/78
--- NOTE | 2018-07-19 13:44 | Infectious Diseases Prog Note ---
Assessment/Plan Assessment/Plan IMPRESSION: Cellulitis of left lower extremity ( [place] culture) extensive stasis dermatitis COPD, urge incontinence, seizure disorder, history of syncope, s/p fall. Inguinal adenopathy RECOMMENDATION: Discontinue with vancomycin and Zosyn. Start on PO Bactrim Subjective ROS Limited/Unobtainable: No Respiratory: Reports: no symptoms Gastrointestinal/Abdominal: Reports: no symptoms Genitourinary: Reports: no symptoms Musculoskeletal: Reports: pain, other - decreased Allergies: Coded Allergies: NO KNOWN DRUG ALLERGIES (Verified Allergy, Unknown, 12/09/14) Objective Vital Signs Last 24 Hour Vital Signs Date Time Temp Pulse Resp B/P (MAP) Pulse Ox O2 Delivery O2 Flow Rate FiO2 07/19/18 08:00 97.9 60 12 117/55 (75) 07/19/18 04:00 98.0 58 18 133/64 (87) 07/19/18 00:00 98.2 67 17 145/71 (95) 07/18/18 21:00 Room Air 07/18/18 20:00 98.9 58 20 135/68 (90) 07/18/18 16:00 98.2 58 18 119/62 (81) 98 Height (Feet): 5 Height (Inches): 8.00 Weight (Pounds): 113 General Appearance: no acute distress HEENT: mucous membranes moist Respiratory/Chest: lungs clear Cardiovascular: normal rate Abdomen: soft, non tender Extremities: no edema Skin: ulcers, other - on left leg Neurologic/Psychiatric: alert, oriented x 3, responsive Current Medications Medications (Trade) Dose Ordered Sig/Syl Route PRN Reason Start Time Stop Time Status Last Admin Dose Admin Acetaminophen (Tylenol) 650 mg Q4H PRN ORAL Mild Pain/Temp > 100.5 07/15/18 04:33 08/12/18 04:32 Acetaminophen/ Hydrocodone Bitart ([place] 10/325) 1 tab Q4H PRN ORAL For Pain 07/15/18 04:34 07/20/18 04:33 07/18/18 20:31 Aspirin (Ecotrin) 162 mg DAILY ORAL 07/15/18 09:00 08/12/18 08:59 07/19/18 09:33 Atorvastatin Calcium (Lipitor) 10 mg BEDTIME ORAL 07/15/18 21:00 08/12/18 20:59 07/18/18 20:31 Dextrose (Dextrose 50%) 25 ml Q30M PRN IV Hypoglycemia 07/15/18 04:45 08/12/18 00:14 Dextrose (Dextrose 50%) 50 ml Q30M PRN IV Hypoglycemia 07/15/18 04:45 08/12/18 00:14 Heparin Sodium (Porcine) (Heparin 5000 units/ml) 5,000 units EVERY 12 HOURS SUBQ 07/15/18 09:00 08/12/18 08:59 07/19/18 09:32 Methadone HCl (Methadone HCl) 100 mg DAILY ORAL 07/15/18 09:00 07/20/18 08:59 07/19/18 09:31 Mupirocin (Bactroban Oint) 1 applic DAILYPRN PRN TOPIC Per rx protocol 07/15/18 09:15 07/20/18 09:14 07/17/18 13:24 Piperacillin Sod/ Tazobactam Sod 3.375 gm/Dextrose 110 ml @ 27.5 mls/hr Q8H IVPB 07/19/18 19:30 07/26/18 19:29 Tamsulosin HCl (Flomax) 0.4 mg DAILY ORAL 07/15/18 09:00 08/12/18 08:59 07/19/18 09:31 Vancomycin HCl (Vanco rx to dose) 1 ea DAILY PRN MISC Per rx protocol 07/15/18 09:00 08/12/18 00:14 Vancomycin HCl 500 mg/Dextrose 110 ml @ 110 mls/hr Q12H IVPB 07/18/18 18:30 07/23/18 18:29 07/19/18 06:26 Dany Mcfarlane MD July 19, 2018 13:44
--- NOTE | 2018-07-19 13:57 | Physician Query ---
Clarification is required for compliance, coding accuracy, and to reflect severity of illness for this patient Dear Dr. Narciso Mcfarlane Date: 07/19/18 [employer] Course Architect/CDS Name: Jessica Burrows Clinical Documentation Sates:HNP: 67-year-old male, who fell unclear if he had a syncope, but he has significant infection of his left lower extremity consistent with cellulitis. RD note: NUTRITION DIAGNOSIS: Increased kcal and protein needs r/t underweight status and wound healing as evidenced by pt is 79% IBW, BMI of 79, LLE ulcer. BMI 17.9 Treatment: Enlive TID Please select the most appropriate option: [] Protein/Calorie Malnutrition [] Mild [x] Moderate [] Severe [] Hypoalbuminemia [x] Emancipated w/ Malnutrition [] Underweight [] Marasmus [] Other [] Unable to determine [] Not Applicable Present on Admission: [] Yes [] No [] Clinically Undetermined Physician signature Date Please also document in your Progress Notes and/or Discharge Summary and indicate if the condition was present on admission. MTDD
[2018-07-19 16:00] VITALS: BP 125/63
[2018-07-19] MEDS: HYDROcodone/Acetamin 10/325 tab ORAL PRN (16:01)
--- NOTE | 2018-07-19 16:29 | NUR ---
CASE MANAGEMENT:REVIEW 07/19/18 SI: LLE CELLULITIS 97.9 53 12 144/78 96% ON RA IS: BACTRIM PO BID LIPITOR PO QHS ASA PO QD HEPARIN SQ Q12 METHADONE PO QD FLOMAX PO QD : MED/SURG STATUS 4 EAST
[2018-07-19] MEDS: Bactrim-DS 1 tab ORAL SCH (17:42)
--- NOTE | 2018-07-19 18:35 | General Progress Note ---
Assessment/Plan Problem List: (1) Cellulitis and abscess of left leg ICD Codes: L03.116 - Cellulitis of left lower limb; L02.416 - Cutaneous abscess of left lower limb SNOMED: 300376534 (2) DM (diabetes mellitus) ICD Codes: E11.9 - Type 2 diabetes mellitus without complications SNOMED: 05924140 (3) Peripheral vascular disease ICD Codes: I73.9 - Peripheral vascular disease, unspecified SNOMED: 849778763 (4) Prostate CA ICD Codes: C61 - Malignant neoplasm of prostate SNOMED: 802180018 (5) Fall ICD Codes: W19.XXXA - Unspecified fall, initial encounter SNOMED: 1463888, 128755250 Status: stable Assessment/Plan: Continue antibiotics Wound care needs placement Subjective Allergies: Coded Allergies: NO KNOWN DRUG ALLERGIES (Verified Allergy, Unknown, 12/09/14) Subjective Patient is in no acute distress Objective Last 24 Hour Vital Signs Date Time Temp Pulse Resp B/P (MAP) Pulse Ox O2 Delivery O2 Flow Rate FiO2 07/19/18 16:00 07/19/18 16:00 97.7 18 125/63 (83) 95 07/19/18 12:00 97.9 53 12 144/78 (100) 96 07/19/18 09:00 Room Air 07/19/18 08:00 97.9 60 12 117/55 (75) 07/19/18 04:00 98.0 58 18 133/64 (87) 07/19/18 00:00 98.2 67 17 145/71 (95) 07/18/18 21:00 Room Air 07/18/18 20:00 98.9 58 20 135/68 (90) Intake and Output 07/18/18 07/19/18 18:59 06:59 Intake Total 1200 ml Output Total 1850 ml Balance -650 ml Intake Oral 1200 ml Output Urine Total 1850 ml # Bowel Movements 1 Height (Feet): 5 Height (Inches): 8.00 Weight (Pounds): 113 Respiratory/Chest: lungs clear Abdomen: soft Narciso Mcfarlane MD July 19, 2018 18:35
--- NOTE | 2018-07-19 19:00 | NUR ---
NURSE NOTES: Patient resting,watching TV,no complaints at this time,call light within reach.
[2018-07-19] MEDS ORDERED: Piperacillin/Tazobactam 3.375 GM in D5W 110 ML IVPB SCH (19:30)
--- NOTE | 2018-07-19 19:40 | NUR ---
HAND-OFF: Report given to Shelbi CAZARES.
--- NOTE | 2018-07-19 20:06 | NUR ---
NURSE NOTES: Received patient in bed, awake, alert, oriented, no acute distress noted,refused 1999 vitals, call light is within reach , patient is able to make his needs known, bed is in low position, locked and alarm is on. Call light is within reach. Will continue to monitor for safety and comfort.
[2018-07-20] VITALS: BP 140/58
--- NOTE | 2018-07-20 07:50 | NUR ---
NURSE NOTES: Received patient on bed, awake. IV site intact and patent. Bed in low and locked position, call light in reach. No signs of respiratory distress. Room board updated, will continue to monitor.
[2018-07-20 08:00] VITALS: BP 122/60
[2018-07-20] MEDS: Aspirin EC 81mg tab ORAL SCH (09:00)
[2018-07-20] MEDS: Bactrim-DS 1 tab ORAL SCH ×3 (09:00→21:53)
[2018-07-20] MEDS: Tamsulosin 0.4mg cap ORAL SCH (09:00)
[2018-07-20] MEDS: Heparin 5000 units/ml inj SUBQ SCH ×2 (09:00→22:03)
--- NOTE | 2018-07-20 09:00 | NUR ---
NURSE NOTES: Patient refusing medications because his methadone order had dropped off. He refused to take his medications without getting his methadone first. MD Mcfarlane was left a message to renew the order. Addendum: 07/20/18 at 0949 by AILEEN ALLISON RN RN Charlene Suazo made aware.
--- NOTE | 2018-07-20 09:40 | NUR ---
PT NOTES: Pt in bed, awake & alert, declines PT indicating he has not had his methadone today. Will try back if schedule permits.
--- NOTE | 2018-07-20 10:22 | NUR ---
Social Service Note SW followed up with Иван at [facility] [phone] (p), no male beds available. Referral faxed to Dorothy Sánchez [phone] (p) [phone] (f) to Pam.
[2018-07-20 12:00] VITALS: BP 136/64
--- NOTE | 2018-07-20 13:00 | NUR ---
DISCHARGE PLANNING [facility] DOES NOT HAVE ANY MALE BEDS TODAY [facility] DECLINED TO ACCEPT
--- NOTE | 2018-07-20 13:02 | NUR ---
CASE MANAGEMENT:REVIEW 07/20/18 SI: LLE CELLULITIS 98.0 57 18 136/64 96% ON RA IS: BACTRIM PO BID LIPITOR PO QHS ASA PO QD HEPARIN SQ Q12 METHADONE 100MG PO QD FLOMAX PO QD : MED/SURG STATUS 4 EAST PLAN: SEEKING SNF PLACEMENT
--- NOTE | 2018-07-20 14:25 | General Progress Note ---
Assessment/Plan Problem List: (1) Cellulitis and abscess of left leg ICD Codes: L03.116 - Cellulitis of left lower limb; L02.416 - Cutaneous abscess of left lower limb SNOMED: 191385047 (2) DM (diabetes mellitus) ICD Codes: E11.9 - Type 2 diabetes mellitus without complications SNOMED: 35557309 (3) Peripheral vascular disease ICD Codes: I73.9 - Peripheral vascular disease, unspecified SNOMED: 636696449 (4) Prostate CA ICD Codes: C61 - Malignant neoplasm of prostate SNOMED: 313223716 (5) Fall ICD Codes: W19.XXXA - Unspecified fall, initial encounter SNOMED: 0172178, 262553622 Status: stable Assessment/Plan: Continue antibiotics Wound care needs placement Discussed with manager case management Subjective Allergies: Coded Allergies: NO KNOWN DRUG ALLERGIES (Verified Allergy, Unknown, 12/09/14) Subjective Patient is in no acute distress Objective Last 24 Hour Vital Signs Date Time Temp Pulse Resp B/P (MAP) Pulse Ox O2 Delivery O2 Flow Rate FiO2 07/20/18 12:00 98.0 57 18 136/64 (88) 96 07/20/18 09:00 Room Air 07/20/18 08:00 97.2 60 18 122/60 (80) 97 07/20/18 00:00 98.0 56 18 140/58 (85) 07/19/18 21:00 Room Air 07/19/18 16:00 07/19/18 16:00 97.7 18 125/63 (83) 95 Intake and Output 07/19/18 07/20/18 19:00 07:00 Intake Total 1000 ml Output Total 1400 ml Balance -400 ml Intake Oral 1000 ml Output Urine Total 1400 ml # Bowel Movements 1 Height (Feet): 5 Height (Inches): 8.00 Weight (Pounds): 113 Cardiovascular: normal rate Respiratory/Chest: lungs clear Narciso Mcfarlane MD July 20, 2018 14:25
--- NOTE | 2018-07-20 15:08 | Infectious Diseases Prog Note ---
Assessment/Plan Assessment/Plan IMPRESSION: Cellulitis of left lower extremity ( Serratia culture) extensive stasis dermatitis COPD, urge incontinence, seizure disorder, history of syncope, s/p fall. Inguinal adenopathy RECOMMENDATION: continue PO Bactrim Waiting for placement Subjective ROS Limited/Unobtainable: No HEENT: Reports: no symptoms Respiratory: Reports: no symptoms Gastrointestinal/Abdominal: Reports: no symptoms Genitourinary: Reports: no symptoms Musculoskeletal: Reports: pain, other - in left leg, controlled Allergies: Coded Allergies: NO KNOWN DRUG ALLERGIES (Verified Allergy, Unknown, 12/09/14) Objective Vital Signs Last 24 Hour Vital Signs Date Time Temp Pulse Resp B/P (MAP) Pulse Ox O2 Delivery O2 Flow Rate FiO2 07/20/18 12:00 98.0 57 18 136/64 (88) 96 07/20/18 09:00 Room Air 07/20/18 08:00 97.2 60 18 122/60 (80) 97 07/20/18 00:00 98.0 56 18 140/58 (85) 07/19/18 21:00 Room Air 07/19/18 16:00 07/19/18 16:00 97.7 18 125/63 (83) 95 Height (Feet): 5 Height (Inches): 8.00 Weight (Pounds): 113 General Appearance: no acute distress HEENT: mucous membranes moist Respiratory/Chest: lungs clear Cardiovascular: normal rate Abdomen: soft, non tender Extremities: no edema Skin: ulcers, other - in left leg Neurologic/Psychiatric: alert, responsive Current Medications Medications (Trade) Dose Ordered Sig/Syl Route PRN Reason Start Time Stop Time Status Last Admin Dose Admin Acetaminophen (Tylenol) 650 mg Q4H PRN ORAL Mild Pain/Temp > 100.5 07/15/18 04:33 08/12/18 04:32 Aspirin (Ecotrin) 162 mg DAILY ORAL 07/15/18 09:00 08/12/18 08:59 07/19/18 09:33 Atorvastatin Calcium (Lipitor) 10 mg BEDTIME ORAL 07/15/18 21:00 08/12/18 20:59 07/19/18 21:44 Dextrose (Dextrose 50%) 25 ml Q30M PRN IV Hypoglycemia 07/15/18 04:45 08/12/18 00:14 Dextrose (Dextrose 50%) 50 ml Q30M PRN IV Hypoglycemia 07/15/18 04:45 08/12/18 00:14 Heparin Sodium (Porcine) (Heparin 5000 units/ml) 5,000 units EVERY 12 HOURS SUBQ 07/15/18 09:00 08/12/18 08:59 07/19/18 09:32 Methadone HCl (Methadone HCl) 100 mg DAILY ORAL 07/20/18 09:53 07/27/18 09:52 07/20/18 10:07 Tamsulosin HCl (Flomax) 0.4 mg DAILY ORAL 07/15/18 09:00 08/12/18 08:59 07/19/18 09:31 Trimethoprim/ Sulfamethoxazole (Bactrim-DS) 1 tab Q12HR ORAL 07/20/18 12:51 07/27/18 12:50 07/20/18 13:16 Dany Mcfarlane MD July 20, 2018 15:08
[2018-07-20 16:00] VITALS: BP 116/58
--- NOTE | 2018-07-20 16:21 | NUR ---
*-* INSURANCE *-* UPDATED CLINICALS AND REVIEWS HAVE BEEN FAXED TO: [employer] [place]:PENDING FAX CLINICALS TO [phone]
--- NOTE | 2018-07-20 19:20 | NUR ---
HAND-OFF: Report given to SAGE Cameron.
--- NOTE | 2018-07-20 19:30 | NUR ---
NURSE NOTES: received pt from dayshift nurse, pt in bed no acute distress noted, no change in condition during day shift. bed locked and lowest position, bedside rail up x2, call light within reach, will continue to monitor for change in condition.
[2018-07-20 20:00] VITALS: BP 125/58
--- NOTE | 2018-07-20 22:07 | NUR ---
NURSE NOTES: pt c/o 12/[address] Mcfarlane no new order for pain medication received. informed pt, pt started being rude and cursing me out. charge nurse aware.
[2018-07-21] VITALS: BP 123/60
--- NOTE | 2018-07-21 | NUR ---
NURSE NOTES: pt sleeping, no change in condition, will continue to monitor for any change in condition.
--- NOTE | 2018-07-21 04:00 | NUR ---
NURSE NOTES: pt sleeping no s/s acute distress, will continue rounding pt every hour to ensure pt's safety.
[2018-07-21 04:12] VITALS: BP 136/69
--- NOTE | 2018-07-21 06:59 | NUR ---
NURSE NOTES: pt remains stable, no change in condition, bed locked and lowest position, bed rail up x2 and padded for seizures precautions. will endorse care to incoming nurse.
--- NOTE | 2018-07-21 07:45 | NUR ---
HAND-OFF: Report given to SAGE Pollock.
[2018-07-21 08:01] VITALS: BP 165/60
--- NOTE | 2018-07-21 08:33 | NUR ---
NURSE NOTES: pt awake alert, no distress. no sob. call light within reach. will monitor. bed in lowest position, locked. left msg to dr Maeve landeros systolic bp this am >160 (165)
[2018-07-21] MEDS: Bactrim-DS 1 tab ORAL SCH ×2 (08:48→21:40)
[2018-07-21] MEDS: Tamsulosin 0.4mg cap ORAL SCH (08:48)
[2018-07-21] MEDS: Aspirin EC 81mg tab ORAL SCH (08:48)
[2018-07-21] MEDS: Heparin 5000 units/ml inj SUBQ SCH ×2 (08:52→21:00)
[2018-07-21 11:55] VITALS: BP 115/60
--- NOTE | 2018-07-21 11:56 | General Progress Note ---
Assessment/Plan Problem List: (1) Cellulitis and abscess of left leg ICD Codes: L03.116 - Cellulitis of left lower limb; L02.416 - Cutaneous abscess of left lower limb SNOMED: 829610132 (2) DM (diabetes mellitus) ICD Codes: E11.9 - Type 2 diabetes mellitus without complications SNOMED: 79433853 (3) Peripheral vascular disease ICD Codes: I73.9 - Peripheral vascular disease, unspecified SNOMED: 978555230 (4) Prostate CA ICD Codes: C61 - Malignant neoplasm of prostate SNOMED: 398320010 (5) Fall ICD Codes: W19.XXXA - Unspecified fall, initial encounter SNOMED: 3146428, 420478715 Status: stable Assessment/Plan: Continue antibiotics Wound care needs placement Subjective Allergies: Coded Allergies: NO KNOWN DRUG ALLERGIES (Verified Allergy, Unknown, 12/09/14) Subjective Patient is in no acute distress Objective Last 24 Hour Vital Signs Date Time Temp Pulse Resp B/P (MAP) Pulse Ox O2 Delivery O2 Flow Rate FiO2 07/21/18 11:55 98.4 54 18 115/60 (78) 96 07/21/18 08:27 Room Air 07/21/18 08:01 98.4 60 18 165/60 (95) 96 07/21/18 04:12 98.4 57 18 136/69 (91) 96 07/21/18 00:00 98.4 55 18 123/60 (81) 99 07/20/18 21:00 Room Air 07/20/18 20:00 98.1 56 18 125/58 (80) 98 07/20/18 16:00 98.0 56 18 116/58 (77) 96 07/20/18 12:00 98.0 57 18 136/64 (88) 96 Intake and Output 07/20/18 07/21/18 19:00 07:00 Intake Total 720 ml Output Total 800 ml 950 ml Balance -80 ml -950 ml Intake Oral 720 ml Output Urine Total 800 ml 950 ml Height (Feet): 5 Height (Inches): 8.00 Weight (Pounds): 113 Cardiovascular: normal rate Respiratory/Chest: lungs clear Narciso Mcfarlane MD July 21, 2018 11:56
--- NOTE | 2018-07-21 12:10 | NUR ---
*-* INSURANCE *-* UPDATED CLINICALS AND REVIEWS HAVE BEEN FAXED TO: [employer] [place]:PENDING FAX CLINICALS TO [phone]
--- NOTE | 2018-07-21 13:50 | NUR ---
PT NOTE Attempted to see patient for PT treatment. Patient declining to participate with PT at this time, reports that he is not feeling well, did not sleep well last night. Patient's right to decline respected, Fransico CAZARES notified, will follow up tomorrow.
--- NOTE | 2018-07-21 14:02 | Infectious Diseases Prog Note ---
Assessment/Plan Assessment/Plan IMPRESSION: Cellulitis of left lower extremity ( Serratia culture) extensive stasis dermatitis COPD, urge incontinence, seizure disorder, history of syncope, s/p fall. Inguinal adenopathy RECOMMENDATION: continue PO Bactrim until tomorrow Waiting for placement Subjective ROS Limited/Unobtainable: No Constitutional: Reports: no symptoms Respiratory: Reports: no symptoms Gastrointestinal/Abdominal: Reports: no symptoms Genitourinary: Reports: no symptoms Musculoskeletal: Reports: pain, other - in legs Allergies: Coded Allergies: NO KNOWN DRUG ALLERGIES (Verified Allergy, Unknown, 12/09/14) Objective Vital Signs Last 24 Hour Vital Signs Date Time Temp Pulse Resp B/P (MAP) Pulse Ox O2 Delivery O2 Flow Rate FiO2 07/21/18 11:55 98.4 54 18 115/60 (78) 96 07/21/18 08:27 Room Air 07/21/18 08:01 98.4 60 18 165/60 (95) 96 07/21/18 04:12 98.4 57 18 136/69 (91) 96 07/21/18 00:00 98.4 55 18 123/60 (81) 99 07/20/18 21:00 Room Air 07/20/18 20:00 98.1 56 18 125/58 (80) 98 07/20/18 16:00 98.0 56 18 116/58 (77) 96 Height (Feet): 5 Height (Inches): 8.00 Weight (Pounds): 113 General Appearance: no acute distress HEENT: mucous membranes moist Respiratory/Chest: lungs clear Cardiovascular: normal rate Abdomen: soft, non tender Skin: ulcers, other - left leg Neurologic/Psychiatric: alert, responsive Current Medications Medications (Trade) Dose Ordered Sig/Syl Route PRN Reason Start Time Stop Time Status Last Admin Dose Admin Acetaminophen (Tylenol) 650 mg Q4H PRN ORAL Mild Pain/Temp > 100.5 07/15/18 04:33 08/12/18 04:32 07/20/18 21:53 Aspirin (Ecotrin) 162 mg DAILY ORAL 07/15/18 09:00 08/12/18 08:59 07/21/18 08:48 Atorvastatin Calcium (Lipitor) 10 mg BEDTIME ORAL 07/15/18 21:00 08/12/18 20:59 07/20/18 21:53 Dextrose (Dextrose 50%) 25 ml Q30M PRN IV Hypoglycemia 07/15/18 04:45 08/12/18 00:14 Dextrose (Dextrose 50%) 50 ml Q30M PRN IV Hypoglycemia 07/15/18 04:45 08/12/18 00:14 Heparin Sodium (Porcine) (Heparin 5000 units/ml) 5,000 units EVERY 12 HOURS SUBQ 07/15/18 09:00 08/12/18 08:59 07/21/18 08:52 Methadone HCl (Methadone HCl) 100 mg DAILY ORAL 07/20/18 09:53 07/27/18 09:52 07/21/18 08:48 Mupirocin (Bactroban Oint) 1 applic DAILY TOPIC 07/21/18 10:00 07/26/18 09:59 07/21/18 10:00 Tamsulosin HCl (Flomax) 0.4 mg DAILY ORAL 07/15/18 09:00 08/12/18 08:59 07/21/18 08:48 Trimethoprim/ Sulfamethoxazole (Bactrim-DS) 1 tab Q12HR ORAL 07/20/18 12:51 07/27/18 12:50 07/21/18 08:48 Dany Mcfarlane MD July 21, 2018 14:02
--- NOTE | 2018-07-21 14:14 | NUR ---
CASE MANAGEMENT:REVIEW 07/21/18 SI: LLE CELLULITIS. COPD 98.4 54 18 115/60 96% ON RA IS: BACTRIM PO Q12 METHADONE 100MG PO QD ASA PO QD HEPARIN SQ Q12 : MED/SURG 4 [place] PLAN: DIFFICULT SNF PLACEMENT D/T METHADONE
--- NOTE | 2018-07-21 14:34 | NUR ---
DISCHARGE PLANNING LEFT [facility] [employer] [facility], STEPHANIE @ [phone] REQUESTING ASSISTANCE WITH SNF AUTHORIZATION
[2018-07-21 16:00] VITALS: BP 128/58
--- NOTE | 2018-07-21 16:01 | NUR ---
DISCHARGE PLANNING PATIENT WAS REFERRED TO [facility] ~ NO BEDS AVAILABLE REFERRED TO [facility] ~ THEY DECLINED TO ACCEPT REFERRED TO [facility] ~ THEY ACCEPTED PATIENT TO ROOM 27B~ UPDATED DR HAMMER ~AWAIT DISCHARGE ORDER
--- NOTE | 2018-07-21 16:45 | NUR ---
NURSE NOTES: Report received from Fransico CAZARES, rounds made. Patient alert, oriented x4, calm. No distress on RA, no NV, no c/o pain. Right wrist HL intact, site asymptomatic. Call light in reach, bed in lowest position, will continue to monitor.
--- NOTE | 2018-07-21 16:52 | NUR ---
HAND-OFF: Report given to CADENCE CAZARES.
--- NOTE | 2018-07-21 19:30 | NUR ---
NURSE NOTES: RECEIVED PATIENT LYING IN BED, AWAKE, ALERT/ORIENTED X4, VERBALLY RESPONSIVE, DENIES PAIN. NO SIGNS AND SYMPTOMS OF ACUTE CARDIO RESPIRATORY DISTRESS/SHORTNESS OF BREATH, NO PERIPHERAL EDEMA NOTED, DRESSING DRY AND INTACT TO LEFT LOWER EXTREMITY. NOTED WITH GENERALIZED WEAKNESS, ASSISTIVE DEVICES AT BEDSIDE, (WHEELCHAIR/CANE). NO COMPLAINTS OF GI DISCOMFORT, NO N/V/D, URINAL AT BEDSIDE. SIDE RAILS UP X3/BED IN LOWEST POSITION FOR SAFETY. CALL LIGHT WITHIN REACH. NAD.
--- NOTE | 2018-07-21 19:35 | NUR ---
HAND-OFF: Report given to Caitlyn CAZARES.
[2018-07-21 20:00] VITALS: BP 127/67
[2018-07-22] VITALS: BP 118/51
[2018-07-22 04:00] VITALS: BP 136/67
--- NOTE | 2018-07-22 07:57 | NUR ---
NURSE NOTES: pt in bed with no sob nor in any form of distress noted. breathing regular and unlabored. denies pain at this time. kept clean and comfortable. call light within reach at all time. will continue to monitor
[2018-07-22 08:00] VITALS: BP 159/66
[2018-07-22] MEDS: Tamsulosin 0.4mg cap ORAL SCH (08:49)
[2018-07-22] MEDS: Bactrim-DS 1 tab ORAL SCH (08:49)
[2018-07-22] MEDS: Aspirin EC 81mg tab ORAL SCH (08:49)
[2018-07-22] MEDS: Heparin 5000 units/ml inj SUBQ SCH (08:54)
--- NOTE | 2018-07-22 10:49 | NUR ---
*-* INSURANCE *-* UPDATED CLINICALS AND REVIEWS HAVE BEEN FAXED TO: [employer] [place]:PENDING FAX CLINICALS TO [phone]
--- NOTE | 2018-07-22 11:30 | NUR ---
DISCHARGE PLANNED NO BEDS AT [facility] BED SECURED AT [facility] PATIENT WILL DISCHARGE TO [facility] ROOM 418-1 SKILLED T: [phone] FOR NURSE TO NURSE REPORT [facility] HAS BEEN ARRANGED FOR 1300 VP ACCOUNT DIRECTOR
--- NOTE | 2018-07-22 11:39 | General Progress Note ---
Assessment/Plan Problem List: (1) Cellulitis and abscess of left leg ICD Codes: L03.116 - Cellulitis of left lower limb; L02.416 - Cutaneous abscess of left lower limb SNOMED: 007990699 (2) DM (diabetes mellitus) ICD Codes: E11.9 - Type 2 diabetes mellitus without complications SNOMED: 55754506 (3) Peripheral vascular disease ICD Codes: I73.9 - Peripheral vascular disease, unspecified SNOMED: 930667220 (4) Prostate CA ICD Codes: C61 - Malignant neoplasm of prostate SNOMED: 475010992 (5) Fall ICD Codes: W19.XXXA - Unspecified fall, initial encounter SNOMED: 2122386, 720505034 Status: stable Assessment/Plan: DC Abxs Wound care DC to SNF today Subjective Allergies: Coded Allergies: NO KNOWN DRUG ALLERGIES (Verified Allergy, Unknown, 12/09/14) Subjective Patient is in no acute distress Objective Last 24 Hour Vital Signs Date Time Temp Pulse Resp B/P (MAP) Pulse Ox O2 Delivery O2 Flow Rate FiO2 07/22/18 09:46 Room Air 07/22/18 08:00 98.5 84 18 159/66 (97) 96 07/22/18 04:00 98.1 58 18 136/67 (90) 96 07/22/18 00:00 98.4 62 18 118/51 (73) 95 07/21/18 21:00 Room Air 07/21/18 20:00 98.2 64 20 127/67 (87) 98 07/21/18 16:00 98.4 54 18 128/58 (81) 96 07/21/18 11:55 98.4 54 18 115/60 (78) 96 Intake and Output 07/21/18 07/22/18 19:00 07:00 Intake Total 720 ml 600 ml Output Total 700 ml 800 ml Balance 20 ml -200 ml Intake Oral 720 ml 600 ml Output Urine Total 700 ml 800 ml Height (Feet): 5 Height (Inches): 8.00 Weight (Pounds): 113 Cardiovascular: normal rate Respiratory/Chest: lungs clear Narciso Mcfarlane MD July 22, 2018 11:39
[2018-07-22 12:00] VITALS: BP 137/61
--- NOTE | 2018-07-22 13:25 | NUR ---
NURSE NOTES: pt discharged to [facility] picked up by ambulance with stable condition. all belongings given to pt. All discharge instruction given to the nurse Susanna and verbalized understanding. iv heplock removed and covered with gauze and taped. VSS.denies any pain.
--- NOTE | 2018-07-22 19:19 | NUR ---
HAND-OFF: Report given to SAGE SCHULTZ.
--- NOTE | 2018-07-23 12:29 | Discharge Summary ---
Discharge Summary Discharge Summary _ DATE OF ADMISSION: 07/12/2018 DATE OF DISCHARGE: 07/22/2018 DISCHARGED BY: Dr. Mcfarlane REASON FOR ADMISSION: 67 years old male with past medical history of bladder cancer, prostate cancer, seizure disorder, COPD, diabetes mellitus, hypertension, heart problem, fell while attempting to cross the street. He presented with increased pain on the right side of his chest. Upon evaluation vital signs were stable. Laboratory work-up revealed no leukocytosis, stable hemoglobin and hematocrit. Lactic acid 1.2. Stable electrolytes and renal parameters. Troponin - 0.012. Albumin 3.4. Urinalysis revealed no evidence of UTI. Chest x-ray revealed no acute findings. Cardiomegaly noted. Pleural calcification on the left , may be due to old trauma or post inflammatory. Physical examination revealed significant infection of left lower extremity, consistent with cellulitis. Patient subsequently was admitted for further management. CONSULTANTS: ID specialist Dr. Iglesias plastic surgeon [facility] COURSE: Patient admitted to medical surgical floor. Infectious disease specialist followed. Patient started on empiric antibiotic. Wound care provided. Plastic surgeon seen and evaluated patient Per plastic surgeon, patient had chronic left lower extremity ulcer. Surgeon recommended to obtain arterial Doppler studies. Wound care was changed from hydrogen peroxide to Bactroban ointment. Patient to follow-up as outpatient at wound care clinic at [place]. Blood cultures were negative. Wound culture revealed Serratia . Patient also had evidence of extensive stasis dermatitis. Patient was on IV antibiotic while in the hospital , which later changed to oral as per ID recommendation Patient completed the course of antibiotic. Protein supplements implemented in plan of care as per registered nurse first assistant recommendation. Fall precaution maintained. Patient was working with physical therapist. Supplemental oxygen was on board as needed to keep pulse oximetry above 92%. Pulmonary toilet was on standby as needed. Seizure precaution maintained. No evidence of seizure activity while in the hospital. DVT prophylaxis provided. Antiplatelet therapy with aspirin continued. Pain management was addressed, and pain was controlled. Supportive care provided. Placement was found to the prison facility for continuation of prison care. Patient clinically stabilized and was ready for transfer back to prison facility for continuation of care. FINAL DIAGNOSES: Cellulitis left lower extremity (Serratia culture) Chronic left lower extremity ulcer Extensive stasis dermatitis Emaciated with malnutrition Moderate protein calorie malnutrition Diabetes mellitus Peripheral vascular disease Status post fall History of prostate CA COPD Seizure disorder Urge incontinence DISCHARGE MEDICATIONS: See Medication Reconciliation list. DISCHARGE INSTRUCTIONS: Patient was discharged to the prison facility. Follow up with medical doctor at the facility. I have been assigned to dictate discharge summary for this account. I was not involved in the patient's management. Zara Zhou NP Jul 23, 2018 12:29
== END 2018-07-22 13:00 | DRG 383 ==
LOC: EDBD 20:16 → EMR 20:44 → 2E 23:05 → EDBEDREQ 23:25 → 4E 07-15 03:52
DX: L03.116 Cellulitis of left lower limb (principal); E44.0 Moderate protein-calorie malnutrition; L97.829 Non-pressure chronic ulcer of other part of left lower leg with unspecified severity; I73.9 Peripheral vascular disease, unspecified; J44.9 Chronic obstructive pulmonary disease, unspecified; F17.210 Nicotine dependence, cigarettes, uncomplicated; G40.909 Epilepsy, unspecified, not intractable, without status epilepticus; E11.9 Type 2 diabetes mellitus without complications; I10 Essential (primary) hypertension; B96.89 Other specified bacterial agents as the cause of diseases classified elsewhere; I87.2 Venous insufficiency (chronic) (peripheral); N39.41 Urge incontinence; Z59.0 Homelessness; Z68.1 Body mass index [BMI] 19.9 or less, adult; Z85.46 Personal history of malignant neoplasm of prostate; Z85.51 Personal history of malignant neoplasm of bladder; Z91.81 History of falling
CPT/HCPCS: 36415; 71045; 80053; 80061; 80202; 81003; 82550; 82553; 82962; 83036; 83605; 83735; 84100; 84484; 85025; 85610; 85730; 87040; 87070; 87081; 87181; 87205; 93005; 93922; 96360; 99285